=== PATIENT | female | born 1960 | race Caucasian/White ===

== ENCOUNTER 2017-08-08 06:25 | Inpatient (IN) | payer BC ==
[2017-08-08] MEDS ORDERED: ACETAMINOPHEN IV (For NPO) 1,000 MG in EMPTY BAG 1 BAG IVPB STA (06:41)
[2017-08-08] MEDS ORDERED: VANCOMYCIN IV PER PHARMACY 1 EACH MISC MISCELLANE PRN (06:41)
[2017-08-08] MEDS ORDERED: PIPERACILLIN-TAZOBACTAM 3.375 GM in DEXTROSE/WATER 1 50ML.BAG IVPB STA (06:41)
[2017-08-08] MEDS ORDERED: ONDANSETRON 4 MG/2 ML VIAL IVP STA (06:44)
--- NOTE | 2017-08-08 06:48 | ED ---
Abdominal Pain HPI - General Source: patient Mode of arrival: ambulatory Limitations: no limitations <Yordy Booth - Last Filed: 08/08/17 07:04> <Wilbert Matos - Last Filed: 08/08/17 08:18> - General Chief Complaint: Abdominal Pain Stated Complaint: Abominal Pain/GI Bleed Time Seen by Provider: 08/08/17 06:33 - History of Present Illness Initial Comments: This is a 57-year-old female who presents emergency department for abdominal pain, diarrhea, and hematochezia. She states that she's been having diarrhea intermittently for the last month. She traveled to [place] about 2 weeks ago and picked up a stomach bug. She states that she had increased amount of diarrhea however seemed to improve until 2 days ago when she noticed that she was having blood in her stools and mucous in her diarrhea. She also has been having some nausea and vomiting and been unable to keep down any food or medications. She states that yesterday night she suddenly developed worse abdominal pain and cramping. It gradually got worse throughout the night to the point where she is now having a severe amount of abdominal pain. She states that it feels like when she gave to her child feet first. She admits to chills however no fevers at home. Denies any dysuria or hematuria. No other acute complaints. (Yordy Booth) - Related Data Allergies Allergy/AdvReac Type Severity Reaction Status Date / Time No Known Allergies Allergy Verified 08/08/17 08:14 Review of Systems ROS Other: All systems not noted in ROS Statement are negative. <Yordy Booth - Last Filed: 08/08/17 07:04> ROS Other: All systems not noted in ROS Statement are negative. <Wilbert Matos - Last Filed: 08/08/17 08:18> ROS Statement: Those systems with pertinent positive or pertinent negative responses have been documented in the HPI. Past Medical History Past Medical History: Hypertension History of Any Multi-Drug Resistant Organisms: None Reported Past Surgical History: Section Past Psychological History: No Psychological Hx Reported Smoking Status: Former smoker Past Alcohol Use History: Rare Past Drug Use History: None Reported <Yordy Booth - Last Filed: 08/08/17 07:04> General Exam Limitations: no limitations <Yordy Booth - Last Filed: 08/08/17 07:04> <Wilbert Matos - Last Filed: 08/08/17 08:18> - General Exam Comments Initial Comments: Constitutional: Awake alert appears in moderate distress and uncomfortable Head: Normocephalic atraumatic Eyes: no conjunctival injection, the conjunctiva are pale No scleral icterus EOMI Neck: No JVD Supple Heart: Tachycardic with a regular rhythm normal S1-S2 no murmurs Lungs: Clear to auscultation bilaterally No wheezing No rales Abdomen: Soft I'll be distended with diffuse abdominal tenderness and guarding and rebound Extremities: Non edematous DP pulses intact Radial pulses intact Neuro: A&Ox3 No focal neurologic deficits Psych: Appropriate mood and affect (Yordy Booth) Course <Yordy Booth - Last Filed: 08/08/17 07:04> <Wilbert Matos - Last Filed: 08/08/17 08:18> Vital Signs 08/08/17 06:28 Temperature 102.5 F H Pulse Rate 126 H Respiratory 18 Rate Blood Pressure 145/82 O2 Sat by Pulse 95 Oximetry - Reevaluation(s) Reevaluation #1: 08/08/17 06:56 EKG showing sinus tachycardia with a rate of 122. No abnormal ST segment changes or T-wave inversions. QTC is 41. Other intervals are normal. No ectopy. (Yordy Booth) Reevaluation #2: 08/08/17 07:05 Patient's care transitioned to Dr. Matos (Yordy Booth) Reevaluation #3: 08/08/17 08:15 Call received from radiologist regarding computed tomography scan. Patient reevaluated and is resting comfortably in bed. Patient and family are updated on results. Patient states she does see Dr. Hayes. Dr. Holguin has been paged. Patient does meet sepsis criteria diagnosed at 10 29. Blood culture and lactic acid and IV antibiotics have already been ordered. (Wilbert Matos) Medical Decision Making - Lab Data Result diagrams: 08/08/17 06:49 08/08/17 06:49 - Radiology Data Radiology results: report reviewed (Computed tomography scan of the abdomen and pelvis as discussed with radiologist has concern for colitis versus tumor in the rectosigmoid junction. In addition there is pneumoperitoneum. In addition there is some concern for liver metastasis.), image reviewed (Abdominal x-ray shows possible pneumoperitoneum. Associated ileus.) <Wilbert Matos - Last Filed: 08/08/17 08:18> - Lab Data Lab Results 08/08/17 08/08/17 08/08/17 Range/Units 06:49 06:49 06:49 WBC 9.6 (3.8-10.6) k/uL RBC 4.52 (3.80-5.40) m/uL Hgb 12.6 (11.4-16.0) gm/dL Hct 38.0 (34.0-46.0) % MCV 84.1 (80.0-100.0) fL MCH 27.9 (25.0-35.0) pg MCHC 33.2 (31.0-37.0) g/dL RDW 12.6 (11.5-15.5) % Plt Count 417 (150-450) k/uL Neutrophils % 89 % Lymphocytes % 6 % Monocytes % 3 % Eosinophils % 1 % Basophils % 0 % Neutrophils # 8.5 H (1.3-7.7) k/uL Lymphocytes # 0.6 L (1.0-4.8) k/uL Monocytes # 0.3 (0-1.0) k/uL Eosinophils # 0.1 (0-0.7) k/uL Basophils # 0.0 (0-0.2) k/uL PT (9.0-12.0) sec INR (<1.2) APTT (22.0-30.0) sec Sodium (137-145) mmol/L Potassium (3.5-5.1) mmol/L Chloride (98-107) mmol/L Carbon Dioxide (22-30) mmol/L Anion Gap mmol/L BUN (7-17) mg/dL Creatinine (0.52-1.04) mg/dL Est GFR (CKD-EPI)AfAm (>60 ml/min/1.73 sqM) Est GFR (CKD-EPI)NonAf (>60 ml/min/1.73 sqM) Glucose (74-99) mg/dL Plasma Lactic Acid Inder (0.7-2.0) mmol/L Calcium (8.4-10.2) mg/dL Total Bilirubin (0.2-1.3) mg/dL AST (14-36) U/L ALT (9-52) U/L Alkaline Phosphatase (38-126) U/L Total Creatine Kinase 131 (30-135) U/L CK-MB (CK-2) 1.1 (0.0-2.4) ng/mL CK-MB (CK-2) Rel Index 0.8 Troponin I <0.012 (0.000-0.034) ng/mL Total Protein (6.3-8.2) g/dL Albumin (3.5-5.0) g/dL Urine Color Urine Appearance (Clear) Urine pH (5.0-8.0) Ur Specific [place] (1.001-1.035) Urine Protein (Negative) Urine Glucose (UA) (Negative) Urine Ketones (Negative) Urine Blood (Negative) Urine Nitrite (Negative) Urine Bilirubin (Negative) Urine Urobilinogen (<2.0) mg/dL Ur Leukocyte Esterase (Negative) Urine RBC (0-5) /hpf Urine WBC (0-5) /hpf Ur Squamous Epith Cells (0-4) /hpf Urine Mucus (None) /hpf Blood Type A Positive Blood Type Recheck CABO Indicated Antibody Screen NEGATIVE Spec Expiration Date 08/11/2017 - 234808/08/17 08/08/17 08/08/17 Range/Units 06:49 06:49 06:49 WBC (3.8-10.6) k/uL RBC (3.80-5.40) m/uL Hgb (11.4-16.0) gm/dL Hct (34.0-46.0) % MCV (80.0-100.0) fL MCH (25.0-35.0) pg MCHC (31.0-37.0) g/dL RDW (11.5-15.5) % Plt Count (150-450) k/uL Neutrophils % % Lymphocytes % % Monocytes % % Eosinophils % % Basophils % % Neutrophils # (1.3-7.7) k/uL Lymphocytes # (1.0-4.8) k/uL Monocytes # (0-1.0) k/uL Eosinophils # (0-0.7) k/uL Basophils # (0-0.2) k/uL PT 10.4 (9.0-12.0) sec INR 1.1 (<1.2) APTT 21.5 L (22.0-30.0) sec Sodium 137 (137-145) mmol/L Potassium 3.6 (3.5-5.1) mmol/L Chloride 100 (98-107) mmol/L Carbon Dioxide 22 (22-30) mmol/L Anion Gap 15 mmol/L BUN 13 (7-17) mg/dL Creatinine 0.46 L (0.52-1.04) mg/dL Est GFR (CKD-EPI)AfAm >90 (>60 ml/min/1.73 sqM) Est GFR (CKD-EPI)NonAf >90 (>60 ml/min/1.73 sqM) Glucose 233 H (74-99) mg/dL Plasma Lactic Acid Inder 0.9 (0.7-2.0) mmol/L Calcium 9.0 (8.4-10.2) mg/dL Total Bilirubin 0.9 (0.2-1.3) mg/dL AST 27 (14-36) U/L ALT 28 (9-52) U/L Alkaline Phosphatase 118 (38-126) U/L Total Creatine Kinase (30-135) U/L CK-MB (CK-2) (0.0-2.4) ng/mL CK-MB (CK-2) Rel Index Troponin I (0.000-0.034) ng/mL Total Protein 6.3 (6.3-8.2) g/dL Albumin 3.8 (3.5-5.0) g/dL Urine Color Urine Appearance (Clear) Urine pH (5.0-8.0) Ur Specific [place] (1.001-1.035) Urine Protein (Negative) Urine Glucose (UA) (Negative) Urine Ketones (Negative) Urine Blood (Negative) Urine Nitrite (Negative) Urine Bilirubin (Negative) Urine Urobilinogen (<2.0) mg/dL Ur Leukocyte Esterase (Negative) Urine RBC (0-5) /hpf Urine WBC (0-5) /hpf Ur Squamous Epith Cells (0-4) /hpf Urine Mucus (None) /hpf Blood Type Blood Type Recheck Antibody Screen Spec Expiration Date 08/08/17 Range/Units 07:55 WBC (3.8-10.6) k/uL RBC (3.80-5.40) m/uL Hgb (11.4-16.0) gm/dL Hct (34.0-46.0) % MCV (80.0-100.0) fL MCH (25.0-35.0) pg MCHC (31.0-37.0) g/dL RDW (11.5-15.5) % Plt Count (150-450) k/uL Neutrophils % % Lymphocytes % % Monocytes % % Eosinophils % % Basophils % % Neutrophils # (1.3-7.7) k/uL Lymphocytes # (1.0-4.8) k/uL Monocytes # (0-1.0) k/uL Eosinophils # (0-0.7) k/uL Basophils # (0-0.2) k/uL PT (9.0-12.0) sec INR (<1.2) APTT (22.0-30.0) sec Sodium (137-145) mmol/L Potassium (3.5-5.1) mmol/L Chloride (98-107) mmol/L Carbon Dioxide (22-30) mmol/L Anion Gap mmol/L BUN (7-17) mg/dL Creatinine (0.52-1.04) mg/dL Est GFR (CKD-EPI)AfAm (>60 ml/min/1.73 sqM) Est GFR (CKD-EPI)NonAf (>60 ml/min/1.73 sqM) Glucose (74-99) mg/dL Plasma Lactic Acid Inder (0.7-2.0) mmol/L Calcium (8.4-10.2) mg/dL Total Bilirubin (0.2-1.3) mg/dL AST (14-36) U/L ALT (9-52) U/L Alkaline Phosphatase (38-126) U/L Total Creatine Kinase (30-135) U/L CK-MB (CK-2) (0.0-2.4) ng/mL CK-MB (CK-2) Rel Index Troponin I (0.000-0.034) ng/mL Total Protein (6.3-8.2) g/dL Albumin (3.5-5.0) g/dL Urine Color Yellow Urine Appearance Clear (Clear) Urine pH 6.0 (5.0-8.0) Ur Specific [place] 1.018 (1.001-1.035) Urine Protein Trace H (Negative) Urine Glucose (UA) 2+ H (Negative) Urine Ketones 1+ H (Negative) Urine Blood Trace H (Negative) Urine Nitrite Negative (Negative) Urine Bilirubin Negative (Negative) Urine Urobilinogen <2.0 (<2.0) mg/dL Ur Leukocyte Esterase Negative (Negative) Urine RBC 2 (0-5) /hpf Urine WBC 1 (0-5) /hpf Ur Squamous Epith Cells <1 (0-4) /hpf Urine Mucus Rare H (None) /hpf Blood Type Blood Type Recheck Antibody Screen Spec Expiration Date Critical Care Time Critical Care Time: Yes Total Critical Care Time: 32 <Wilbert Matos - Last Filed: 08/08/17 08:18> Disposition <Yordy Booth - Last Filed: 08/08/17 07:04> Is patient prescribed a controlled substance at d/c from ED?: No Decision Time: 08:18 <Wilbert Matos - Last Filed: 08/08/17 08:18> Clinical Impression: Pneumoperitoneum Disposition: ADMITTED IP TO THIS HOSP Condition: Serious Referrals: None,Stated [Primary Care Provider] - 1-2 days
[2017-08-08] MEDS ORDERED: RX INFO: IV CONTRAST WAS GIVEN 1 EACH MISC MISCELLANE PRN (06:56)
[2017-08-08] MEDS ORDERED: VANCOMYCIN 1,250 MG in SODIUM CHLORIDE 0.9% 250 ML IVPB ONE (07:00)
[2017-08-08] MEDS: MORPHINE SULFATE 4 MG/ML SYRINGE IVP STA ×2 (07:06→08:12)
[2017-08-08] MEDS: SODIUM CHLORIDE 0.9% 500 ML IV SCH ×3 (07:06→14:45)
[2017-08-08 07:21] LABS: Basophils % (A) 0 %; Eosinophils # (A) 0.1 k/uL (0-0.7); Eosinophils % (A) 1 %; HGB 12.6 gm/dL (11.4-16.0); Lymphocytes # (A) 0.6 k/uL (1.0-4.8); Lymphocytes % (A) 6 %; MCH 27.9 pg (25.0-35.0); MCHC 33.2 g/dL (31.0-37.0); MCV 84.1 fL (80.0-100.0); Mean Platelet Volume 7.2; Monocytes # (A) 0.3 k/uL (0-1.0); Monocytes % (A) 3 %; Neutrophils # (A) 8.5 k/uL (1.3-7.7); Neutrophils % (A) 89 %; Platelet Count 417 k/uL (150-450); RBC 4.52 m/uL (3.80-5.40); RDW 12.6 % (11.5-15.5); WBC 9.6 k/uL (3.8-10.6)
[2017-08-08 07:26] LABS: ALT 28 U/L (9-52); AST 27 U/L (14-36); Albumin 3.8 g/dL (3.5-5.0); Alkaline Phosphatase 118 U/L (38-126); Anion Gap 15 mmol/L; Blood Urea Nitrogen 13 mg/dL (7-17); Carbon Dioxide 22 mmol/L (22-30); Chloride 100 mmol/L (98-107); Glucose 233 mg/dL (74-99); Potassium 3.6 mmol/L (3.5-5.1); Sodium 137 mmol/L (137-145); Total Bilirubin 0.9 mg/dL (0.2-1.3); Total Protein 6.3 g/dL (6.3-8.2)
[2017-08-08 07:37] LABS: INR 1.1 (<1.2); Prothrombin Time 10.4 sec (9.0-12.0)
[2017-08-08 07:42] LABS: Partial Thromboplastin Time 21.5 sec (22.0-30.0)
[2017-08-08 07:43] LABS: Creatine Kinase 131 U/L (30-135)
[2017-08-08 07:56] LABS: Creatine Kinase MB 1.1 ng/mL (0.0-2.4); Troponin I <0.012 ng/mL (0.000-0.034)
[2017-08-08 08:10] LABS: Appearance,Urine Clear (Clear); Bilirubin,Urine Negative (Negative); Blood,Urine Trace (Negative); Color,Urine Yellow; Glucose,Urine (UA) 2+ (Negative); Ketones,Urine 1+ (Negative); Leukocyte Esterase,Urine Negative (Negative); Mucus,Urine Rare /hpf; Nitrite,Urine Negative (Negative); Protein,Urine Trace (Negative); RBC,Urine 2 /hpf (0-5); Specific Gravity,Urine 1.018 (1.001-1.035); Squamous Epithelial Cell,Urine <1 /hpf (0-4); Urobilinogen,Urine <2.0 mg/dL (<2.0); WBC,Urine 1 /hpf (0-5)
--- NOTE | 2017-08-08 08:11 | XR ---
EXAMINATION TYPE: XR abdomen acute w cxr DATE OF EXAM: 08/08/2017 COMPARISON: NONE HISTORY: Nausea vomiting and abdominal distention, fever TECHNIQUE: Supine, upright, and frontal chest views of the abdomen and chest are obtained. FINDINGS: Chest x-ray shows no abnormality. There is pneumoperitoneum suspected beneath the left hemidiaphragm. There are fluid levels with some gas-distended small bowel present. There are overlying cardiac leads . No mass effects are seen. No unusual calcifications. IMPRESSION: Pneumoperitoneum. There may be an associated ileus. Recommend CT scan of the abdomen and pelvis. Report relayed to Dr. Matos telephonically at the time o f interpretation.
[2017-08-08] MEDS ORDERED: MORPHINE SULFATE 4 MG/ML SYRINGE IV PRN (08:18)
[2017-08-08] MEDS ORDERED: NALOXONE 0.4 MG/ML 1 ML VIAL IV PRN ×2 (08:18→10:58)
--- NOTE | 2017-08-08 08:18 | CT ---
EXAMINATION TYPE: CT abdomen pelvis w con DATE OF EXAM: 08/08/2017 HISTORY: Abdominal pain, GI bleed CT DLP: 637.5mGycm Automated Exposure Control for Dose Reduction was Utilized. CONTRAST: CT scan of the abdomen and pelvis is performed with IV Contrast, patient injected with 100 mL of Isov ue 300. COMPARISON: None. FINDINGS: LUNG BASES: Very minimal bibasilar subsegmental atelectasis is seen. LIVER/GB: There are 3 suspicious hepatic lesions that do not meet criteria for simple cysts with the largest in segment 8 measuring 4.9 x 3.3 cm. The second largest PANCREAS: No significant abnormality is seen. SPLEEN: No significant abnormality is seen. No spinal megaly. ADRENALS: No nodularity or thickening. KIDNEYS: Kidneys enhance and excrete symmetrically. No hydronephrosis. BOWEL: There is focal bowel wall thickening of the rectosigmoid junction such as on series 3 image 59 and 55 measuring up to 1.3 cm left eccentric lead. There is also surrounding free fluid within the m esorectal fascia. Foci of free air seen adjacent to this on image 58 and 55. Additionally there is pn eumoperitoneum anterior to the liver margin in the upper ventral abdomen. Proximal to the bowel wall thickening there is colonic distention without clyde dilatation measuring up to 4.9 cm. Retained stoo l seen throughout the colon. Prominent loops of small bowel demonstrating small bowel feces sign or m easured in the left upper abdomen on coronal images up to 2.5 cm, nondilated. Additionally foci of ex traluminal air are seen within the posterior mediastinum anterior to the esophagus. The second larges t hepatic lesion measures 2.5 x 2.2 cm and the smaller left hepatic lobe lesion measures 1.3 cm. Destini hepatic ascites is identified. No intrahepatic biliary ductal dilatation. LYMPH NODES: Ascites limits evaluation for adenopathy. r 1.1 cm lymph node is seen anterior to the le ft common iliac artery on image 38. 9 mm short axis lymph node is also seen adjacent to the left comm on iliac artery on image 42. OSSEOUS STRUCTURES: Nonspecific but slightly suspicious sclerotic lesion with spiculated margins is s een at the L5 vertebral body measuring 1.5 cm in anterior posterior dimension. Other punctate scatter ed osseous sclerotic foci may relate to bone islands. There is mild retrolisthesis of L1 on L2 with s light vertebral body height loss of the superior endplate. OTHER: Small fat filled umbilical hernia has a 1.5 cm neck. Mild calcific atheromatous changes are se en of the abdominal aorta and its branches. IMPRESSION: Pneumoperitoneum that may arise from the distal sigmoid and rectosigmoid junction as ther e is focal luminal narrowing and eccentric bowel wall thickening suspicious for neoplasm with additio nal suspicion for hepatic metastasis, abdominal adenopathy suspicious osseous lesion and ascites. Les s likely this could relate to colitis of infectious or inflammatory etiology. Additionally foci of ai r are seen adjacent to the distal esophagus. This could relate to second site of rupture or diverticu lum. Findings were relayed to the ordering physician Dr. Matos at 8:03 AM on 08/08/2017.
[2017-08-08] MEDS ORDERED: LACTATED RINGERS 1,000 ML IV ONE ×2 (10:17→12:19)
--- NOTE | 2017-08-08 10:17 | P.GSHP ---
History of Present Illness H&P Date: 08/08/17 Chief Complaint: Abdominal pain This a 57-year-old female who awoke this morning with severe abdominal pain. Patient states for the last 3 weeks she's had change in bowel habit with small caliber stool and diarrhea. Patient had a CAT scan today which showed perforated viscus with free air and inflammatory changes sigmoid colon. There is a question of a colonic neoplasm. Past Medical History Past Medical History: Hypertension History of Any Multi-Drug Resistant Organisms: None Reported Past Surgical History: Section Past Psychological History: No Psychological Hx Reported Smoking Status: Former smoker Past Alcohol Use History: Rare Past Drug Use History: None Reported Medications and Allergies Home Medications Medication Instructions Recorded Confirmed Type Lisinopril [Zestril] 20 mg PO DAILY 08/08/17 08/08/17 History Allergies Allergy/AdvReac Type Severity Reaction Status Date / Time No Known Allergies Allergy Verified 08/08/17 08:21 Surgical - Exam Vital Signs Temp Pulse Resp BP Pulse Ox 102.5 F H 126 H 18 145/82 95 08/08/17 06:28 08/08/17 06:28 08/08/17 06:28 08/08/17 06:28 08/08/17 06:28 - General well developed, no distress - Eyes PERRL - ENT normal pinna - Neck no masses - Respiratory normal expansion - Cardiovascular Rhythm: regular - Abdomen Acute tenderness. There is diffuse abdominal pain. There is positive rebound or guarding. Abdomen: soft Results - Labs 08/08/17 06:49 08/08/17 06:49 Abnormal Lab Results - Last 24 Hours (Table) 08/08/17 08/08/17 08/08/17 Range/Units 06:49 06:49 06:49 Neutrophils # 8.5 H (1.3-7.7) k/uL Lymphocytes # 0.6 L (1.0-4.8) k/uL APTT 21.5 L (22.0-30.0) sec Creatinine 0.46 L (0.52-1.04) mg/dL Glucose 233 H (74-99) mg/dL Urine Protein (Negative) Urine Glucose (UA) (Negative) Urine Ketones (Negative) Urine Blood (Negative) Urine Mucus (None) /hpf 08/08/17 Range/Units 07:55 Neutrophils # (1.3-7.7) k/uL Lymphocytes # (1.0-4.8) k/uL APTT (22.0-30.0) sec Creatinine (0.52-1.04) mg/dL Glucose (74-99) mg/dL Urine Protein Trace H (Negative) Urine Glucose (UA) 2+ H (Negative) Urine Ketones 1+ H (Negative) Urine Blood Trace H (Negative) Urine Mucus Rare H (None) /hpf Diabetes panel 08/08/17 Range/Units 06:49 Sodium 137 (137-145) mmol/L Potassium 3.6 (3.5-5.1) mmol/L Chloride 100 (98-107) mmol/L Carbon Dioxide 22 (22-30) mmol/L BUN 13 (7-17) mg/dL Creatinine 0.46 L (0.52-1.04) mg/dL Glucose 233 H (74-99) mg/dL Calcium 9.0 (8.4-10.2) mg/dL AST 27 (14-36) U/L ALT 28 (9-52) U/L Alkaline Phosphatase 118 (38-126) U/L Total Protein 6.3 (6.3-8.2) g/dL Albumin 3.8 (3.5-5.0) g/dL Calcium panel 08/08/17 Range/Units 06:49 Calcium 9.0 (8.4-10.2) mg/dL Albumin 3.8 (3.5-5.0) g/dL Pituitary panel 08/08/17 Range/Units 06:49 Sodium 137 (137-145) mmol/L Potassium 3.6 (3.5-5.1) mmol/L Chloride 100 (98-107) mmol/L Carbon Dioxide 22 (22-30) mmol/L BUN 13 (7-17) mg/dL Creatinine 0.46 L (0.52-1.04) mg/dL Glucose 233 H (74-99) mg/dL Calcium 9.0 (8.4-10.2) mg/dL Adrenal panel 08/08/17 Range/Units 06:49 Sodium 137 (137-145) mmol/L Potassium 3.6 (3.5-5.1) mmol/L Chloride 100 (98-107) mmol/L Carbon Dioxide 22 (22-30) mmol/L BUN 13 (7-17) mg/dL Creatinine 0.46 L (0.52-1.04) mg/dL Glucose 233 H (74-99) mg/dL Calcium 9.0 (8.4-10.2) mg/dL Total Bilirubin 0.9 (0.2-1.3) mg/dL AST 27 (14-36) U/L ALT 28 (9-52) U/L Alkaline Phosphatase 118 (38-126) U/L Total Protein 6.3 (6.3-8.2) g/dL Albumin 3.8 (3.5-5.0) g/dL Assessment and Plan Assessment: Sigmoid colon perforation. Patient will undergo exploratory laparotomy. I discussed the patient that she will most likely need a colostomy.
[2017-08-08] MEDS ORDERED: MIDAZOLAM 2 MG/2 ML VIAL IV ONE (10:46)
[2017-08-08] MEDS ORDERED: fentaNYL (PF) 50 MCG/ML 2 ML AMP IV ONE (10:50)
[2017-08-08] MEDS ORDERED: ONDANSETRON 4 MG/2 ML VIAL IVP ONE (10:57)
[2017-08-08] MEDS ORDERED: DEXAMETHASONE SOD PHOSPHATE 10 MG/ML 1 ML VIAL IV ONE (10:57)
[2017-08-08] MEDS ORDERED: ONDANSETRON 4 MG/2 ML VIAL IVP PRN (10:58)
[2017-08-08] MEDS ORDERED: HEPARIN SODIUM,PORCINE 5,000 UNIT/ML 1 ML VIAL SQ ONE (10:58)
[2017-08-08] MEDS ORDERED: GLYCOPYRROLATE 0.2 MG/ML 2 ML VIAL ONE (11:04)
[2017-08-08] MEDS ORDERED: ROCURONIUM BROMIDE 10 MG/ML 10 ML VIAL IV ONE (11:04)
[2017-08-08] MEDS ORDERED: PHENYLEPHRINE-0.9% NACL SYG 1 MG/10 ML SYRINGE ONE (11:04)
[2017-08-08] MEDS ORDERED: SUCCINYLCHOLINE CHLORIDE 100 MG/5 ML SYR IV ONE (11:04)
[2017-08-08] MEDS ORDERED: PROPOFOL 10 MG/ML 20 ML VIAL IV ONE (11:04)
[2017-08-08] MEDS ORDERED: NEOSTIGMINE 1 MG/ML 10 ML VIAL ONE (11:04)
[2017-08-08] MEDS ORDERED: SODIUM CHLORIDE 0.9% 50 ML with ceFAZolin 2,000 MG IV ONE ×2 (11:22)
[2017-08-08] MEDS: ROPIVACAINE 250 MG, HYDROMORPHONE (PF) 5 MG in SODIUM CHLORIDE 0.9% 200 ML EPIDURAL PRN (12:36)
[2017-08-08] MEDS ORDERED: BENZOCAINE/MENTHOL LOZENG 1 EACH LOZENGE MUCOUS MEM PRN (13:17)
[2017-08-08] MEDS ORDERED: METOCLOPRAMIDE 5 MG/ML 2 ML VIAL IVP PRN (13:17)
--- NOTE | 2017-08-08 13:25 | P.OP ---
Date of Procedure: 08/08/17 Preoperative Diagnosis: Perforated viscus Postoperative Diagnosis: Sigmoid perforation with mass Incisional hernia incarcerated Procedure(s) Performed: Jodie procedure Repair of incarcerated incisional hernia Anesthesia: STACY Surgeon: Prosper Holguin Estimated Blood Loss (ml): 50 Pathology: other (Sigmoid colon) Condition: stable Disposition: PACU Description of Procedure: She was placed on the operating table in the supine position. She received general anesthesia. Her abdomen was prepped and draped usual sterile fashion. There was a incisional hernia. The abdomen was entered through a low midline incision. The incisional hernia containing incarcerated omentum. The peritoneum was opened. There was purulent fluid within the peritoneal cavity. The abdomen was aspirated. The Bookwalter tract with wound. The colon was quite dilated. There was a obvious mass at the sigmoid colon. There was no feculent perforation. At this point the descending colon was transected with the linear cutter stapler. And then using the LigaSure device the mesentery the colon was divided. And then the rectum was transected with the contour stapler. The specimen was sent to pathology. A silk tie was placed in the proximal colon. The abdomen was irrigated. A 2-0 Prolene stitch was placed on the rectal stump. There was no significant bleeding seen. At this point a suitable spot for the colostomy was chosen in the left lower quadrant. The fascia was grasped with a pair of Elia clamps and then the skin was divided for the colostomy. The colostomy was brought out through the rectus sheath. This fascia was then closed with looped #1 PDS suture. The incarcerated incisional hernia was repaired. The skin was closed yamilex. The colostomy is matured with 3-0 Vicryl suture.
[2017-08-08 14:27] LABS: Basophils % (A) 0 %; Eosinophils # (A) 0.1 k/uL (0-0.7); Eosinophils % (A) 0 %; HCT 35.3 % (34.0-46.0); HGB 11.6 gm/dL (11.4-16.0); Lymphocytes # (A) 0.6 k/uL (1.0-4.8); Lymphocytes % (A) 5 %; MCH 28.3 pg (25.0-35.0); MCHC 32.8 g/dL (31.0-37.0); MCV 86.4 fL (80.0-100.0); Mean Platelet Volume 6.5; Monocytes # (A) 0.2 k/uL (0-1.0); Monocytes % (A) 2 %; Neutrophils # (A) 11.2 k/uL (1.3-7.7); Neutrophils % (A) 93 %; Platelet Count 338 k/uL (150-450); RBC 4.08 m/uL (3.80-5.40); RDW 12.6 % (11.5-15.5); WBC 12.1 k/uL (3.8-10.6)
[2017-08-08 14:36] LABS: Anion Gap 11 mmol/L; Blood Urea Nitrogen 11 mg/dL (7-17); Carbon Dioxide 23 mmol/L (22-30); Chloride 105 mmol/L (98-107); Glucose 230 mg/dL (74-99); Potassium 3.9 mmol/L (3.5-5.1); Sodium 139 mmol/L (137-145)
[2017-08-08] MEDS: PANTOPRAZOLE 40 MG/10 ML VIAL IV SCH (14:45)
[2017-08-08] MEDS: ONDANSETRON 4 MG/2 ML VIAL IVP PRN (15:08)
--- NOTE | 2017-08-08 15:15 | CONS ---
CONSULTATION REASON FOR CONSULTATION AT THIS TIME: Hypertension, multiple medical issues requested by Dr. Holguin. HISTORY OF PRESENT ILLNESS: This is a 57-year-old woman with a past medical history of hypertension being for Dr. Negrete in the outpatient setting, underwent a Jodie's procedure and as well repair of incarcerated incisional hernia for sigmoid perforation with a mass by Dr. Holguin. There is no history of chest pain. No palpitations. No history of headache, loss of consciousness, seizures at this time. Abdominal, pelvis CAT scan was done in the ER which showed pneumoperitoneum and bowel wall suspicious for neoplasm. PAST MEDICAL HISTORY: Hypertension, history of section. MEDICATIONS PRIOR TO ADMISSION INCLUDE: Lisinopril and Zestril 20 mg daily. ALLERGIES: None. FAMILY HISTORY: No history of heart disease or strokes in the family. SOCIAL HISTORY: Previous history of smoking. No history of alcohol. REVIEW OF SYSTEMS: ENT: No diminished hearing or vision. CARDIOVASCULAR: No angina or palpitations. RESPIRATORY: As mentioned earlier, GI: No nausea. : No dysuria. NERVOUS SYSTEM: No numbness or weakness. ALLERGY/IMMUNOLOGY: No asthma or hayfever. MUSCULOSKELETAL: As mentioned earlier. HEMATOLOGY/ONCOLOGY: No history of anemia. ENDOCRINE: No history of diabetes or hypothyroidism. CONSTITUTIONAL: As mentioned earlier. DERMATOLOGY: Negative. RHEUMATOLOGY: Negative. PSYCHIATRY: As mentioned earlier. PHYSICAL EXAMINATION: Patient is alert and oriented x3. Pulse is 93, blood pressure 126/60, respirations 16, temperature 98 degrees, pulse ox 97% on 2 L. HEENT: Conjunctivae normal. Oral mucosa moist. Neck is no jugular venous distention. No lymph node enlargement. CARDIOVASCULAR: S1, S2, muffled, no S3, no S4. RESPIRATORY: Breath sounds diminished in the bases, a few rhonchi, no crackles. ABDOMEN: Soft, status post surgery. No mass palpable. LEGS: No edema, no swelling. NERVOUS SYSTEMS: Higher functions as mentioned earlier. moves all 4 limbs, no focal motor deficits. LYMPHATICS: No lymph node enlargement in the neck or axillae. SKIN: No ulcer, rash, bleeding. LABS: WBC is 12.1, hemoglobin is 11.6, glucose is 233. ASSESSMENT: 1. Acute sigmoid perforation with pneumoperitoneum, status post Jodie's procedure and repair of incarcerated incisional hernia. 2. Rule out sigmoid mass. 3. Hypertension. 4. Increased random blood sugar. Rule out diabetes mellitus type 2. 5. Increased WBC. 6. Remote history of nicotine dependence. RECOMMENDATION: In this 57-year-old woman who presented with multiple complex medical issues, will monitor patient closely, continue with the current management and symptomatic treatment. At this time, I recommend monitor closely. DVT prophylaxis, incentive spirometry, p.r.n. hydralazine. Once the patient is p.o., lisinopril may be restarted. Otherwise, follow up with the biopsies. Prognosis guarded. Will follow the patient closely. The patient will be asked to follow up with the primary physician closely after discharge. Thank you, Dr. Holguin for letting us participate in the care of this patient. See orders for further details. I will also check Accu-Cheks and order a hemoglobin A1c also to rule out the possibility of diabetes mellitus. MMODL / IJN: [id number] /
[2017-08-08] MEDS: HYDROmorphone 0.5 MG/0.5 ML SYRINGE IVP PRN (15:21)
[2017-08-08] MEDS: D5-0.45% NACL WITH KCL 20MEQ/L 1,000 ML IV SCH (15:22)
[2017-08-08] MEDS ORDERED: VANCOMYCIN 1,000 MG in SODIUM CHLORIDE 0.9% 250 ML IVPB SCH (16:00)
[2017-08-08] MEDS: PIPERACILLIN-TAZOBACTAM 3.375 GM in DEXTROSE/WATER 1 50ML.BAG IVPB SCH (17:42)
[2017-08-08] MEDS: HEPARIN SODIUM,PORCINE 5,000 UNIT/ML 1 ML VIAL SQ SCH (17:43)
[2017-08-08] MEDS: INSULIN ASPART 100 UNIT/ML 1 ML 10 ML VIAL SQ SCH ×2 (18:49→20:32)
[2017-08-08] MEDS: SODIUM CHLORIDE 0.9% 1,000 ML IV SCH ×2 (18:49→18:50)
[2017-08-08 19:19] VITALS: BMI 25.4
[2017-08-08 20:41] LABS: Glucose,Whole Blood 293 mg/dL (75-99)
--- NOTE | 2017-08-08 23:57 | CONS ---
CONSULTATION DATE OF SERVICE: 08/08/2017. REASON FOR CONSULTATION: Secondary peritonitis. HISTORY OF PRESENT ILLNESS: The patient is a 57-year-old female presenting to the ER at [facility] with a chief complaint of abdominal pain. Her pain has been going on for almost a month to 2 weeks. The pain has been mostly in the lower abdominal area assigned to be more of a dull aching pain that had subsequently gotten severe to be almost 10 out of 10 and the patient unable to because of significant pain. The patient has felt nauseated, but no significant vomiting. He did have some associated diarrhea. With these symptoms, the patient presented to the [facility] early this morning, where the patient did have a CT of abdomen and pelvis which did show pneumoperitoneum arising from the sigmoid and rectosigmoid junction with a circular luminal narrowing. The patient subsequently was evaluated by Dr. Holguin. The patient is status post laparotomy which was noticed to have perforation within an incisional hernia, incarcerated, status post Jodie procedure and repair of the incarcerated incisional hernia. The patient subsequently has been admitted to the medical floor. I was asked to see the patient regarding evaluation for antibiotic therapy. She did receive a dose of vancomycin and Zosyn in the ER. REVIEW OF SYSTEMS: CONSTITUTIONAL: Positive for weakness, some chills. No high-grade fever, though she did have fever 102.5 on arrival to the ER. EYES: No complaint. ENT: No complaint. RESPIRATORY: No complaint. CARDIOVASCULAR: No complaint. GENITOURINARY: No complaint. GASTROINTESTINAL: As per HPI. MUSCULOSKELETAL: No complaint. INTEGUMENTARY: No complaint. PSYCHOLOGICAL: No complaint. ENDOCRINE: No complaint. NEUROLOGIC: No complaint. PAST MEDICAL HISTORY: Significant for hypertension. PAST SURGICAL HISTORY: . SOCIAL HISTORY: Remote history of smoking. No drinking or drug use. FAMILY HISTORY: No pertinent findings noticed. ALLERGIES: No known drug allergies. MEDICATION: Include the patient is currently on: 1. Benadryl. 2. Heparin. 3. Hydralazine. 4. Dilaudid and. 5. NovoLog. 6. Reglan. 7. Morphine sulfate. 8. Narcan. 9. Zofran. 10.Protonix. 11.Vancomycin. EXAMINATION: Blood pressure is 152/76, pulse of 83, temperature of 97.8, T-max of 102.5. She is 92% on 2L nasal cannula. General description is a middle-aged female lying in bed in no distress. No tachypnea or accessory muscle respiration use. HEENT shows no pallor or scleral icterus. Oral mucosa is dry. No pharyngeal erythema or thrush. NECK: Trachea central. No thyromegaly. LUNGS: Unlabored breathing. Clear to auscultation anteriorly. No wheeze or crackle. HEART: S1, S2. Regular rate and rhythm. ABDOMEN: Soft. She is mildly distended and tender. No guarding or rigidity. EXTREMITIES: No edema of the feet. SKIN: No rash or mass palpable. NEUROLOGICAL: Patient is awake, alert, oriented x3. Mood and affect normal. LABS: Hemoglobin is 11.6, white count 12.1. BUN of 11, creatinine 0.5. Electrolytes have been normal. Liver enzymes are normal. Urine has been negative. No OR culture. Blood culture obtained which is currently pending. DIAGNOSTIC IMPRESSION AND PLAN: Patient admitted to the hospital with sepsis in a patient who did have a fever and elevated white count. Source is a perforated sigmoid colon with secondary peritonitis from the likely organism E coli with the enteric gram-negative, both aerobes and anaerobes. The patient, who has not been in hospital response could be a sensitive pathogen. PLAN: 1. We will start the patient on Zosyn 3.375 g q.8 hours. 2. Discontinue the vancomycin. 3. Gentle IV fluid. 4. Depending upon her clinical response and culture, will adjust her medications further if needed. Thank you for this consultation. Will follow this patient along with you. MMODL / IJN: [id number] /
[2017-08-09] MEDS: D5-0.45% NACL WITH KCL 20MEQ/L 1,000 ML IV SCH ×4 (01:02→23:46)
[2017-08-09] MEDS: SODIUM CHLORIDE 0.9% 1,000 ML IV SCH ×3 (01:04→22:52)
[2017-08-09 04:31] LABS: Hemoglobin A1C 6.8 % (4.0-6.0)
[2017-08-09] MEDS ORDERED: VANCOMYCIN TROUGH DUE 1 EACH MISC MISCELLANE ONE (07:00)
[2017-08-09 07:20] LABS: Glucose,Whole Blood 297 mg/dL (75-99)
[2017-08-09 07:51] LABS: Calcium 8.1 mg/dL (8.4-10.2); Potassium 4.6 mmol/L (3.5-5.1)
[2017-08-09 07:54] LABS: Basophils % (A) 0 %; Eosinophils % (A) 0 %; HGB 10.5 gm/dL (11.4-16.0); Hypochromasia Slight; Lymphocytes % (A) 8 %; MCH 28.5 pg (25.0-35.0); MCHC 31.9 g/dL (31.0-37.0); MCV 89.5 fL (80.0-100.0); Monocytes # (A) 0.4 k/uL (0-1.0); Monocytes % (A) 3 %; Neutrophils # (A) 11.1 k/uL (1.3-7.7); Neutrophils % (A) 88 %; Platelet Count 351 k/uL (150-450); RBC 3.68 m/uL (3.80-5.40); RDW 12.9 % (11.5-15.5); WBC 12.6 k/uL (3.8-10.6)
[2017-08-09] MEDS: HEPARIN SODIUM,PORCINE 5,000 UNIT/ML 1 ML VIAL SQ SCH ×4 (08:07→23:46)
[2017-08-09] MEDS: INSULIN ASPART 100 UNIT/ML 1 ML 10 ML VIAL SQ SCH ×4 (08:07→20:48)
[2017-08-09] MEDS: PIPERACILLIN-TAZOBACTAM 3.375 GM in DEXTROSE/WATER 1 50ML.BAG IVPB SCH ×4 (08:08→23:46)
[2017-08-09] MEDS: PANTOPRAZOLE 40 MG/10 ML VIAL IV SCH (08:09)
--- NOTE | 2017-08-09 08:48 | P.PN ---
Progress Note - Text Anesthesia POD 1. Status Post Way procedure under general endotracheal anesthesia with an epidrual catheter placed at T12 for post surgical pain releif. VAS (0, 3) with ropivicaine 0.1 % and Dilaudid 20 mcg / cc running at 8 cc / hr. Lower extremity strength (4/4). No sedation. Site looks OK.
--- NOTE | 2017-08-09 09:31 | P.PN ---
Subjective Progress Note Date: 08/09/17 Principal diagnosis: Perforated sigmoid colon The patient is postoperative day 1 from heart procedure for sigmoid colon perforation. She is in good spirits. She has minimal complaints of pain. She denies any nausea. She's had no output through her colostomy. Objective - Vital Signs Vital signs: Vital Signs Temp 96.5 F L 08/09/17 05:10 Pulse 91 08/09/17 05:10 Resp 16 08/09/17 05:10 BP 119/59 08/09/17 05:10 Pulse Ox 90 L 08/09/17 05:10 Intake & Output 08/08/17 08/09/17 08/09/17 18:59 06:59 18:59 Intake Total 1700 1300 81.2 Output Total 30 1000 Balance 1670 300 81.2 Weight 58.967 kg Intake: IV 1700 Intake, IV Titration 1300 81.2 Amount D5-0.45% NaCl with KCl 1000 20Meq/l 1,000 ml @ 125 mls/hr IV .Q8H [facility] Rx#: [id number] Piperacillin-Tazobactam 3 50 .375 gm In Dextrose/Water 1 50ml.bag @ 12.5 mls/hr IVPB ONCE STA Rx#: [id number] Ropivacaine 250 mg 81.2 Hydromorphone (Pf) 5 mg In Sodium Chloride 0.9% 200 ml @ Per Protocol EPIDURAL .Q0M PRN Rx#: [id number] Vancomycin 1,000 mg In 250 Sodium Chloride 0.9% 250 ml @ 125 mls/hr IVPB Q8H [facility] Rx#:[id number] Oral 0 Output: Urine 5 1000 Uretheral (Patel) 1000 Estimated Blood Loss 25 Other: Voiding Method Indwelling Catheter Indwelling Catheter - Constitutional General appearance: Present: cooperative - Gastrointestinal Gastrointestinal Comment(s): Abdomen soft. Incision site is clean dry and intact. Colostomy is pink. - Labs CBC & Chem 7: 08/09/17 06:55 08/09/17 06:55 Labs: Abnormal Lab Results - Last 24 Hours (Table) 08/08/17 08/08/17 08/08/17 Range/Units 14:11 14:11 20:26 WBC 12.1 H (3.8-10.6) k/uL RBC (3.80-5.40) m/uL Hgb (11.4-16.0) gm/dL Hct (34.0-46.0) % Neutrophils # 11.2 H (1.3-7.7) k/uL Lymphocytes # 0.6 L (1.0-4.8) k/uL Sodium (137-145) mmol/L Glucose 230 H (74-99) mg/dL POC Glucose (mg/dL) 293 H (75-99) mg/dL Calcium 8.0 L (8.4-10.2) mg/dL 08/09/17 08/09/17 08/09/17 Range/Units 06:55 06:55 07:07 WBC 12.6 H (3.8-10.6) k/uL RBC 3.68 L (3.80-5.40) m/uL Hgb 10.5 L (11.4-16.0) gm/dL Hct 33.0 L (34.0-46.0) % Neutrophils # 11.1 H (1.3-7.7) k/uL Lymphocytes # (1.0-4.8) k/uL Sodium 136 L (137-145) mmol/L Glucose 294 H (74-99) mg/dL POC Glucose (mg/dL) 297 H (75-99) mg/dL Calcium 8.1 L (8.4-10.2) mg/dL Microbiology - Last 24 Hours (Table) 08/08/17 06:49 Blood Culture - Preliminary Blood No Growth after 24 hours 08/08/17 07:55 Urine Culture - Preliminary Urine,Voided Assessment and Plan Plan: Status post Jodie procedure for perforated sigmoid colon. We're still awaiting pathology on the colon. It is unclear if this is due to diverticulitis or a colonic tumor. The patient will remain nothing by mouth.
[2017-08-09] MEDS: diphenhydrAMINE 50 MG/ML 1 ML VIAL IVP PRN ×3 (09:36→21:47)
[2017-08-09 11:02] LABS: Glucose,Whole Blood 225 mg/dL (75-99)
--- NOTE | 2017-08-09 15:58 | PN ---
PROGRESS NOTE DATE OF SERVICE: 08/09/2017. REASON FOR FOLLOWUP: Secondary peritonitis from perforated sigmoid colon. INTERVAL HISTORY: The patient is afebrile. Abdominal pain is currently controlled with pain medication. She did have the NG in. Denies having any chest pain, shortness of breath, cough. EXAMINATION: Blood pressure 119/59 with a pulse of 91, temperature 96.5. She is 90% on room air. General description is a middle aged female, lying in bed in no distress. Respiratory system: Unlabored breathing. Clear to auscultation anteriorly. Heart S1, S2 regular rate and rhythm. Abdomen soft. . LABS: Hemoglobin is 10.5, white count 12.6, BUN of 17, creatinine 0.90. Blood and urine culture so far negative. DIAGNOSTIC IMPRESSION AND PLAN: Patient with secondary peritonitis from a perforated sigmoid tumor. The patient is currently afebrile. White count mildly elevated. We will keep the patient on the Zosyn at this point adjusting it further based on clinical response. Continue supportive care. MMODL / IJN: [id number] /
[2017-08-09 16:05] LABS: Glucose,Whole Blood 177 mg/dL (75-99)
[2017-08-09 17:26] LABS: Glucose,Whole Blood 128 mg/dL (75-99)
[2017-08-09] MEDS ORDERED: SODIUM CHLORIDE 0.9% 500 ML IV ONE (18:00)
[2017-08-09] MEDS: ROPIVACAINE 250 MG, HYDROMORPHONE (PF) 5 MG in SODIUM CHLORIDE 0.9% 200 ML EPIDURAL PRN (18:02)
--- NOTE | 2017-08-09 18:21 | XR ---
EXAMINATION TYPE: XR chest 1V portable DATE OF EXAM: 08/09/2017 COMPARISON: NONE HISTORY: Shortness of breath TECHNIQUE: Single frontal view of the chest is obtained. FINDINGS: Right infrahilar opacity may relate to pulmonary vascular congestion or right basilar airs pace disease. No pleural effusion or pneumothorax. The cardiac silhouette size is within normal limit s. The osseous structures are intact. There is an enteric tube that is slightly cephalad in positio n with its fenestrated portion at or just beyond the gastroesophageal junction. Recommendation is for advancement approximately 2 to 3 cm. IMPRESSION: 1. Advancement of 2 to 3 cm is recommended of the enteric tube for optimal placement. 2. Right infrahilar opacity may represent pulmonary vascular congestion centrally or atelectasis. No pneumonia seen at the lung bases on the CT abdomen pelvis dated 08/08/2017.
[2017-08-09 18:40] LABS: Calcium 8.2 mg/dL (8.4-10.2); Potassium 4.1 mmol/L (3.5-5.1)
[2017-08-09 20:34] LABS: Glucose,Whole Blood 106 mg/dL (75-99)
--- NOTE | 2017-08-09 21:46 | PN ---
PROGRESS NOTE DATE OF SERVICE: 08/09/2017 This 57 -year-old woman with past medical history of multiple medical problems was admitted with sigmoid perforation surgery. Patient being closely monitored. Urine output is diminished at this time. The patient also complaining of pain also. Blood sugars have been closely monitored. PAST MEDICAL HISTORY: Reviewed. REVIEW OF SYSTEMS: CARDIOVASCULAR: No angina or palpitations. RESPIRATORY: As mentioned earlier. GI: No nausea or vomiting. mentioned earlier. Central nervous system: No numbness or weakness. CURRENT MEDICATIONS ARE: Reviewed and include: 1. Cepacol p.r.n. 2. Benadryl 25 mg q.6h. 3. Heparin 5000 subcu q8. 4. Apresoline 10 mg q.4h. 5. Dilaudid 1 mg q.3h p.r.n. 6. Reglan 10 mg q.6h. 8. Narcan. 9. Zofran. 10.Protonix 40 mg IV daily. 11.Zosyn 3.65 IV q.8h. 12.P.r.n. medications. PHYSICAL EXAM: GENERAL: Patient is alert, oriented times three. VITAL SIGNS: Pulse 98, blood pressure 130/72, respiration 18, temp 98 degrees, pulse ox 97% on room air. HEENT: Conjunctivae normal. Oral mucosa moist. NECK: Is no jugular venous distention. No carotid bruit. No lymph node enlargement. CARDIOVASCULAR: S1-S2. No S3, no S4. RESPIRATORY: Breath sounds diminished in the bases. Scattered rhonchi and crackles. Expiratory wheezing also present. ABDOMEN: Soft. Status post surgery. LEGS: No edema. No swelling. CENTRAL NERVOUS SYSTEM: No focal deficits. LABS: WBC 12.2, hemoglobin is 10.5, glucose 297, 225, 177, 128, vancomycin 8.3. ASSESSMENT: 1. Acute sigmoid perforation with pneumoperitoneum, status post Jodie's procedure with repair of incarcerated incisional hernia. 2. Diminished urine output. 3. Rule out sigmoid mass. 4. Hypertension. 5. Increased random blood sugar, rule out diabetes type 2. 6. Increased WBC. 7. Remote history of nicotine dependence. 8. Increased random blood sugar. 9. Impaired fasting glucose. RECOMMENDATIONS AND DISCUSSION: Recommend to continue current medication, continue symptomatic treatment. Hemoglobin A1c is only 6.8. Otherwise we will continue to monitor. I would recommend to increase IV fluids to 150 mL an hour bolus and otherwise continue to monitor and I would also recommend a portable chest x-ray also to ensure normalcy and lack of any fluid overload. Avoid nephrotoxic agents and further recommendations to follow. Patient is already on IV vancomycin and IV Zosyn. MMODL / IJN: [id number] / MTDD
[2017-08-10] MEDS: diphenhydrAMINE 50 MG/ML 1 ML VIAL IVP PRN ×2 (05:50→12:15)
[2017-08-10 07:04] LABS: Glucose,Whole Blood 132 mg/dL (75-99)
[2017-08-10] MEDS: D5-0.45% NACL WITH KCL 20MEQ/L 1,000 ML IV SCH ×3 (07:27→23:01)
[2017-08-10] MEDS: INSULIN ASPART 100 UNIT/ML 1 ML 10 ML VIAL SQ SCH ×4 (07:28→21:55)
[2017-08-10] MEDS: PIPERACILLIN-TAZOBACTAM 3.375 GM in DEXTROSE/WATER 1 50ML.BAG IVPB SCH ×3 (07:29→23:43)
[2017-08-10] MEDS: HEPARIN SODIUM,PORCINE 5,000 UNIT/ML 1 ML VIAL SQ SCH ×3 (07:29→23:11)
[2017-08-10] MEDS: SODIUM CHLORIDE 0.9% 1,000 ML IV SCH ×2 (07:30→20:37)
[2017-08-10] MEDS: PANTOPRAZOLE 40 MG/10 ML VIAL IV SCH (07:30)
--- NOTE | 2017-08-10 08:58 | P.PN ---
Progress Note - Text Progress Note Date: 08/10/17 The patient is resting comfortably. She has had no significant bowel function. Her abdominal pain is minimal. On exam her vital signs are stable. Her abdomen soft. Status post Jodie procedure for sigmoid perforation. Patient continue nothing by mouth.
[2017-08-10 11:19] LABS: Glucose,Whole Blood 138 mg/dL (75-99)
[2017-08-10] MEDS: ALBUTEROL NEBULIZED 2.5 MG/3 ML INHALATION SCH ×2 (11:42→19:52)
--- NOTE | 2017-08-10 16:50 | PN ---
PROGRESS NOTE DATE OF SERVICE: 08/10/2017. REASON FOR FOLLOWUP: Secondary peritonitis from a perforated sigmoid colon. INTERVAL HISTORY: The patient is afebrile. She is currently breathing comfortably, did have some occasional cough, still has the NG. Abdominal pain is about the same. No worsening, though. Did not have any output in her colostomy. She says she was able to get up and walk around. EXAMINATION: Blood pressure 128/64, pulse of 90, temperature of 98.8. She is 98% on room air. General description is a middle-aged female up in the chair in no distress. RESPIRATORY SYSTEM: Unlabored breathing. Some coarse breath sounds bilaterally. No wheeze. HEART: S1, S2. Regular rate and rhythm. ABDOMEN: Soft. No guarding, rigidity. LABS: BUN of 19, creatinine 0.98. Blood culture so far negative. DIAGNOSTIC IMPRESSION AND PLAN: Patient with secondary peritonitis from a perforated sigmoid colon, status post laparotomy and diverting colostomy. Blood cultures have been negative. Patient is to continue on the Zosyn, hopefully switching her to oral once her oral intake is improved. Family present at the bedside. Questions were her care. MMODL / IJN: [id number] /
[2017-08-10 17:00] LABS: Glucose,Whole Blood 155 mg/dL (75-99)
--- NOTE | 2017-08-10 17:28 | P.PN ---
Progress Note - Text Progress Note Date: 08/10/17 Patient is postoperative day# 3 status post exploratory laparotomy, epidural catheter placed for postoperative analgesia, patient currently on epidural infusion ropivacaine 0.1% with Dilaudid 20 mcg/mL, at 8 ml/hours, pain is well controlled, patient had no side effect of the medication, epidural site okay, patient had no motor deficit, Assessment and plan= acute postoperative pain, pain is under control,and will continue the same management, discontinue epidural catheter tomorrow
--- NOTE | 2017-08-10 18:14 | PN ---
PROGRESS NOTE DATE OF SERVICE: 08/10/2017 INTERVAL HISTORY: This is a 57-year-old woman who was admitted with acute sigmoid perforation also postop atelectasis on the on the right side. No chest pain. No palpitations. No fever. PHYSICAL EXAM: Alert and oriented times one. Pulse 102, blood pressure 120/67, respiration rate 18, temperature 97.9, pulse ox 98% on 2 L. HEENT: Conjunctivae normal. NECK: No jugular venous distention. CARDIOVASCULAR: S1, S2. RESPIRATORY: Diminished breath sounds ins the bases. A few scattered rhonchi and crackles. ABDOMEN: Soft and status post surgery. LEGS: No edema. No swelling. CENTRAL NERVOUS SYSTEM: No focal deficits. LABS: WBC 2.2, hemoglobin 10.5, glucose 106. ASSESSMENT: 1. Acute sigmoid perforation with pneumoperitoneum, status post Jodie's procedure with repair of incarcerated incisional hernia. 2. Dementia, with behavioural changes improving. 3. Lower sigmoid mass. 4. Atelectasis of the right lung. 5. Hypertension. 6. Increased random blood sugar, possibly impaired fasting glucose with no evidence of diabetes type 2. 7. Increased WBC. 8. Remote history of nicotine dependence. RECOMMENDATIONS: Continue current management and continue symptomatic treatment. I will add bronchodilators, incentive spirometry, DVT prophylaxis. Continue the rest of the medications. Closely follow with surgery. Further recommendations to follow. MMODL / IJN: [id number] / MTDD
[2017-08-10 20:11] LABS: Glucose,Whole Blood 133 mg/dL (75-99)
[2017-08-10] MEDS: NALBUPHINE 10 MG/ML AMPUL IV PRN (21:19)
[2017-08-10] MEDS: ROPIVACAINE 250 MG, HYDROMORPHONE (PF) 5 MG in SODIUM CHLORIDE 0.9% 200 ML EPIDURAL PRN (22:32)
[2017-08-11] MEDS: D5-0.45% NACL WITH KCL 20MEQ/L 1,000 ML IV SCH ×3 (06:25→21:59)
[2017-08-11] MEDS: SODIUM CHLORIDE 0.9% 1,000 ML IV SCH (06:25)
[2017-08-11 07:09] LABS: Glucose,Whole Blood 158 mg/dL (75-99)
[2017-08-11] MEDS: NALBUPHINE 10 MG/ML AMPUL IV PRN (07:09)
[2017-08-11] MEDS: ALBUTEROL NEBULIZED 2.5 MG/3 ML INHALATION SCH ×3 (07:23→20:16)
[2017-08-11] MEDS: INSULIN ASPART 100 UNIT/ML 1 ML 10 ML VIAL SQ SCH ×4 (07:25→21:58)
[2017-08-11] MEDS: HEPARIN SODIUM,PORCINE 5,000 UNIT/ML 1 ML VIAL SQ SCH ×3 (07:26→23:36)
[2017-08-11] MEDS: PIPERACILLIN-TAZOBACTAM 3.375 GM in DEXTROSE/WATER 1 50ML.BAG IVPB SCH ×3 (07:40→23:35)
[2017-08-11] MEDS: PANTOPRAZOLE 40 MG/10 ML VIAL IV SCH (09:16)
[2017-08-11 11:36] LABS: Glucose,Whole Blood 192 mg/dL (75-99)
--- NOTE | 2017-08-11 14:04 | P.PN ---
Progress Note - Text Progress Note Date: 08/11/17 The patient feels slightly better. She has no significant output through her ostomy tube. She denies any nausea or vomiting.. On exam her vital signs are stable. Her abdomen soft. Her stoma was pink. The patient's nasogastric tube will be removed. She'll remain nothing by mouth. Hopefully we'll start a diet tomorrow.
[2017-08-11 17:06] LABS: Glucose,Whole Blood 171 mg/dL (75-99)
--- NOTE | 2017-08-11 17:36 | PN ---
PROGRESS NOTE DATE OF SERVICE: 08/11/2017 REASON FOR FOLLOWUP: Secondary peritonitis from perforated sigmoid colon. INTERVAL HISTORY: The patient is afebrile. NG has been discontinued. Denies any nausea, no vomiting. Denies any chest pain or shortness of breath or cough. Abdominal pain is currently controlled. No output in the colostomy bag. EXAMINATION: Blood pressure 159/87 with a pulse of 90, 97.3, she is 97% on 2 L nasal cannula. GENERAL DESCRIPTION: A middle aged female up in the bed in no distress. RESPIRATORY SYSTEM: Unlabored breathing. Clear to auscultation anteriorly. HEART: S1, S2. Regular rate. ABDOMEN: Soft. No guarding, no rigidity. LABS: No new labs been obtained today. Blood culture has been negative. DIAGNOSTIC IMPRESSION AND PLAN: Patient with secondary peritonitis from a perforated sigmoid colon status post laparotomy with diverting colostomy. The patient at this time is covered with Zosyn. Will continue switching to oral antibiotics. Continue supportive care. MMODL / IJN: [id number] /
[2017-08-11] MEDS: HYDROmorphone 0.5 MG/0.5 ML SYRINGE IVP PRN ×2 (18:41→22:01)
[2017-08-11 20:05] LABS: Glucose,Whole Blood 156 mg/dL (75-99)
[2017-08-11] MEDS: LISINOPRIL 20 MG TAB PO SCH (21:58)
--- NOTE | 2017-08-11 22:21 | PN ---
PROGRESS NOTE DATE OF SERVICE: 08/11/2017 This 57-year-old woman was admitted after sigmoid perforation surgery and is being closely monitored. The patient had atelectasis. The patient also complains of cough also. No chest pain. No palpitations. NG tube is removed today. EXAM: Alert and oriented x3. Pulse 87, blood pressure 159/87, respirations 16, temperature 97.3, pulse ox 97% on 2 L. HEENT: Conjunctivae normal. Oral mucosa moist. Neck is no jugular venous distention. No lymph node enlargement. CARDIOVASCULAR: S1, S2. RESPIRATORY: Diminished at the bases. A few scattered rhonchi and no crackles. ABDOMEN: Soft, status post surgery. LEGS: No edema. No swelling. CENTRAL NERVOUS SYSTEM: No focal deficits. LABS: Glucose 171. Other labs are noted. ASSESSMENT: 1. Acute sigmoid perforation with pneumoperitoneum, status post Jodie's procedure with a repair of incarcerated incisional hernia. 2. Dementia. 3. Rule out sigmoid mass. 4. Hypertension. 5. Increased random blood sugar, possibly impaired fasting glucose. 6. Increased white blood count. 7. Remote history of nicotine dependence. RECOMMENDATIONS: Recommend to continue current management. Continue with monitoring and symptomatic treatment. At this time I recommend incentive spirometry and bronchodilators. Closely follow with surgery. Guarded prognosis. Further recommendations to follow. MMODL / IJN: [id number] /
[2017-08-12] MEDS: HYDROmorphone 0.5 MG/0.5 ML SYRINGE IVP PRN ×6 (02:42→21:52)
[2017-08-12 07:13] LABS: Glucose,Whole Blood 168 mg/dL (75-99)
[2017-08-12] MEDS: ONDANSETRON 4 MG/2 ML VIAL IVP PRN (07:25)
[2017-08-12] MEDS: D5-0.45% NACL WITH KCL 20MEQ/L 1,000 ML IV SCH ×2 (07:25→15:19)
[2017-08-12] MEDS: PIPERACILLIN-TAZOBACTAM 3.375 GM in DEXTROSE/WATER 1 50ML.BAG IVPB SCH ×3 (07:26→23:22)
[2017-08-12 07:27] LABS: Basophils % (A) 0 %; Eosinophils # (A) 0.2 k/uL (0-0.7); Eosinophils % (A) 3 %; HCT 34.3 % (34.0-46.0); HGB 11.1 gm/dL (11.4-16.0); Lymphocytes # (A) 1.1 k/uL (1.0-4.8); Lymphocytes % (A) 16 %; MCH 28.4 pg (25.0-35.0); MCHC 32.3 g/dL (31.0-37.0); MCV 87.8 fL (80.0-100.0); Mean Platelet Volume 6.6; Monocytes # (A) 0.4 k/uL (0-1.0); Monocytes % (A) 6 %; Neutrophils # (A) 5.3 k/uL (1.3-7.7); Neutrophils % (A) 74 %; Platelet Count 348 k/uL (150-450); RDW 12.5 % (11.5-15.5); WBC 7.2 k/uL (3.8-10.6)
[2017-08-12] MEDS: INSULIN ASPART 100 UNIT/ML 1 ML 10 ML VIAL SQ SCH ×4 (07:36→21:51)
[2017-08-12] MEDS: PANTOPRAZOLE 40 MG/10 ML VIAL IV SCH (07:37)
[2017-08-12 07:46] LABS: Anion Gap 10 mmol/L; Blood Urea Nitrogen 7 mg/dL (7-17); Calcium 8.5 mg/dL (8.4-10.2); Carbon Dioxide 28 mmol/L (22-30); Chloride 98 mmol/L (98-107); Glucose 180 mg/dL (74-99); Potassium 4.9 mmol/L (3.5-5.1); Sodium 136 mmol/L (137-145)
[2017-08-12] MEDS: ALBUTEROL NEBULIZED 2.5 MG/3 ML INHALATION SCH ×3 (07:57→20:05)
[2017-08-12] MEDS: LISINOPRIL 20 MG TAB PO SCH (08:18)
[2017-08-12] MEDS: HEPARIN SODIUM,PORCINE 5,000 UNIT/ML 1 ML VIAL SQ SCH ×3 (08:19→23:20)
[2017-08-12 11:55] LABS: Glucose,Whole Blood 229 mg/dL (75-99)
--- NOTE | 2017-08-12 12:25 | P.PN ---
Subjective Progress Note Date: 08/12/17 57-year-old female resting in bed. Patient states she did ambulate in the hallway. No output through the ostomy at this time. Reports no nausea vomiting. Surgical dressing site dry. Afebrile states urinating no difficulty Postop August 08 repair of incarcerated incisional hernia, heart commands procedure , done for sigmoid perforation with mass Objective - Vital Signs Vital signs: Vital Signs Temp 98.2 F 08/12/17 05:35 Pulse 100 08/12/17 08:11 Resp 16 08/12/17 07:40 BP 171/85 08/12/17 05:35 Pulse Ox 95 08/12/17 07:59 Intake & Output 08/11/17 08/12/17 08/12/17 18:59 06:59 18:59 Intake Total 925 1050 Output Total 750 2600 1750 Balance 175 -1550 -1750 Weight 58.967 kg 58.967 kg Intake: Intake, IV Titration 925 1050 Amount D5-0.45% NaCl with KCl 875 1000 20Meq/l 1,000 ml @ 125 mls/hr IV .Q8H [facility] Rx#: [id number] Piperacillin-Tazobactam 3 50 50 .375 gm In Dextrose/Water 1 50ml.bag @ 12.5 mls/hr IVPB Q8HR [facility] Rx#: [id number] Output: Urine 750 2600 1750 Uretheral (Patel) 250 Other: Voiding Method Indwelling Catheter Indwelling Catheter Indwelling Catheter - Exam Physical exam 57-year-old female resting in bed states she just ambulating in the hallway pain medication effective for pain control Lungs adequate air movement bilaterally no wheezing rales or rhonchi Heart S1-S2 audible regular denying chest pain Abdomen ostomy in the left lower quadrant scant amount of liquid noted no stool surgical dressing site dry no bowel tones noted surgical tenderness appropriate reports no nausea vomiting Extremities Venodyne's on to the bilateral lower extremities - Labs CBC & Chem 7: 08/12/17 06:41 08/12/17 06:41 Labs: Abnormal Lab Results - Last 24 Hours (Table) 08/11/17 08/11/17 08/12/17 Range/Units 17:04 20:04 06:41 Hgb 11.1 L (11.4-16.0) gm/dL Sodium (137-145) mmol/L Glucose (74-99) mg/dL POC Glucose (mg/dL) 171 H 156 H (75-99) mg/dL 08/12/17 08/12/17 08/12/17 Range/Units 06:41 07:10 11:54 Hgb (11.4-16.0) gm/dL Sodium 136 L (137-145) mmol/L Glucose 180 H (74-99) mg/dL POC Glucose (mg/dL) 168 H 229 H (75-99) mg/dL Microbiology - Last 24 Hours (Table) 08/08/17 06:49 Blood Culture - Preliminary Blood No Growth after 96 hours Assessment and Plan Assessment: Impression Present on admission intractable abdominal pain with change in bowel habits with a CAT scan showing perforated fistula with free air with inflammatory changes sigmoid colon with a questionable colon neoplasm Postop August 08 repair of incarcerated incisional hernia, Way's procedure for incisional hernia incarcerated with sigmoid perforation with mass Plan Continue postop surgical care Increase activity Await bowel function to recent will initiate diet Keep strict nothing by mouth until bowel function resumes Pain control Await path report pending Monitor labs DVT and GI prophylaxis IV antibiotics Zosyn as ordered The above impression and plan of care have been discussed and directed by signing physician. Stephanie Catalan nurse practitioner acting as scribe for signing physician.
[2017-08-12] MEDS: SODIUM CHLORIDE 0.9% 1,000 ML IV SCH (15:21)
[2017-08-12 17:01] LABS: Glucose,Whole Blood 159 mg/dL (75-99)
--- NOTE | 2017-08-12 18:01 | PN ---
PROGRESS NOTE DATE OF SERVICE: 08/12/2017 INTERVAL HISTORY: This 57-year-old woman was admitted with acute sigmoid perforation and had surgery. The patient improved significantly. Patient has some atelectasis also. No chest pain. No palpitations. No fever. PHYSICAL EXAM: Alert and oriented x3. Pulse 100, blood pressure 171/85, respirations 16, temperature 98.2, pulse ox 98% on 2 L. HEENT: Conjunctivae normal. Oral mucosa moist. Neck is no jugular venous distention. No carotid bruit. No lymph node enlargement. CARDIOVASCULAR SYSTEM: No S3 or S4. RESPIRATORY: Breath sounds diminished at the bases. A few scattered rhonchi. No crackles. ABDOMEN: Soft, nontender. No mass palpable. LEGS: No edema, no swelling. NERVOUS SYSTEM: Higher functions as mentioned earlier, moves all 4 limbs. No focal motor deficits. LYMPHATICS: No lymph node enlargement in the neck or axillae. SKIN: No ulcer, rash, bleeding. LAB STUDIES: WBC 7.2, hemoglobin 7.1. Sodium is 136. ASSESSMENT: 1. Acute sigmoid perforation with pneumoperitoneum, status post Jodie's procedure with repair of incarcerated incisional hernia. 2. Dementia. 3. Rule out sigmoid mass. 4. Hypertension. 5. Increased random blood sugar, possibly impaired fasting glucose. 6. Increased white blood count. 7. Remote history of nicotine dependence. RECOMMENDATION: Recommend to continue current medication, continue with monitoring and symptomatic treatment. At this time I would recommend to continue with current medications. Continue with symptomatic treatment. Continue with incentive spirometry. Further recommendations to follow. MMODL / IJN: [id number] /
--- NOTE | 2017-08-12 18:37 | PN ---
PROGRESS NOTE DATE OF SERVICE: 08/12/2017. REASON FOR FOLLOWUP: Secondary peritonitis from perforated bowel. INTERVAL HISTORY: The patient is currently afebrile. She is feeling better. Pain is currently controlled. Denies having nausea vomiting after removal of the NG. No chest pain, shortness of breath or cough. EXAMINATION: Her blood pressure is 131/85, pulse of 95, temperature 98.2. She is 98% on 2L nasal cannula. General description is a middle-aged female lying in bed in no distress. RESPIRATORY SYSTEM: Unlabored breathing. Clear to auscultation anteriorly. HEART: S1, S2. Regular rate and rhythm. ABDOMEN: Soft. No tenderness. LABS: Hemoglobin 11.1, white count 7.2. BUN of 7, creatinine 0.75. Blood culture has been negative. DIAGNOSTIC IMPRESSION AND PLAN: Patient with secondary peritonitis from a perforated bowel, status post diverting colostomy. The patient at this time will continue on Zosyn. Once her oral intake is improved, switch her to p.o. antibiotic for a short course. This was discussed with the nurse practitioner for the surgical team. Continue supportive care. MMODL / IJN: [id number] /
[2017-08-12 20:12] LABS: Glucose,Whole Blood 167 mg/dL (75-99)
[2017-08-13] MEDS: SODIUM CHLORIDE 0.9% 1,000 ML IV SCH ×2 (03:45→13:21)
[2017-08-13] MEDS: HYDROmorphone 0.5 MG/0.5 ML SYRINGE IVP PRN ×4 (04:23→16:52)
[2017-08-13 06:44] LABS: Glucose,Whole Blood 137 mg/dL (75-99)
[2017-08-13] MEDS: ALBUTEROL NEBULIZED 2.5 MG/3 ML INHALATION SCH ×3 (07:20→19:40)
[2017-08-13 08:16] LABS: Basophils % (A) 0 %; Eosinophils # (A) 0.2 k/uL (0-0.7); Eosinophils % (A) 3 %; HCT 37.4 % (34.0-46.0); HGB 12.2 gm/dL (11.4-16.0); Lymphocytes # (A) 1.4 k/uL (1.0-4.8); Lymphocytes % (A) 20 %; MCH 28.1 pg (25.0-35.0); MCHC 32.6 g/dL (31.0-37.0); MCV 86.2 fL (80.0-100.0); Monocytes # (A) 0.5 k/uL (0-1.0); Monocytes % (A) 7 %; Neutrophils # (A) 4.9 k/uL (1.3-7.7); Neutrophils % (A) 69 %; Platelet Count 441 k/uL (150-450); RBC 4.34 m/uL (3.80-5.40); RDW 12.6 % (11.5-15.5); WBC 7.1 k/uL (3.8-10.6)
[2017-08-13 08:34] LABS: ALT 29 U/L (9-52); AST 23 U/L (14-36); Albumin 3.2 g/dL (3.5-5.0); Alkaline Phosphatase 97 U/L (38-126); Anion Gap 13 mmol/L; Blood Urea Nitrogen 7 mg/dL (7-17); Carbon Dioxide 29 mmol/L (22-30); Chloride 95 mmol/L (98-107); Glucose 119 mg/dL (74-99); Potassium 4.5 mmol/L (3.5-5.1); Sodium 137 mmol/L (137-145); Total Bilirubin 0.5 mg/dL (0.2-1.3)
[2017-08-13] MEDS: PIPERACILLIN-TAZOBACTAM 3.375 GM in DEXTROSE/WATER 1 50ML.BAG IVPB SCH ×2 (08:37→16:51)
[2017-08-13] MEDS: INSULIN ASPART 100 UNIT/ML 1 ML 10 ML VIAL SQ SCH ×4 (08:38→20:59)
[2017-08-13] MEDS: HEPARIN SODIUM,PORCINE 5,000 UNIT/ML 1 ML VIAL SQ SCH ×2 (08:46→16:51)
[2017-08-13] MEDS: LISINOPRIL 20 MG TAB PO SCH (08:46)
[2017-08-13] MEDS: PANTOPRAZOLE 40 MG/10 ML VIAL IV SCH (08:46)
[2017-08-13 11:12] LABS: Glucose,Whole Blood 142 mg/dL (75-99)
--- NOTE | 2017-08-13 13:47 | P.PN ---
Subjective Progress Note Date: 08/13/17 57-year-old female seen sitting up in a chair. Patient states she has been up ambulating in the hallway. Did pass gas through the ostomy no stool no reports of nausea vomiting surgical dressing dry. Ostomy left lower quadrant scant amount of drainage in the ostomy bag of clear brownish liquid l path report pending Postop August 08 repair of incarcerated incisional hernia, waqar procedure, done for sigmoid perforation with mass Objective - Vital Signs Vital signs: Vital Signs Temp 98.0 F 08/13/17 05:30 Pulse 84 08/13/17 13:30 Resp 16 08/13/17 05:30 BP 167/84 08/13/17 05:30 Pulse Ox 95 08/13/17 07:20 Intake & Output 08/12/17 08/13/17 08/13/17 18:59 06:59 18:59 Intake Total 550 Output Total 2170 10 Balance -1620 -10 Weight 58.967 kg Intake: Intake, IV Titration 550 Amount D5-0.45% NaCl with KCl 500 20Meq/l 1,000 ml @ 125 mls/hr IV .Q8H [facility] Rx#: [id number] Piperacillin-Tazobactam 3 50 .375 gm In Dextrose/Water 1 50ml.bag @ 12.5 mls/hr IVPB Q8HR [facility] Rx#: [id number] Output: Urine 2150 Uretheral (Patel) 250 Stool 20 10 Other: Voiding Method Toilet Toilet Toilet # Voids 3 - Exam Physical exam 57-year-old female sitting up in a chair tolerating clear liquid diet states ambulated once in the hallway this morning states past gastroileostomy no stool Lungs adequate air movement bilaterally on room air Heart S1-S2 audible and regular denying chest pain Abdomen ostomy left lower quadrant stoma pink no stool scant amount of liquid ileostomy bag states passing gas through the stoma urinating no difficulty tolerating a clear liquid diet no nausea no vomiting a few hypoactive bowel tones noted Extremities no edema noted - Labs CBC & Chem 7: 08/13/17 07:05 08/13/17 07:05 Labs: Abnormal Lab Results - Last 24 Hours (Table) 08/12/17 08/12/17 08/13/17 Range/Units 16:59 20:09 06:42 Chloride (98-107) mmol/L Glucose (74-99) mg/dL POC Glucose (mg/dL) 159 H 167 H 137 H (75-99) mg/dL Total Protein (6.3-8.2) g/dL Albumin (3.5-5.0) g/dL 08/13/17 08/13/17 Range/Units 07:05 11:08 Chloride 95 L (98-107) mmol/L Glucose 119 H (74-99) mg/dL POC Glucose (mg/dL) 142 H (75-99) mg/dL Total Protein 6.0 L (6.3-8.2) g/dL Albumin 3.2 L (3.5-5.0) g/dL Microbiology - Last 24 Hours (Table) 08/08/17 06:49 Blood Culture - Preliminary Blood No Growth after 120 hours Assessment and Plan Assessment: Impression Present on admission intractable abdominal pain with change in bowel habits with a CAT scan showing perforated fistula with free air with inflammatory changes sigmoid colon with a questionable colon neoplasm Postop August 08 repair of incarcerated incisional hernia, Way's procedure for incisional hernia incarcerated with sigmoid perforation with mass Plan Continue postop surgical care Increase activity Clear liquid diet until bowel function resumes Pain control Await path report pending DVT and GI prophylaxis IV antibiotics Zosyn as ordered The above impression and plan of care have been discussed and directed by signing physician. Stephanie Catalan nurse practitioner acting as scribe for signing physician.
--- NOTE | 2017-08-13 15:19 | PN ---
PROGRESS NOTE DATE OF SERVICE: 08/13/2017. REASON FOR FOLLOW UP: Peritonitis from perforated bowel. INTERVAL HISTORY: The patient is currently afebrile. Patient was started on clear liquids. She has been tolerating. Denies any chest pain or shortness of breath. No cough. No abdominal pain. No output in the colostomy bag. EXAMINATION: Blood pressure 137/84, pulse of 85, temperature 98. She is 95% on room air. GENERAL DESCRIPTION: Is a middle-aged female lying in bed in no distress. RESPIRATORY SYSTEM: Unlabored breathing. Clear to auscultation anteriorly. HEART: S1, S2. Regular rate and rhythm. ABDOMEN: Soft, no tenderness. LABS: Hemoglobin is 12.2, white count 7.1. BUN of 7, creatinine 0.78. DIAGNOSTIC IMPRESSION AND PLAN: Patient with secondary peritonitis from perforated bowel. Patient is currently clinically improving. Currently on Zosyn. Continue switching to oral Augmentin improve on discharge. Continue supportive care. MMODL / IJN: [id number] /
[2017-08-13] MEDS ORDERED: VANCOMYCIN IV PER PHARMACY 1 EACH MISC MISCELLANE PRN (16:33)
[2017-08-13] MEDS ORDERED: KETOROLAC 30 MG/ML 1 ML VIAL IVP PRN (16:34)
[2017-08-13 17:00] LABS: Glucose,Whole Blood 229 mg/dL (75-99)
[2017-08-13] MEDS ORDERED: VANCOMYCIN 1,250 MG in SODIUM CHLORIDE 0.9% 250 ML IVPB ONE (17:00)
--- NOTE | 2017-08-13 20:00 | P.PN ---
Subjective Progress Note Date: 08/13/17 Progress note being dictated for Dr. Gusman Interval history: This is a 57-year-old female admitted with perforated bowel, peritonitis, status post Way's and multiple other medical issues. Clear liquids initiated yesterday, tolerated well with no nausea or vomiting. Ambulating, tolerating exertion well. Pathology pending. Passing flatus, no bowel movement. Denies chest pain, palpitations or increased shortness of breath. Maintained on Zosyn as per infectious disease. Afebrile, normal WBC. Objective - Vital Signs Vital signs: Vital Signs Temp 97.5 F L 08/13/17 14:15 Pulse 84 08/13/17 19:46 Resp 18 08/13/17 14:15 BP 176/87 08/13/17 14:15 Pulse Ox 91 L 08/13/17 14:15 Intake & Output 08/13/17 08/13/17 08/14/17 06:59 18:59 06:59 Intake Total 650 Output Total 10 Balance 640 Weight 58.967 kg Intake: Intake, IV Titration 650 Amount Piperacillin-Tazobactam 3 50 .375 gm In Dextrose/Water 1 50ml.bag @ 12.5 mls/hr IVPB Q8HR [facility] Rx#: [id number] Sodium Chloride 0.9% 1, 600 000 ml @ 75 mls/hr IV . [id number] [facility] Rx#:[id number] Output: Stool 10 Other: Voiding Method Toilet Toilet # Voids 3 - Exam PHYSICAL EXAM: VITAL SIGNS: As above GENERAL: Sitting up in bed, no acute distress HEENT: Conjunctivae normal. eyes normal. Oral conjunctivae normal NECK: No JVD. No thyroid enlargement. No LNs CARDIOVASCULAR: S1, S2 muffled. No murmur RESPIRATION: Unlabored, Breath sounds diminished in the bases. No rhonchi or crackles. ABDOMEN: Soft, nontender . Status post surgery .colostomy present. Redness alongside of ostomy. No drainage. Ostomy bag without output. Bowel sounds heard. LEGS: No edema. no swelling PSYCHIATRY: Alert and oriented -3, mood and affect normal. NERVOUS SYSTEM: Cranial N 2-12 grossly normal. Moves all 4 limbs. Diffuse weakness No focal deficits. Joints: No active swelling. No inflammation. Lymphatic system. No LN neck axilla or groin. Microbiology 08/08/17 06:49 Blood Blood Culture - Preliminary No Growth after 120 hours 08/08/17 07:55 Urine,Voided Urine Culture - Final - Labs CBC & Chem 7: 08/13/17 07:05 08/13/17 07:05 Labs: Abnormal Lab Results - Last 24 Hours (Table) 08/12/17 08/13/17 08/13/17 Range/Units 20:09 06:42 07:05 Chloride 95 L (98-107) mmol/L Glucose 119 H (74-99) mg/dL POC Glucose (mg/dL) 167 H 137 H (75-99) mg/dL Total Protein 6.0 L (6.3-8.2) g/dL Albumin 3.2 L (3.5-5.0) g/dL 08/13/17 08/13/17 Range/Units 11:08 16:58 Chloride (98-107) mmol/L Glucose (74-99) mg/dL POC Glucose (mg/dL) 142 H 229 H (75-99) mg/dL Total Protein (6.3-8.2) g/dL Albumin (3.5-5.0) g/dL Microbiology - Last 24 Hours (Table) 08/08/17 06:49 Blood Culture - Preliminary Blood No Growth after 120 hours Assessment and Plan Assessment: 1. Acute sigmoid perforation with pneumoperitoneum, status post Way's procedure with repair of incarcerated incisional hernia 2. Dementia 3. Rule out sigmoid mass 4. Hypertension Plan: Continue on current medication regime ,monitoring and symptomatic treatment. Aggressive pulmonary toileting, incentive spirometer reinforced. Increase ambulation.Vancomycin added to med regime with further recommendations from infectious disease in a.m. given redness alongside of colostomy. Await pathology report. Further recommendations to follow. The impression and plan of care has been dictated as directed. : I performed a history and examination of this patient, discussed the same with the dictator. I agree with the dictator's note ,documented as a scribe. Any additional findings or plans will be noted.
[2017-08-13 20:11] LABS: Glucose,Whole Blood 207 mg/dL (75-99)
[2017-08-13] MEDS: HYDROcodone/APAP 5-325MG 1 EACH TAB PO PRN (20:15)
[2017-08-14] MEDS: PIPERACILLIN-TAZOBACTAM 3.375 GM in DEXTROSE/WATER 1 50ML.BAG IVPB SCH ×4 (00:09→23:30)
[2017-08-14] MEDS: HYDROcodone/APAP 5-325MG 1 EACH TAB PO PRN ×4 (00:10→15:45)
[2017-08-14] MEDS: HEPARIN SODIUM,PORCINE 5,000 UNIT/ML 1 ML VIAL SQ SCH ×4 (00:11→23:30)
[2017-08-14] MEDS: SODIUM CHLORIDE 0.9% 1,000 ML IV SCH ×2 (06:06→20:02)
[2017-08-14 06:55] LABS: Glucose,Whole Blood 125 mg/dL (75-99)
[2017-08-14] MEDS: INSULIN ASPART 100 UNIT/ML 1 ML 10 ML VIAL SQ SCH ×4 (07:19→21:04)
[2017-08-14] MEDS: LISINOPRIL 20 MG TAB PO SCH (07:22)
[2017-08-14] MEDS: PANTOPRAZOLE 40 MG TABLET PO SCH (07:22)
[2017-08-14] MEDS: ALBUTEROL NEBULIZED 2.5 MG/3 ML INHALATION SCH ×3 (07:25→21:02)
[2017-08-14] MEDS ORDERED: HYDROmorphone 4 MG TABLET PO PRN (10:09)
[2017-08-14 11:09] LABS: Glucose,Whole Blood 230 mg/dL (75-99)
[2017-08-14] MEDS ORDERED: VANCOMYCIN 1,000 MG in SODIUM CHLORIDE 0.9% 250 ML IVPB SCH ×4 (12:00)
[2017-08-14] MEDS ORDERED: NYSTAT-TRIAMCIN 100,000-0.1 UNIT/GM-% CREAM 30 GM TUBE TOPICAL SCH (13:30)
[2017-08-14] MEDS: NYSTATIN 100,000UNIT/GM CREAM 30 GM TUBE TOPICAL SCH ×2 (14:28→20:04)
[2017-08-14] MEDS: TRIAMCINOLONE 0.1% CREAM 80 GM TUBE TOPICAL SCH ×2 (14:28→20:04)
--- NOTE | 2017-08-14 14:44 | PN ---
PROGRESS NOTE DATE OF SERVICE: 08/14/2017 REASON FOR FOLLOWUP: 1. Secondary peritonitis from a perforated sigmoid colon. 2. Rash around the colostomy. INTERVAL HISTORY: The patient is afebrile. She was noticed to have erythematous rash on the incision and colostomy for which the patient was started out on vancomycin by the medical team. Patient says she was complaining of some itching to the area but denies having any pain. The rash has not spread from where it was placed yesterday. Denies having any chest pain, no shortness of breath or cough. PHYSICAL EXAMINATION: Blood pressure is 177/90 with a pulse of 96, temperature 98.4, she is 92% on room air. General description is a middle-aged female, lying in bed in no distress RESPIRATORY SYSTEM: Unlabored breathing, clear to auscultation anteriorly. HEART: S1, S2. Regular rate and rhythm. ABDOMEN: Soft, did have a rash around the incision, not significant or any drainage. LABS: No new labs have been obtained today. DIAGNOSTIC IMPRESSION AND PLAN: 1. Patient with secondary peritonitis from perforated sigmoid, status post diverting colostomy. Currently on Zosyn. Transition to oral Augmentin on discharge. 2. Patient with some erythematous lesion on the incision, possible fungal dermatitis. Will add Mycolog cream and discontinue the vancomycin. Continue supportive care. MMODL / IJN: [id number] /
[2017-08-14] MEDS: hydrALAZINE HCL 20 MG/ML 1 ML VIAL IVP PRN (14:48)
--- NOTE | 2017-08-14 15:13 | P.PN ---
Subjective Progress Note Date: 08/14/17 57-year-old female seen at bedside. Patient had been up ambulating once this morning in the hallway. Tolerating clear liquid no nausea no vomiting. Patient states passing gas small soft stool from the ostomy Postop August 08 repair of incarcerated incisional hernia, waqar procedure, done for sigmoid perforation with mesh Objective - Vital Signs Vital signs: Vital Signs Temp 98.0 F 08/14/17 14:13 Pulse 84 08/14/17 14:13 Resp 18 08/14/17 14:13 BP 197/95 08/14/17 14:13 Pulse Ox 95 08/14/17 14:13 Intake & Output 08/13/17 08/14/17 08/14/17 18:59 06:59 18:59 Intake Total 650 1250 Output Total 10 Balance 640 1250 Weight 58.967 kg Intake: Intake, IV Titration 650 1000 Amount Piperacillin-Tazobactam 3 50 100 .375 gm In Dextrose/Water 1 50ml.bag @ 12.5 mls/hr IVPB Q8HR [facility] Rx#: [id number] Sodium Chloride 0.9% 1, 600 650 000 ml @ 75 mls/hr IV . [id number] [facility] Rx#:[id number] Vancomycin 1,000 mg In 250 Sodium Chloride 0.9% 250 ml @ 125 mls/hr IVPB Q16H [facility] Rx#:[id number] Oral 250 Output: Stool 10 Other: Voiding Method Toilet Toilet Toilet # Voids 4 # Bowel Movements 1 - Exam Physical exam 57-year-old female is an alert oriented 3 sitting in a chair Lungs adequate air movement bilaterally on room air Heart S1-S2 audible and regular denying chest pain Abdomen ostomy left lower quadrant stoma pink small amount of brown stool liquid stool from ileostomy bag states passing gas through the stoma urinating no difficulty tolerating a clear liquid diet no nausea no vomiting a few hypoactive bowel tones noted Extremities no edema noted - Labs CBC & Chem 7: 08/13/17 07:05 08/13/17 07:05 Labs: Abnormal Lab Results - Last 24 Hours (Table) 08/13/17 08/13/17 08/14/17 Range/Units 16:58 20:09 06:53 POC Glucose (mg/dL) 229 H 207 H 125 H (75-99) mg/dL 08/14/17 Range/Units 11:07 POC Glucose (mg/dL) 230 H (75-99) mg/dL Microbiology - Last 24 Hours (Table) 08/08/17 06:49 Blood Culture - Final Blood No Growth after 144 hours Assessment and Plan Assessment: Impression Present on admission intractable abdominal pain with change in bowel habits with a CAT scan showing perforated fistula with free air with inflammatory changes sigmoid colon with a questionable colon neoplasm Postop August 08 repair of incarcerated incisional hernia, Way's procedure for incisional hernia incarcerated with sigmoid perforation with mass Plan Continue postop surgical care Increase activity Full liquid diet Pain control Await path report pending DVT and GI prophylaxis IV antibiotics Zosyn as ordered Reinforce ostomy teaching The above impression and plan of care have been discussed and directed by signing physician. Stephanie Catalan nurse practitioner acting as scribe for signing physician.
[2017-08-14 17:27] LABS: Glucose,Whole Blood 110 mg/dL (75-99)
--- NOTE | 2017-08-14 18:28 | P.PN ---
Subjective Progress Note Date: 08/14/17 Progress note being dictated for Dr. Gusman Interval history: This is a 57-year-old female admitted with perforated bowel, peritonitis, status post Way's and multiple other medical issues. Clear liquids initiated yesterday, tolerated well with no nausea or vomiting. Ambulating, tolerating exertion well. Pathology pending. Passing flatus, no bowel movement. Denies chest pain, palpitations or increased shortness of breath. Maintained on Zosyn as per infectious disease. Afebrile, normal WBC. 08/14/17 no overnight events. Passing flatus, no output in ostomy bag. Denies nausea or vomiting. Redness near the incision by colostomy, significantly improved, lessened; appears as fungal dermatitis as per ID. Pathology results expected to be back later this morning. Objective - Vital Signs Vital signs: Vital Signs Temp 98.0 F 08/14/17 14:13 Pulse 96 08/14/17 15:59 Resp 18 08/14/17 15:59 BP 197/95 08/14/17 14:13 Pulse Ox 95 08/14/17 14:13 Intake & Output 08/13/17 08/14/17 08/14/17 18:59 06:59 18:59 Intake Total 650 1250 Output Total 10 Balance 640 1250 Weight 58.967 kg 58.967 kg Intake: Intake, IV Titration 650 1000 Amount Piperacillin-Tazobactam 3 50 100 .375 gm In Dextrose/Water 1 50ml.bag @ 12.5 mls/hr IVPB Q8HR [facility] Rx#: [id number] Sodium Chloride 0.9% 1, 600 650 000 ml @ 75 mls/hr IV . [id number] [facility] Rx#:[id number] Vancomycin 1,000 mg In 250 Sodium Chloride 0.9% 250 ml @ 125 mls/hr IVPB Q16H [facility] Rx#:[id number] Oral 250 Output: Stool 10 Other: Voiding Method Toilet Toilet Toilet # Voids 4 # Bowel Movements 1 - Exam PHYSICAL EXAM: VITAL SIGNS: As above GENERAL: Sitting up in chair, no acute distress HEENT: Conjunctivae normal. eyes normal. Oral conjunctivae normal NECK: No JVD. No thyroid enlargement. No LNs CARDIOVASCULAR: S1, S2 muffled. No murmur RESPIRATION: Unlabored, Breath sounds diminished in the bases. No rhonchi or crackles. ABDOMEN: Soft, nontender . Status post surgery .colostomy present. ImprovedRedness alongside of ostomy, lessened. No drainage. Ostomy bag without output. Hypoactive Bowel sounds heard. LEGS: No edema. no swelling PSYCHIATRY: Alert and oriented -3, mood and affect anxious. NERVOUS SYSTEM: Cranial N 2-12 grossly normal. Moves all 4 limbs. Diffuse weakness No focal deficits. Joints: No active swelling. No inflammation. - Labs CBC & Chem 7: 08/13/17 07:05 08/13/17 07:05 Labs: Abnormal Lab Results - Last 24 Hours (Table) 08/13/17 08/14/17 08/14/17 Range/Units 20:09 06:53 11:07 POC Glucose (mg/dL) 207 H 125 H 230 H (75-99) mg/dL 08/14/17 Range/Units 17:02 POC Glucose (mg/dL) 110 H (75-99) mg/dL Microbiology - Last 24 Hours (Table) 08/08/17 06:49 Blood Culture - Final Blood No Growth after 144 hours Assessment and Plan Assessment: 1. Acute sigmoid perforation with pneumoperitoneum, status post Way's procedure with repair of incarcerated incisional hernia 2. Dementia 3. Rule out sigmoid mass 4. Hypertension Plan: Continue on current medication regime , IV antibiotics ,monitoring and symptomatic treatment. Diet advancement as per GI. Path report. pending, results expected later this morning as per lab. Aggressive pulmonary toileting, incentive spirometer reinforced. Further recommendations to follow. The impression and plan of care has been dictated as directed. : I performed a history and examination of this patient, discussed the same with the dictator. I agree with the dictator's note ,documented as a scribe. Any additional findings or plans will be noted.
[2017-08-14 20:20] LABS: Glucose,Whole Blood 190 mg/dL (75-99)
[2017-08-14 20:55] VITALS: RESP 16
[2017-08-15] MEDS: HYDROcodone/APAP 5-325MG 1 EACH TAB PO PRN ×3 (00:06→10:36)
[2017-08-15] MEDS: hydrALAZINE HCL 20 MG/ML 1 ML VIAL IVP PRN (00:40)
[2017-08-15 05:49] VITALS: BP 172/79; TEMP 98
[2017-08-15 06:57] LABS: Glucose,Whole Blood 145 mg/dL (75-99)
[2017-08-15] MEDS: INSULIN ASPART 100 UNIT/ML 1 ML 10 ML VIAL SQ SCH ×2 (07:47→12:21)
[2017-08-15] MEDS: HEPARIN SODIUM,PORCINE 5,000 UNIT/ML 1 ML VIAL SQ SCH (07:47)
[2017-08-15] MEDS: TRIAMCINOLONE 0.1% CREAM 80 GM TUBE TOPICAL SCH (07:48)
[2017-08-15] MEDS: LISINOPRIL 20 MG TAB PO SCH (07:48)
[2017-08-15] MEDS: PANTOPRAZOLE 40 MG TABLET PO SCH (07:49)
[2017-08-15] MEDS: NYSTATIN 100,000UNIT/GM CREAM 30 GM TUBE TOPICAL SCH (07:49)
[2017-08-15] MEDS: ALBUTEROL NEBULIZED 2.5 MG/3 ML INHALATION SCH ×2 (08:18→13:09)
[2017-08-15] MEDS: PIPERACILLIN-TAZOBACTAM 3.375 GM in DEXTROSE/WATER 1 50ML.BAG IVPB SCH (08:36)
[2017-08-15 08:56] LABS: Anion Gap 12 mmol/L; Blood Urea Nitrogen 7 mg/dL (7-17); Calcium 8.9 mg/dL (8.4-10.2); Carbon Dioxide 26 mmol/L (22-30); Chloride 99 mmol/L (98-107); Glucose 192 mg/dL (74-99); Sodium 137 mmol/L (137-145)
--- NOTE | 2017-08-15 10:11 | P.DS ---
Providers Date of admission: 08/08/17 08:18 Expected date of discharge: 08/15/17 Attending physician: Prosper Holguin Consults: 08/08/17 13:19 Consult Physician Routine Consulting Provider: Raúl Gonzalez Consult Reason/Comments: Peritonitis Do you want consulting provider notified?: Yes 08/08/17 13:20 Consult Physician Routine Consulting Provider: Audie Willett Consult Reason/Comments: Medical management Do you want consulting provider notified?: Yes Primary care physician: Stated None Hospital Course: 57-year-old female presented to the emergency room to be evaluated for persistent abdominal pain frequent loose stools intermittent over the last month. Patient stated that she just returned from being in [place] for 2 weeks and thought that she picked up "the flu" stated that she had increased amounts of diarrhea. Noted having blood in stool as well. Patient reported that she's not able to keep any fluids down. Became concerned presented to be evaluated for the above-mentioned symptoms she was admitted to the attending service. Underwent on the [address] procedure repair of incarcerated incisional hernia for perforated viscus with a sigmoid perforation with a mass postop ostomy teaching was initiated. 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 On the day of discharge patient was ambulatory on the unit pain medication effective for pain control moderate amount of stool from the ostomy the skin on the ostomy side distal appeared to be fungal dermatitis per infectious disease and Dr. gonzalez infectious disease indicated patient could be to oral Augmentin at the time of discharge. Impression Present on admission intractable abdominal pain with change in bowel habits with a CAT scan showing perforated fistula with free air with inflammatory changes sigmoid colon with a questionable colon neoplasm Postop August 08 repair of incarcerated incisional hernia, Way's procedure for incisional hernia incarcerated with sigmoid perforation with mass Postop path report final diagnosis moderately differentiated adenocarcinoma Postop fungal dermatitis rash lower suprapubic area The above impression and plan of care have been discussed and directed by signing physician. Stephanie Catalan nurse practitioner acting as scribe for signing physician. Patient Condition at Discharge: Serious Plan - Discharge Summary Discharge Rx Participant: No New Discharge Prescriptions: New HYDROcodone/APAP 5-325MG [Ackley 5-325] 1 each PO Q4HR PRN #20 tab PRN Reason: MODERATE Pain Nystatin 100,000Unit/gm Cream [Mycostatin Cream] 1 applic TOPICAL BID applic Triamcinolone 0.1% Cream [Kenalog] 1 applic TOPICAL BID applic Amoxic-Pot Clav 875-125Mg [Augmentin 875-125] 1 tab PO Q12HR #28 tablet Continue Lisinopril [Zestril] 20 mg PO DAILY Discharge Medication List Lisinopril [Zestril] 20 mg PO DAILY 08/08/17 [History] Amoxic-Pot Clav 875-125Mg [Augmentin 875-125] 1 tab PO Q12HR #28 tablet [Rx] HYDROcodone/APAP 5-325MG [Ackley 5-325] 1 each PO Q4HR PRN #20 tab 08/15/17 [Rx] Nystatin 100,000Unit/gm Cream [Mycostatin Cream] 1 applic TOPICAL BID applic [Rx] Triamcinolone 0.1% Cream [Kenalog] 1 applic TOPICAL BID applic 08/15/17 [Rx] Follow up Appointment(s)/Referral(s): [facility], [NON-STAFF] - As Needed None,Stated [Primary Care Provider] - 1-2 days Prosper Holguin MD [STAFF PHYSICIAN] - 1 Week Patient Instructions/Handouts: Colostomy Care (GEN) Activity/Diet/Wound Care/Special Instructions: Colostomy Care Recommendations: LAst date of ostomy pouching system change: 08.14.2017 Home Colostomy Care supply list: Convatec flange (wafer) #[id number] (moldable) Mrs Rondon will have three of these from the hospital for home use Please note recommendation to use the oval Convatec flanges #[id number] (moldable) These will work better with shape of Mrs Rodriguez' stoma Convatec Pouches #[id number] with filter (3 for home) No Sting prep pads (12) from the hospital Ostomy powder (1) only use if skin around the bowel (stoma ) is irritated Empty the pouch when it is 1/2 to 1/3 full. Change the entire pouching system every 3-5 days. No tub bath for six weeks. Shower daily. No lifting over 10 pounds for the next 6 weeks. Soft diet advance as tolerated May use ice packs to surgical site. No driving while taking narcotic for pain. Opiate talking consent was obtained and discussed with patient Home Health please arrange with Mrs Rondon for disposable pouching system in 4 weeks from surgical date if possible via her request with Durable MEdical Equipment Discharge Disposition: HOME WITH HOME HEALTH SERVICES
[2017-08-15 12:03] LABS: Glucose,Whole Blood 138 mg/dL (75-99)
--- NOTE | 2017-08-15 13:12 | PN ---
PROGRESS NOTE DATE OF SERVICE: 08/15/2017 REASON FOR FOLLOWUP: 1. Secondary peritonitis. 2. Incisional dermatitis. INTERVAL HISTORY: The patient is currently afebrile. She is breathing comfortably. Denies having any chest pain. No shortness of breath or cough. No abdominal pain. Overall, itching to the right has decreased. PHYSICAL EXAMINATION: On examination, blood pressure 172/79, pulse of 95, temperature of 98. She is 97% on room air. General description is a middle-aged female, lying in bed in no distress. RESPIRATORY SYSTEM: Unlabored breathing, clear to auscultation anteriorly. HEART: S1, S2. Regular rate and rhythm. ABDOMEN: Soft. The incision area erythema has decreased. No drainage was noticed. LABS: BUN of 7, creatinine 0.82. DIAGNOSTIC IMPRESSION AND PLAN: Patient with secondary peritonitis from perforated bowel, status post diverting colostomy. So far the patient has been afebrile. White count normal. Minimal incisional erythema for which the patient is currently on Mycolog cream that will continue. Antibiotic will be adjusted to oral Augmentin. Continue with supportive care. MMODL / IJN: [id number] /
[2017-08-15 13:21] VITALS: PULSE 80
--- NOTE | 2017-08-15 16:25 | P.PN ---
Subjective Progress Note Date: 08/15/17 Progress note being dictated for Dr. Gusman Interval history: This is a 57-year-old female admitted with perforated bowel, peritonitis, status post Way's and multiple other medical issues. Clear liquids initiated yesterday, tolerated well with no nausea or vomiting. Ambulating, tolerating exertion well. Pathology pending. Passing flatus, no bowel movement. Denies chest pain, palpitations or increased shortness of breath. Maintained on Zosyn as per infectious disease. Afebrile, normal WBC. 08/14/17 no overnight events. Passing flatus, no output in ostomy bag. Denies nausea or vomiting. Redness near the incision by colostomy, significantly improved, lessened; appears as fungal dermatitis as per ID. Pathology results expected to be back later this morning. 08/15/2017 pathology reporting moderately differential adenocarcinoma. Patient preparing for discharge home today.. Functioning ostomy with stool. Ostomy teaching in progress. Tolerating diet with no nausea or vomiting. Denies chest pain, palpitations or shortness of breath. No focal deficits. Denies lightheadedness or dizziness with exertion. Objective - Vital Signs Vital signs: Vital Signs Temp 98.0 F 08/15/17 05:48 Pulse 80 08/15/17 13:20 Resp 16 08/15/17 13:20 BP 172/79 08/15/17 05:48 Pulse Ox 98 08/15/17 08:19 Intake & Output 08/14/17 08/15/17 08/15/17 18:59 06:59 18:59 Weight 58.967 kg 58.967 kg Other: Voiding Method Toilet Toilet Toilet # Voids 1 # Bowel Movements 1 - Exam PHYSICAL EXAM: VITAL SIGNS: As above GENERAL: Sitting up in bed, no acute distress HEENT: Conjunctivae normal. eyes normal. Oral conjunctivae normal NECK: No JVD. No thyroid enlargement. No LNs CARDIOVASCULAR: S1, S2 muffled. No murmur RESPIRATION: Unlabored, Breath sounds diminished in the bases. No rhonchi or crackles. ABDOMEN: Soft, nontender . Status post surgery .colostomy present with stool and appliance. Improving Redness alongside of ostomy, lessened. No drainage. Positive Bowel sounds heard. LEGS: No edema. no swelling PSYCHIATRY: Alert and oriented -3, mood and affect anxious. NERVOUS SYSTEM: Cranial N 2-12 grossly normal. Moves all 4 limbs. Diffuse weakness No focal deficits. Joints: No active swelling. No inflammation. - Labs CBC & Chem 7: 08/13/17 07:05 08/15/17 08:10 Labs: Abnormal Lab Results - Last 24 Hours (Table) 08/14/17 08/14/17 08/15/17 Range/Units 17:02 20:17 06:55 Glucose (74-99) mg/dL POC Glucose (mg/dL) 110 H 190 H 145 H (75-99) mg/dL 08/15/17 08/15/17 Range/Units 08:10 12:02 Glucose 192 H (74-99) mg/dL POC Glucose (mg/dL) 138 H (75-99) mg/dL Assessment and Plan Assessment: 1. Acute sigmoid perforation with pneumoperitoneum, status post Way's procedure with repair of incarcerated incisional hernia. Pathology reporting moderately differentiated adenocarcinoma. 2. Dementia 3. Rule out sigmoid mass 4. Hypertension Plan: Continue on current medication regime , IV antibiotics ,monitoring and symptomatic treatment. Discharge planning in progress for today as per surgery. Patient to follow-up with oncology, PCP. Aggressive pulmonary toileting, maintain IS at home as instructed. The impression and plan of care has been dictated as directed. : I performed a history and examination of this patient, discussed the same with the dictator. I agree with the dictator's note ,documented as a scribe. Any additional findings or plans will be noted.
--- NOTE | 2017-08-18 17:31 | CDI ---
Last Revision, February 2017 Documentation Clarification Form Date: 08/18/17 From: Eva Lawson Phone: If you have a question regarding this query, please contact Radha Calle at [phone] between 8am and 5pm Admit Date: 08/08/2017 8:18:00 AM Patient Name: Roxanne Rondon Visit Number: [id number] Discharge Date: 08/15/17 ATTENTION: The Clinical Documentation Specialists (CDI) and [facility] Coding Staff appreciate your assistance in clarifying documentation. Please respond to the clarification below the line at the bottom and electronically sign. The CDI & [facility] Coding staff will review the response and follow-up if needed. Please note: Queries are made part of the Legal Health Record. If you have any questions, please contact the author of this message via ITS. Dr. Prosper Holguin Patient admitted to the hospital with sepsis in a patient who did have a fever was documented in Dr. Bryant's consult note. Patienet does meet sepsis criteria is documented in the ED note. However, it is not documented in the discharge summary. History/Risk Factors: Patient was admitted with sigmoid colon perforation. Clinical Indicators: fever, leukocytosis, chills WBC/Left Shift: 12.1/8.5 Lactic acid: 0.9 Blood cultures: No growth after 144 hours Vitals signs on admission: T. 102.5, P. 126, R 18, BP 145/82 Treatment: Antibiotics: IV Zosyn, IV Vancomycin IV Bolus: 500 mls @999 mls/hr In your professional opinion, can you please clarify if these findings signify one of the following conditions, whether the condition is POA, and cause, if known? SIRS, without underlying infectious process Sepsis Ruled Out Sepsis Severe Sepsis Septic Shock Unable to determine Other, please specify Identify the (suspected) organism Patient has sepsis related to perforated colon. It is unclear which organism is causing sepsis. GARLANDD
== END 2017-08-15 14:20 | disposition home health service (06) | DRG 853 ==
LOC: EC 06:25 → 5MS5E 08:18
PROVIDERS: ADMIT Surgery; ATTEND Surgery
PROC: 0D1M0Z4 Bypass Descending Colon to Cutaneous, Open Approach (ICD-10-PCS; 2017-08-08)
PROC: 0WUF0JZ Supplement Abdominal Wall with Synthetic Substitute, Open Approach (ICD-10-PCS; 2017-08-08)
PROC: 0DTN0ZZ Resection of Sigmoid Colon, Open Approach (ICD-10-PCS; principal; 2017-08-08 09:20)
DX: A41.9 Sepsis, unspecified organism (principal); K63.1 Perforation of intestine (nontraumatic); K65.9 Peritonitis, unspecified; C18.7 Malignant neoplasm of sigmoid colon; K43.0 Incisional hernia with obstruction, without gangrene; F03.91 Unspecified dementia, unspecified severity, with behavioral disturbance; J98.11 Atelectasis; G89.18 Other acute postprocedural pain; I10 Essential (primary) hypertension; K66.8 Other specified disorders of peritoneum; R73.01 Impaired fasting glucose; B36.9 Superficial mycosis, unspecified; Z79.899 Other long term (current) drug therapy; Z87.891 Personal history of nicotine dependence
CPT/HCPCS: 36415; 71045; 74022; 74177; 80048; 80053; 80202; 81001; 82150; 82550; 82553; 83036; 83605; 83690; 84484; 85025; 85610; 85730; 86850; 86900; 86901; 87040; 87086; 88309; 93005; 94640; 94760; 96365; 96366; 96375; 96376; 99291

== ENCOUNTER → 2017-09-13 | Outpatient (CLI) | payer BC ==
--- NOTE | 2017-09-14 11:00 | PE ---
Nuclear medicine PET/CT HISTORY: Colon carcinoma, initial Patient received 9.1 mCi F-18 FDG intravenously in delayed scanning was performed from the skull base to the mid thighs. Localization and attenuation correction CT scan was performed. Correlation to CT abdomen pelvis 08/08/2017 Findings: Neck and CHEST: There is no evident cervical adenopathy, no hypermetabolic uptake noted within the ne ck or chest. No mediastinal, axillary, or hilar adenopathy. No evident lung mass. Abdomen pelvis: Approximately 6 varying sized masses are again noted within the liver with associated hypermetabolic uptake, SUV range approximately 7-9. There is left iliac chain node measuring subcent imeter in size but with an SUV value of 5.3. Left-sided hydronephrosis is present without clear visua lization of the distal left ureter, this may be due to some local scar tissue, an ostomy is present i n the left lower quadrant. Postop changes are noted. Osseous structures: There is some uptake along the endplate, disc space at L5-S1 towards the right of midline. Some arthropathy suspected within the right shoulder, anterior left costochondral junction of the first rib. Sclerotic focus in the left L5 vertebral body does not show associated hypermetabol ic uptake. IMPRESSION: Metastatic disease to the liver. Retroperitoneal hypermetabolic uptake on the left with l eft-sided hydronephrosis, postop changes.
== END | disposition home or self-care (01) ==
LOC: RADPETMAIN 15:08
PROVIDERS: ATTEND Internal Medicine Hematology & Oncology
DX: C18.7 Malignant neoplasm of sigmoid colon (principal); C78.7 Secondary malignant neoplasm of liver and intrahepatic bile duct; Z98.890 Other specified postprocedural states
CPT/HCPCS: 78815; A9552

== ENCOUNTER → 2017-10-02 | Day surgery (SDC) | payer BC ==
[~2017-10-02] MED LIST: ALPRAZolam 0.5 MG TAB PO STA
[2017-10-02 09:33] LABS: Mean Platelet Volume 6.1; Platelet Count 521 k/uL (150-450)
[2017-10-02 09:35] VITALS: TEMP 97.9
[2017-10-02 09:39] LABS: Prothrombin Time 10.1 sec (9.0-12.0)
[2017-10-02] MEDS: HYDROmorphone 1 MG/ML 1 ML SYRINGE IVP PRN ×2 (10:09→10:34)
[2017-10-02 11:49] VITALS: RESP 16
[2017-10-02 14:38] VITALS: BP 116/67; PULSE 89
--- NOTE | 2017-10-03 14:06 | US ---
EXAMINATION TYPE: US biopsy liver DATE OF EXAM: 10/02/2017 HISTORY: Liver masses. FINDINGS: Maximal barrier technique was utilized. The skin overlying a suitable path to the patient' s mass was localized with ultrasound and the overlying skin prepped and draped. Ultrasound was utili zed with sterile technique. Lidocaine was used for local anesthesia. A skin mattie was made with a sc alpel. An 18-gauge needle was advanced under direct ultrasound guidance and core specimen obtained o f the left lobe liver mass. Specimen submitted in formalin to Pathology. Following the procedure, h emostasis achieved and the patient is discharged in stable condition without complication. IMPRESSION:STATUS POST ULTRASOUND GUIDED CORE BIOPSY OF left lobe liver MASS, PATHOLOGY IS PENDING. THIS PROCEDURE IS PERFORMED BY THE UNDERSIGNED.
== END ==
LOC: RADPROMAIN 08:48
PROVIDERS: ATTEND Internal Medicine Hematology & Oncology
DX: C78.7 Secondary malignant neoplasm of liver and intrahepatic bile duct (principal)
CPT/HCPCS: 85049; 85610; 88342; 88307; 88341; 96374; 47000; 76942; J1170

== ENCOUNTER 2017-10-13 07:41 | Day surgery (SDC) | payer BC ==
[2017-10-06 14:41] VITALS: BMI 24.7
[~2017-10-13 07:41] MED LIST changes: -ALPRAZolam 0.5 MG TAB PO STA; +DEXAMETHASONE SOD PHOSPHATE 10 MG/ML 1 ML VIAL IV ONE; +HEPARIN SODIUM,PORCINE 5,000 UNIT/ML 1 ML VIAL SQ ONE; +HYDROmorphone 1 MG/ML 1 ML SYRINGE IVP PRN; +LACTATED RINGERS 1,000 ML IV SCH; +LIDOCAINE 1% 20 ML VIAL (10MG/ML) FOR IV START INTRADERMA PRN; +MIDAZOLAM 2 MG/2 ML VIAL IV PRN; +ONDANSETRON 4 MG/2 ML VIAL IVP ONE; +Pre Op ABX Message 1 EACH MISC MISCELLANE ONE; +SCOPOLAMINE 1.5MG/72HR PATCH TRANSDERM ONE
[2017-10-13 08:28] VITALS: TEMP 98.4
--- NOTE | 2017-10-13 08:46 | P.GSHP ---
History of Present Illness H&P Date: 10/13/17 Chief Complaint: History: Cancer This a 57-year-old female who is receiving diagnosed with colon cancer. Patient presents today for Port-A-Cath insertion. Past Medical History Past Medical History: Cancer, Hypertension, Liver Disease Additional Past Medical History / Comment(s): colon cancer, COLOSTOMY History of Any Multi-Drug Resistant Organisms: None Reported Past Surgical History: Bowel Resection, Section Additional Past Surgical History / Comment(s): partial colectomy with colostomy 08/08, LIVER BX 10/02/17 Past Anesthesia/Blood Transfusion Reactions: No Reported Reaction Smoking Status: Former smoker - Past Family History Brother(s) Family Medical History: Cancer Additional Family Medical History / Comment(s): brain Medications and Allergies Home Medications Medication Instructions Recorded Confirmed Type amLODIPine BESYLATE/BENAZEPRIL 1 cap PO DAILY 09/29/17 10/13/17 History [amLODIPine BESYLATE/BENAZEPRIL 5-20 mg] Allergies Allergy/AdvReac Type Severity Reaction Status Date / Time adhesive tape Allergy Rash/Hives Verified 10/13/17 08:22 OSTOMY BAG Allergy Rash/Hives Uncoded 10/13/17 08:22 Surgical - Exam Vital Signs Temp Pulse Resp Pulse Ox 98.4 F 75 14 98 10/13/17 08:27 10/13/17 08:27 10/13/17 08:27 10/13/17 08:27 - General well developed, no distress - Eyes PERRL - ENT normal pinna - Neck no masses - Respiratory normal expansion - Cardiovascular Rhythm: regular - Abdomen Abdomen: soft, non tender Assessment and Plan Assessment: History of colon cancer. We'll perform Port-A-Cath insertion
[2017-10-13] MEDS ORDERED: PROPOFOL 10 MG/ML 20 ML VIAL IV ONE (09:12)
[2017-10-13] MEDS ORDERED: LIDOCAINE 1% INJ 10MG/ML (20 ML MDV) ONE (09:12)
[2017-10-13] MEDS ORDERED: MIDAZOLAM 2 MG/2 ML VIAL ONE (09:12)
[2017-10-13] MEDS ORDERED: fentaNYL (PF) 50 MCG/ML 2 ML AMP ONE (09:12)
[2017-10-13] MEDS ORDERED: KETAMINE 10 MG/ML 20 ML VIAL ONE (09:12)
[2017-10-13] MEDS ORDERED: BUPIVACAIN-EPI 0.5%-1:200,000 30 ML VIAL SQ ONE ×2 (09:33)
[2017-10-13] MEDS ORDERED: HEPARIN SODIUM,PORCINE 100 UNIT/ML 5 ML VIAL IV ONE (09:36)
[2017-10-13 09:54] VITALS: RESP 16
--- NOTE | 2017-10-13 10:26 | P.OP ---
Date of Procedure: 10/13/17 Preoperative Diagnosis: Colon cancer Postoperative Diagnosis: Colon cancer Procedure(s) Performed: Port-A-Cath insertion left subclavian Anesthesia: MAC Surgeon: Prosper Holguin Pathology: none sent Condition: stable Disposition: PACU Description of Procedure: PROCEDURE: The patient was placed on the operating table in the supine position. She received MAC anesthetic. The left chest was prepped and draped in the usual sterile fashion. The skin underneath the right clavicle was anesthetized with 1% Xylocaine and using Seldinger technique, the right subclavian vein was cannulized. The wire was placed through the needle and positioned under fluoroscopy. Next, the needle was removed and the port site was anesthetized with 1% Xylocaine. Skin was incised with #15 blade and port pocket was made using blunt and sharp dissection. Following this the catheter was attached to the sport and the port was flushed. The port was positioned into the pocket site and was secured with 3-0 Vicryl suture. The catheter was then brought out through the wire site and then the dilator sheath was placed over the wire and the dilator and the wire were removed. The catheter was placed through the sheath and the sheath was removed. The port was flushed with hep-lock solution. Skin was closed with interrupted 3-0 Vicryl sutures. Steri-Strips were applied. The patient tolerated the procedure well. The patient was sent to recovery room for chest x-ray after the procedure.
--- NOTE | 2017-10-13 10:30 | FL ---
EXAMINATION TYPE: FL guided central line placemt HISTORY: Fluoroscopy time Impression: 1. Fluoroscopy support provided to the referring physician. 4 seconds of fluoroscopy provided..
--- NOTE | 2017-10-13 10:31 | XR ---
EXAMINATION TYPE: XR chest 1V portable DATE OF EXAM: 10/13/2017 COMPARISON: 08/09/2017 HISTORY: Line placement. TECHNIQUE: Single frontal view of the chest is obtained. FINDINGS: Right-sided Mediport has been placed terminating in the cavoatrial junction, appropriately placed. En teric tube has been removed in the interim. There is no focal air space opacity, pleural effusion, or pneumothorax seen. The cardiac silhouette size is within normal limits. The osseous structures ar e intact. IMPRESSION: Newly placed right-sided Mediport terminating appropriately in the cavoatrial junction w ithout postprocedural pneumothorax. No acute cardiopulmonary process.
[2017-10-13 11:01] VITALS: BP 150/80; PULSE 83
== END 2017-10-13 11:16 | disposition home or self-care (01) ==
LOC: OR 07:41
PROVIDERS: ATTEND Surgery
DX: C18.9 Malignant neoplasm of colon, unspecified (principal); Z45.2 Encounter for adjustment and management of vascular access device; I10 Essential (primary) hypertension; K76.9 Liver disease, unspecified; Z90.49 Acquired absence of other specified parts of digestive tract; Z87.891 Personal history of nicotine dependence; Z79.899 Other long term (current) drug therapy; Z91.09 Other allergy status, other than to drugs and biological substances
CPT/HCPCS: 77001; 71045; 36561; C1788; J2250; J1644; J1642; J1100; J2405; J2001; J3010; J2704

== ENCOUNTER → 2017-12-11 | Outpatient (CLI) | payer BC ==
--- NOTE | 2017-12-11 13:01 | CT ---
CT CHEST FOR PULMONARY EMBOLISM. EXAMINATION TYPE: CT angio chest DATE OF EXAM: 12/11/2017 INDICATION: Shortness of breath. History of carcinoma sigmoid colon CT DLP: 157.4 mGycm, Automated exposure control for dose reduction was used. CONTRAST: Patient injected with 100 mL of Isovue 370. COMPARISON: PET/CT 09/13/2014 TECHNIQUE: CT of the chest is performed on a spiral scan at 2 mm thick sections. Study is performed with intravenous contrast timed for evaluation for pulmonary embolism. This will limit additional po rtions of the evaluation. 3-D MIP images reconstructed by the technologist are reviewed on the compu ter in the coronal and sagittal planes. FINDINGS: No persistent filling defects are evident to suggest an acute pulmonary embolism. No mediastinal or hilar adenopathy enlarged by CT criteria is evident. The ascending aorta diameter at the level of the main pulmonary artery is 3.1 cm. The main pulmonary artery diameter at the bifur cation is 2.3 cm. Lung windows are clear. Limited CT sections are obtained through the upper abdomen. Study is without contrast in the early ar terial phase limiting the evaluation. However, there are several hypodensities noted within the liver . The largest in the periphery of the right upper lobe measuring approximately 4 cm. These areas jatinder espond to a metastatic lesions identified on the PET scan. IMPRESSIONS: 1. No acute pulmonary embolism. 2. Poorly visualized metastatic disease previously identified within the liver.
== END | disposition home or self-care (01) ==
LOC: RADCTMAIN 11:47
PROVIDERS: ATTEND Internal Medicine Hematology & Oncology
DX: C18.7 Malignant neoplasm of sigmoid colon (principal); R06.02 Shortness of breath
CPT/HCPCS: 82565; 84520; 71275; 36415; Q9967

== ENCOUNTER → 2017-12-20 | Outpatient (CLI) | payer BC ==
--- NOTE | 2017-12-22 10:00 | PE ---
Nuclear medicine PET/CT HISTORY: Colorectal carcinoma, subsequent Patient received 14 mCi F-18 FDG intravenously in delayed scanning was performed from the skull base to the mid thighs. Localization and attenuation correction CT scan was performed. Correlation to prior nuclear medicine PET/CT 09/13/2017 Neck and chest: There is no evident cervical or supraclavicular adenopathy. Port-A-Cath is present in the right pectoral region via a right internal jugular vein approach the distal tip courses to the l evel of the cavoatrial junction. No mediastinal, axillary, or hilar adenopathy. No endobronchial lesi on, pleural or pericardial effusion. No evident lung mass. Abdomen pelvis: There is a right lobe of liver mass towards the dome measuring approximately 4.2 cm i n greatest transverse dimension. Lesion is photopenic, no elevated SUV. Left lobe hypodensities are i ll-defined, larger of the 2 measuring approximately 2.8 cm, no associated hypermetabolic uptake. Ther e is left-sided hydronephrosis present. Hydroureter is also noted. No retroperitoneal adenopathy. There is some uptake noted associated with the bowel within the pelvis. Uptake at the level of the le aishwarya between the posterior urinary bladder and anterior aspect of the lower uterine segment or possibl y cervix shows SUV approximately 10-11, left hemipelvis uptake is indeterminate, possible uptake invo lving the colon at this level, although elevated SUV values suggest findings may be related to bladde r. Patient shows anterior abdominal wall hernia in the infraumbilical location and contains bowel loo ps. Ostomy is present in the left lower quadrant. Osseous structures: Somewhat diffuse uptake is present within the skeleton may be due to treatment ch anges. Asymmetric uptake noted in the proximal right humerus as compared to the left is indeterminate but could be related to arthropathy change. Some muscular uptake is likely physiologic in the lower extremities. IMPRESSION: The previously identified hypermetabolic uptake within the liver has resolved. Previously identified retroperitoneal lymph node activity is no longer seen. Left hydronephrosis persists. Upta ke within the pelvis is indeterminate as described. Dedicated pelvic CT scan with oral and intravenou s contrast may be of benefit
== END ==
LOC: RADPETMAIN 07:33
PROVIDERS: ATTEND Internal Medicine Hematology & Oncology
DX: C18.7 Malignant neoplasm of sigmoid colon (principal); N13.30 Unspecified hydronephrosis
CPT/HCPCS: 78815; A9552

== ENCOUNTER 2018-02-03 10:58 | Day surgery (SDC) | payer BC, OTHER ==
[2018-02-03 11:14] VITALS: BP 112/79; PULSE 97; RESP 16; TEMP 97.6
== END 2018-02-03 11:50 | disposition home or self-care (01) ==
LOC: RADPROMAIN 10:58
PROVIDERS: ATTEND Radiology Diagnostic Radiology
DX: Z48.01 Encounter for change or removal of surgical wound dressing (principal)
CPT/HCPCS: 99213

== ENCOUNTER 2018-02-12 09:17 | Day surgery (SDC) | payer BC, OTHER ==
--- NOTE | 2018-02-11 13:05 | P.GSHP ---
History of Present Illness H&P Date: 02/11/18 58 yo female with left hydronephrosis secondary to metastatic colon cancer or treatment of. Has a left nephrostomy tube She comes for hopeful conversion to a left double j catheter by interventional radiology. - Constitutional Constitutional: Reports anorexia, Reports chronic pain - Genitourinary (Female) Genitourinary: Reports as per HPI Past Medical History Past Medical History: Cancer, Hypertension, Liver Disease Additional Past Medical History / Comment(s): CURRENTLY ON CHEMO. colon cancer, COLOSTOMY, "blockage in kidney area" History of Any Multi-Drug Resistant Organisms: None Reported Past Surgical History: Bowel Resection, Section Additional Past Surgical History / Comment(s): partial colectomy with colostomy 08/08, LIVER BX + ca, left ureter stent placement, unable to place sent over to [facility] for Left Nephro tube palcement. port placement Past Anesthesia/Blood Transfusion Reactions: No Reported Reaction Past Psychological History: No Psychological Hx Reported Smoking Status: Former smoker Past Alcohol Use History: Rare Additional Past Alcohol Use History / Comment(s): QUIT SMOKING 03/2016, 1PPD FROM AGE 18 Past Drug Use History: None Reported - Past Family History Brother(s) Family Medical History: Cancer Additional Family Medical History / Comment(s): brain Medications and Allergies Home Medications Medication Instructions Recorded Confirmed Type amLODIPine BESYLATE/BENAZEPRIL 1 cap PO DAILY 09/29/17 02/09/18 History [amLODIPine BESYLATE/BENAZEPRIL 5-20 mg] Loratadine 10 mg PO DIRECTED 02/09/18 02/09/18 History Pegfilgrastim [Neulasta] 1 dose SQ WE 02/09/18 02/09/18 History Allergies Allergy/AdvReac Type Severity Reaction Status Date / Time adhesive tape Allergy Rash/Hives Verified 02/09/18 15:38 OSTOMY BAG Allergy Rash/Hives Uncoded 02/09/18 15:38 Surgical - Exam - General well developed, well nourished - Eyes PERRL - ENT no hearing loss - Neck trachea midline - Respiratory normal expansion, normal respiratory effort - Cardiovascular Rhythm: regular - Abdomen colostomy - Genitourinary left nephrostomy tube - Integumentary no rash, no growths - Neurologic normal coordination, normal sensation - Musculoskeletal normal gait, normal posture - Psychiatric oriented to time, oriented to person, oriented to place, speech is normal, memory intact Assessment and Plan Assessment: Impression. Metastatic colon cancer with left hydronpehrosis treated with nephrostomy tube[failed double j catheter] Plan: conversion to antergrade stent left
[2018-02-12] MEDS ORDERED: SODIUM CHLORIDE 0.9% 500 ML 500 ML IV SCH (09:43)
[2018-02-12] MEDS ORDERED: GENTAMICIN 90 MG in SODIUM CHLORIDE 0.9% 100 ML IVPB ONE (10:30)
[2018-02-12 11:12] VITALS: RESP 16; TEMP 98.2
[2018-02-12 11:31] LABS: Anion Gap 12 mmol/L; Blood Urea Nitrogen 19 mg/dL (7-17); Calcium 9.2 mg/dL (8.4-10.2); Carbon Dioxide 21 mmol/L (22-30); Chloride 103 mmol/L (98-107); Glucose 111 mg/dL (74-99); Sodium 136 mmol/L (137-145)
[2018-02-12 11:32] LABS: Anisocytosis Slight; Basophils % (A) 0 %; Eosinophils # (A) 0.1 k/uL (0-0.7); Eosinophils % (A) 1 %; HGB 11.2 gm/dL (11.4-16.0); Lymphocytes # (A) 1.9 k/uL (1.0-4.8); Lymphocytes % (A) 32 %; MCH 32.6 pg (25.0-35.0); MCHC 33.1 g/dL (31.0-37.0); MCV 98.5 fL (80.0-100.0); Macrocytosis Slight; Monocytes # (A) 0.2 k/uL (0-1.0); Monocytes % (A) 3 %; Neutrophils # (A) 3.9 k/uL (1.3-7.7); Neutrophils % (A) 63 %; RBC 3.45 m/uL (3.80-5.40); RDW 16.7 % (11.5-15.5); WBC 6.1 k/uL (3.8-10.6)
[2018-02-12 11:34] LABS: Platelet Count 160 k/uL (150-450)
[2018-02-12 11:35] LABS: Potassium 4.9 mmol/L (3.5-5.1)
[2018-02-12] MEDS ORDERED: IV FLUID CONTINUATION 950 ML IV ONE ×2 (11:40)
[2018-02-12] MEDS ORDERED: fentaNYL (PF) 50 MCG/ML 2 ML AMP IV ONE (11:45)
[2018-02-12] MEDS ORDERED: LIDOCAINE 1% INJ 10MG/ML (20 ML MDV) SQ ONE (11:45)
[2018-02-12] MEDS ORDERED: IOPAMIDOL-250 50ML BTL IV ONE (11:46)
[2018-02-12 14:28] VITALS: BP 142/71; PULSE 92
--- NOTE | 2018-02-13 08:42 | IR ---
EXAMINATION TYPE: IR nephrostomy DATE OF EXAM: 02/12/2018 COMPARISON: NONE HISTORY: Left nephrostomy tube secondary to ureteral obstruction Procedure had been discussed with the patient by Dr. Naik, risks, benefits, alternatives, were dis cussed and any questions were answered. Informed consent was obtained. The patient was in a semipro ne position prepped and draped on the OR table in the usual sterile fashion. Contrast was injected an d there was complete obstruction of the distal ureter at the level of the SI joint. Neither a guidewi re or contrast was seen to traverse the obstruction. Contrast [facility] the [facility] prior to the exam. 1.3 minutes of fluoroscopy and one image cronin bmitted. IMPRESSION: 1. Complete obstruction of the distal ureter at the level of the SI joint..
== END 2018-02-12 13:30 | disposition home or self-care (01) ==
LOC: CATHCVL 09:17
PROVIDERS: ATTEND Radiology Diagnostic Radiology
DX: N13.1 Hydronephrosis with ureteral stricture, not elsewhere classified (principal); Z43.6 Encounter for attention to other artificial openings of urinary tract; C22.8 Malignant neoplasm of liver, primary, unspecified as to type; C78.5 Secondary malignant neoplasm of large intestine and rectum; I10 Essential (primary) hypertension; Z93.3 Colostomy status; Z90.49 Acquired absence of other specified parts of digestive tract; G89.29 Other chronic pain; Z79.899 Other long term (current) drug therapy; Z91.048 Other nonmedicinal substance allergy status; Z87.891 Personal history of nicotine dependence
CPT/HCPCS: 50431; 80048; 85025; C1769 ×2; J2001; J3010; J1580; Q9966

== ENCOUNTER 2018-02-25 12:04 | Day surgery (SDC) | payer BC, OTHER ==
[2018-02-25 13:07] VITALS: PULSE 106; RESP 14; TEMP 97.6
[2018-02-25 13:13] VITALS: BP 144/76
== END 2018-02-25 12:45 | disposition home or self-care (01) ==
LOC: RADPROMAIN 12:04
PROVIDERS: ATTEND Radiology Diagnostic Radiology
DX: Z76.89 Persons encountering health services in other specified circumstances (principal)

== ENCOUNTER 2018-03-11 14:37 | Day surgery (SDC) | payer BC, OTHER ==
[2018-03-11 15:59] VITALS: BP 122/70; PULSE 68; RESP 18; TEMP 97.8
== END 2018-03-11 16:00 | disposition home or self-care (01) ==
LOC: RADPROMAIN 14:37
PROVIDERS: ATTEND Radiology Diagnostic Radiology
DX: Z76.89 Persons encountering health services in other specified circumstances (principal)
CPT/HCPCS: 99213

== ENCOUNTER 2018-03-19 14:49 | Day surgery (SDC) | payer OTHER ==
[2018-03-19 16:07] VITALS: BP 119/68; PULSE 95; RESP 16; TEMP 97.2
== END 2018-03-19 15:30 | disposition home or self-care (01) ==
LOC: RADPROMAIN 14:49
PROVIDERS: ATTEND Radiology Diagnostic Radiology
DX: Z46.6 Encounter for fitting and adjustment of urinary device (principal)
CPT/HCPCS: 99213

== ENCOUNTER 2018-03-21 18:12 | Observation (INO) | payer OTHER ==
[2018-03-21] MEDS ORDERED: IPRATROPIUM-ALBUTEROL 3 ML NEB INHALATION STA (18:31)
[2018-03-21] MEDS ORDERED: SODIUM CHLORIDE 0.9% 500 ML 500 ML IV STA (18:31)
[2018-03-21] MEDS ORDERED: SODIUM CHLORIDE 0.9% 1,000 ML IV STA ×2 (18:31→20:32)
--- NOTE | 2018-03-21 18:35 | ED ---
SOB HPI - General Chief Complaint: Shortness of Breath Stated Complaint: cancer pt/SOB Time Seen by Provider: 03/21/18 18:23 Source: patient, family, RN notes reviewed Mode of arrival: wheelchair Limitations: no limitations - History of Present Illness Initial Comments: This a 50-year-old female who presents with complaints of shortness of breath/ exertional dyspnea that in the left last day or so. She states this happens she gets her chemotherapy. She is being treated for liver cancer. She did decrease appetite and oral intake she has any overt chest pain she scheduled all time she states no fevers or sweats. She is a former smoker. She denies being diagnosed with COPD or asthma. She denies any palpitations or other symptoms at this time MD Complaint: shortness of breath - Related Data Home Medications Medication Instructions Recorded Confirmed amLODIPine BESYLATE/BENAZEPRIL 1 cap PO DAILY 09/29/17 03/21/18 [amLODIPine BESYLATE/BENAZEPRIL 5-20 mg] Loratadine 10 mg PO DAILY 02/09/18 03/21/18 Pegfilgrastim [Neulasta] 1 dose SQ Q14D 02/09/18 03/21/18 Prochlorperazine [Compazine] 10 mg PO Q6H PRN 03/21/18 03/21/18 Allergies Allergy/AdvReac Type Severity Reaction Status Date / Time adhesive tape Allergy Rash/Hives Verified 03/21/18 18:38 OSTOMY BAG Allergy Rash/Hives Uncoded 03/21/18 18:16 Review of Systems ROS Statement: Those systems with pertinent positive or pertinent negative responses have been documented in the HPI. ROS Other: All systems not noted in ROS Statement are negative. Past Medical History Past Medical History: Cancer, Hypertension, Liver Disease Additional Past Medical History / Comment(s): colon cancer, COLOSTOMY, " blockage in kidney area" History of Any Multi-Drug Resistant Organisms: None Reported Past Surgical History: Bowel Resection, Section Additional Past Surgical History / Comment(s): partial colectomy with colostomy 08/08, LIVER BX + ca, left ureter stent placement, unable to place sent over to [facility] for Left Nephro tube palcement. port placement Past Anesthesia/Blood Transfusion Reactions: No Reported Reaction Past Psychological History: No Psychological Hx Reported Smoking Status: Former smoker Past Alcohol Use History: Rare Past Drug Use History: None Reported - Past Family History Brother(s) Family Medical History: Cancer Additional Family Medical History / Comment(s): brain General Exam - General Exam Comments Initial Comments: This is a well-developed well-nourished awake alert oriented 3 female Limitations: no limitations General appearance: alert, anxious Head exam: Present: atraumatic, normocephalic, normal inspection Eye exam: Present: normal appearance, PERRL, EOMI. Absent: scleral icterus, conjunctival injection, periorbital swelling ENT exam: Present: normal exam, mucous membranes moist Neck exam: Present: normal inspection. Absent: tenderness, meningismus, lymphadenopathy Respiratory exam: Present: accessory muscle use, decreased breath sounds. Absent: respiratory distress, wheezes, rales, rhonchi, stridor Cardiovascular Exam: Present: normal rhythm, tachycardia, normal heart sounds. Absent: systolic murmur, diastolic murmur, rubs, gallop, clicks GI/Abdominal exam: Present: soft, normal bowel sounds. Absent: distended, tenderness, guarding, rebound, rigid Extremities exam: Present: normal inspection, full ROM, normal capillary refill. Absent: tenderness, pedal edema, joint swelling, calf tenderness Back exam: Present: normal inspection Neurological exam: Present: alert, oriented X3, CN II-XII intact Psychiatric exam: Present: normal affect, normal mood Skin exam: Present: warm, dry, intact, normal color. Absent: rash Course Vital Signs 03/21/18 03/21/18 03/21/18 18:13 18:37 18:44 Temperature 98.3 F Pulse Rate 138 H 133 H 131 H Respiratory 18 16 16 Rate Blood Pressure 101/63 O2 Sat by Pulse 96 Oximetry 03/21/18 19:30 Temperature Pulse Rate 120 H Respiratory 20 Rate Blood Pressure 114/80 O2 Sat by Pulse 96 Oximetry - Reevaluation(s) Reevaluation #1: 03/21/18 21:28 Reevaluation patient reveals some improvement in her breathing her heart rate has responded to the IV fluids. No chest pain Reevaluation #2: 03/21/18 21:28 Initial imaging was nonspecific due to the elevated d-dimer a CAT scan of the chest was ordered and results pending at this time Reevaluation #3: 03/21/18 21:28 I did discuss the findings with Dr. jones he patient will be admitted Medical Decision Making - Medical Decision Making I did discuss findings with patient patient family with Dr. jones patient be admitted - Lab Data Result diagrams: 03/21/18 18:49 03/21/18 18:49 Lab Results 03/21/18 03/21/18 03/21/18 Range/Units 18:49 18:49 18:49 WBC 6.8 (3.8-10.6) k/uL RBC 3.11 L (3.80-5.40) m/uL Hgb 9.8 L (11.4-16.0) gm/dL Hct 30.1 L (34.0-46.0) % MCV 96.7 (80.0-100.0) fL MCH 31.5 (25.0-35.0) pg MCHC 32.6 (31.0-37.0) g/dL RDW 16.5 H (11.5-15.5) % Plt Count 63 L D (150-450) k/uL Neutrophils % 68 % Lymphocytes % 19 % Monocytes % 8 % Eosinophils % 0 % Basophils % 0 % Neutrophils # 4.6 (1.3-7.7) k/uL Lymphocytes # 1.3 (1.0-4.8) k/uL Monocytes # 0.6 (0-1.0) k/uL Eosinophils # 0.0 (0-0.7) k/uL Basophils # 0.0 (0-0.2) k/uL Anisocytosis Slight PT (9.0-12.0) sec INR (<1.2) APTT (22.0-30.0) sec D-Dimer (<0.60) mg/L FEU Sodium 130 L (137-145) mmol/L Potassium 3.9 (3.5-5.1) mmol/L Chloride 96 L (98-107) mmol/L Carbon Dioxide 20 L (22-30) mmol/L Anion Gap 14 mmol/L BUN 24 H (7-17) mg/dL Creatinine 1.26 H (0.52-1.04) mg/dL Est GFR (CKD-EPI)AfAm 54 (>60 ml/min/1.73 sqM) Est GFR (CKD-EPI)NonAf 47 (>60 ml/min/1.73 sqM) Glucose 213 H (74-99) mg/dL Calcium 8.8 (8.4-10.2) mg/dL Magnesium 1.8 (1.6-2.3) mg/dL Total Bilirubin 0.6 (0.2-1.3) mg/dL AST 27 (14-36) U/L ALT 23 (9-52) U/L Alkaline Phosphatase 180 H (38-126) U/L Total Creatine Kinase 471 H (30-135) U/L CK-MB (CK-2) 0.3 (0.0-2.4) ng/mL CK-MB (CK-2) Rel Index 0.1 Troponin I <0.012 (0.000-0.034) ng/mL NT-Pro-B Natriuret Pep pg/mL Total Protein 7.4 (6.3-8.2) g/dL Albumin 3.8 (3.5-5.0) g/dL 03/21/18 03/21/18 03/21/18 Range/Units 18:49 18:49 18:49 WBC (3.8-10.6) k/uL RBC (3.80-5.40) m/uL Hgb (11.4-16.0) gm/dL Hct (34.0-46.0) % MCV (80.0-100.0) fL MCH (25.0-35.0) pg MCHC (31.0-37.0) g/dL RDW (11.5-15.5) % Plt Count (150-450) k/uL Neutrophils % % Lymphocytes % % Monocytes % % Eosinophils % % Basophils % % Neutrophils # (1.3-7.7) k/uL Lymphocytes # (1.0-4.8) k/uL Monocytes # (0-1.0) k/uL Eosinophils # (0-0.7) k/uL Basophils # (0-0.2) k/uL Anisocytosis PT 11.7 (9.0-12.0) sec INR 1.1 (<1.2) APTT 22.9 (22.0-30.0) sec D-Dimer 4.98 H (<0.60) mg/L FEU Sodium (137-145) mmol/L Potassium (3.5-5.1) mmol/L Chloride (98-107) mmol/L Carbon Dioxide (22-30) mmol/L Anion Gap mmol/L BUN (7-17) mg/dL Creatinine (0.52-1.04) mg/dL Est GFR (CKD-EPI)AfAm (>60 ml/min/1.73 sqM) Est GFR (CKD-EPI)NonAf (>60 ml/min/1.73 sqM) Glucose (74-99) mg/dL Calcium (8.4-10.2) mg/dL Magnesium (1.6-2.3) mg/dL Total Bilirubin (0.2-1.3) mg/dL AST (14-36) U/L ALT (9-52) U/L Alkaline Phosphatase (38-126) U/L Total Creatine Kinase (30-135) U/L CK-MB (CK-2) (0.0-2.4) ng/mL CK-MB (CK-2) Rel Index Troponin I (0.000-0.034) ng/mL NT-Pro-B Natriuret Pep 159 pg/mL Total Protein (6.3-8.2) g/dL Albumin (3.5-5.0) g/dL - EKG Data -: EKG Interpreted by Co EKG shows normal: sinus rhythm (Sinus tachycardia rate 1:30. Interval 1:30 QRS duration 76 QT since QTC 298/438 ST-T wave changes.) - Radiology Data Radiology results: report reviewed (I did review the imaging and report no acute findings as far as pulmonary embolisms masses or infiltrates. There is a liver mass is known that was seen.), image reviewed Disposition Clinical Impression: Acute exacerbation of chronic obstructive airways disease, Adult respiratory distress syndrome, Acute renal failure (ARF), Dehydration, Elevated d-dimer, Tachycardia Disposition: ADMITTED IP TO THIS HOSP Condition: Stable
[2018-03-21 19:23] LABS: Albumin 3.8 g/dL (3.5-5.0); Calcium 8.8 mg/dL (8.4-10.2); Magnesium 1.8 mg/dL (1.6-2.3); Potassium 3.9 mmol/L (3.5-5.1); Total Bilirubin 0.6 mg/dL (0.2-1.3); Total Protein 7.4 g/dL (6.3-8.2)
[2018-03-21 19:27] LABS: INR 1.1 (<1.2); Partial Thromboplastin Time 22.9 sec (22.0-30.0); Prothrombin Time 11.7 sec (9.0-12.0)
[2018-03-21 19:29] LABS: Creatine Kinase 471 U/L (30-135)
[2018-03-21 19:35] LABS: Anisocytosis Slight; Basophils % (A) 0 %; Eosinophils % (A) 0 %; HCT 30.1 % (34.0-46.0); HGB 9.8 gm/dL (11.4-16.0); Lymphocytes # (A) 1.3 k/uL (1.0-4.8); Lymphocytes % (A) 19 %; MCH 31.5 pg (25.0-35.0); MCHC 32.6 g/dL (31.0-37.0); MCV 96.7 fL (80.0-100.0); Mean Platelet Volume 8.6; Monocytes # (A) 0.6 k/uL (0-1.0); Monocytes % (A) 8 %; Neutrophils # (A) 4.6 k/uL (1.3-7.7); Neutrophils % (A) 68 %; RBC 3.11 m/uL (3.80-5.40); RDW 16.5 % (11.5-15.5); WBC 6.8 k/uL (3.8-10.6)
[2018-03-21 19:40] LABS: Creatine Kinase MB 0.3 ng/mL (0.0-2.4); Troponin I <0.012 ng/mL (0.000-0.034)
--- NOTE | 2018-03-21 19:52 | XR ---
EXAMINATION TYPE: XR chest 2V DATE OF EXAM: 03/21/2018 COMPARISON: 10/13/2017 HISTORY: Short of breath TECHNIQUE: Frontal and lateral views of the chest are obtained. FINDINGS: There is right-sided central venous catheter with the tip of the top of the right atrium. There is no pneumothorax. Lungs are clear. Heart and mediastinum are normal. IMPRESSION: Normal chest. No change.
[2018-03-21 20:41] LABS: Platelet Count 63 k/uL (150-450)
[2018-03-21] MEDS ORDERED: PROCHLORPERAZINE 10 MG TAB PO PRN (21:49)
--- NOTE | 2018-03-21 21:59 | CT ---
EXAMINATION TYPE: CT angio chest DATE OF EXAM: 03/21/2018 9:03 PM COMPARISON: 12/04/2016 HISTORY: SOB, chest pain CT DLP: 202.9 mGycm Automated exposure control for dose reduction was used. CONTRAST: CTA scan of the thorax is performed with IV Contrast, patient injected with 80 mL of Isovue 370, pulm onary embolism protocol. There are 3-D post processed images.. FINDINGS: The lungs are clear of consolidation. There is no evidence of a pulmonary mass. There is mild subsegm ental atelectasis at the lung bases. Heart size is normal. There is no pericardial effusion. There is no pleural effusion. There are no hilar masses. There is no mediastinal adenopathy. Thoracic aorta i s intact there is no evidence of aneurysm or dissection. There are no filling defects in the pulmonar y arteries. The bony thorax is intact. There are hypodense multiple variable sized foci in the liver that measure up to 3.5 cm. There is decreased cortical enhancement of the partly visualized left kidney . IMPRESSION: NO EVIDENCE OF PULMONARY EMBOLISM. MINIMAL SUBSEGMENTAL ATELECTASIS AT THE LUNG BASES. NORMAL HEART. OVERALL NO ADVERSE CHANGE COMPARED TO OLD EXAM. HYPODENSE MASSES RELATED TO METASTATIC DISEASE SEEN IN THE VISUALIZED LIVER MEASURE UP TO 3.5 CM NOT SIGNIFICANTLY DIFFERENT THAN OLD EXAM. Abnormal left kidney. This is not well evaluated. Infiltrative process or ischemia or obstruction or possible.
[2018-03-21] MEDS ORDERED: PEGFILGRASTIM 6 MG/0.6 ML SYRINGE SQ SCH (22:00)
[2018-03-21] MEDS: HEPARIN SODIUM,PORCINE 5,000 UNIT/ML 1 ML VIAL SQ SCH (22:55)
[2018-03-21] MEDS: SODIUM CHLORIDE 0.9% 1,000 ML IV SCH (23:10)
[2018-03-21] MEDS: methylPREDNISolone SOD SUCCI 125 MG/2 ML VIAL IV SCH (23:10)
[2018-03-21 23:24] VITALS: BMI 34.2
[2018-03-21] MEDS: IPRATROPIUM-ALBUTEROL 3 ML NEB INHALATION SCH (23:46)
[2018-03-22] MEDS: IPRATROPIUM-ALBUTEROL 3 ML NEB INHALATION SCH ×4 (03:42→16:03)
[2018-03-22 04:36] VITALS: RESP 16
[2018-03-22] MEDS: methylPREDNISolone SOD SUCCI 125 MG/2 ML VIAL IV SCH ×2 (05:37→11:55)
[2018-03-22 07:27] LABS: Glucose,Whole Blood 310 mg/dL (75-99)
[2018-03-22] MEDS ORDERED: NON-FORMULARY DRUG (Amlodipine Besylate/Benazepril [Amlodipine Besylate/Benazepril 5-20 Mg PO SCH (09:00)
[2018-03-22] MEDS ORDERED: LISINOPRIL 20 MG TAB PO SCH (09:00)
[2018-03-22] MEDS ORDERED: amLODIPine 5 MG TAB PO SCH (09:00)
[2018-03-22] MEDS ORDERED: LORATADINE 10 MG TAB PO SCH (09:00)
[2018-03-22] MEDS ORDERED: INSULIN ASPART (NovoLOG) 100 UNIT/ML VIAL SQ ONE (09:35)
[2018-03-22] MEDS: HEPARIN SODIUM,PORCINE 5,000 UNIT/ML 1 ML VIAL SQ SCH (09:41)
[2018-03-22] MEDS: INSULIN ASPART (NovoLOG) 100 UNIT/ML VIAL SQ SCH ×2 (09:42→12:08)
[2018-03-22] MEDS: SODIUM CHLORIDE 0.9% 1,000 ML IV SCH (09:46)
--- NOTE | 2018-03-22 09:46 | US ---
EXAMINATION TYPE: US venous doppler duplex LE DATE OF EXAM: 03/22/2018 6:53 AM COMPARISON: NONE CLINICAL HISTORY: Elevated d-dimer. chemo patient, no leg pain or swelling, elevated d-dimer SIDE PERFORMED: bilateral TECHNIQUE: The lower extremity deep venous system is examined utilizing real time linear array sonog fernanda with graded compression, doppler sonography and color-flow sonography. VESSELS IMAGED: External Iliac Vein (EIV) Common Femoral Vein Deep Femoral Vein Greater Saphenous Vein * Femoral Vein Popliteal Vein Small Saphenous Vein * Proximal Calf Veins (* superficial vessels) Right Leg: Appears negative for DVT Left Leg: Appears negative for DVT No popliteal fossa lesion is seen. IMPRESSION: THIS EXAMINATION IS NEGATIVE FOR DVT IN BOTH LEGS.
[2018-03-22 11:55] LABS: Glucose,Whole Blood 321 mg/dL (75-99)
[2018-03-22 12:55] LABS: Glucose,Whole Blood 277 mg/dL (75-99)
[2018-03-22 13:04] VITALS: BP 130/82; TEMP 97.4
--- NOTE | 2018-03-22 15:03 | P.CNPUL ---
History of Present Illness Consult date: 03/22/18 Requesting physician: Otf E Sheet Reason for consult: dyspnea, COPD Chief complaint: Shortness of breath History of present illness: This is a 50-year-old female with history of multiple medical problems including hypertension, COPD, metastatic colon cancer, diagnosed in July, patient had previous bowel resection, and colostomy, patient was also found to have metastatic colon cancer to the liver. This was diagnosed by ultrasound guided biopsy of a liver lesion. Patient is now on chemotherapy, given to her by Dr. Lloyd. Patient received chemotherapy few days ago, and she developed generalized weakness. She was also complaining of shortness of breath. She also developed symptoms of vague aches and pains. Seen in the ER, workup was nondiagnostic including a CT of the chest ruled out pulmonary embolism, chest x- ray was also nondiagnostic. Patient was admitted, placed on bronchodilators, she was admitted with the impression of acute exacerbation of COPD. Has been feeling significantly better with her updrafts, and patient is actually requesting to be discharged home today. Presently during my evaluation the patient is relatively asymptomatic, no cough no wheezing no shortness of breath. Wondered if she could have an updraft machine at home, and I felt that is quite reasonable since the patient has been diagnosed with COPD in the past. I did recommend that the patient comes in to see me in the office and at least a stage her COPD. Review of Systems 14 point review of systems were obtained, please refer to pertinent positives in HPI, otherwise remaining systems are negative Past Medical History Past Medical History: Cancer, Hypertension, Liver Disease Additional Past Medical History / Comment(s): colon cancer, COLOSTOMY, " blockage in kidney area" History of Any Multi-Drug Resistant Organisms: None Reported Past Surgical History: Bowel Resection, Section Additional Past Surgical History / Comment(s): partial colectomy with colostomy 08/08, LIVER BX + ca, left ureter stent placement, unable to place sent over to [facility] for Left Nephro tube palcement. port placement Past Anesthesia/Blood Transfusion Reactions: No Reported Reaction Past Psychological History: No Psychological Hx Reported Smoking Status: Former smoker Past Alcohol Use History: Rare Additional Past Alcohol Use History / Comment(s): QUIT SMOKING 03/2016, 1PPD FROM AGE 18 Past Drug Use History: None Reported - Past Family History Brother(s) Family Medical History: Cancer Additional Family Medical History / Comment(s): brain Medications and Allergies Home Medications Medication Instructions Recorded Confirmed Type amLODIPine BESYLATE/BENAZEPRIL 1 cap PO DAILY 09/29/17 03/21/18 History [amLODIPine BESYLATE/BENAZEPRIL 5-20 mg] Loratadine 10 mg PO DAILY 02/09/18 03/21/18 History Pegfilgrastim [Neulasta] 1 dose SQ Q14D 02/09/18 03/21/18 History Prochlorperazine [Compazine] 10 mg PO Q6H PRN 03/21/18 03/21/18 History Ipratropium-Albuterol Nebulize 3 ml INHALATION RT-Q6H #120 03/22/18 Rx [Duoneb 0.5 mg-3 mg/3 ml Soln] ampul.neb Levofloxacin [Levaquin] 500 mg PO DAILY #5 tab 03/22/18 Rx predniSONE 10 mg PO DIRECTED #30 tab 03/22/18 Rx Allergies Allergy/AdvReac Type Severity Reaction Status Date / Time adhesive tape Allergy Rash/Hives Verified 03/21/18 18:38 OSTOMY BAG Allergy Rash/Hives Uncoded 03/21/18 18:16 Physical Exam Vitals: Vital Signs Temp Pulse Pulse Resp BP BP Pulse Ox 03/22/18 12:37 97.4 F L 103 H 16 130/82 98 03/22/18 09:39 113 H 124/73 97 03/22/18 08:42 103 H 03/22/18 08:28 100 03/22/18 05:00 97.5 F L 95 16 108/73 95 03/22/18 04:00 16 03/21/18 23:54 99 18 03/21/18 23:22 98.1 F 99 18 119/59 97 03/21/18 22:00 105 H 16 100/51 96 03/21/18 20:00 116 H 16 114/80 97 03/21/18 19:30 120 H 20 114/80 96 03/21/18 18:44 131 H 16 03/21/18 18:37 133 H 16 03/21/18 18:13 98.3 F 138 H 18 101/63 96 Intake and Output 03/21/18 03/22/18 03/22/18 22:59 06:59 14:59 Intake Total 420 1120 1400 Balance 420 1120 1400 Intake: Intake, IV Titration 700 800 Amount Sodium Chloride 0.9% 1, 700 800 000 ml @ 100 mls/hr IV . Q10H [facility] Rx#:[id number] Oral 420 420 600 Other: Voiding Method Ileal Conduit (Left) Ileal Conduit (Left) # Voids 2 Weight 79.37 kg 79 kg Physical Exam: Revealed a 58-year-old female in no distress. Head: Atraumatic, normocephalic. HEENT:[Neck is supple.] [No neck masses.] [No thyromegaly.] [No JVD.] PERRLA, EOMI, no icterus Chest: [Diminished breath sound bilaterally, no crackles or rhonchi or wheezes.. ] Cardiac Exam: [Normal S1 and S2, no S3 gallop, no murmur.] Abdomen: [Soft, nontender, no megaly, no rebound, no guarding, normal bowel sounds.] Left lower quadrant colostomy is noted. Extremities: [No clubbing, no edema, no cyanosis.] Neurological Exam: [No focal neurologic deficit.] Skin: No rashes. Psychiatric: Normal mood, affect and mental status examination. Results - Laboratory Findings CBC and BMP: 03/21/18 18:49 03/21/18 18:49 PT/INR, D-dimer PT 11.7 sec (9.0-12.0) 03/21/18 18:49 INR 1.1 (<1.2) 03/21/18 18:49 D-Dimer 4.98 mg/L FEU (<0.60) H 03/21/18 18:49 Abnormal lab findings: Abnormal Labs 03/21/18 03/21/18 03/21/18 18:49 18:49 18:49 RBC 3.11 L Hgb 9.8 L Hct 30.1 L RDW 16.5 H Plt Count 63 L D D-Dimer Sodium 130 L Chloride 96 L Carbon Dioxide 20 L BUN 24 H Creatinine 1.26 H Glucose 213 H POC Glucose (mg/dL) Alkaline Phosphatase 180 H Total Creatine Kinase 471 H 03/21/18 03/22/18 03/22/18 18:49 07:26 11:54 RBC Hgb Hct RDW Plt Count D-Dimer 4.98 H Sodium Chloride Carbon Dioxide BUN Creatinine Glucose POC Glucose (mg/dL) 310 H 321 H Alkaline Phosphatase Total Creatine Kinase 03/22/18 12:54 RBC Hgb Hct RDW Plt Count D-Dimer Sodium Chloride Carbon Dioxide BUN Creatinine Glucose POC Glucose (mg/dL) 277 H Alkaline Phosphatase Total Creatine Kinase - Diagnostic Findings Chest x-ray: image reviewed CT scan - chest: image reviewed (As noted in HPI.) Assessment and Plan Assessment: Impression: 1 shortness of breath secondary to acute exacerbation of COPD, and chronic anemia. 2 history of metastatic colon cancer to the liver presently on chemotherapy. 3 acute dehydration, improved significantly post hydration. 4 elevated d-dimer but negative CT angiogram of the chest. 5 thrombocytopenia secondary to recent chemotherapy and myelosuppression. Recommendation: Considering the patient has made a significant improvement overnight, and she is feeling much better today, I agree with discharge planning home today, patient is to receive a nebulizer, DuoNeb jose albertorafts 4 times a day and when necessary, and advised to come back and see me in the office regarding her COPD, will follow as needed. Time with Patient: Greater than 30
[2018-03-22 16:10] VITALS: PULSE 98
--- NOTE | 2018-03-23 09:56 | HP ---
HISTORY AND PHYSICAL HISTORY AND PHYSICAL/DISCHARGE SUMMARY: DATE OF SERVICE: 03/22/2018 CHIEF COMPLAINTS: Shortness of breath. HISTORY OF PRESENT ILLNESS: This 58-year-old gentleman with a past medical history of multiple medical problems including colon cancer with mets, history of hypertension, history of liver disease, history of colostomy, bowel obstructions, , being followed by [facility] in the outpatient, admitted with shortness of breath. The patient was diagnosed COPD acute exacerbation tracheobronchitis. Dr. Green saw the patient. The patient also underwent a CTA to rule out the pulmonary embolism which showed no evidence of any pulmonary embolism, hypodense metastatic lesion noted in the liver and Dr. Green recommend the patient be discharged. There is no history of fever or rigors. No headache, loss of consciousness, seizures. PAST MEDICAL HISTORY: History of colon cancer, hypertension, liver disease. MEDICATIONS: Prior to admission home medications are reviewed include Norvasc, benazepril 5/20 b.i.d., Compazine, Neulasta, loratadine. ALLERGIES: None. FAMILY HISTORY: History of cancer in the family. SOCIAL HISTORY: Previous smoker, no history of current smoking or alcohol intake. REVIEW OF SYSTEMS: ENT: No diminished hearing or vision. CARDIOVASCULAR: No angina. RESPIRATORY: As mentioned earlier. GI: No nausea. : No dysuria. NERVOUS SYSTEM: No numbness or weakness. ALLERGY/IMMUNOLOGY: No asthma or hayfever. MUSCULOSKELETAL: As mentioned earlier. HEMATOLOGY: As mentioned earlier. ENDOCRINE: No history of diabetes or hypothyroidism. CONSTITUTIONAL: As mentioned earlier. PHYSICAL EXAMINATION: Pulse 103, blood pressure 130/80, respiration 16, temperature 97.4, pulse ox 98% on room air. EYES: Conjunctivae normal. NECK: No jugular venous distention. CARDIAC: S1, S2 muffled. RESPIRATORY: Breath sounds diminished especially at the bases. Bilateral scattered rhonchi and crackles. No bronchial breath sounds. ABDOMEN: Soft, nontender. No mass palpable. LEGS: No edema. No swelling. NERVOUS SYSTEM: Higher functions as mentioned earlier. Moves all 4 limbs. No focal deficit. LYMPHATICS: No lymph node in neck or axilla. SKIN: No rash. LAB: D-dimer is 4.98 and hemoglobin 9.8. Creatinine 1.26. ASSESSMENT: 1. Shortness of breath, COPD acute exacerbation. 2. Elevated D-dimer with no evidence of any pulmonary embolism. 3. Metastatic colon cancer with liver metastasis. 4. Hypertension. 5. History of colostomy. 6. History of bowel resection. 7. History of . 8. Remote history of nicotine dependence. RECOMMENDATIONS AND DISCUSSION: In this 58-year-old gentleman who presented with multiple medical issues, at this time I recommend to continue the current management and symptomatic treatment. Patient evaluated by Dr. Green. The patient discharged in stable condition. Guarded prognosis. The patient oxygenating satisfactorily. Recommend close outpatient follow up. The following medications are recommended at the time of discharge: 1. Amlodipine benazepril 5/20 p.o. daily. 2. Loratadine 10 mg daily. 3. Neulasta 1 q40. 4. Compazine 10 mg q.6h p.r.n. 5. DuoNeb q.i.d. and p.r.n. 6. Levaquin 500 mg daily for 5 days. 7. Prednisone 40 mg daily for 3 days, 30 for 3 days, 20 for days and 10 for 3 days. Follow up with Dr. Green. Follow up with Dr. Negrete in 3-4 days. Once again, the patient discharged in stable condition with guarded prognosis. MMODL / IJN: [id number] /
== END 2018-03-22 16:40 | disposition home or self-care (01) ==
LOC: EC 18:12 → 3SCARD 21:30 → INTOOBSV 21:30 → 3NMEDONC 22:09 → UNDODISIN 03-22 16:40
PROVIDERS: ADMIT Internal Medicine; ATTEND Internal Medicine
DX: J44.0 Chronic obstructive pulmonary disease with (acute) lower respiratory infection (principal); J80 Acute respiratory distress syndrome; C78.7 Secondary malignant neoplasm of liver and intrahepatic bile duct; N17.9 Acute kidney failure, unspecified; J20.9 Acute bronchitis, unspecified; J44.1 Chronic obstructive pulmonary disease with (acute) exacerbation; E86.0 Dehydration; D69.59 Other secondary thrombocytopenia; D64.9 Anemia, unspecified; R79.89 Other specified abnormal findings of blood chemistry; T45.1X5A Adverse effect of antineoplastic and immunosuppressive drugs, initial encounter; I10 Essential (primary) hypertension; Z79.899 Other long term (current) drug therapy; Z85.038 Personal history of other malignant neoplasm of large intestine; Z92.21 Personal history of antineoplastic chemotherapy; Z93.3 Colostomy status; Z98.891 History of uterine scar from previous surgery; Z90.49 Acquired absence of other specified parts of digestive tract; Z87.891 Personal history of nicotine dependence; Z91.048 Other nonmedicinal substance allergy status; Z80.8 Family history of malignant neoplasm of other organs or systems
CPT/HCPCS: 96376; 96372 ×2; 96374; 99285; 36415; 94640 ×3; 85379; 83880; 80053; 82550; 82553; 83735; 84484; 85025; 85610; 85730; 83036; 71046; 93970; 71275; G0378 ×2; S0183; J1644 ×2; J2930 ×2; Q9967; 96360; 96361

== ENCOUNTER 2018-03-26 15:03 | Day surgery (SDC) | payer OTHER ==
[2018-03-26 15:58] VITALS: BP 122/74; PULSE 97; RESP 16; TEMP 97.7
== END 2018-03-26 15:55 | disposition home or self-care (01) ==
LOC: RADPROMAIN 15:03
PROVIDERS: ATTEND Radiology Diagnostic Radiology
DX: Z46.6 Encounter for fitting and adjustment of urinary device (principal)
CPT/HCPCS: 99213

== ENCOUNTER → 2018-03-28 | Outpatient (CLI) | payer OTHER ==
--- NOTE | 2018-03-30 16:43 | PE ---
EXAMINATION TYPE: PET CT fusion skull to thigh DATE OF EXAM: 03/28/2018 COMPARISON: PET/CT dated 12/20/2017 and 09/13/2017 HISTORY: Sigmoid colon carcinoma. Recent chemotherapy 2 weeks ago. No prior radiation therapy. TECHNIQUE: Following the intravenous administration of 11.156 mCi of F-18 FDG, whole body images are performed from the skull base to the midthigh. Images are reviewed on the computer in the coronal, axial, and sagittal planes. Reconstructed rotating images are created on independent workstation and reviewed on the computer. A localization and attenuation correction CT is performed in conjunction with the PET scan. SCAN: Subsequent FINDINGS: Mediastinal background: 1.92 Abdominal background: 3.22 SKULL BASE AND NECK: No suspicious hypermetabolic uptake. CHEST, MEDIASTINUM, AND HILAR REGION: There is focal hypermetabolic uptake at the gastroesophageal ju nction with a maximum SUV of 3.62. No additional areas of suspicious hypermetabolic uptake. ABDOMEN AND PELVIS: There is a hypoattenuated approximately 3.4 x 2.6 cm right hepatic lobe lesion (p reviously measuring 4.2 cm) that is again photopenic and smaller left hepatic lobe lesions measuring 1 cm and 8 mm as well as a second right hepatic lobe lesion measuring 1.7 cm. The smaller lesions aga in demonstrate no hypermetabolic uptake. Previously seen uptake with a SUV of 10-11 within the pouch of Will appears to represent a urinary bladder outpouching as does the left hemipelvis uptake is indeterminate on the prior exam (given vol ume averaging and slight misregistration). There is a small retroperitoneal lymph node seen on series 3 image 136 measuring 6 mm in short axis t hat demonstrates a maximum SUV of 3.0, approaching that of abdominal background. There are few promin ent left renal retroperitoneal lymph nodes that could be reactive from the adjacent left renal inflam matory change. OSSEOUS STRUCTURES: Again there is diffuse patchy uptake suspicious for multifocal osseous metastasis . However, the patient recently underwent chemotherapy, which could account for this finding. On CT p articularly there is a sclerotic focus of the left L5 vertebrae and multiple punctate foci within the right hemipelvis. Although these foci are not specifically hypermetabolic on today's examination the re is uptake within the lower thoracic spine with a maximum SUV of 3.35, within the lumbar spine demo nstrating a maximum SUV of 3.4, and within the pelvis demonstrating a maximum SUV of 3.72. OTHER CT: Minimal amount of subsegmental atelectasis is seen along the interlobar fissure within the left upper lobe on series 3 image 60. There is moderate background centrilobular emphysematous change s and subsegmental dependent atelectasis is seen. Right-sided Mediport is again noted terminating in the right atrium. Trace pericardial fluid is present. No mediastinal adenopathy or suspicious pulmona ry nodules are identified. There is diffuse mottled appearance of the bone marrow throughout the ribs . There is a new percutaneous enteric left nephrostomy tube with only minimal residual blunting of the left minor calyces. Left perinephric fat stranding is seen. Right kidney is unremarkable. Moderate at herosclerosis of the abdominal aorta and its branches are noted. Spleen, pancreas, and adrenal gland on the right are grossly unremarkable. Left adrenal gland is partially obscured. There is a small fat filled umbilical hernia noted. Left lower quadrant ostomy and low ventral abdominal hernia containin g loops of nondilated small bowel are present. There is anastomotic site of the rectosigmoid colon. IMPRESSION: 1. Response to treatment in regards to the hepatic lesions as the largest hepatic lesion now measures 3.4 cm and previously measured 4.2 cm. The hepatic lesions remain hypometabolic. 2. Diffuse patchy uptake throughout the axial skeleton that may relate to reactive post chemotherapy change however findings do remain suspicious for osseous metastasis as there are multiple sclerotic f oci within the right hemipelvis and at the L5 vertebral body. These findings should be assessed on cronin bsequent PET scans. 3. Focal hypermetabolic uptake at the gastroesophageal junction. This could relate to esophagitis or neoplasm and could be further assessed with direct visualization. 4. Interval decompression of the left-sided hydronephrosis with minimal blunting of the left minor ca lyces status post percutaneous nephrostomy tube placement. 5. Nonenlarged retroperitoneal adenopathy remains hypometabolic. No new foci of metastasis within the chest, abdomen or pelvis in comparison to the prior exam.
== END ==
LOC: RADXRMAIN 11:53
PROVIDERS: ATTEND Internal Medicine Hematology & Oncology
DX: C18.7 Malignant neoplasm of sigmoid colon (principal); K76.89 Other specified diseases of liver; N13.30 Unspecified hydronephrosis; R93.3 Abnormal findings on diagnostic imaging of other parts of digestive tract; R93.89 Abnormal findings on diagnostic imaging of other specified body structures; Z92.21 Personal history of antineoplastic chemotherapy; Z93.6 Other artificial openings of urinary tract status
CPT/HCPCS: 78815; A9552

== ENCOUNTER 2018-03-31 09:26 | Day surgery (SDC) | payer OTHER ==
[2018-03-31 10:15] VITALS: BP 138/74; PULSE 87; RESP 12; TEMP 98
== END 2018-03-31 10:10 | disposition home or self-care (01) ==
LOC: RADPROMAIN 09:26
PROVIDERS: ATTEND Radiology Diagnostic Radiology
DX: Z48.03 Encounter for change or removal of drains (principal)

== ENCOUNTER → 2018-04-20 | Day surgery (SDC) | payer OTHER ==
[2018-04-20 13:39] VITALS: BP 157/91; PULSE 88; RESP 16; TEMP 98
== END ==
LOC: RADPROMAIN 12:49
PROVIDERS: ATTEND Radiology Diagnostic Radiology
DX: Z48.01 Encounter for change or removal of surgical wound dressing (principal)
CPT/HCPCS: 99213

== ENCOUNTER → 2018-04-21 | Outpatient (CLI) | payer OTHER ==
--- NOTE | 2018-04-22 10:10 | ECHOF ---
Referral Reason:R94.31 Abnormal EKG, R06.02 Shortness of Breath MEASUREMENTS -------- HEIGHT: 152.4 cm WEIGHT: 57.6 kg BP: 159/89 RVIDd: 2.6 cm (< 3.3) IVSd: 1.0 cm (0.6 - 1.1) LVIDd: 3.9 cm (3.9 - 5.3) LVPWd: 1.0 cm (0.6 - 1.1) IVSs: 1.5 cm LVIDs: 2.6 cm LVPWs: 1.5 cm LA Diam: 2.7 cm (2.7 - 3.8) LAESV Index (A-L): 11.38 ml/m Ao Diam: 3.1 cm (2.0 - 3.7) AV Cusp: 1.9 cm (1.5 - 2.6) MV EXCURSION: 17.918 mm (> 18.000) MV EF SLOPE: 145 mm/s (70 - 150) EPSS: 1.1 cm MV E Juan: 0.71 m/s MV DecT: 166 ms MV A Juan: 0.89 m/s MV E/A Ratio: 0.80 RAP: 5.00 mmHg RVSP: 32.00 mmHg FINDINGS -------- Sinus rhythm. This was a technically adequate study. The left ventricular size is normal. Left ventricular wall thickness is normal. Overall left vent ricular systolic function is normal with, an EF between 60 - 65 %. The right ventricle is normal in size. Normal LA size by volume 22+/-6 ml/m2. The right atrium is normal in size. The aortic valve was not well visualized. Mild mitral annular calcification present. Mild tricuspid regurgitation present. Right ventricular systolic pressure is normal at < 35 mmHg. There is no pulmonic regurgitation present. The aortic root size is normal. Normal inferior vena cava with normal inspiratory collapse consistent with estimated right atrial pre ssure of 5 mmHg. There is no pericardial effusion. CONCLUSIONS -------- 1. Sinus rhythm. 2. This was a technically adequate study. 3. The left ventricular size is normal. 4. Left ventricular wall thickness is normal. 5. Overall left ventricular systolic function is normal with, an EF between 60 - 65 %. 6. The right ventricle is normal in size. 7. Normal LA size by volume 22+/-6 ml/m2. 8. The right atrium is normal in size. 9. The aortic valve was not well visualized. 10. Mild mitral annular calcification present. 11. Mild tricuspid regurgitation present. 12. Right ventricular systolic pressure is normal at < 35 mmHg. 13. There is no pulmonic regurgitation present. 14. The aortic root size is normal. 15. Normal inferior vena cava with normal inspiratory collapse consistent with estimated right atrial pressure of 5 mmHg. 16. There is no pericardial effusion. [employer]: Cleopatra Whitfield RDCS
== END | disposition home or self-care (01) ==
LOC: RADECHMAIN 14:52
PROVIDERS: ATTEND Internal Medicine
DX: I07.1 Rheumatic tricuspid insufficiency (principal)
CPT/HCPCS: 93306

== ENCOUNTER 2018-04-27 14:56 | Day surgery (SDC) | payer OTHER ==
[2018-04-27 16:13] VITALS: BP 166/96; PULSE 95; RESP 16; TEMP 97.8
== END 2018-04-27 16:00 | disposition home or self-care (01) ==
LOC: RADPROMAIN 14:56
PROVIDERS: ATTEND Radiology Diagnostic Radiology
DX: Z48.01 Encounter for change or removal of surgical wound dressing (principal)
CPT/HCPCS: 99213

== ENCOUNTER 2018-05-04 15:16 | Day surgery (SDC) | payer OTHER ==
[2018-05-04 16:10] VITALS: BP 160/89; PULSE 93; RESP 14; TEMP 98
== END 2018-05-04 16:05 | disposition home or self-care (01) ==
LOC: RADPROMAIN 15:16
PROVIDERS: ATTEND Radiology Diagnostic Radiology
DX: Z48.03 Encounter for change or removal of drains (principal); Z48.01 Encounter for change or removal of surgical wound dressing

== ENCOUNTER → 2018-05-14 | Day surgery (SDC) | payer OTHER ==
[2018-05-11 10:57] VITALS: BMI 24.7
--- NOTE | 2018-05-13 14:45 | P.GSHP ---
History of Present Illness H&P Date: 05/13/18 58 yo femal with metastatic ca of colon causing left hydronephrois. Has a left nephrostomy tube and comes for exchange - Constitutional Constitutional: Reports chronic pain, Reports malaise - Gastrointestinal Gastrointestinal: Reports as per HPI - Genitourinary (Female) Genitourinary: Reports as per HPI Past Medical History Past Medical History: Cancer, COPD, GERD/Reflux, Hypertension, Liver Disease Additional Past Medical History / Comment(s): colon/liver cancer-finished chemo Mar 2018, COLOSTOMY, scar tissue on kidney from colon surgery, varicose veins, on antibiotics for coliits History of Any Multi-Drug Resistant Organisms: None Reported Past Surgical History: Bowel Resection, Section Additional Past Surgical History / Comment(s): partial colectomy with colostomy , LIVER Biopsy, left ureter stent placement, Left Nephro tube palcement. port placement Past Anesthesia/Blood Transfusion Reactions: No Reported Reaction Smoking Status: Former smoker - Past Family History Brother(s) Family Medical History: Cancer Additional Family Medical History / Comment(s): brain Medications and Allergies Home Medications Medication Instructions Recorded Confirmed Type Loratadine 10 mg PO DAILY 02/09/18 05/11/18 History Albuterol Sulfate [Proair Hfa] 2 puff INHALATION Q6HR PRN 05/11/18 05/11/18 History Cannabidiol (Cbd) Extract 0 mg IH DIRECTED PRN 05/11/18 05/11/18 History [Epidiolex] Ciprofloxacin HCl 500 mg PO BID 05/11/18 05/11/18 History Ipratropium-Albuterol Nebulize 3 ml INHALATION TID PRN 05/11/18 05/11/18 History [Duoneb 0.5 mg-3 mg/3 ml Soln] Metoprolol Succinate (ER) [Toprol 50 mg PO DAILY 05/11/18 05/11/18 History Xl] Ranitidine HCl 150 mg PO DAILY PRN 05/11/18 05/11/18 History metroNIDAZOLE [Flagyl] 500 mg PO TID 05/11/18 05/11/18 History Allergies Allergy/AdvReac Type Severity Reaction Status Date / Time adhesive tape Allergy Rash/Hives Verified 05/11/18 10:41 OSTOMY BAG Allergy Rash/Hives Uncoded 02/25/19 10:41 Surgical - Exam - General well developed, chronically ill - ENT no hearing loss - Neck trachea midline - Respiratory normal expansion, normal respiratory effort - Cardiovascular Rhythm: regular - Abdomen left nephrostomy tube Abdomen: soft, non tender - Musculoskeletal normal gait, normal posture - Psychiatric oriented to time, oriented to person, oriented to place, speech is normal, memory intact Assessment and Plan Assessment: Impression: Left hdyronephrosis secondary to metastatic colon ca with nephrostomy tube Plan: Replace nephrostomy tube
[~2018-05-14] MED LIST changes: -DEXAMETHASONE SOD PHOSPHATE 10 MG/ML 1 ML VIAL IV ONE; +GENTAMICIN 80 MG in SODIUM CHLORIDE 0.9% 100 ML IVPB ONE; -HEPARIN SODIUM,PORCINE 5,000 UNIT/ML 1 ML VIAL SQ ONE; -HYDROmorphone 1 MG/ML 1 ML SYRINGE IVP PRN; +IOPAMIDOL-300 50ML BTL INJ ONE; +IV FLUID CONTINUATION 1,000 ML IV ONE; -LACTATED RINGERS 1,000 ML IV SCH; -LIDOCAINE 1% 20 ML VIAL (10MG/ML) FOR IV START INTRADERMA PRN; +LIDOCAINE 1% INJ 10MG/ML (20 ML MDV) ONE; +LIDOCAINE 1% INJ 10MG/ML (20 ML MDV) SQ ONE; -MIDAZOLAM 2 MG/2 ML VIAL IV PRN; -ONDANSETRON 4 MG/2 ML VIAL IVP ONE; -Pre Op ABX Message 1 EACH MISC MISCELLANE ONE; -SCOPOLAMINE 1.5MG/72HR PATCH TRANSDERM ONE; +SODIUM CHLORIDE 0.9% 250 ML IV ONE; +fentaNYL (PF) 50 MCG/ML 2 ML AMP IV ONE; +fentaNYL (PF) 50 MCG/ML 2 ML AMP ONE
[2018-05-14 11:34] VITALS: RESP 18; TEMP 97.6
[2018-05-14 11:57] LABS: Anion Gap 6 mmol/L; Blood Urea Nitrogen 10 mg/dL (7-17); Calcium 9.4 mg/dL (8.4-10.2); Carbon Dioxide 26 mmol/L (22-30); Chloride 106 mmol/L (98-107); Glucose 121 mg/dL (74-99); Sodium 138 mmol/L (137-145)
[2018-05-14 12:12] LABS: Potassium 4.7 mmol/L (3.5-5.1)
[2018-05-14 12:43] LABS: HCT 37.4 % (34.0-46.0); HGB 12.1 gm/dL (11.4-16.0); MCH 31.2 pg (25.0-35.0); MCHC 32.3 g/dL (31.0-37.0); MCV 96.5 fL (80.0-100.0); Mean Platelet Volume 7.4; RBC 3.87 m/uL (3.80-5.40); RDW 15.4 % (11.5-15.5); WBC 7.2 k/uL (3.8-10.6)
[2018-05-14 12:46] LABS: Platelet Count 306 k/uL (150-450)
[2018-05-14 14:32] VITALS: BP 198/105; PULSE 84
--- NOTE | 2018-05-14 15:20 | IR ---
EXAMINATION TYPE: IR nephrostomy tube change DATE OF EXAM: 05/14/2018 COMPARISON: 02/12/2018 HISTORY: Left nephrostomy tube exchange over guidewire Procedure had been discussed with the patient the risks, benefits, alternatives, were discussed and a ny questions were answered. Informed consent was obtained. The patient was in a semiprone position prepped and draped on the OR table in the usual sterile fashion. Small amount contrast was injected a nd the pre-existing tube to document placement within the renal pelvis. Tube was cut and there was pl acement of a 0.035 guidewire is passed through the needle and there was placement of a new 10 Icelandic drainage catheter. Repeat injection demonstrated ideal placement catheter. 1 images submitted approximately 60 seconds of fluoroscopy time. IMPRESSION: 1. Successful nephrostomy tube exchange over guidewire.
== END ==
LOC: CATHCVL 10:58
PROVIDERS: ATTEND Radiology Diagnostic Radiology
DX: C18.9 Malignant neoplasm of colon, unspecified (principal); C78.7 Secondary malignant neoplasm of liver and intrahepatic bile duct; N13.30 Unspecified hydronephrosis; J44.9 Chronic obstructive pulmonary disease, unspecified; K21.9 Gastro-esophageal reflux disease without esophagitis; I10 Essential (primary) hypertension; Z90.49 Acquired absence of other specified parts of digestive tract; Z93.6 Other artificial openings of urinary tract status; Z87.891 Personal history of nicotine dependence; Z79.2 Long term (current) use of antibiotics; Z79.899 Other long term (current) drug therapy; Z91.048 Other nonmedicinal substance allergy status
CPT/HCPCS: 50435; 80048; 85027; C1729; C1769 ×3; J2001; J3010; J1580; Q9967

== ENCOUNTER 2018-05-22 14:47 | Day surgery (SDC) | payer OTHER ==
[2018-05-22 15:41] VITALS: BP 156/90; PULSE 106; RESP 14; TEMP 97.7
== END 2018-05-22 15:30 | disposition home or self-care (01) ==
LOC: RADPROMAIN 14:47
PROVIDERS: ATTEND Radiology Diagnostic Radiology
DX: Z48.01 Encounter for change or removal of surgical wound dressing (principal)

== ENCOUNTER → 2018-06-16 | Day surgery (SDC) | payer OTHER ==
[2018-06-16 15:58] VITALS: BP 156/74; PULSE 67; RESP 18; TEMP 97.8
== END ==
LOC: RADPROMAIN 14:59
PROVIDERS: ATTEND Radiology Diagnostic Radiology
DX: Z48.03 Encounter for change or removal of drains (principal)
CPT/HCPCS: 99213

== ENCOUNTER 2018-06-24 15:22 | Day surgery (SDC) | payer OTHER ==
[2018-06-24 16:03] VITALS: BP 144/78; PULSE 95; RESP 14; TEMP 97.9
== END 2018-06-24 16:00 | disposition home or self-care (01) ==
LOC: RADPROMAIN 15:22
PROVIDERS: ATTEND Radiology Diagnostic Radiology
DX: Z48.03 Encounter for change or removal of drains (principal)

== ENCOUNTER 2018-06-30 13:24 | Day surgery (SDC) | payer OTHER ==
[2018-06-29 14:06] VITALS: BMI 23.4
[~2018-06-30 13:24] MED LIST changes: -GENTAMICIN 80 MG in SODIUM CHLORIDE 0.9% 100 ML IVPB ONE; -IOPAMIDOL-300 50ML BTL INJ ONE; -IV FLUID CONTINUATION 1,000 ML IV ONE; -LIDOCAINE 1% INJ 10MG/ML (20 ML MDV) ONE; -LIDOCAINE 1% INJ 10MG/ML (20 ML MDV) SQ ONE; -SODIUM CHLORIDE 0.9% 250 ML IV ONE; +ceFAZolin (PMX-bag) 1,000 MG in DEXTROSE/WATER 1 50ML.BAG IVPB ONE; -fentaNYL (PF) 50 MCG/ML 2 ML AMP IV ONE; -fentaNYL (PF) 50 MCG/ML 2 ML AMP ONE
[2018-06-30 14:17] VITALS: PULSE 90; TEMP 97.9
[2018-06-30] MEDS ORDERED: fentaNYL (PF) 50 MCG/ML 2 ML AMP IVP ONE (14:40)
[2018-06-30] MEDS ORDERED: IOPAMIDOL-250 50ML BTL IV ONE (14:52)
[2018-06-30] MEDS ORDERED: IV FLUID CONTINUATION 400 ML IV ONE (14:52)
[2018-06-30 15:28] VITALS: BP 142/77; RESP 18
--- NOTE | 2018-06-30 15:48 | IR ---
EXAMINATION TYPE: IR nephrostomy tube change DATE OF EXAM: 06/30/2018 COMPARISON: NONE HISTORY: Percutaneous left nephrostomy exchange over a guidewire and with fluoroscopy Procedure had been discussed with the patient the risks, benefits, alternatives , were discussed and any questions were answered. Informed consent was obtained. The patient was in a semiprone position p repped and draped on the OR table in the usual sterile fashion. Small amount contrast was injected an d the pre-existing tube to document placement within the renal pelvis. Pre-existing nephrostomy tube was cut and there was placement of a 0.035 guidewire is passed through the catheter and removed over guidewire. Subsequently, there was placement of a new 10 Zambian drainage catheter over the guidewire. Repeat injection demonstrated ideal placement catheter. IMPRESSION: 1. Successful percutaneous nephrostomy tube exchange over a guidewire under fluoroscopy.
== END 2018-06-30 15:30 | disposition home or self-care (01) ==
LOC: OR 13:24
PROVIDERS: ATTEND Radiology Diagnostic Radiology
DX: N13.1 Hydronephrosis with ureteral stricture, not elsewhere classified (principal); C79.9 Secondary malignant neoplasm of unspecified site; Z85.038 Personal history of other malignant neoplasm of large intestine; Z90.49 Acquired absence of other specified parts of digestive tract; Z93.3 Colostomy status; I10 Essential (primary) hypertension; K76.9 Liver disease, unspecified; J44.9 Chronic obstructive pulmonary disease, unspecified; K21.9 Gastro-esophageal reflux disease without esophagitis; Z92.3 Personal history of irradiation; Z87.891 Personal history of nicotine dependence; Z79.899 Other long term (current) drug therapy; Z91.09 Other allergy status, other than to drugs and biological substances
CPT/HCPCS: 50435; C1729; C1769 ×2; J3010; J0690; Q9966; 75984

== ENCOUNTER 2018-07-10 15:32 | Day surgery (SDC) | payer OTHER ==
--- NOTE | 2018-06-30 07:22 | P.GSHP ---
History of Present Illness H&P Date: 06/30/18 58 yo female with metastatic colon cancer Left ureteral obstruction due to scar tissue from surgery and radiation Has a left nephrostomy tube for hydronephrosis. Unable to do retrograde or antegrade stent Will get ureteral surgery once her cancer has been controlled She comes for n tube replacement - Constitutional Constitutional: Reports lethargy, Reports malaise Past Medical History Past Medical History: Cancer, COPD, GERD/Reflux, Hypertension, Liver Disease Additional Past Medical History / Comment(s): colon/liver cancer-finished chemo Mar 2018, COLOSTOMY, scar tissue on kidney from colon surgery, varicose veins, on antibiotics for coliits History of Any Multi-Drug Resistant Organisms: None Reported Past Surgical History: Bowel Resection, Section, Cholecystectomy Additional Past Surgical History / Comment(s): partial colectomy with colostomy, LIVER Biopsy, left ureter stent placement, Left Nephro tube placement. port placement rt chest, 05/26/18 at [facility] had gallbladder removed, chemo pump placed rt abdomen and liver tumors removed Past Anesthesia/Blood Transfusion Reactions: No Reported Reaction Smoking Status: Former smoker - Past Family History Brother(s) Family Medical History: Cancer Additional Family Medical History / Comment(s): brain Medications and Allergies Home Medications Medication Instructions Recorded Confirmed Type Loratadine 10 mg PO DAILY 02/09/18 06/29/18 History Albuterol Sulfate [Proair Hfa] 2 puff INHALATION BID 05/11/18 06/29/18 History Cannabidiol (Cbd) Extract 0 mg IH DIRECTED PRN 05/11/18 06/29/18 History [Epidiolex] Ciprofloxacin HCl 500 mg PO BID 05/11/18 06/29/18 History Ipratropium-Albuterol Nebulize 3 ml INHALATION TID PRN 05/11/18 06/29/18 History [Duoneb 0.5 mg-3 mg/3 ml Soln] Metoprolol Succinate (ER) [Toprol 50 mg PO DAILY 05/11/18 06/29/18 History Xl] metroNIDAZOLE [Flagyl] 500 mg PO TID 05/11/18 06/29/18 History Ipratropium-Albuterol Nebulize 3 ml INHALATION DAILY 06/29/18 06/29/18 History [Duoneb 0.5 mg-3 mg/3 ml Soln] NIFEdipine [NIFEdipine ER] 30 mg PO HS 06/29/18 06/29/18 History Pantoprazole Sodium [Protonix] 40 mg PO HS 06/29/18 06/29/18 History Allergies Allergy/AdvReac Type Severity Reaction Status Date / Time adhesive tape Allergy Rash/Hives Verified 06/29/18 13:52 OSTOMY BAG Allergy Rash/Hives Uncoded 06/29/18 13:52 Surgical - Exam - General well developed, no distress - Eyes PERRL - ENT no hearing loss - Respiratory normal expansion, normal respiratory effort - Cardiovascular Rhythm: regular - Abdomen left n tube - Musculoskeletal normal gait - Psychiatric oriented to time, oriented to person, oriented to place Assessment and Plan Assessment: Impression: metastatic colon ca with left hydronephrosis Plan: left n tube change
[2018-07-10 16:44] VITALS: BP 143/89; PULSE 98; RESP 14; TEMP 98.2
== END 2018-07-10 16:25 | disposition home or self-care (01) ==
LOC: RADPROMAIN 15:32
PROVIDERS: ATTEND Radiology Diagnostic Radiology
DX: N13.1 Hydronephrosis with ureteral stricture, not elsewhere classified (principal); C18.9 Malignant neoplasm of colon, unspecified; C22.9 Malignant neoplasm of liver, not specified as primary or secondary; J44.9 Chronic obstructive pulmonary disease, unspecified; K21.9 Gastro-esophageal reflux disease without esophagitis; I10 Essential (primary) hypertension; K76.9 Liver disease, unspecified; Z90.49 Acquired absence of other specified parts of digestive tract; Z92.21 Personal history of antineoplastic chemotherapy; Z80.8 Family history of malignant neoplasm of other organs or systems; Z79.899 Other long term (current) drug therapy; Z91.048 Other nonmedicinal substance allergy status

== ENCOUNTER → 2018-07-20 | Day surgery (SDC) | payer OTHER ==
[2018-07-20 16:17] VITALS: BP 117/78; PULSE 66; RESP 18; TEMP 97.6
== END | disposition home or self-care (01) ==
LOC: RADPROMAIN 15:18
PROVIDERS: ATTEND Radiology Diagnostic Radiology
DX: Z48.03 Encounter for change or removal of drains (principal); Z48.00 Encounter for change or removal of nonsurgical wound dressing

== ENCOUNTER 2018-07-29 10:56 | Day surgery (SDC) | payer OTHER ==
[2018-07-29 11:03] VITALS: BP 126/82; PULSE 84; RESP 14; TEMP 98.2
== END 2018-07-29 11:42 | disposition home or self-care (01) ==
LOC: RADPROMAIN 10:56
PROVIDERS: ATTEND Radiology Diagnostic Radiology
DX: Z48.03 Encounter for change or removal of drains (principal)

== ENCOUNTER 2018-08-07 16:25 | Day surgery (SDC) | payer OTHER ==
[2018-08-07 16:15] VITALS: BP 148/84; PULSE 78; RESP 16; TEMP 98.1
== END 2018-08-07 16:31 | disposition home or self-care (01) ==
LOC: RADPROMAIN 16:25
PROVIDERS: ATTEND Radiology Diagnostic Radiology
DX: Z48.01 Encounter for change or removal of surgical wound dressing (principal)
CPT/HCPCS: 99213

== ENCOUNTER → 2018-08-07 | Outpatient (CLI) | payer OTHER | END | disposition home or self-care (01) | LOC: RADPROMAIN 15:31 | PROVIDERS: ATTEND Radiology Diagnostic Radiology | DX: Z53.9 Procedure and treatment not carried out, unspecified reason (principal) ==

== ENCOUNTER 2018-08-19 15:25 | Day surgery (SDC) | payer OTHER ==
[2018-08-19 15:30] VITALS: BP 139/83; PULSE 71; RESP 20; TEMP 98
== END 2018-08-19 15:50 | disposition home or self-care (01) ==
LOC: RADPROMAIN 15:25
PROVIDERS: ATTEND Radiology Diagnostic Radiology
DX: Z43.6 Encounter for attention to other artificial openings of urinary tract (principal)
CPT/HCPCS: 99213

== ENCOUNTER 2018-08-31 15:21 | Day surgery (SDC) | payer OTHER ==
[2018-08-31 15:55] VITALS: BP 125/73; PULSE 80; RESP 16; TEMP 97.8
== END 2018-08-31 16:15 | disposition home or self-care (01) ==
LOC: RADPROMAIN 15:21
PROVIDERS: ATTEND Radiology Diagnostic Radiology
DX: Z48.01 Encounter for change or removal of surgical wound dressing (principal)

== ENCOUNTER 2018-09-10 10:46 | Day surgery (SDC) | payer OTHER ==
[2018-09-08 11:47] VITALS: BMI 24.2
--- NOTE | 2018-09-08 20:57 | P.GSHP ---
History of Present Illness H&P Date: 09/08/18 58 yo female with metastatic colon cancer to the liver with left hydronephrosis due to a mid ureteral stricture from surgery and radiation she comes for a nephrostomy tube change left, She has not had a formal repair due to on going treatment for metastatic disease. Her last exchange was 06/2018 - Constitutional Constitutional: Reports chronic pain, Reports lethargy, Reports malaise Past Medical History Past Medical History: Cancer, COPD, GERD/Reflux, Hypertension, Liver Disease, Renal Disease Additional Past Medical History / Comment(s): colon/liver cancer-finished chemo Mar 2018; 07/2018 BEGAN INTERNAL CHEMO 2 WEEKS ON/2 WEEKS OFF - LAST BEGAN 09/03/18 @ [facility]. COLOSTOMY, scar tissue on kidney from colon surgery, has lt nephrostomy tub. varicose veins, coliits. History of Any Multi-Drug Resistant Organisms: None Reported Past Surgical History: Bowel Resection, Section, Cholecystectomy Additional Past Surgical History / Comment(s): Partial colectomy w/ colostomy, LIVER Biopsy, left ureter stent placement, Left Nephro tube placement. port placement rt chest, 05/26/18 at [facility] had gallbladder removed, chemo pump placed rt abdomen and liver tumors removed. Past Anesthesia/Blood Transfusion Reactions: No Reported Reaction Smoking Status: Former smoker - Past Family History Brother(s) Family Medical History: Cancer Additional Family Medical History / Comment(s): brain Medications and Allergies Home Medications Medication Instructions Recorded Confirmed Type Loratadine 10 mg PO DAILY 02/09/18 09/08/18 History Albuterol Sulfate [Proair Hfa] 2 puff INHALATION BID PRN 05/11/18 09/08/18 History Cannabidiol (Cbd) Extract 0 mg PO DIRECTED PRN 05/11/18 09/08/18 History [Epidiolex] Ipratropium-Albuterol Nebulize 3 ml INHALATION TID PRN 05/11/18 09/08/18 History [Duoneb 0.5 mg-3 mg/3 ml Soln] Metoprolol Succinate (ER) [Toprol 50 mg PO DAILY 05/11/18 09/08/18 History Xl] NIFEdipine [NIFEdipine ER] 30 mg PO HS 06/29/18 09/08/18 History Pantoprazole Sodium [Protonix] 40 mg PO BID 06/29/18 09/08/18 History Acetaminophen/Diphenhydramine 2 tab PO HS PRN 09/08/18 09/08/18 History [Tylenol PM 500-25mg] Allergies Allergy/AdvReac Type Severity Reaction Status Date / Time adhesive tape Allergy Rash/Hives Verified 09/08/18 11:21 PLASTIC OSTOMY BAG Allergy Rash/Hives Uncoded 09/08/18 11:21 Surgical - Exam - General well developed, chronically ill - Eyes PERRL - ENT no hearing loss - Neck no masses - Respiratory normal expansion, normal respiratory effort - Cardiovascular Rhythm: regular - Abdomen left nephrostomy tube Abdomen: soft, non tender Assessment and Plan Assessment: Impression: Left hydronephrosis secondary to colon ca Plan: exchange nephrostomy tube left in radiology
[~2018-09-10 10:46] MED LIST changes: +GENTAMICIN 70 MG in SODIUM CHLORIDE 0.9% 100 ML IVPB ONE; +SODIUM CHLORIDE 0.9% 1,000 ML IV SCH; -ceFAZolin (PMX-bag) 1,000 MG in DEXTROSE/WATER 1 50ML.BAG IVPB ONE
[2018-09-10 11:24] VITALS: TEMP 97.8
[2018-09-10 11:30] LABS: HGB 11.9 gm/dL (11.4-16.0); MCH 28.7 pg (25.0-35.0); MCHC 32.3 g/dL (31.0-37.0); MCV 88.9 fL (80.0-100.0); Mean Platelet Volume 6.7; Platelet Count 355 k/uL (150-450); RBC 4.16 m/uL (3.80-5.40); RDW 15.7 % (11.5-15.5); WBC 8.4 k/uL (3.8-10.6)
[2018-09-10 11:48] LABS: African American GFR (CKD) >90 (>60 ml/min/1.73 sqM); Anion Gap 9 mmol/L; Blood Urea Nitrogen 15 mg/dL (7-17); Calcium 9.2 mg/dL (8.4-10.2); Carbon Dioxide 26 mmol/L (22-30); Chloride 103 mmol/L (98-107); Glucose 179 mg/dL (74-99); Potassium 4.1 mmol/L (3.5-5.1); Sodium 138 mmol/L (137-145)
[2018-09-10] MEDS ORDERED: fentaNYL (PF) 50 MCG/ML 2 ML AMP IV ONE (12:09)
[2018-09-10] MEDS ORDERED: LIDOCAINE 1% INJ 10MG/ML (20 ML MDV) SQ ONE (12:12)
[2018-09-10] MEDS ORDERED: MIDAZOLAM (PF) 2 MG/2 ML VIAL IV ONE (12:12)
[2018-09-10] MEDS ORDERED: IOPAMIDOL-250 50ML BTL IV ONE (12:15)
[2018-09-10 12:52] VITALS: RESP 18
[2018-09-10 13:18] VITALS: BP 141/82; PULSE 76
--- NOTE | 2018-09-10 17:10 | IR ---
Nephrostomy tube exchange HISTORY: Hydronephrosis PROCEDURE: Patient's indwelling tube was prepped and draped in sterile fashion. Lidocaine used for local anesthe quinton. General hand injection of contrast material performed under fluoroscopy. Based on the findings t he hub of the tube was cut. The nephrostomy tube was cannulated with a 0.035 inch angled Glidewire. W kayleigh was used for exchange in 8 similar 10 Samoan catheter was advanced over the wire into the ureter and fixed in place. Catheter sutured to the skin. Gentle hand injection of contrast performed to veri fy tube placement. Catheter was attached to gravity drainage. There is no immediate complication. Pat ient remained in stable condition. Patient discharged without incident following observation. FINDINGS: Nephrostomy tube is in appropriate position. 51 intraoperative images. 2 minutes fluoroscopy time. 8 minutes of conscious sedation time, an indepe ndent observer provided conscious sedation. IMPRESSION: Status post 10 Samoan nephrostomy tube exchange. This procedure performed by the zuleyka campbell.
== END 2018-09-10 13:15 | disposition home or self-care (01) ==
LOC: OR 10:46
PROVIDERS: ATTEND Radiology Diagnostic Radiology
DX: Z46.6 Encounter for fitting and adjustment of urinary device (principal); N13.1 Hydronephrosis with ureteral stricture, not elsewhere classified; C18.9 Malignant neoplasm of colon, unspecified; C78.7 Secondary malignant neoplasm of liver and intrahepatic bile duct; J44.9 Chronic obstructive pulmonary disease, unspecified; G89.29 Other chronic pain; K21.9 Gastro-esophageal reflux disease without esophagitis; I10 Essential (primary) hypertension; I83.90 Asymptomatic varicose veins of unspecified lower extremity; Z93.3 Colostomy status; Z90.49 Acquired absence of other specified parts of digestive tract; Z79.899 Other long term (current) drug therapy; Z91.048 Other nonmedicinal substance allergy status; Z92.21 Personal history of antineoplastic chemotherapy; Z87.19 Personal history of other diseases of the digestive system; Z87.891 Personal history of nicotine dependence; Z80.8 Family history of malignant neoplasm of other organs or systems
CPT/HCPCS: 50435; 80048; 85027; C1729; C1769 ×2; J2001; J3010; J1580; Q9966; J2250; 75984

== ENCOUNTER 2018-09-21 15:30 | Day surgery (SDC) | payer OTHER ==
[2018-09-21 16:07] VITALS: BP 143/84; PULSE 78; RESP 14; TEMP 97.4
== END 2018-09-21 15:55 | disposition home or self-care (01) ==
LOC: RADPROMAIN 15:30
PROVIDERS: ATTEND Radiology Diagnostic Radiology
DX: Z48.01 Encounter for change or removal of surgical wound dressing (principal)

== ENCOUNTER 2018-09-25 15:21 | Day surgery (SDC) | payer OTHER ==
[2018-09-25 16:18] VITALS: BP 159/81; PULSE 79; RESP 16; TEMP 98
== END 2018-09-25 16:15 | disposition home or self-care (01) ==
LOC: RADPROMAIN 15:21
PROVIDERS: ATTEND Radiology Diagnostic Radiology
DX: Z48.03 Encounter for change or removal of drains (principal)

== ENCOUNTER 2018-10-02 15:34 | Day surgery (SDC) | payer OTHER ==
[2018-10-02 16:13] VITALS: BP 143/77; PULSE 74; RESP 16; TEMP 98.3
== END 2018-10-02 16:19 | disposition home or self-care (01) ==
LOC: RADPROMAIN 15:34
PROVIDERS: ATTEND Radiology Diagnostic Radiology
DX: Z48.01 Encounter for change or removal of surgical wound dressing (principal)
CPT/HCPCS: 99213

== ENCOUNTER 2018-10-14 15:19 | Day surgery (SDC) | payer OTHER ==
[2018-10-14 15:36] VITALS: BP 166/76; PULSE 72; RESP 20; TEMP 97.7
== END 2018-10-14 16:00 | disposition home or self-care (01) ==
LOC: RADPROMAIN 15:19
PROVIDERS: ATTEND Radiology Diagnostic Radiology
DX: Z48.03 Encounter for change or removal of drains (principal)
CPT/HCPCS: 99213

== ENCOUNTER 2018-10-23 15:28 | Day surgery (SDC) | payer OTHER ==
[2018-10-23 16:35] VITALS: BP 122/74; PULSE 85; RESP 18; TEMP 97.9
== END 2018-10-23 16:35 | disposition home or self-care (01) ==
LOC: RADPROMAIN 15:28
PROVIDERS: ATTEND Radiology Diagnostic Radiology
DX: Z48.01 Encounter for change or removal of surgical wound dressing (principal)
CPT/HCPCS: 99213

== ENCOUNTER → 2018-11-03 | Day surgery (SDC) | payer OTHER ==
[2018-11-03 16:43] VITALS: BP 113/54; PULSE 79; RESP 16; TEMP 98
== END | disposition home or self-care (01) ==
LOC: RADPROMAIN 15:18
PROVIDERS: ATTEND Radiology Diagnostic Radiology
DX: Z43.6 Encounter for attention to other artificial openings of urinary tract (principal)
CPT/HCPCS: 36415; 99213

== ENCOUNTER 2018-11-11 15:19 | Day surgery (SDC) | payer OTHER ==
[2018-11-11 15:25] VITALS: BP 128/64; PULSE 76; RESP 16; TEMP 98.2
== END 2018-11-11 15:48 | disposition home or self-care (01) ==
LOC: RADPROMAIN 15:19
PROVIDERS: ATTEND Radiology Diagnostic Radiology
DX: Z48.01 Encounter for change or removal of surgical wound dressing (principal)

== ENCOUNTER 2018-11-18 12:52 | Day surgery (SDC) | payer OTHER ==
[2018-11-18 14:15] VITALS: BP 128/68; PULSE 79; RESP 16; TEMP 98
== END 2018-11-18 14:15 | disposition home or self-care (01) ==
LOC: RADPROMAIN 12:52
PROVIDERS: ATTEND Radiology Diagnostic Radiology
DX: Z48.01 Encounter for change or removal of surgical wound dressing (principal)
CPT/HCPCS: 87070; 87075; 87077; 87186; 87205; 99213

== ENCOUNTER → 2018-11-24 | Day surgery (SDC) | payer OTHER ==
[2018-11-24 13:38] VITALS: BP 112/74; PULSE 78; RESP 18; TEMP 97.9
== END ==
LOC: RADPROMAIN 12:45
PROVIDERS: ATTEND Radiology Diagnostic Radiology
DX: Z48.01 Encounter for change or removal of surgical wound dressing (principal)

== ENCOUNTER 2018-12-03 09:12 | Day surgery (SDC) | payer OTHER ==
[2018-12-01 09:27] VITALS: BMI 25.2
--- NOTE | 2018-12-03 06:00 | P.GSHP ---
History of Present Illness H&P Date: 12/03/18 58 yo female with metastatic colon cancer to the liver on chemo Has a left ureteral stricture causing left hydronephrosis She comes for a nephrostomy tube change Past Medical History Past Medical History: Cancer, COPD, GERD/Reflux, Hypertension, Liver Disease Additional Past Medical History / Comment(s): Colon/Liver cancer - hx chemo Mar 2018; Liver pump chemo now. COLOSTOMY. Scar tissue on kidney from colon surgery, has Lt nephrostomy tube. Varicose veins. History of Any Multi-Drug Resistant Organisms: None Reported Past Surgical History: Bowel Resection, Section, Cholecystectomy Additional Past Surgical History / Comment(s): partial colectomy with colostomy, LIVER Biopsy, left ureter stent placement, Left Nephro tube placement. port placement rt chest, 05/26/18 at [facility] had gallbladder removed, chemo pump placed rt abdomen and liver tumors removed. Lt Nephrostomy Tube exchange 09/10/18. Past Anesthesia/Blood Transfusion Reactions: No Reported Reaction, Motion Sickness Smoking Status: Former smoker - Past Family History Brother(s) Family Medical History: Cancer Additional Family Medical History / Comment(s): brain Medications and Allergies Home Medications Medication Instructions Recorded Confirmed Type Loratadine 10 mg PO DAILY 02/09/18 12/01/18 History Albuterol Sulfate [Proair Hfa] 2 puff INHALATION BID PRN 05/11/18 12/01/18 History Cannabidiol (Cbd) Extract 1 dose PO DIRECTED PRN 05/11/18 12/01/18 History [Epidiolex] Ipratropium-Albuterol Nebulize 3 ml INHALATION TID PRN 05/11/18 12/01/18 History [Duoneb 0.5 mg-3 mg/3 ml Soln] Metoprolol Succinate (ER) [Toprol 50 mg PO DAILY 05/11/18 12/01/18 History Xl] NIFEdipine [NIFEdipine ER] 30 mg PO HS 06/29/18 12/01/18 History Pantoprazole Sodium [Protonix] 40 mg PO BID PRN 06/29/18 12/01/18 History Acetaminophen/Diphenhydramine 2 tab PO HS PRN 09/08/18 12/01/18 History [Tylenol PM 500-25mg] Allergies Allergy/AdvReac Type Severity Reaction Status Date / Time adhesive tape Allergy Rash/Hives Verified 12/01/18 09:08 PLASTIC OSTOMY BAG Allergy Rash/Hives Uncoded 12/01/18 09:08 Surgical - Exam - General well developed, well nourished, no distress - Eyes PERRL - ENT no hearing loss - Neck trachea midline - Respiratory normal expansion, normal respiratory effort - Cardiovascular Rhythm: regular - Abdomen left nephrostomy tube - Neurologic normal coordination, normal sensation - Musculoskeletal normal gait - Psychiatric oriented to time, oriented to person, oriented to place, speech is normal Assessment and Plan Assessment: Impression: Left ureteral stricture due to surgery, radiation and cancer Plan; Exchange left nephrostomy tube
[~2018-12-03 09:12] MED LIST changes: +AMPICILLIN 1,000 MG in SODIUM CHLORIDE 0.9% 50 ML IVPB ONE; -GENTAMICIN 70 MG in SODIUM CHLORIDE 0.9% 100 ML IVPB ONE; +GENTAMICIN IN NACL ISO-OSM PMX 80 MG in SALINE 1 100ML.BAG IVPB ONE; +GENTAMICIN IVPB ONE; -SODIUM CHLORIDE 0.9% 1,000 ML IV SCH; +SODIUM CHLORIDE 0.9% 500 ML 500 ML IV SCH; +SODIUM CHLORIDE 0.9% IVPB ONE
[2018-12-03 09:42] VITALS: RESP 16; TEMP 98.3
[2018-12-03] MEDS ORDERED: LIDOCAINE 1% INJ 10MG/ML (20 ML MDV) SQ ONE (11:42)
[2018-12-03] MEDS ORDERED: fentaNYL (PF) 50 MCG/ML 2 ML AMP IVP ONE (12:00)
[2018-12-03] MEDS ORDERED: MIDAZOLAM (PF) 2 MG/2 ML VIAL IVP ONE (12:00)
[2018-12-03 12:42] VITALS: BP 132/74; PULSE 60
--- NOTE | 2018-12-04 08:26 | IR ---
Nephrostomy tube exchange HISTORY: Hydronephrosis Patient's indwelling tube was prepped and draped. Lidocaine was used for local anesthesia. General barclay nd injection of contrast material performed. The tube was cut and exchanged over wire for an 8 Lithuanian tube and fixed within the region of the renal pelvis and proximal ureter. Catheter was fixed in plac e with a 2-0 silk suture. Sterile dressing placed. Gentle hand injection of contrast verified placeme nt. Catheter was attached to gravity drainage. There is no significant bleeding. No immediate complic ation. IMPRESSION: Nephrostomy tube exchange. 4.6 minutes fluoroscopy time, 204 intraoperative images. 5 minutes conscious sedation time, independe nt monitoring performed by an additional health care transitions manager.
== END 2018-12-03 12:54 | disposition home or self-care (01) ==
LOC: OR 09:12
PROVIDERS: ATTEND Radiology Diagnostic Radiology
DX: N13.1 Hydronephrosis with ureteral stricture, not elsewhere classified (principal); C18.9 Malignant neoplasm of colon, unspecified; C78.7 Secondary malignant neoplasm of liver and intrahepatic bile duct; J44.9 Chronic obstructive pulmonary disease, unspecified; K21.9 Gastro-esophageal reflux disease without esophagitis; I10 Essential (primary) hypertension; Z92.21 Personal history of antineoplastic chemotherapy; Z93.3 Colostomy status; Z46.6 Encounter for fitting and adjustment of urinary device; I83.90 Asymptomatic varicose veins of unspecified lower extremity; Z90.49 Acquired absence of other specified parts of digestive tract; Z95.828 Presence of other vascular implants and grafts; Z87.891 Personal history of nicotine dependence; Z80.8 Family history of malignant neoplasm of other organs or systems; Z79.899 Other long term (current) drug therapy; Z91.09 Other allergy status, other than to drugs and biological substances
CPT/HCPCS: 75984; 50435; C1729; C1769 ×2; J1580; J2001; J3010; J2250

== ENCOUNTER 2018-12-15 15:22 | Day surgery (SDC) | payer OTHER ==
[2018-12-15 16:46] VITALS: BP 163/89; PULSE 64; RESP 16; TEMP 97.7
== END 2018-12-15 16:00 | disposition home or self-care (01) ==
LOC: RADPROMAIN 15:22
PROVIDERS: ATTEND Radiology Diagnostic Radiology
DX: Z48.01 Encounter for change or removal of surgical wound dressing (principal)
CPT/HCPCS: 99213

== ENCOUNTER → 2018-12-29 | Day surgery (SDC) | payer OTHER ==
[2018-12-29 16:55] VITALS: BP 161/89; PULSE 76; RESP 16; TEMP 97.8
== END ==
LOC: RADPROMAIN 15:16
PROVIDERS: ATTEND Radiology Diagnostic Radiology
DX: Z43.6 Encounter for attention to other artificial openings of urinary tract (principal); Z48.01 Encounter for change or removal of surgical wound dressing
CPT/HCPCS: 99213

== ENCOUNTER 2019-01-12 15:20 | Day surgery (SDC) | payer OTHER ==
[2019-01-12 16:02] VITALS: BP 191/91; PULSE 78; RESP 16; TEMP 97.5
== END 2019-01-12 16:12 | disposition home or self-care (01) ==
LOC: RADPROMAIN 15:20
PROVIDERS: ATTEND Radiology Diagnostic Radiology
DX: Z48.01 Encounter for change or removal of surgical wound dressing (principal); Z43.6 Encounter for attention to other artificial openings of urinary tract
CPT/HCPCS: 99213

== ENCOUNTER 2019-01-25 15:08 | Day surgery (SDC) | payer OTHER ==
[2019-01-25 15:46] VITALS: BP 132/75; PULSE 83; RESP 14; TEMP 97.8
== END 2019-01-25 15:55 | disposition home or self-care (01) ==
LOC: RADPROMAIN 15:08
PROVIDERS: ATTEND Radiology Diagnostic Radiology
DX: Z43.6 Encounter for attention to other artificial openings of urinary tract (principal); Z48.01 Encounter for change or removal of surgical wound dressing

== ENCOUNTER 2019-02-03 15:19 | Day surgery (SDC) | payer OTHER ==
[2019-02-03 16:08] VITALS: BP 177/88; PULSE 78; RESP 16; TEMP 97.8
== END 2019-02-03 16:17 | disposition home or self-care (01) ==
LOC: RADPROMAIN 15:19
PROVIDERS: ATTEND Radiology Diagnostic Radiology
DX: Z43.8 Encounter for attention to other artificial openings (principal); Z48.01 Encounter for change or removal of surgical wound dressing
CPT/HCPCS: 99213

== ENCOUNTER → 2019-02-15 | Day surgery (SDC) | payer OTHER ==
[2019-02-15 16:27] VITALS: BP 128/68; PULSE 68; TEMP 97.6
== END ==
LOC: RADPROMAIN 15:19
PROVIDERS: ATTEND Radiology Diagnostic Radiology
DX: Z48.01 Encounter for change or removal of surgical wound dressing (principal); Z43.6 Encounter for attention to other artificial openings of urinary tract
CPT/HCPCS: 99213

== ENCOUNTER → 2019-02-26 | Day surgery (SDC) | payer OTHER ==
[2019-02-26 16:33] VITALS: BP 148/99; PULSE 78; RESP 18; TEMP 98.3
== END ==
LOC: RADPROMAIN 15:15
PROVIDERS: ATTEND Radiology Diagnostic Radiology
DX: Z48.03 Encounter for change or removal of drains (principal)
CPT/HCPCS: 99213

== ENCOUNTER → 2019-03-09 | Day surgery (SDC) | payer OTHER ==
[2019-03-05 15:36] VITALS: BMI 25.4
[~2019-03-09] MED LIST changes: +GENTAMICIN 80 MG in SODIUM CHLORIDE 0.9% 100 ML IVPB ONE; -GENTAMICIN IVPB ONE; +IOPAMIDOL-250 100ML BTL IV ONE; +LIDOCAINE 1% INJ 10MG/ML (20 ML MDV) ONE; +LIDOCAINE 2% (PF) 20 MG/ML 10 ML AMP SQ ONE; +MIDAZOLAM 2 MG/2 ML VIAL IVP ONE; +SODIUM CHLORIDE 0.9% 1,000 ML IV ONE; -SODIUM CHLORIDE 0.9% IVPB ONE; +fentaNYL (PF) 50 MCG/ML 2 ML AMP IVP ONE; +fentaNYL (PF) 50 MCG/ML 2 ML AMP ONE
[2019-03-09 08:05] VITALS: RESP 18; TEMP 98.3
[2019-03-09 10:17] VITALS: BP 129/81; PULSE 84
--- NOTE | 2019-03-09 12:48 | IR ---
Nephrostomy tube exchange, left HISTORY: Hydronephrosis on the left Maximal barrier technique was utilized. The indwelling catheter was prepped and draped in sterile fas hion. Lidocaine used for local anesthesia. Patient underwent conscious sedation, 15 minutes of time for conscious sedation, separate medical car e professional performed the sedation. 3.3 minutes fluoroscopy time. 300 intraoperative images docume nt the procedure. General hand injection of contrast material performed under fluoroscopic observation into the existin g tube. The tube was subsequently cut and exchanged over 0.035 inch angled glide wire for an 8.5 Fren ch nephrostomy tube and fixed in place. Hand-injection of contrast performed and images obtained docu menting procedure. Hemostasis achieved. No immediate consultation. Patient remained in stable conditi on. FINDINGS: There is persistent obstruction of the mid ureter. Catheter is coiled within the proximal u reter initially. IMPRESSION: Successful 8.5 Ivorian nephrostomy tube exchange, this procedure performed by the zuleyka campbell.
== END ==
LOC: OR 07:30
PROVIDERS: ATTEND Radiology Diagnostic Radiology
DX: Z48.03 Encounter for change or removal of drains (principal); N13.30 Unspecified hydronephrosis; I10 Essential (primary) hypertension; J44.9 Chronic obstructive pulmonary disease, unspecified; K21.9 Gastro-esophageal reflux disease without esophagitis; Z85.038 Personal history of other malignant neoplasm of large intestine; Z85.05 Personal history of malignant neoplasm of liver; Z92.21 Personal history of antineoplastic chemotherapy; Z93.3 Colostomy status; Z90.49 Acquired absence of other specified parts of digestive tract; Z98.891 History of uterine scar from previous surgery; Z87.891 Personal history of nicotine dependence; Z79.899 Other long term (current) drug therapy; Z91.048 Other nonmedicinal substance allergy status
CPT/HCPCS: 75984; 50435; C1729; C1769 ×2; J1580; J2250; J2001; J3010; J0290; Q9966

== ENCOUNTER 2019-03-22 13:24 | Day surgery (SDC) | payer OTHER ==
[2019-03-22 13:59] VITALS: BP 130/62; PULSE 74; RESP 14; TEMP 97.8
== END 2019-03-22 14:00 | disposition home or self-care (01) ==
LOC: RADPROMAIN 13:24
PROVIDERS: ATTEND Radiology Diagnostic Radiology
DX: Z48.03 Encounter for change or removal of drains (principal)
CPT/HCPCS: 99213

== ENCOUNTER 2019-04-02 15:17 | Day surgery (SDC) | payer OTHER ==
[2019-04-02 16:25] VITALS: BP 158/83; PULSE 63; RESP 14; TEMP 98.1
== END 2019-04-02 16:00 | disposition home or self-care (01) ==
LOC: RADPROMAIN 15:17
PROVIDERS: ATTEND Radiology Diagnostic Radiology
DX: Z48.03 Encounter for change or removal of drains (principal); Z91.048 Other nonmedicinal substance allergy status
CPT/HCPCS: 99213

== ENCOUNTER → 2019-04-13 | Day surgery (SDC) | payer OTHER ==
[2019-04-13 16:08] VITALS: BP 133/45; PULSE 88; RESP 16; TEMP 98
== END ==
LOC: RADPROMAIN 15:12
PROVIDERS: ATTEND Radiology Diagnostic Radiology
DX: Z48.03 Encounter for change or removal of drains (principal)
CPT/HCPCS: 99213

== ENCOUNTER → 2019-04-23 | Day surgery (SDC) | payer OTHER ==
[2019-04-23 17:14] VITALS: BP 113/76; PULSE 88; TEMP 98.3
== END ==
LOC: RADPROMAIN 15:25
PROVIDERS: ATTEND Radiology Diagnostic Radiology
DX: Z48.03 Encounter for change or removal of drains (principal); Z91.048 Other nonmedicinal substance allergy status

== ENCOUNTER 2019-05-07 15:47 | Day surgery (SDC) | payer OTHER ==
[2019-05-07 16:24] VITALS: BP 147/77; PULSE 75; RESP 16; TEMP 98.1
== END 2019-05-07 16:27 | disposition home or self-care (01) ==
LOC: RADPROMAIN 15:47
PROVIDERS: ATTEND Radiology Diagnostic Radiology
DX: Z48.03 Encounter for change or removal of drains (principal); Z93.6 Other artificial openings of urinary tract status
CPT/HCPCS: 99213

== ENCOUNTER 2019-05-21 15:20 | Day surgery (SDC) | payer OTHER ==
[2019-05-21 17:10] VITALS: BP 113/68; PULSE 70; RESP 18; TEMP 98.3
== END 2019-05-21 16:15 | disposition home or self-care (01) ==
LOC: RADPROMAIN 15:20
PROVIDERS: ATTEND Radiology Diagnostic Radiology
DX: Z48.03 Encounter for change or removal of drains (principal)
CPT/HCPCS: 99213

== ENCOUNTER → 2019-08-06 | Outpatient (CLI) | payer OTHER | END | disposition home or self-care (01) | LOC: LABWHC1 10:33 | PROVIDERS: ATTEND Radiology Diagnostic Radiology | DX: Z11.59 Encounter for screening for other viral diseases (principal) | CPT/HCPCS: 87635 ==

== ENCOUNTER → 2019-08-10 | Day surgery (SDC) | payer OTHER ==
[2019-08-06 08:36] VITALS: BMI 26.2
[~2019-08-10] MED LIST changes: -GENTAMICIN 80 MG in SODIUM CHLORIDE 0.9% 100 ML IVPB ONE; +GENTAMICIN 90 MG in SODIUM CHLORIDE 0.9% 100 ML IVPB ONE; -GENTAMICIN IN NACL ISO-OSM PMX 80 MG in SALINE 1 100ML.BAG IVPB ONE; +HYDROmorphone 1 MG/ML 1 ML SYRINGE IVP ONE; -IOPAMIDOL-250 100ML BTL IV ONE; -LIDOCAINE 1% INJ 10MG/ML (20 ML MDV) ONE; -LIDOCAINE 2% (PF) 20 MG/ML 10 ML AMP SQ ONE; -SODIUM CHLORIDE 0.9% 1,000 ML IV ONE; +SODIUM CHLORIDE 0.9% 500 ML 500 ML IV ONE; -SODIUM CHLORIDE 0.9% 500 ML 500 ML IV SCH; -fentaNYL (PF) 50 MCG/ML 2 ML AMP IVP ONE; -fentaNYL (PF) 50 MCG/ML 2 ML AMP ONE
--- NOTE | 2019-08-10 10:27 | P.GSHP ---
History of Present Illness H&P Date: 08/10/19 59 yo female with left hydronephrosis secondary to metastatic ca colon with a nephrsotomy tube who comes for exchange - Constitutional Constitutional: Denies chills, Denies fever - EENT Eyes: denies blurred vision, denies pain Ears, nose, mouth and throat: Denies headache, Denies sore throat - Cardiovascular Cardiovascular: Denies chest pain, Denies shortness of breath - Respiratory Respiratory: Denies cough, Denies 7 - Gastrointestinal Gastrointestinal: Denies abdominal pain, Denies diarrhea, Denies nausea, Denies vomiting - Genitourinary (Female) Genitourinary: Denies dysuria, Denies hematuria - Genitourinary (Male) Genitourinary: Denies dysuria, Denies hematuria - Musculoskeletal Musculoskeletal: Denies myalgias - Integumentary Integumentary: Denies pruritus, Denies rash - Neurological Neurological: Denies numbness, Denies weakness - Psychiatric Psychiatric: Denies anxiety, Denies depression - Endocrine Endocrine: Denies fatigue, Denies weight change Past Medical History Past Medical History: Cancer, COPD, Diabetes Mellitus, GERD/Reflux, Hypertension, Liver Disease Additional Past Medical History / Comment(s): Colon/Liver cancer - CHEMO-LAST TX 08/05/19, COLOSTOMY. Scar tissue on kidney from colon surgery, has Lt nephrostomy tube. Varicose veins. History of Any Multi-Drug Resistant Organisms: None Reported Past Surgical History: Bowel Resection, Section, Cholecystectomy Additional Past Surgical History / Comment(s): partial colectomy with colostomy, LIVER Biopsy, left ureter stent placement, Left Nephro tube placement. port placement rt chest, 05/26/[address] [facility] had gallbladder removed, chemo pump placed rt abdomen and liver tumors removed. Lt Nephrostomy Tube exchange 12/11/18. Past Anesthesia/Blood Transfusion Reactions: No Reported Reaction, Motion Sickness Smoking Status: Former smoker - Past Family History Brother(s) Family Medical History: Cancer Additional Family Medical History / Comment(s): brain Medications and Allergies Home Medications Medication Instructions Recorded Confirmed Type Loratadine 10 mg PO DAILY 02/09/18 08/06/19 History Albuterol Sulfate [Proair Hfa] 2 puff INHALATION BID PRN 05/11/18 08/06/19 History Cannabidiol (Cbd) Extract 1 dose PO DIRECTED PRN 05/11/18 08/06/19 History [Epidiolex] Ipratropium-Albuterol Nebulize 3 ml INHALATION TID PRN 05/11/18 08/06/19 History [Duoneb 0.5 mg-3 mg/3 ml Soln] Metoprolol Succinate (ER) [Toprol 50 mg PO QAM 05/11/18 08/06/19 History Xl] NIFEdipine [NIFEdipine ER] 30 mg PO HS 06/29/18 08/06/19 History Acetaminophen/Diphenhydramine 2 tab PO HS PRN 09/08/18 08/06/19 History [Tylenol PM 500-25mg] glipiZIDE [Glucotrol] 5 mg PO AC-BRKFST 08/06/19 08/06/19 History Allergies Allergy/AdvReac Type Severity Reaction Status Date / Time adhesive tape Allergy Rash/Hives Verified 08/06/19 08:29 PLASTIC OSTOMY BAG Allergy Rash/Hives Uncoded 08/06/19 08:29 Surgical - Exam - General no distress - Eyes PERRL - Neck no masses - Respiratory normal expansion, normal respiratory effort - Cardiovascular Rhythm: regular - Abdomen left nephrostomy tube Abdomen: soft - Integumentary no rash - Neurologic normal coordination, normal sensation - Musculoskeletal normal gait - Psychiatric oriented to time, oriented to person, oriented to place, speech is normal, memory intact Assessment and Plan Assessment: Impression: left hydronephrosis secondary to metastatic colon ca Plan N tube exchange
[2019-08-10 11:38] VITALS: RESP 16; TEMP 97.9
[2019-08-10 11:50] LABS: African American GFR (CKD) >90 (>60 ml/min/1.73 sqM); Anion Gap 8 mmol/L; Blood Urea Nitrogen 13 mg/dL (7-17); Calcium 9.4 mg/dL (8.4-10.2); Carbon Dioxide 27 mmol/L (22-30); Chloride 100 mmol/L (98-107); Glucose 125 mg/dL (74-99); Non-African American GFR(CKD) >90 (>60 ml/min/1.73 sqM); Potassium 4.1 mmol/L (3.5-5.1); Sodium 135 mmol/L (137-145)
[2019-08-10 11:58] LABS: Basophils % (A) 0 %; Eosinophils # (A) 0.2 k/uL (0-0.7); Eosinophils % (A) 3 %; HCT 41.1 % (34.0-46.0); HGB 13.6 gm/dL (11.4-16.0); Lymphocytes # (A) 2.2 k/uL (1.0-4.8); Lymphocytes % (A) 44 %; MCH 33.4 pg (25.0-35.0); MCHC 33.2 g/dL (31.0-37.0); MCV 100.7 fL (80.0-100.0); Mean Platelet Volume 7.2; Monocytes # (A) 0.1 k/uL (0-1.0); Monocytes % (A) 3 %; Neutrophils # (A) 2.4 k/uL (1.3-7.7); Neutrophils % (A) 49 %; Platelet Count 327 k/uL (150-450); RBC 4.08 m/uL (3.80-5.40); RDW 13.1 % (11.5-15.5)
--- NOTE | 2019-08-10 12:42 | IR ---
EXAMINATION TYPE: IR nephrostomy tube change DATE OF EXAM: 08/10/2019 COMPARISON: 03/09/2019, 12/03/2018 HISTORY: Left nephrostomy tube exchange Patient's indwelling tube was prepped and draped. Lidocaine was used for local anesthesia. General barclay nd injection of contrast material performed. The tube was cut and exchanged over wire for an 8 Micronesian tube and fixed within the region of the renal pelvis and proximal ureter. Catheter was fixed in plac e with a 2-0 silk suture. Sterile dressing placed. Gentle hand injection of contrast verified placeme nt. Catheter was attached to gravity drainage. There is no significant bleeding. No immediate complic ation. 0.8 minutes of fluoroscopy utilized. 2 images submitted. IMPRESSION: 1. Successful left nephrostomy tube exchange over guidewire under fluoroscopy.
[2019-08-10 13:19] VITALS: BP 132/76; PULSE 44
== END ==
LOC: CATHCVL 10:55
PROVIDERS: ATTEND Radiology Diagnostic Radiology
DX: N13.39 Other hydronephrosis (principal); C18.9 Malignant neoplasm of colon, unspecified; J44.9 Chronic obstructive pulmonary disease, unspecified; Z46.6 Encounter for fitting and adjustment of urinary device; E11.9 Type 2 diabetes mellitus without complications; K21.9 Gastro-esophageal reflux disease without esophagitis; I10 Essential (primary) hypertension; C22.9 Malignant neoplasm of liver, not specified as primary or secondary; Z96.89 Presence of other specified functional implants; Z93.3 Colostomy status; Z92.21 Personal history of antineoplastic chemotherapy; Z90.49 Acquired absence of other specified parts of digestive tract; Z96.0 Presence of urogenital implants; Z87.891 Personal history of nicotine dependence; Z80.8 Family history of malignant neoplasm of other organs or systems; Z79.899 Other long term (current) drug therapy; Z79.84 Long term (current) use of oral hypoglycemic drugs; Z91.09 Other allergy status, other than to drugs and biological substances
CPT/HCPCS: 80048; 85025; 50435; J2250; J1580; J0290; J1170

== ENCOUNTER 2019-09-09 08:27 | Day surgery (SDC) | payer OTHER ==
[2019-09-09 08:41] VITALS: BP 165/95; PULSE 69; RESP 16; TEMP 97.8
== END 2019-09-09 09:00 | disposition home or self-care (01) ==
LOC: RADPROMAIN 08:27
PROVIDERS: ATTEND Radiology Diagnostic Radiology
DX: Z48.03 Encounter for change or removal of drains (principal); Z91.09 Other allergy status, other than to drugs and biological substances
CPT/HCPCS: 99213

== ENCOUNTER 2019-09-20 14:54 | Day surgery (SDC) | payer OTHER ==
[2019-09-20 15:30] VITALS: BP 141/82; PULSE 77; RESP 14; TEMP 98.1
== END 2019-09-20 15:35 | disposition home or self-care (01) ==
LOC: RADPROMAIN 14:54
PROVIDERS: ATTEND Radiology Diagnostic Radiology
DX: Z48.03 Encounter for change or removal of drains (principal); Z48.01 Encounter for change or removal of surgical wound dressing; Z43.6 Encounter for attention to other artificial openings of urinary tract; Z91.09 Other allergy status, other than to drugs and biological substances
CPT/HCPCS: 99213

== ENCOUNTER 2019-10-04 15:04 | Day surgery (SDC) | payer OTHER ==
[2019-10-04 15:45] VITALS: BP 137/76; PULSE 67; RESP 14; TEMP 98.1
== END 2019-10-04 15:52 | disposition home or self-care (01) ==
LOC: RADPROMAIN 15:04
PROVIDERS: ATTEND Radiology Diagnostic Radiology
DX: Z48.03 Encounter for change or removal of drains (principal)
CPT/HCPCS: 99213

== ENCOUNTER 2019-10-11 15:03 | Day surgery (SDC) | payer OTHER ==
[2019-10-11 16:22] VITALS: BP 168/89; PULSE 76; RESP 16; TEMP 98.1
== END 2019-10-11 15:50 | disposition home or self-care (01) ==
LOC: RADPROMAIN 15:03
PROVIDERS: ATTEND Radiology Diagnostic Radiology
DX: Z48.03 Encounter for change or removal of drains (principal); Z91.048 Other nonmedicinal substance allergy status
CPT/HCPCS: 99213

== ENCOUNTER 2019-10-22 | Day surgery (SDC) | payer OTHER | END 2019-10-22 16:59 | disposition home or self-care (01) | CPT/HCPCS: 99213 ==

== ENCOUNTER 2019-11-05 15:37 | Day surgery (SDC) | payer OTHER ==
[2019-11-05 16:16] VITALS: BP 157/90; PULSE 75; RESP 14; TEMP 98.1
== END 2019-11-05 16:10 | disposition home or self-care (01) ==
LOC: RADPROMAIN 15:37
PROVIDERS: ATTEND Radiology Diagnostic Radiology
DX: Z48.03 Encounter for change or removal of drains (principal); Z43.6 Encounter for attention to other artificial openings of urinary tract; Z48.01 Encounter for change or removal of surgical wound dressing
CPT/HCPCS: 99213

== ENCOUNTER → 2019-11-15 | Day surgery (SDC) | payer OTHER ==
[2019-11-15 16:19] VITALS: BP 124/68; PULSE 76; RESP 18; TEMP 98.1
== END ==
LOC: RADPROMAIN 15:26
PROVIDERS: ATTEND Radiology Diagnostic Radiology
DX: Z48.03 Encounter for change or removal of drains (principal)

== ENCOUNTER → 2019-11-29 | Day surgery (SDC) | payer OTHER ==
[2019-11-25 12:13] VITALS: BMI 26.7
[~2019-11-29] MED LIST changes: -AMPICILLIN 1,000 MG in SODIUM CHLORIDE 0.9% 50 ML IVPB ONE; +AMPICILLIN 1,000 MG in SODIUM CHLORIDE 0.9% 50 ML IVPB STA; +AMPICILLIN 500 MG VIAL IVPB ONE; +GENTAMICIN 40 MG/ML 2 ML VIAL IVPB ONE; -GENTAMICIN 90 MG in SODIUM CHLORIDE 0.9% 100 ML IVPB ONE; +GENTAMICIN IVPB ONE; -HYDROmorphone 1 MG/ML 1 ML SYRINGE IVP ONE; +LIDOCAINE 1% INJ 10MG/ML (20 ML MDV) SQ ONE; -MIDAZOLAM 2 MG/2 ML VIAL IVP ONE; +SODIUM CHLORIDE 0.9% 500 ML 500 ML IV SCH; +SODIUM CHLORIDE 0.9% IVPB ONE
[2019-11-29 10:42] LABS: Glucose,Whole Blood 128 mg/dL (75-99)
[2019-11-29 10:52] VITALS: RESP 16; TEMP 98.1
[2019-11-29 11:19] LABS: Basophils % (A) 0 %; Eosinophils # (A) 0.2 k/uL (0-0.7); Eosinophils % (A) 4 %; HCT 39.6 % (34.0-46.0); HGB 13.2 gm/dL (11.4-16.0); Lymphocytes # (A) 2.1 k/uL (1.0-4.8); Lymphocytes % (A) 40 %; MCH 32.7 pg (25.0-35.0); MCHC 33.3 g/dL (31.0-37.0); MCV 98.3 fL (80.0-100.0); Mean Platelet Volume 7.5; Monocytes # (A) 0.1 k/uL (0-1.0); Monocytes % (A) 3 %; Neutrophils # (A) 2.7 k/uL (1.3-7.7); Neutrophils % (A) 52 %; Platelet Count 268 k/uL (150-450); RBC 4.02 m/uL (3.80-5.40); RDW 12.5 % (11.5-15.5); WBC 5.2 k/uL (3.8-10.6)
[2019-11-29 11:22] LABS: African American GFR (CKD) >90 (>60 ml/min/1.73 sqM); Anion Gap 6 mmol/L; Blood Urea Nitrogen 15 mg/dL (7-17); Calcium 8.7 mg/dL (8.4-10.2); Carbon Dioxide 24 mmol/L (22-30); Chloride 103 mmol/L (98-107); Glucose 140 mg/dL (74-99); Non-African American GFR(CKD) >90 (>60 ml/min/1.73 sqM); Potassium 4.2 mmol/L (3.5-5.1); Sodium 133 mmol/L (137-145)
[2019-11-29 12:54] VITALS: BP 153/76; PULSE 76
--- NOTE | 2019-11-29 15:25 | IR ---
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 Suzy Saldivar PROCEDURE: The procedure was discussed with the patient. The risks, complications, benefits, and alternatives we re discussed and any questions were answered. Informed consent was obtained. The patient was placed prone and the skin surrounding the left percutaneous nephrostomy tube was prep ped and draped. Maximal barrier technique utilized. 1% lidocaine used for local anesthesia. 5 mL of O mnipaque 350 injected into the percutaneous nephrostomy tube with opacification of the left ureter, c onfirming patency. The end of the existing percutaneous nephrostomy tube was cut to unlock the distal loop coil. A 0.035 angled guidewire was advanced through the percutaneous nephrostomy tube and coile d within the renal pelvis. The existing percutaneous nephrostomy tube was removed. Subsequently an 8 Israeli coiled percutaneous nephrectomy tube was advanced over the guidewire into the left proximal ur eter. The guidewire was removed. Using continuous fluoroscopic guidance, the new percutaneous opacity tube was withdrawn while the loop was formed, and positioned within the renal pelvis. Urine freely f lowed from the new percutaneous nephrostomy tube. Catheter was fixed to the skin with 1 silk suture, and adhesive dressing. Patient was discharged from the radiology department in stable condition witho ut immediate complication. Fluoro time: 0.6 minutes Fluoroscopic images obtained: 125 IMPRESSION: Status post fluoroscopic-guided left 8FR percutaneous nephrostomy tube exchange, ready for use.
== END ==
LOC: OR 10:11
PROVIDERS: ATTEND Radiology Diagnostic Radiology
DX: Z43.6 Encounter for attention to other artificial openings of urinary tract (principal); N13.30 Unspecified hydronephrosis; C18.9 Malignant neoplasm of colon, unspecified; I10 Essential (primary) hypertension; K21.9 Gastro-esophageal reflux disease without esophagitis; Z90.49 Acquired absence of other specified parts of digestive tract; Z98.890 Other specified postprocedural states
CPT/HCPCS: 50435; 75984; 80048; 85025; C1729; C1769 ×2; J1580; J2001; J0290

== ENCOUNTER 2019-12-17 15:32 | Day surgery (SDC) | payer OTHER ==
[2019-12-17 16:15] VITALS: RESP 16; TEMP 98.1
[2019-12-17 16:17] VITALS: BP 189/88; PULSE 78
== END 2019-12-17 16:20 | disposition home or self-care (01) ==
LOC: RADPROMAIN 15:32
PROVIDERS: ATTEND Radiology Diagnostic Radiology
DX: Z48.01 Encounter for change or removal of surgical wound dressing (principal); Z48.03 Encounter for change or removal of drains; Z93.6 Other artificial openings of urinary tract status
CPT/HCPCS: 99213

== ENCOUNTER 2019-12-31 15:26 | Day surgery (SDC) | payer OTHER ==
[2019-12-31 16:17] VITALS: BP 169/109; PULSE 76; RESP 16; TEMP 98.2
== END 2019-12-31 16:20 | disposition home or self-care (01) ==
LOC: RADPROMAIN 15:26
PROVIDERS: ATTEND Radiology Diagnostic Radiology
DX: Z43.6 Encounter for attention to other artificial openings of urinary tract (principal)
CPT/HCPCS: 99213

== ENCOUNTER 2020-01-10 12:27 | Day surgery (SDC) | payer OTHER ==
[2020-01-10 13:28] VITALS: PULSE 20; RESP 18; TEMP 98.1
[2020-01-10 13:31] VITALS: BP 162/84
== END 2020-01-10 13:30 | disposition home or self-care (01) ==
LOC: RADPROMAIN 12:27
PROVIDERS: ATTEND Radiology Diagnostic Radiology
DX: Z43.6 Encounter for attention to other artificial openings of urinary tract (principal)
CPT/HCPCS: 99213

== ENCOUNTER 2020-01-24 15:28 | Day surgery (SDC) | payer OTHER ==
[2020-01-24 15:41] VITALS: BP 173/88; PULSE 78; RESP 20; TEMP 98.1
== END 2020-01-24 16:00 | disposition home or self-care (01) ==
LOC: RADPROMAIN 15:28
PROVIDERS: ATTEND Radiology Diagnostic Radiology
DX: Z43.6 Encounter for attention to other artificial openings of urinary tract (principal)
CPT/HCPCS: 99213

== ENCOUNTER 2020-02-02 15:15 | Day surgery (SDC) | payer OTHER ==
[2020-02-02 16:29] VITALS: BP 179/88; PULSE 76; RESP 16; TEMP 97.9
== END 2020-02-02 16:29 | disposition home or self-care (01) ==
LOC: RADPROMAIN 15:15
PROVIDERS: ATTEND Radiology Diagnostic Radiology
DX: Z43.6 Encounter for attention to other artificial openings of urinary tract (principal)
CPT/HCPCS: 99213

== ENCOUNTER 2020-02-16 15:26 | Day surgery (SDC) | payer MEDICARE, OTHER ==
[2020-02-16 16:07] VITALS: BP 175/80; PULSE 88; RESP 16; TEMP 98.7
== END 2020-02-16 16:25 | disposition home or self-care (01) ==
LOC: RADPROMAIN 15:26
PROVIDERS: ATTEND Radiology Diagnostic Radiology
DX: Z43.6 Encounter for attention to other artificial openings of urinary tract (principal)
CPT/HCPCS: 99213

== ENCOUNTER 2020-03-01 15:44 | Day surgery (SDC) | payer MEDICARE, OTHER ==
[2020-03-01 16:25] VITALS: BP 154/83; PULSE 84; RESP 16; TEMP 97.6
== END 2020-03-01 16:25 | disposition home or self-care (01) ==
LOC: RADPROMAIN 15:44
PROVIDERS: ATTEND Radiology Diagnostic Radiology
DX: Z48.03 Encounter for change or removal of drains (principal); Z43.6 Encounter for attention to other artificial openings of urinary tract
CPT/HCPCS: 99213

== ENCOUNTER 2020-03-08 09:56 | Day surgery (SDC) | payer MEDICARE, OTHER ==
[2020-03-08 10:31] VITALS: BP 169/90; PULSE 88; RESP 16; TEMP 99.4
== END 2020-03-08 10:45 | disposition home or self-care (01) ==
LOC: RADPROMAIN 09:56
PROVIDERS: ATTEND Radiology Diagnostic Radiology
DX: Z43.6 Encounter for attention to other artificial openings of urinary tract (principal); Z91.09 Other allergy status, other than to drugs and biological substances
CPT/HCPCS: 99213

== ENCOUNTER 2020-03-20 15:24 | Day surgery (SDC) | payer MEDICARE, OTHER ==
[2020-03-20 16:32] VITALS: BP 154/74; PULSE 64; RESP 18; TEMP 97.9
== END 2020-03-20 16:33 | disposition home or self-care (01) ==
LOC: RADPROMAIN 15:24
PROVIDERS: ATTEND Internal Medicine Geriatric Medicine
DX: Z43.6 Encounter for attention to other artificial openings of urinary tract (principal)
CPT/HCPCS: 99213

== ENCOUNTER 2020-03-29 | Day surgery (SDC) | payer MEDICARE, OTHER | END 2020-03-29 11:35 | disposition home or self-care (01) | CPT/HCPCS: 99213 ==

== ENCOUNTER 2020-04-13 12:30 | Day surgery (SDC) | payer MEDICARE, OTHER ==
[2020-04-13 13:27] VITALS: BP 168/84; PULSE 84; RESP 16; TEMP 98
== END 2020-04-13 13:30 | disposition home or self-care (01) ==
LOC: RADPROMAIN 12:30
PROVIDERS: ATTEND Radiology Diagnostic Radiology
DX: Z43.6 Encounter for attention to other artificial openings of urinary tract (principal)
CPT/HCPCS: 99213

== ENCOUNTER 2020-04-27 15:24 | Day surgery (SDC) | payer MEDICARE, OTHER ==
[2020-04-27 15:59] VITALS: BP 186/86; PULSE 95; RESP 16; TEMP 98
== END 2020-04-27 16:04 | disposition home or self-care (01) ==
LOC: RADPROMAIN 15:24
PROVIDERS: ATTEND Radiology Diagnostic Radiology
DX: Z43.6 Encounter for attention to other artificial openings of urinary tract (principal)
CPT/HCPCS: 99213

== ENCOUNTER 2020-05-09 15:30 | Day surgery (SDC) | payer MEDICARE, OTHER ==
[2020-05-09 16:04] VITALS: BP 168/79; PULSE 79; RESP 16; TEMP 98.1
== END 2020-05-09 16:05 | disposition home or self-care (01) ==
LOC: RADPROMAIN 15:30
PROVIDERS: ATTEND Radiology Diagnostic Radiology
DX: Z48.01 Encounter for change or removal of surgical wound dressing (principal); Z48.03 Encounter for change or removal of drains; Z93.6 Other artificial openings of urinary tract status
CPT/HCPCS: 99213

== ENCOUNTER 2020-05-25 | Day surgery (SDC) | payer MEDICARE, OTHER | END 2020-05-25 16:03 | disposition home or self-care (01) | CPT/HCPCS: 99213 ==

== ENCOUNTER → 2020-06-01 | Day surgery (SDC) | payer MEDICARE, OTHER ==
[2020-05-30 17:45] VITALS: BMI 25.5
--- NOTE | 2020-05-31 16:13 | P.GSHP ---
History of Present Illness H&P Date: 05/31/20 60 female with hydronephriosis secondary to metastatic colon ca to the liver and retroperitoneum. SHe has a chronic n tube She comes for n tube chNGE - Constitutional Constitutional: Denies chills, Denies fever - EENT Eyes: denies blurred vision, denies pain Ears, nose, mouth and throat: Denies headache, Denies sore throat - Cardiovascular Cardiovascular: Denies chest pain, Denies shortness of breath - Respiratory Respiratory: Denies cough, Denies 7 - Gastrointestinal Gastrointestinal: Denies abdominal pain, Denies diarrhea, Denies nausea, Denies vomiting - Genitourinary (Female) Genitourinary: Denies dysuria, Denies hematuria - Genitourinary (Male) Genitourinary: Denies dysuria, Denies hematuria - Musculoskeletal Musculoskeletal: Denies myalgias - Integumentary Integumentary: Denies pruritus, Denies rash - Neurological Neurological: Denies numbness, Denies weakness - Psychiatric Psychiatric: Denies anxiety, Denies depression - Endocrine Endocrine: Denies fatigue, Denies weight change Past Medical History Past Medical History: Cancer, COPD, Diabetes Mellitus, Eye Disorder, GERD/Reflux, Hypertension, Pulmonary Embolus (PE) Additional Past Medical History / Comment(s): 2018 Colon cancer w/ mets to liver; Liver pump for past chemo; Colostomy. Scar tissue on kidney from colon surgery, has Lt nephrostomy tube. Glaucoma. Varicose veins. PE 02/2020. Currently has tumor in tailbone, having chemo trial monthly, last 05/16/20. History of Any Multi-Drug Resistant Organisms: None Reported Past Surgical History: Bowel Resection, Section, Cholecystectomy Additional Past Surgical History / Comment(s): partial colectomy with colostomy, LIVER Biopsy, left ureter stent placement, Left Nephrostomy tube placement. port placement rt chest, 05/26/18 at [facility]; gallbladder removed; chemo pump placed rt abdomen and liver tumors removed. Lt Nephrostomy Tube exchanges, mult. Past Anesthesia/Blood Transfusion Reactions: No Reported Reaction, Motion Sickness Smoking Status: Former smoker - Past Family History Brother(s) Family Medical History: Cancer Additional Family Medical History / Comment(s): brain Medications and Allergies Home Medications Medication Instructions Recorded Confirmed Type Metoprolol Succinate (ER) [Toprol 50 mg PO QAM 02/25/19 03/16/21 History Xl] glipiZIDE [Glucotrol] 5 mg PO AC-BRKFST 08/06/19 05/30/20 History Albuterol Nebulized [Ventolin 2.5 mg INHALATION BID PRN 05/30/20 05/30/20 History Nebulized] Apixaban [Eliquis] 5 mg PO BID 05/30/20 05/30/20 History Beclomethasone Dip 80 Mcg/Puff 1 puff INHALATION DAILY 05/30/20 05/30/20 History [Qvar 80 mcg] Cetirizine HCl [Zyrtec] 10 mg PO DAILY 05/30/20 05/30/20 History Cholecalciferol (Vitamin D3) 125 mcg PO DAILY 05/30/20 05/30/20 History [Vitamin D3 (5000 Iu)] HYDROcodone/APAP 10-325MG [[place] 1 tab PO Q6HR PRN 05/30/20 05/30/20 History 10-325] LORazepam [Ativan] 1 mg PO BID PRN 05/30/20 05/30/20 History Latanoprost Ophth [Xalatan 0.005%] 1 drops BOTH EYES HS 05/30/20 05/30/20 History Pantoprazole Sodium [Protonix] 40 mg PO BID 05/30/20 05/30/20 History Allergies Allergy/AdvReac Type Severity Reaction Status Date / Time adhesive tape Allergy Rash/Hives Verified 05/30/20 17:14 PLASTIC OSTOMY BAG Allergy Rash/Hives Uncoded 05/30/20 17:14 Surgical - Exam - General well developed, chronically ill - Eyes PERRL - ENT no hearing loss - Neck trachea midline - Respiratory normal expansion, normal respiratory effort - Cardiovascular Rhythm: regular - Abdomen left n tube - Integumentary no rash - Psychiatric oriented to time, oriented to person, oriented to place, speech is normal, memory intact Assessment and Plan Assessment: Impression> Left hydronephrosis secondary to metastatic colon ca to retroperitoneum PlaN; L ntube exchange
[~2020-06-01] MED LIST changes: +AMPICILLIN 1,000 MG in SODIUM CHLORIDE 0.9% 50 ML IVPB ONE; -AMPICILLIN 1,000 MG in SODIUM CHLORIDE 0.9% 50 ML IVPB STA; -AMPICILLIN 500 MG VIAL IVPB ONE; -GENTAMICIN 40 MG/ML 2 ML VIAL IVPB ONE; +GENTAMICIN 90 MG in SODIUM CHLORIDE 0.9% 100 ML IVPB ONE; -GENTAMICIN IVPB ONE; +IOPAMIDOL-250 50ML BTL IV ONE; +LIDOCAINE 1% INJ 10MG/ML (20 ML MDV) ONE; -SODIUM CHLORIDE 0.9% 500 ML 500 ML IV SCH; -SODIUM CHLORIDE 0.9% IVPB ONE; +fentaNYL (PF) 50 MCG/ML 2 ML AMP IV ONE; +fentaNYL (PF) 50 MCG/ML 2 ML AMP ONE
[2020-06-01 10:19] VITALS: RESP 16; TEMP 98.3
[2020-06-01 10:20] LABS: Glucose,Whole Blood 110 mg/dL (75-99)
[2020-06-01 11:20] VITALS: BP 157/83; PULSE 93
--- NOTE | 2020-06-01 13:26 | IR ---
EXAMINATION TYPE: IR nephrostomy tube change DATE OF EXAM: 06/01/2020 COMPARISON: 08/10/2019 HISTORY: Left nephrostomy tube exchange Procedure had been discussed with the patient risks, benefits, alternatives, were discussed and any q uestions were answered. Informed consent was obtained. The patient was in a semiprone position prep ped and draped on the OR table in the usual sterile fashion. Patient's indwelling tube was prepped and draped. Lidocaine was used for local anesthesia. General barclay nd injection of contrast material performed. The tube was cut and exchanged over wire for an 8 Bhutanese tube and fixed within the region of the renal pelvis and proximal ureter. Catheter was fixed in plac e with a 2-0 silk suture. Sterile dressing placed. Gentle hand injection of contrast verified placeme nt. Catheter was attached to gravity drainage. . No immediate complication. 0.2minutes of fluoroscopy utilized. 2 images submitted. IMPRESSION: 1. Successful left nephrostomy tube exchange over guidewire under fluoroscopy.
== END ==
LOC: CATHCVL 09:58
PROVIDERS: ATTEND Radiology Diagnostic Radiology
DX: Z43.6 Encounter for attention to other artificial openings of urinary tract (principal); N13.30 Unspecified hydronephrosis; C18.9 Malignant neoplasm of colon, unspecified; C78.7 Secondary malignant neoplasm of liver and intrahepatic bile duct; C78.6 Secondary malignant neoplasm of retroperitoneum and peritoneum; J44.9 Chronic obstructive pulmonary disease, unspecified; E11.9 Type 2 diabetes mellitus without complications; H40.9 Unspecified glaucoma; K21.9 Gastro-esophageal reflux disease without esophagitis; I10 Essential (primary) hypertension; N28.89 Other specified disorders of kidney and ureter; I83.90 Asymptomatic varicose veins of unspecified lower extremity; D49.2 Neoplasm of unspecified behavior of bone, soft tissue, and skin; Z86.711 Personal history of pulmonary embolism; Z92.21 Personal history of antineoplastic chemotherapy; Z93.3 Colostomy status; Z90.49 Acquired absence of other specified parts of digestive tract; Z98.890 Other specified postprocedural states; Z96.0 Presence of urogenital implants; Z95.828 Presence of other vascular implants and grafts; Z87.898 Personal history of other specified conditions; Z87.891 Personal history of nicotine dependence; Z79.899 Other long term (current) drug therapy; Z79.84 Long term (current) use of oral hypoglycemic drugs; Z79.01 Long term (current) use of anticoagulants; Z79.51 Long term (current) use of inhaled steroids; Z79.891 Long term (current) use of opiate analgesic; Z91.09 Other allergy status, other than to drugs and biological substances; Z80.8 Family history of malignant neoplasm of other organs or systems
CPT/HCPCS: 50435; C1729; C1769 ×2; J1580; J2001; J3010; J0290; Q9966

== ENCOUNTER 2020-06-15 15:19 | Day surgery (SDC) | payer MEDICARE, OTHER ==
[2020-06-15 16:08] VITALS: BP 198/108; PULSE 78; RESP 16; TEMP 98
== END 2020-06-15 16:15 | disposition home or self-care (01) ==
LOC: RADPROMAIN 15:19
PROVIDERS: ATTEND Radiology Diagnostic Radiology
DX: Z48.01 Encounter for change or removal of surgical wound dressing (principal); Z43.6 Encounter for attention to other artificial openings of urinary tract; Z48.03 Encounter for change or removal of drains; Z91.09 Other allergy status, other than to drugs and biological substances
CPT/HCPCS: 99213

== ENCOUNTER 2020-06-27 15:25 | Day surgery (SDC) | payer MEDICARE, OTHER ==
[2020-06-27 16:00] VITALS: BP 170/82; PULSE 76; RESP 16; TEMP 98
== END 2020-06-27 16:08 | disposition home or self-care (01) ==
LOC: RADPROMAIN 15:25
PROVIDERS: ATTEND Radiology Diagnostic Radiology
DX: Z43.3 Encounter for attention to colostomy (principal)
CPT/HCPCS: 99213

== ENCOUNTER 2020-07-07 15:32 | Day surgery (SDC) | payer MEDICARE, OTHER ==
[2020-07-07 15:43] VITALS: BP 133/81; PULSE 85; RESP 18; TEMP 98.3
== END 2020-07-07 16:09 | disposition home or self-care (01) ==
LOC: RADPROMAIN 15:32
PROVIDERS: ATTEND Radiology Diagnostic Radiology
DX: Z43.6 Encounter for attention to other artificial openings of urinary tract (principal)
CPT/HCPCS: 99213

== ENCOUNTER 2020-08-24 15:26 | Day surgery (SDC) | payer MEDICARE, OTHER ==
[2020-08-24 16:32] VITALS: BP 135/71; PULSE 76; RESP 16; TEMP 98.3
== END 2020-08-24 16:39 | disposition home or self-care (01) ==
LOC: RADPROMAIN 15:26
PROVIDERS: ATTEND Radiology Diagnostic Radiology
DX: Z43.6 Encounter for attention to other artificial openings of urinary tract (principal)
CPT/HCPCS: 99213

== ENCOUNTER 2020-09-06 12:20 | Day surgery (SDC) | payer MEDICARE, OTHER ==
[2020-09-06 12:58] LABS: Mean Platelet Volume 6.7; Platelet Count 448 k/uL (150-450)
[2020-09-06 13:03] LABS: INR 1.1 (<1.2); Prothrombin Time 11.7 sec (9.0-12.0)
[2020-09-06 13:32] VITALS: TEMP 98.5
[2020-09-06 15:05] VITALS: BP 123/78; PULSE 105; RESP 14
--- NOTE | 2020-09-06 15:50 | US ---
EXAMINATION TYPE: US paracentesis abd w/image DATE OF EXAM: 09/06/2020 COMPARISON: NONE HISTORY: Ascites. PROCEDURE: Maximal barrier technique was utilized. The skin overlying a suitable pocket of fluid was localized with ultrasound and the overlying skin was prepped and draped. Ultrasound was utilized with sterile technique. Lidocaine was used for local anesthesia and a skin mattie made with a scalpel. Catheter was advanced under direct ultrasound guidance into a suitable pocket of fluid and approximately 2.2 liter s of serous sanguinous fluid were removed. Catheter was withdrawn and hemostasis achieved. There is no immediate complication; the patient is discharged in stable condition. IMPRESSION: STATUS POST ULTRASOUND GUIDED PARACENTESIS FOR PALLIATION OF ASCITES. THIS PROCEDURE WA S PERFORMED BY THE UNDERSIGNED.
== END 2020-09-06 15:15 | disposition home or self-care (01) ==
LOC: RADPROMAIN 12:20
PROVIDERS: ATTEND Internal Medicine
DX: R18.8 Other ascites (principal)
CPT/HCPCS: 82947; 85049; 85610; 36415; 49083; G0463; 99213

== ENCOUNTER 2020-09-25 15:34 | Day surgery (SDC) | payer MEDICARE, OTHER ==
[2020-09-25 16:08] VITALS: BP 156/75; PULSE 99; RESP 16; TEMP 98.4
== END 2020-09-25 16:10 | disposition home or self-care (01) ==
LOC: RADPROMAIN 15:34
PROVIDERS: ATTEND Radiology Diagnostic Radiology
DX: Z43.6 Encounter for attention to other artificial openings of urinary tract (principal)
CPT/HCPCS: 99213

== ENCOUNTER 2020-10-04 11:58 | Day surgery (SDC) | payer MEDICARE, OTHER ==
[2020-10-04 13:20] VITALS: BP 139/73; PULSE 88; RESP 18
--- NOTE | 2020-10-04 13:54 | US ---
Discontinued paracentesis HISTORY: Ascites Small amount of ascites was noted on preprocedure planning IMPRESSION: No paracentesis performed at this time.
[2020-10-04 14:32] VITALS: TEMP 98.1
== END 2020-10-04 12:20 | disposition home or self-care (01) ==
LOC: RADPROMAIN 11:58
PROVIDERS: ATTEND Internal Medicine
DX: R18.8 Other ascites (principal); Z53.8 Procedure and treatment not carried out for other reasons
CPT/HCPCS: 76705; G0463; 99213

== ENCOUNTER 2020-10-20 09:03 | Day surgery (SDC) | payer MEDICARE, OTHER ==
[2020-10-18 09:54] VITALS: BMI 21.9
[~2020-10-20 09:03] MED LIST changes: +GENTAMICIN 70 MG in SODIUM CHLORIDE 0.9% 100 ML IVPB ONE; -GENTAMICIN 90 MG in SODIUM CHLORIDE 0.9% 100 ML IVPB ONE; -IOPAMIDOL-250 50ML BTL IV ONE; -LIDOCAINE 1% INJ 10MG/ML (20 ML MDV) ONE; -LIDOCAINE 1% INJ 10MG/ML (20 ML MDV) SQ ONE; -SODIUM CHLORIDE 0.9% 500 ML 500 ML IV ONE; -fentaNYL (PF) 50 MCG/ML 2 ML AMP IV ONE; -fentaNYL (PF) 50 MCG/ML 2 ML AMP ONE
[2020-10-20] MEDS ORDERED: SODIUM CHLORIDE 0.9% 500 ML 500 ML IV ONE (09:27)
[2020-10-20 09:36] LABS: Glucose,Whole Blood 79 mg/dL (75-99)
[2020-10-20 09:51] LABS: Anisocytosis Slight; Basophils # (A) 0.1 k/uL (0-0.2); Basophils % (A) 1 %; Eosinophils # (A) 0.4 k/uL (0-0.7); Eosinophils % (A) 5 %; HCT 32.8 % (34.0-46.0); HGB 10.4 gm/dL (11.4-16.0); Hypochromasia Slight; Lymphocytes # (A) 2.9 k/uL (1.0-4.8); Lymphocytes % (A) 33 %; MCH 27.8 pg (25.0-35.0); MCHC 31.9 g/dL (31.0-37.0); MCV 87.3 fL (80.0-100.0); Mean Platelet Volume 7.1; Monocytes # (A) 0.3 k/uL (0-1.0); Monocytes % (A) 4 %; Neutrophils # (A) 5.1 k/uL (1.3-7.7); Neutrophils % (A) 57 %; Platelet Count 568 k/uL (150-450); RBC 3.76 m/uL (3.80-5.40); RDW 17.2 % (11.5-15.5); WBC 8.9 k/uL (3.8-10.6)
[2020-10-20 10:07] LABS: African American GFR (CKD) >90 (>60 ml/min/1.73 sqM); Anion Gap 5 mmol/L; Blood Urea Nitrogen 6 mg/dL (7-17); Calcium 8.9 mg/dL (8.4-10.2); Carbon Dioxide 28 mmol/L (22-30); Chloride 98 mmol/L (98-107); Glucose 79 mg/dL (74-99); Non-African American GFR(CKD) >90 (>60 ml/min/1.73 sqM); Sodium 131 mmol/L (137-145)
[2020-10-20 10:25] VITALS: RESP 16; TEMP 98
[2020-10-20] MEDS ORDERED: LIDOCAINE 1% INJ 10MG/ML (20 ML MDV) ONE (10:51)
[2020-10-20] MEDS ORDERED: fentaNYL (PF) 50 MCG/ML 2 ML AMP ONE (11:09)
[2020-10-20] MEDS ORDERED: fentaNYL (PF) 50 MCG/ML 2 ML AMP IV ONE (11:09)
[2020-10-20] MEDS ORDERED: LIDOCAINE 1% INJ 10MG/ML (20 ML MDV) SQ ONE (11:10)
[2020-10-20] MEDS ORDERED: IOPAMIDOL-250 100ML BTL INTRAARTER ONE (11:16)
--- NOTE | 2020-10-20 11:45 | IR ---
EXAMINATION TYPE: IR nephrostomy tube change DATE OF EXAM: 10/20/2020 COMPARISON: 06/01/2020 HISTORY: Left nephrostomy tube exchange over a guidewire Procedure had been discussed with the patient risks, benefits, alternatives, were discussed and any q uestions were answered. Informed consent was obtained. The patient was in a semiprone position preppe d and draped on the OR table in the usual sterile fashion. Patient's indwelling tube was prepped and draped. Lidocaine was used for local anesthesia. General barclay nd injection of contrast material performed. The tube was cut and exchanged over wire for an 8 Slovak tube and fixed within the region of the renal pelvis and proximal ureter. Catheter was fixed in plac e with a 2-0 silk suture. Sterile dressing placed. Gentle hand injection of contrast verified placeme nt. Catheter was attached to gravity drainage. . No immediate complication. 0.2minutes of fluoroscopy utilized. 2 images submitted. . IMPRESSION: 1. Successful left nephrostomy tube exchange over a guidewire under fluoroscopy.
[2020-10-20 12:45] VITALS: BP 167/81; PULSE 87
== END 2020-10-20 12:17 | disposition home or self-care (01) ==
LOC: OR 09:03
PROVIDERS: ATTEND Radiology Diagnostic Radiology
DX: Z43.6 Encounter for attention to other artificial openings of urinary tract (principal); J44.9 Chronic obstructive pulmonary disease, unspecified; F41.9 Anxiety disorder, unspecified; Z93.2 Ileostomy status; N13.30 Unspecified hydronephrosis
CPT/HCPCS: 50435; 80048; 85025; C1729; C1769 ×2; J2001; J3010; J1580; J0290; Q9966; 75984

== ENCOUNTER 2020-11-01 13:07 | Day surgery (SDC) | payer MEDICARE, OTHER ==
--- NOTE | 2020-11-01 14:02 | US ---
Ultrasound-guided paracentesis. DATE OF EXAM: 11/01/2020 CLINICAL HISTORY: Ascites Preliminary ultrasound demonstrated only small amount of ascites and the patient decided to defer the procedure. IMPRESSION: Deferred paracentesis.
[2020-11-01 14:16] VITALS: BP 170/82; PULSE 98; RESP 18; TEMP 98.4
== END 2020-11-01 14:15 | disposition home or self-care (01) ==
LOC: RADPROMAIN 13:07
PROVIDERS: ATTEND Internal Medicine
DX: R18.8 Other ascites (principal); Z53.8 Procedure and treatment not carried out for other reasons
CPT/HCPCS: 76705; G0463; 99213

== ENCOUNTER 2020-11-14 15:35 | Day surgery (SDC) | payer MEDICARE, OTHER ==
[2020-11-14 16:29] VITALS: BP 171/88; PULSE 86; RESP 16; TEMP 98.1
== END 2020-11-14 16:15 | disposition home or self-care (01) ==
LOC: RADPROMAIN 15:35
PROVIDERS: ATTEND Radiology Diagnostic Radiology
DX: Z48.03 Encounter for change or removal of drains (principal)
CPT/HCPCS: 99213

== ENCOUNTER 2020-11-22 13:32 | Day surgery (SDC) | payer MEDICARE, OTHER ==
[2020-11-22 14:17] VITALS: BP 142/84; PULSE 62; RESP 16; TEMP 97.7
== END 2020-11-22 14:15 | disposition home or self-care (01) ==
LOC: RADPROMAIN 13:32
PROVIDERS: ATTEND Radiology Diagnostic Radiology
DX: Z43.6 Encounter for attention to other artificial openings of urinary tract (principal)
CPT/HCPCS: 99213

== ENCOUNTER 2020-12-04 15:50 | Day surgery (SDC) | payer MEDICARE, OTHER ==
[2020-12-04 16:25] VITALS: BP 120/78; PULSE 78; RESP 16; TEMP 98.6
== END 2020-12-04 16:15 | disposition home or self-care (01) ==
LOC: RADPROMAIN 15:50
PROVIDERS: ATTEND Radiology Diagnostic Radiology
DX: Z48.01 Encounter for change or removal of surgical wound dressing (principal)
CPT/HCPCS: 99213

== ENCOUNTER 2020-12-14 15:28 | Day surgery (SDC) | payer MEDICARE, OTHER ==
[2020-12-14 16:13] VITALS: BP 109/66; PULSE 91; RESP 18; TEMP 97.6
== END 2020-12-14 16:15 ==
LOC: RADPROMAIN 15:28
PROVIDERS: ATTEND Radiology Diagnostic Radiology
DX: Z43.6 Encounter for attention to other artificial openings of urinary tract (principal)
CPT/HCPCS: 99213

== ENCOUNTER 2021-01-11 15:03 | Inpatient (IN) | payer MEDICARE, OTHER ==
[2021-01-11] MEDS ORDERED: SODIUM CHLORIDE 0.9% 1,000 ML IV STA ×2 (15:49→17:48)
[2021-01-11 16:24] LABS: Anisocytosis Slight; Basophils % (A) 0 %; Eosinophils # (A) 0.2 k/uL (0-0.7); Eosinophils % (A) 1 %; HCT 31.9 % (34.0-46.0); HGB 10.1 gm/dL (11.4-16.0); Lymphocytes # (A) 1.4 k/uL (1.0-4.8); Lymphocytes % (A) 8 %; MCH 29.3 pg (25.0-35.0); MCHC 31.6 g/dL (31.0-37.0); MCV 92.8 fL (80.0-100.0); Mean Platelet Volume 7.2; Monocytes # (A) 0.5 k/uL (0-1.0); Monocytes % (A) 3 %; Neutrophils # (A) 15.4 k/uL (1.3-7.7); Neutrophils % (A) 87 %; Platelet Count 455 k/uL (150-450); RBC 3.44 m/uL (3.80-5.40); RDW 17.2 % (11.5-15.5); WBC 17.7 k/uL (3.8-10.6)
--- NOTE | 2021-01-11 16:32 | ED ---
General Adult HPI - General Chief complaint: Altered Mental Status Stated complaint: AMS Time Seen by Provider: 01/11/21 15:22 Source: patient Mode of arrival: ambulatory Limitations: no limitations - History of Present Illness Initial comments: Dictation was produced using [employer] dictation software. please excuse any grammatical, word or spelling errors. Chief Complaint: 60-year-old female past medical history of colon cancer prese nts to the emergency department for lethargy symptoms of acute delirium History of Present Illness: History of present illness obtained from patient's and daughter at the bedside. Patient is a 60-year-old female she has past medical history of colon cancer. She sees a cancer specialist down at [facility]. Patient has not had any chemotherapy for this over the last 2 months. She was suppose to be initiated chemotherapy recently however her labs were 2 abnormal. Over the last 7 days patient has been having significant with worsening weakness and mental status changes. Family's concern of dehydration. Patient denies any complaints at this time. According to and daughter at the bedside she is had fairly rapid decline over the last 2 days. Prior to last today she is usually ambulatory and able to perform some activities of daily living however over the last 2 days she is been lethargic and unable to be mobile. Daughter reports the patient has been having visual hallucinations. Daughter reports that patient states that she's been seeing bugs. The ROS documented in this emergency department record has been reviewed and confirmed by me. Those systems with pertinent positive or negative responses have been documented in the HPI. All other systems are other negative and/or noncontributory. PHYSICAL EXAM: General Impression: Alert and oriented x3/4, not in acute distress, lethargic HEENT: Normocephalic atraumatic, extra-ocular movements intact, pupils equal and reactive to light bilaterally, dry mucous membranes Cardiovascular: Heart regular rate and rhythm Chest: Able to complete full sentences, no retractions, no tachypnea Abdomen: abdomen soft, non-tender, send it abdomen, hardware in the left superficial abdomen Musculoskeletal: Pulses present and equal in all extremities, no peripheral edema Motor: no focal deficits noted Neurological: CN II-XII grossly intact, no focal motor or sensory deficits noted Skin: Intact with no visualized rashes ED course: 60-year-old ill-appearing female with past medical history of colon cancer presents to the emergency department for acute onset weakness, lethargy and visual hallucinations. History of present also concerning for acute delirium. Vital signs upon arrival shows 93% on room air, blood pressure 97 or 69, heart rate 101. Laboratory evaluation obtained. Leukocytosis 17.7, hemoglobin 10.1. Coag panel is unremarkable. Metabolic panel shows potassium 6.1 mild anion gap acidosis with a bicarb of 16 and anion gap of 15. Elevated renal markers with a creatinine 3.4. Last creatinine was from 2 months ago and found to be 0.36. Glucose 223. Urinalysis positive for urinary tract infection. Clinical presentation concerning for UTI sepsis. Patient's hypokalemia treated with hyperkalemic cocktail. She given IV fluids lactic acid level is 2.0. Patient not hypotensive. Nonetheless is concern of early sepsis. Patient given 3-4 mL per KG bolus. Lactic acid level is normal. Patient started on ceftriaxone. Case discussed with Dr. Baker. She'll be admitted to [facility]. - Related Data Home Medications Medication Instructions Recorded Confirmed Metoprolol Succinate (ER) [Toprol 50 mg PO DAILY 05/11/18 01/11/21 Xl] LORazepam [Ativan] 1 mg PO TID PRN 05/30/20 01/11/21 Latanoprost Ophth [Xalatan 0.005%] 1 drops BOTH EYES HS 05/30/20 01/11/21 Pantoprazole Sodium [Protonix] 40 mg PO DAILY 05/30/20 01/11/21 Morphine Sulfate [Ms Contin] 15 mg PO Q4HR PRN 08/31/20 01/11/21 Apixaban [Eliquis] 5 mg PO BID 10/18/20 01/11/21 Albuterol Inhaler [Ventolin Hfa 2 puff INHALATION RT-QID PRN 01/11/21 01/11/21 Inhaler] Atomoxetine HCl [Strattera] 40 mg PO DAILY 01/11/21 01/11/21 HYDROcodone/APAP 10-325MG [[place] 1 tab PO Q4HR PRN 01/11/21 01/11/21 10-325] Loratadine 10 mg PO DAILY 01/11/21 01/11/21 Metoclopramide [Reglan] 5 mg PO ACHS PRN 01/11/21 01/11/21 Regorafenib [Stivarga] 120 mg PO DAILY 01/11/21 01/11/21 amLODIPine [Norvasc] 10 mg PO DAILY 01/11/21 01/11/21 dronabinoL [Dronabinol] 5 mg PO AC-BID 01/11/21 01/11/21 fentaNYL 25MCG/HR PATCH [Duragesic 1 patch TRANSDERM Q72H 01/11/21 01/11/21 25MCG/HR] lisinopriL [Zestril] 20 mg PO DAILY 01/11/21 01/11/21 ondansetron HCL [Zofran] 8 mg PO TID PRN 01/11/21 01/11/21 Allergies Allergy/AdvReac Type Severity Reaction Status Date / Time adhesive tape Allergy Rash/Hives Verified 01/11/21 16:42 PLASTIC OSTOMY BAG Allergy Rash/Hives Uncoded 01/11/21 15:12 Review of Systems ROS Statement: Those systems with pertinent positive or pertinent negative responses have been documented in the HPI. ROS Other: All systems not noted in ROS Statement are negative. Past Medical History Past Medical History: Cancer, COPD, Diabetes Mellitus, Eye Disorder, GERD/Ref lux, Hypertension, Pulmonary Embolus (PE) Additional Past Medical History / Comment(s): 2018 Colon cancer w/ mets to liver; Liver pump for past chemo; Colostomy. Scar tissue on kidney from colon surgery, has Lt nephrostomy tube. Glaucoma. Varicose veins. PE 02/2020. Katie cardoso has tumor in tailbone, having chemo trial monthly, last 05/16/20. New chemo started since acites returned History of Any Multi-Drug Resistant Organisms: None Reported Past Surgical History: Bowel Resection, Section, Cholecystectomy Additional Past Surgical History / Comment(s): partial colectomy with colostomy, LIVER Biopsy, left ureter stent placement, Left Nephrostomy tube placement. port placement rt chest, 05/26/18 at [facility]; gallbladder removed; chemo pump placed rt abdomen and liver tumors removed. Lt Nephrostomy Tube exchanges, mult. Past Anesthesia/Blood Transfusion Reactions: No Reported Reaction, Motion Sickness Past Psychological History: No Psychological Hx Reported Smoking Status: Former smoker Past Alcohol Use History: Rare Past Drug Use History: Marijuana - Past Family History Brother(s) Family Medical History: Cancer Additional Family Medical History / Comment(s): Brain Cancer. General Exam Limitations: no limitations Course Vital Signs 01/11/21 15:08 Temperature 97.2 F L Pulse Rate 101 H Respiratory 18 Rate Blood Pressure 97/69 O2 Sat by Pulse 93 L Oximetry Medical Decision Making - Lab Data Result diagrams: 01/11/21 16:12 01/11/21 16:12 Lab Results 01/11/21 01/11/21 01/11/21 Range/Units 16:12 16:12 16:35 WBC 17.7 H (3.8-10.6) k/uL RBC 3.44 L (3.80-5.40) m/uL Hgb 10.1 L (11.4-16.0) gm/dL Hct 31.9 L (34.0-46.0) % MCV 92.8 (80.0-100.0) fL MCH 29.3 (25.0-35.0) pg MCHC 31.6 (31.0-37.0) g/dL RDW 17.2 H (11.5-15.5) % Plt Count 455 H (150-450) k/uL MPV 7.2 Neutrophils % 87 % Lymphocytes % 8 % Monocytes % 3 % Eosinophils % 1 % Basophils % 0 % Neutrophils # 15.4 H (1.3-7.7) k/uL Lymphocytes # 1.4 (1.0-4.8) k/uL Monocytes # 0.5 (0-1.0) k/uL Eosinophils # 0.2 (0-0.7) k/uL Basophils # 0.0 (0-0.2) k/uL Anisocytosis Slight PT 12.0 (9.0-12.0) sec INR 1.2 H (<1.2) APTT 29.2 (22.0-30.0) sec Sodium 127 L (137-145) mmol/L Potassium 6.1 H* (3.5-5.1) mmol/L Chloride 96 L (98-107) mmol/L Carbon Dioxide 16 L (22-30) mmol/L Anion Gap 15 mmol/L BUN 81 H (7-17) mg/dL Creatinine 3.40 H (0.52-1.04) mg/dL Est GFR (CKD-EPI)AfAm 16 (>60 ml/min/1.73 sqM) Est GFR (CKD-EPI)NonAf 14 (>60 ml/min/1.73 sqM) Glucose 223 H (74-99) mg/dL Plasma Lactic Acid Inder (0.7-2.0) mmol/L Calcium 8.1 L (8.4-10.2) mg/dL Magnesium 2.5 H (1.6-2.3) mg/dL Ammonia (<30) umol/L Urine Color Urine Appearance (Clear) Urine pH (5.0-8.0) Ur Specific [place] (1.001-1.035) Urine Protein (Negative) Urine Glucose (UA) (Negative) Urine Ketones (Negative) Urine Blood (Negative) Urine Nitrite (Negative) Urine Bilirubin (Negative) Urine Urobilinogen (<2.0) mg/dL Ur Leukocyte Esterase (Negative) Urine RBC (0-5) /hpf Urine WBC (0-5) /hpf Urine WBC Clumps (None) /hpf Urine Bacteria (None) /hpf Urine Mucus (None) /hpf Urine Yeast (Budding) (None) /hpf 01/11/21 01/11/21 Range/Units 16:35 16:35 WBC (3.8-10.6) k/uL RBC (3.80-5.40) m/uL Hgb (11.4-16.0) gm/dL Hct (34.0-46.0) % MCV (80.0-100.0) fL MCH (25.0-35.0) pg MCHC (31.0-37.0) g/dL RDW (11.5-15.5) % Plt Count (150-450) k/uL MPV Neutrophils % % Lymphocytes % % Monocytes % % Eosinophils % % Basophils % % Neutrophils # (1.3-7.7) k/uL Lymphocytes # (1.0-4.8) k/uL Monocytes # (0-1.0) k/uL Eosinophils # (0-0.7) k/uL Basophils # (0-0.2) k/uL Anisocytosis PT (9.0-12.0) sec INR (<1.2) APTT (22.0-30.0) sec Sodium (137-145) mmol/L Potassium (3.5-5.1) mmol/L Chloride (98-107) mmol/L Carbon Dioxide (22-30) mmol/L Anion Gap mmol/L BUN (7-17) mg/dL Creatinine (0.52-1.04) mg/dL Est GFR (CKD-EPI)AfAm (>60 ml/min/1.73 sqM) Est GFR (CKD-EPI)NonAf (>60 ml/min/1.73 sqM) Glucose (74-99) mg/dL Plasma Lactic Acid Inder 2.0 (0.7-2.0) mmol/L Calcium (8.4-10.2) mg/dL Magnesium (1.6-2.3) mg/dL Ammonia 21 (<30) umol/L Urine Color Yellow Urine Appearance Turbid H (Clear) Urine pH 5.5 (5.0-8.0) Ur Specific [place] 1.019 (1.001-1.035) Urine Protein 2+ H (Negative) Urine Glucose (UA) Negative (Negative) Urine Ketones Negative (Negative) Urine Blood Large H (Negative) Urine Nitrite Negative (Negative) Urine Bilirubin Negative (Negative) Urine Urobilinogen 2.0 (<2.0) mg/dL Ur Leukocyte Esterase Large H (Negative) Urine RBC 70 H (0-5) /hpf Urine WBC >182 H (0-5) /hpf Urine WBC Clumps Many H (None) /hpf Urine Bacteria Occasional H (None) /hpf Urine Mucus Rare H (None) /hpf Urine Yeast (Budding) Few H (None) /hpf Disposition Clinical Impression: UTI (urinary tract infection), PRAMOD (acute kidney injury) Disposition: ADMITTED IP TO THIS HOSP Condition: Fair Referrals: Yordy De Leon MD [Primary Care Provider] - 1-2 days
[2021-01-11 16:56] LABS: INR 1.2 (<1.2); Partial Thromboplastin Time 29.2 sec (22.0-30.0)
[2021-01-11 16:57] LABS: Appearance,Urine Turbid (Clear); Bacteria,Urine Occasional /hpf; Bilirubin,Urine Negative (Negative); Blood,Urine Large (Negative); Budding Yeast,Urine Few /hpf; Color,Urine Yellow; Glucose,Urine (UA) Negative (Negative); Ketones,Urine Negative (Negative); Leukocyte Esterase,Urine Large (Negative); Mucus,Urine Rare /hpf; Nitrite,Urine Negative (Negative); PH, Urine 5.5 (5.0-8.0); Protein,Urine 2+ (Negative); RBC,Urine 70 /hpf (0-5); Specific Gravity,Urine 1.019 (1.001-1.035); WBC,Urine >182 /hpf (0-5)
[2021-01-11 16:59] LABS: Calcium 8.1 mg/dL (8.4-10.2); Magnesium 2.5 mg/dL (1.6-2.3)
[2021-01-11 17:10] LABS: Potassium 6.1 mmol/L (3.5-5.1)
[2021-01-11] MEDS ORDERED: cefTRIAXone IN SWFI 1,000 MG/10 ML SYRINGE IVP STA (17:42)
[2021-01-11] MEDS ORDERED: DEXTROSE 50% SYRINGE 50 ML IVP ONE (17:45)
[2021-01-11] MEDS ORDERED: ALBUTEROL NEB (CONC) 2.5 MG/0.5 ML INHALATION ONE (17:45)
[2021-01-11] MEDS ORDERED: INSULIN REGULAR 100 UNIT/ML VIAL (IV) IV ONE (17:45)
[2021-01-11] MEDS ORDERED: SODIUM CHLORIDE 0.9% 500 ML 500 ML IV STA (17:48)
[2021-01-11] MEDS ORDERED: NALOXONE 0.4 MG/ML 1 ML VIAL IV PRN (17:51)
[2021-01-11] MEDS ORDERED: SODIUM BICARB 8.4% 50 ML SYR (1 MEQ/ML) IV STA (20:14)
[2021-01-11] MEDS: DEXTROSE 5% IN WATER 1,000 ML with SODIUM BICARB (1 MEQ/ML) 150 ML IV SCH (20:48)
--- NOTE | 2021-01-11 23:26 | US ---
EXAMINATION TYPE: US kidneys/renal and bladder DATE OF EXAM: 01/11/2021 COMPARISON: CT CLINICAL HISTORY: pramod. PRAMOD. Hx left nephrostomy tube. EXAM MEASUREMENTS: Right Kidney: 11.0 x 5.5 x 5.6 cm Left Kidney: 6.5 x 3.5 x 3.6 cm Right Kidney: Hydronephrosis seen. Hyperechoic focus seen: 0.7 x 0.4 x 0.5 cm. Left Kidney: Appears small in size. Limited visibility. Nephrostomy tube in place. Bladder: Not visualized. *Liver appears enlarged and very heterogeneous with lesions throughout. *Ascites seen in the RUQ and small amount in LUQ adjacent to the spleen. *Tiny hyperechoic focus seen within the spleen. IMPRESSION: Small left kidney consistent with atrophy. There is right-sided hydronephrosis. No significant right side atrophy. There is abdominal ascites noted. Urinary bladder was not visualized by ultrasound. No evidence of a solid renal mass. There is probably a right renal calculus. Acute obstruction of the ri ght kidney is possible.
--- NOTE | 2021-01-12 02:58 | P.PN ---
Progress Note - Text Progress Note Date: 01/12/21 Advanced Care Planning: Diagnoses: Stage IV colon cancer Discussion: Person(s) present and participating in discussion: Patient, daughter, Summary: Asked with the patient her goals of care in great detail. Patient reported that she understands that her malignancy is worsening and that she will continue to get more ill with each passing day. She states that in the event of a cardiac arrest, she would not like to undergo CPR or be placed on life support. Although the patient was only oriented to person and place, she was able to answer most questions regarding CODE STATUS with family at the bedside in agreement with her wishes. The patient stated that her ultimate priority is her quality of life and that she be kept comfortable. The family requested a hospice consult. Will make the patient a No Code as per her wishes. A total of 25 minutes of face to face time was spent discussing advanced care planning.
[2021-01-12] MEDS ORDERED: LORazepam 1 MG TAB PO PRN (03:00)
[2021-01-12] MEDS ORDERED: CALCIUM GLUCONATE 1 GM in SODIUM CHLORIDE 0.9% 100 ML IVPB ONE (03:00)
--- NOTE | 2021-01-12 03:02 | P.HPIM ---
History of Present Illness H&P Date: 01/12/21 The patient was 60-year-old female with a PMH of stage IV colon cancer (w/ mets to liver and ovary) initially diagnosed 4 years ago and having undergone multiple chemotherapy regimens following a [facility], status post colectomy and colostomy insertion 4 years ago, hx of PE (on Eliquis) is brought into the emergency room by her due to lethargy, poor appetite, and weight loss. states that over the past 1 week, the patient's appetite has decreased significantly, and that she has barely eaten or drank anything read he states that as a result, she is very fatigued and sleeps most of the day. The daughter at the bedside who is an RN reports that her mother has been also hallucinating, seeing bugs on the wall, and talking nonsensically. They state that the patient has not undergone any chemotherapy for the past 2-3 months and was scheduled to start an experimental treatment in 1-2 weeks, but admit that she may be now too weak to begin any new treatments. The patient was lethargic during the interview but stated that she feels tired. In the emergency room, laboratory evaluation was remarkable for leukocytosis of 17.7, hemoglobin 10.1, platelets 455, sodium 127, potassium 6.1, chloride 96, CO2 16, BUN 81, creatinine 3.4, lactic acid 2.0, and a grossly abnormal UA. Review of systems: Pertinent positives and negatives as discussed in HPI, a complete review of systems was performed and all other systems are negative. Physical examination: General: Chronically ill-appearing frail female, no distress, appears older than stated age Derm: no unusual rashes/lesions no unusual ecchymoses, warm, dry Head: atraumatic, normocephalic, symmetric Eyes: EOMI, no lid lag, anicteric sclera, pupils equal round reactive to light ENT: Nose and ears atraumatic, no thrush, no pharyngeal erythema Neck: No thyromegaly, no cervical lymphadenopathy, trachea midline, supple Mouth: no lip lesion, mucus membranes very dry Cardiovascular: S1S2 reg, no murmur, positive posterior tibial pulse bilateral, right lower extremity slightly enlarged, capillary refill less than 2 seconds Lungs: Poor air entry bilaterally, no accessory muscle use Abdominal: Distended, nontender to palpation, no guarding, colostomy in place with yellow liquid stool, hypoactive bowel sounds Ext: Thin extremities, muscle strength 3 out of 5 in all 4 extremities grossly, no contractures, Neuro: CN II-XI grossly intact, light touch intact all 4 extremities, finger to nose within normal limits, Psych: Lethargic, oriented to person and place, not oriented to time Assessment/plan Failure to thrive, likely secondary to increasing disease burden of stage IV colon cancer -Discussed with the family in detail regarding goals of care -The family understands that the patient's days are numbered and that their goal at the current time is to treat the UTI and dehydration and to discharge her home -Family is open to a hospice consult which will be placed -IV fluids -Fall precautions -Dietitian consult UTI sepsis -Continue with ceftriaxone -IV fluids -F/u cultures Acute kidney injury, likely secondary to dehydration -Continue with IV fluids Hyperkalemia -Likely secondary to PRAMOD -IV fluids and monitor -Administer calcium gluconate -Hold ACEI RLE swelling -Obtain LE duplex DVT prophylaxis -Eliquis The patient is admitted with an anticipated greater than 2 midnight stay for tc luation of failure to thrive CODE STATUS: No Code Discussed with: Daughter, , patient Anticipated discharge date: 2-[address]: Home w/ hospice Past Medical History Past Medical History: Cancer, COPD, Diabetes Mellitus, Eye Disorder, GERD/Reflux, Hypertension, Pulmonary Embolus (PE) Additional Past Medical History / Comment(s): 2018 Colon cancer w/ mets to liver; Liver pump for past chemo; Colostomy. Scar tissue on kidney from colon surgery, has Lt nephrostomy tube. Glaucoma. Varicose veins. PE 02/2020. Currently has tumor in tailbone, having chemo trial monthly, last 05/16/20. New chemo started since acites returned History of Any Multi-Drug Resistant Organisms: None Reported Past Surgical History: Bowel Resection, Section, Cholecystectomy Additional Past Surgical History / Comment(s): partial colectomy with colostomy, LIVER Biopsy, left ureter stent placement, Left Nephrostomy tube placement. port placement rt chest, 05/26/18 at [facility]; gallbladder removed; chemo pump placed rt abdomen and liver tumors removed. Lt Nephrostomy Tube exchanges, mult. Past Anesthesia/Blood Transfusion Reactions: No Reported Reaction, Motion Sickness Past Psychological History: No Psychological Hx Reported Smoking Status: Former smoker Past Alcohol Use History: Rare Additional Past Alcohol Use History / Comment(s): STARTED SMOKING AT AGE 18, QUIT SMOKING 03/2016, SMOKED 1PPD Past Drug Use History: Marijuana Additional Drug Use History / Comment(s): uses marijuana vape pen occ - Past Family History Brother(s) Family Medical History: Cancer Additional Family Medical History / Comment(s): Brain Cancer. Medications and Allergies Home Medications Medication Instructions Recorded Confirmed Type Metoprolol Succinate (ER) [Toprol 50 mg PO DAILY 05/11/18 01/11/21 History Xl] LORazepam [Ativan] 1 mg PO TID PRN 05/30/20 01/11/21 History Latanoprost Ophth [Xalatan 0.005%] 1 drops BOTH EYES HS 05/30/20 01/11/21 History Pantoprazole Sodium [Protonix] 40 mg PO DAILY 05/30/20 01/11/21 History Morphine Sulfate [Ms Contin] 15 mg PO Q4HR PRN 08/31/20 01/11/21 History Apixaban [Eliquis] 5 mg PO BID 10/18/20 01/11/21 History Albuterol Inhaler [Ventolin Hfa 2 puff INHALATION RT-QID PRN 01/11/21 01/11/21 History Inhaler] Atomoxetine HCl [Strattera] 40 mg PO DAILY 01/11/21 01/11/21 History HYDROcodone/APAP 10-325MG [[place] 1 tab PO Q4HR PRN 01/11/21 01/11/21 History 10-325] Loratadine 10 mg PO DAILY 01/11/21 01/11/21 History Metoclopramide [Reglan] 5 mg PO ACHS PRN 01/11/21 01/11/21 History Regorafenib [Stivarga] 120 mg PO DAILY 01/11/21 01/11/21 History amLODIPine [Norvasc] 10 mg PO DAILY 01/11/21 01/11/21 History dronabinoL [Dronabinol] 5 mg PO AC-BID 01/11/21 01/11/21 History fentaNYL 25MCG/HR PATCH [Duragesic 1 patch TRANSDERM Q72H 01/11/21 01/11/21 His tory 25MCG/HR] lisinopriL [Zestril] 20 mg PO DAILY 01/11/21 01/11/21 History ondansetron HCL [Zofran] 8 mg PO TID PRN 01/11/21 01/11/21 History Allergies Allergy/AdvReac Type Severity Reaction Status Date / Time adhesive tape Allergy Rash/Hives Verified 01/11/21 16:42 PLASTIC OSTOMY BAG Allergy Rash/Hives Uncoded 01/11/21 15:12 Physical Exam Vitals: Vital Signs Temp Pulse Resp BP Pulse Ox 01/11/21 20:52 97.6 F 105 H 18 109/79 94 L 01/11/21 19:36 101 H 01/11/21 19:22 98 01/11/21 18:54 98 16 114/80 97 01/11/21 15:08 97.2 F L 101 H 18 97/69 93 L Intake and Output 01/11/21 01/11/21 01/12/21 14:59 22:59 06:59 Other: Weight 43.091 kg Results CBC & Chem 7: 01/11/21 16:12 01/11/21 20:58 Labs: Abnormal Lab Results - Last 24 Hours (Table) 01/11/21 01/11/21 01/11/21 Range/Units 16:12 16:12 16:35 WBC 17.7 H (3.8-10.6) k/uL RBC 3.44 L (3.80-5.40) m/uL Hgb 10.1 L (11.4-16.0) gm/dL Hct 31.9 L (34.0-46.0) % RDW 17.2 H (11.5-15.5) % Plt Count 455 H (150-450) k/uL Neutrophils # 15.4 H (1.3-7.7) k/uL INR 1.2 H (<1.2) Sodium 127 L (137-145) mmol/L Potassium 6.1 H* (3.5-5.1) mmol/L Chloride 96 L (98-107) mmol/L Carbon Dioxide 16 L (22-30) mmol/L BUN 81 H (7-17) mg/dL Creatinine 3.40 H (0.52-1.04) mg/dL Glucose 223 H (74-99) mg/dL Calcium 8.1 L (8.4-10.2) mg/dL Magnesium 2.5 H (1.6-2.3) mg/dL Urine Appearance (Clear) Urine Protein (Negative) Urine Blood (Negative) Ur Leukocyte Esterase (Negative) Urine RBC (0-5) /hpf Urine WBC (0-5) /hpf Urine WBC Clumps (None) /hpf Urine Bacteria (None) /hpf Urine Mucus (None) /hpf Urine Yeast (Budding) (None) /hpf 01/11/21 01/11/21 01/11/21 Range/Units 16:35 20:58 20:58 WBC (3.8-10.6) k/uL RBC (3.80-5.40) m/uL Hgb (11.4-16.0) gm/dL Hct (34.0-46.0) % RDW (11.5-15.5) % Plt Count (150-450) k/uL Neutrophils # (1.3-7.7) k/uL INR (<1.2) Sodium (137-145) mmol/L Potassium 5.7 H (3.5-5.1) mmol/L Chloride (98-107) mmol/L Carbon Dioxide (22-30) mmol/L BUN (7-17) mg/dL Creatinine (0.52-1.04) mg/dL Glucose (74-99) mg/dL Calcium (8.4-10.2) mg/dL Magnesium 2.4 H (1.6-2.3) mg/dL Urine Appearance Turbid H (Clear) Urine Protein 2+ H (Negative) Urine Blood Large H (Negative) Ur Leukocyte Esterase Large H (Negative) Urine RBC 70 H (0-5) /hpf Urine WBC >182 H (0-5) /hpf Urine WBC Clumps Many H (None) /hpf Urine Bacteria Occasional H (None) /hpf Urine Mucus Rare H (None) /hpf Urine Yeast (Budding) Few H (None) /hpf
[2021-01-12] MEDS ORDERED: MORPHINE SULFATE ER 15 MG TABLET PO PRN (04:00)
[2021-01-12] MEDS ORDERED: METOCLOPRAMIDE 5 MG TAB PO PRN (07:30)
[2021-01-12 07:46] LABS: Albumin 2.5 g/dL (3.5-5.0); Bilirubin, Delta 0.8 mg/dL (0.0-0.2); Bilirubin,Unconjugated 0.1 mg/dL (0.0-1.1); Calcium 7.8 mg/dL (8.4-10.2); Magnesium 2.2 mg/dL (1.6-2.3); Potassium 5.7 mmol/L (3.5-5.1); Total Bilirubin 0.9 mg/dL (0.2-1.3); Total Protein 5.8 g/dL (6.3-8.2)
[2021-01-12 08:45] VITALS: BMI 20.4
--- NOTE | 2021-01-12 09:01 | US ---
EXAMINATION TYPE: US venous doppler duplex LE DATE OF EXAM: 01/12/2021 7:10 AM COMPARISON: US 03/22/2018 CLINICAL HISTORY: RLE swelling. Patient on eliquis. SIDE PERFORMED: TECHNIQUE: The lower extremity deep venous system is examined utilizing real time linear array sonog fernanda with graded compression, doppler sonography and color-flow sonography. VESSELS IMAGED: Common Femoral Vein Deep Femoral Vein Greater Saphenous Vein * Femoral Vein Popliteal Vein Small Saphenous Vein * Proximal Calf Veins (* superficial vessels) There is normal flow, compressibility, vascular waveforms. Edema channels are present within the subc utaneous soft tissues on the right. Right Leg: Negative for DVT Left Leg: Negative for DVT IMPRESSION: No evident deep venous thrombosis within the right lower extremity from the level of the knee centrally. Correlate for edema or cellulitis.
[2021-01-12] MEDS: APIXABAN 5 MG TAB PO SCH ×2 (09:57→21:08)
[2021-01-12] MEDS: METOPROLOL SUCCINATE (ER) 50 MG TAB.ER.24H PO SCH (09:57)
[2021-01-12] MEDS: LORATADINE 10 MG TAB PO SCH (09:57)
[2021-01-12] MEDS: PANTOPRAZOLE 40 MG TABLET PO SCH (09:57)
[2021-01-12] MEDS ORDERED: DEXTROSE 50% SYRINGE 50 ML IVP STA (10:46)
--- NOTE | 2021-01-12 10:50 | P.NPCON ---
History of Present Illness - Reason for Consult acute renal failure, hyperkalemia - History of Present Illness Reason for consultation: Acute kidney injury History of present illness: Patient is a 60-year-old female seen in renal consultation for acute kidney injury and hyperkalemia. His baseline creatinine is near 1 and per the daughter it was 1.2 about 2 weeks ago when checked at [facility]. Creatinine this admission was 3.4 and is down to 3.23 today. Potassium level was also high at 6.1 and is down to 5.7 this morning. Patient has history of colon cancer and has undergone chemotherapy in the past. She was scheduled to undergo chemotherapy again but due to her overall condition and labs it is currently on hold. She was taking lisinopril at home which is currently held. According to the daughter the patient has lost about 25 pounds in the last 2 weeks. Oral intake has been quite poor. She has history of left-sided hydronephrosis and has a nephrostomy tube. No hematuria. She was noted to be quite acidotic with a bicarbonate level of 16 on admission. She is maintained on bicarb drip. Bicarb level is up to 25 this morning. Patient is quite lethargic and not able to provide any history at this time. No use of NSAIDs. Vital signs are stable. General: Lethargic. HEENT: Head exam is unremarkable. LUNGS: Breath sounds decreased. HEART: Rate and Rhythm are regular. ABDOMEN: Soft, no distention. EXTREMITITES: No edema. Past Medical History Past Medical History: Cancer, COPD, Diabetes Mellitus, Eye Disorder, GERD/Reflux, Hypertension, Pulmonary Embolus (PE) Additional Past Medical History / Comment(s): 2018 Colon cancer w/ mets to liver; Liver pump for past chemo; Colostomy. Scar tissue on kidney from colon surgery, has Lt nephrostomy tube. Glaucoma. Varicose veins. PE 02/2020. Currently has tumor in tailbone, having chemo trial monthly, last 05/16/20. New chemo started since acites returned History of Any Multi-Drug Resistant Organisms: None Reported Past Surgical History: Bowel Resection, Section, Cholecystectomy Additional Past Surgical History / Comment(s): partial colectomy with colostomy, LIVER Biopsy, left ureter stent placement, Left Nephrostomy tube placement. port placement rt chest, 05/26/18 at [facility]; gallbladder removed; chemo pump placed rt abdomen and liver tumors removed. Lt Nephrostomy Tube exchanges, mult. Past Anesthesia/Blood Transfusion Reactions: No Reported Reaction, Motion Sickness Past Psychological History: No Psychological Hx Reported Smoking Status: Former smoker Past Alcohol Use History: Rare Additional Past Alcohol Use History / Comment(s): STARTED SMOKING AT AGE 18, QUIT SMOKING 03/2016, SMOKED 1PPD Past Drug Use History: Marijuana Additional Drug Use History / Comment(s): uses marijuana vape pen occ - Past Family History Brother(s) Family Medical History: Cancer Additional Family Medical History / Comment(s): Brain Cancer. Medications and Allergies Home Medications Medication Instructions Recorded Confirmed Type Metoprolol Succinate (ER) [Toprol 50 mg PO DAILY 05/11/18 01/11/21 History Xl] LORazepam [Ativan] 1 mg PO TID PRN 05/30/20 01/11/21 History Latanoprost Ophth [Xalatan 0.005%] 1 drops BOTH EYES HS 05/30/20 01/11/21 Hist ory Pantoprazole Sodium [Protonix] 40 mg PO DAILY 05/30/20 01/11/21 History Morphine Sulfate [Ms Contin] 15 mg PO Q4HR PRN 08/31/20 01/11/21 History Apixaban [Eliquis] 5 mg PO BID 10/18/20 01/11/21 History Albuterol Inhaler [Ventolin Hfa 2 puff INHALATION RT-QID PRN 01/11/21 01/11/21 History Inhaler] Atomoxetine HCl [Strattera] 40 mg PO DAILY 01/11/21 01/11/21 History HYDROcodone/APAP 10-325MG [[place] 1 tab PO Q4HR PRN 01/11/21 01/11/21 History 10-325] Loratadine 10 mg PO DAILY 01/11/21 01/11/21 History Metoclopramide [Reglan] 5 mg PO ACHS PRN 01/11/21 01/11/21 History Regorafenib [Stivarga] 120 mg PO DAILY 01/11/21 01/11/21 History amLODIPine [Norvasc] 10 mg PO DAILY 01/11/21 01/11/21 History dronabinoL [Dronabinol] 5 mg PO AC-BID 01/11/21 01/11/21 History fentaNYL 25MCG/HR PATCH [Duragesic 1 patch TRANSDERM Q72H 01/11/21 01/11/21 History 25MCG/HR] lisinopriL [Zestril] 20 mg PO DAILY 01/11/21 01/11/21 History ondansetron HCL [Zofran] 8 mg PO TID PRN 01/11/21 01/11/21 History Allergies Allergy/AdvReac Type Severity Reaction Status Date / Time adhesive tape Allergy Rash/Hives Verified 01/11/21 16:42 PLASTIC OSTOMY BAG Allergy Rash/Hives Uncoded 01/11/21 15:12 Physical Exam Vitals: Vital Signs Temp Pulse Resp BP Pulse Ox 01/12/21 01:46 18 01/11/21 20:52 97.6 F 105 H 18 109/79 94 L 01/11/21 19:36 101 H 01/11/21 19:22 98 01/11/21 18:54 98 16 114/80 97 01/11/21 15:08 97.2 F L 101 H 18 97/69 93 L Intake and Output 01/11/21 01/12/21 01/12/21 22:59 06:59 14:59 Intake Total 0 0 Balance 0 0 Intake: Oral 0 0 Other: Weight 43.091 kg 47.4 kg 47.4 kg Results - Lab Results Most recent lab results Calcium 7.8 mg/dL (8.4-10.2) L 01/12/21 07:05 Magnesium 2.2 mg/dL (1.6-2.3) 01/12/21 07:05 01/11/21 16:12 01/12/21 07:05 Assessment and Plan Plan: Assessment: 1. Acute kidney injury secondary to ATN secondary to hypovolemia and hypotension. Further worsened with the use of lisinopril. Baseline creatinine near 1. Creatinine was 3.4 on admission and is 3.2 today. According to the daughter creatinine was 1.2 about 2 weeks ago when checked at [facility]. No hydronephrosis on kidney ultrasound. Left kidney is atrophic. 2. Hyperkalemia secondary to acute kidney injury, metabolic acidosis and is in June. 3. Hypovolemic hyponatremia. 4. Metabolic acidosis secondary to acute kidney injury. Improved. Bicarb drip. 5. Colon cancer. Follows at [facility]. 6. History of left-sided hydronephrosis status post nephrostomy tube placement about 3 years ago. Left kidney is atrophic. 7. UTI on antibiotics. 8. History of PE on anticoagulation. Plan: Stop Bicarb drip. Start normal saline at 100 mL an hour. Hold all antihypertensives. Check bladder scan to rule out urinary retention. Continue to monitor renal function and urine output. 10 units IV insulin with an amp of D50 now. Repeat potassium level this afternoon. Case discussed with the patient's daughter who was present at bedside. Thank you for the consultation. I will continue to follow the patient with you during her hospital stay.
[2021-01-12] MEDS ORDERED: INSULIN REGULAR 100 UNIT/ML VIAL (IV) IV ONE (11:00)
[2021-01-12] MEDS: DEXTROSE 5% IN WATER 1,000 ML with SODIUM BICARB (1 MEQ/ML) 150 ML IV SCH (11:14)
[2021-01-12] MEDS: SODIUM CHLORIDE 0.9% 1,000 ML IV SCH ×2 (11:22→22:02)
[2021-01-12] MEDS ORDERED: ACETAMINOPHEN IV (For NPO) 1,000 MG in EMPTY BAG 1 BAG IVPB ONE (11:30)
[2021-01-12] MEDS: CEFEPIME 1 GM in SODIUM CHLORIDE 0.9% 50 ML IVPB SCH (14:05)
--- NOTE | 2021-01-12 18:46 | P.PN ---
Subjective Progress Note Date: 01/12/21 (delayed charting seen at 1030) Principal diagnosis: altered mentation Patient is a 60 yo CF with a hx of stage IV colon cancer s/p multiple chemo regiments with liver pump in place, nephrostomy tube X 3 years, Colectomy with colostomy who presetned due to lethargy, poor appetite, and weight loss. Patient underwent an extensive evaluation in emergency department. She was found to have a urinary tract infection with sepsis, hemoglobin 10.1, platelets 435, sodium 127, potassium 6.1, BUN 31, creatinine 3.4, and lactic acid 2. She was started on IV fluids and antibiotics. She underwent a renal ultrasound which showed atrophic left kidney with right-sided hydronephrosis and right sided atrophy along with abdominal ascites. Bilateral lower extremity venous Dopplers were negative. She was found have a gram-positive bacilli bacteremia. Infectious disease was consulted. Nephrology was consulted for her hyperkalemia. Patient seen and examined at bedside. She is lethargic but opens her eyes to touch. Daughter is present. She states that her mother was due to start a chemotherapeutic trial at [facility] in 2 weeks however she has gotten significantly worse. She states that her last CAT scan showed increasing size of the metastatic disease as well as primary tumors. Daughter states goal would be to take her home after being treated from her urinary tract infection and likely convert to hospice. She states she is behind for having her urostomy changed out as well as having her liver pump refilled with heparin. General: Ill-appearing, cachectic, temporal and buccal wasting, appears older than stated age Derm: warm, dry Head: atraumatic, normocephalic, symmetric Eyes: EOMI, no lid lag, anicteric sclera Mouth: no lip lesion, mucous membranes dry Cardiovascular: S1S2 reg, no murmur, positive posterior tibial pulse bilateral, Lungs: Decreased breath sounds bilateral with poor inspiratory effort, no rhonchi, no rales , no accessory muscle use Abdominal: soft, nontender to palpation, no guarding, no appreciable organomegaly, urostomy bag in place with yellow urine, malodorous, colostomy in place Ext: no gross muscle atrophy, no edema, no contractures Neuro: CN II-XI grossly intact, no focal neuro deficits Psych: Lethargic, opens eyes to touch, does not verbalize at this time UTI with sepsis complicated by nephrostomy tube Gram Positive Bacilli bacteremia -Continue with antibiotics transition to cefepime - IV fluids - await cultures - Consult ID - change nephrostomy bag, consider IR consult tube change indicated per ID PRAMOD with hyperkalemia and metabolic acidosis - Nephro consult - transitioned off bicarb gtt and to NS - await repeat K+ - given dextrose and insulin - Right and left sided hydro on US - Hold lisinopril Metastatic colon ca - hospice meeting today at 2 pm - Consult pain management to see if can turn down liver pump (suggestion from oncology team at [facility]) HX of PE - eliquis DM 2 Chronic: Hypertension GERD COPD without exacerbation Glaucoma DVT prophylaxis: eliquis Discussed with: daughter Anticipated discharge: nursing Anticipated discharge place: hospice A total of 35 minutes was spent on the care of this complex patient more than 50% of the time was spent in counseling and care coordination. Objective - Vital Signs Vital signs: Vital Signs Temp 98.9 F 01/12/21 16:00 Pulse 118 H 01/12/21 16:00 Resp 17 01/12/21 16:03 BP 101/61 01/12/21 16:00 Pulse Ox 90 L 01/12/21 16:00 Intake & Output 01/11/21 01/12/21 01/12/21 18:59 06:59 18:59 Intake Total 0 25 Balance 0 25 Weight 43.091 kg 47.4 kg 47.4 kg Intake: Oral 0 25 - Labs CBC & Chem 7: 01/11/21 16:12 01/12/21 Unknown Labs: Abnormal Lab Results - Last 24 Hours (Table) 01/11/21 01/11/21 01/12/21 Range/Units 20:58 20:58 07:05 Sodium 128 L (137-145) mmol/L Potassium 5.7 H 5.7 H (3.5-5.1) mmol/L Chloride 92 L (98-107) mmol/L BUN 82 H (7-17) mg/dL Creatinine 3.23 H (0.52-1.04) mg/dL Glucose 297 H (74-99) mg/dL Calcium 7.8 L (8.4-10.2) mg/dL Magnesium 2.4 H (1.6-2.3) mg/dL Delta Bilirubin 0.8 H (0.0-0.2) mg/dL AST 542 H (14-36) U/L ALT 43 H (4-34) U/L Alkaline Phosphatase 637 H (38-126) U/L Total Protein 5.8 L (6.3-8.2) g/dL Albumin 2.5 L (3.5-5.0) g/dL 01/12/21 Range/Units Unknown Sodium (137-145) mmol/L Potassium 5.4 H (3.5-5.1) mmol/L Chloride (98-107) mmol/L BUN (7-17) mg/dL Creatinine (0.52-1.04) mg/dL Glucose (74-99) mg/dL Calcium (8.4-10.2) mg/dL Magnesium (1.6-2.3) mg/dL Delta Bilirubin (0.0-0.2) mg/dL AST (14-36) U/L ALT (4-34) U/L Alkaline Phosphatase (38-126) U/L Total Protein (6.3-8.2) g/dL Albumin (3.5-5.0) g/dL Microbiology - Last 24 Hours (Table) 01/11/21 18:25 Blood Culture - Final Blood
[2021-01-12] MEDS: LATANOPROST 0.005% OPHTH DROPS 2.5 ML BTL BOTH EYES SCH (22:02)
--- NOTE | 2021-01-12 23:46 | P.CONS ---
History of Present Illness - Reason for Consult Consult date: 01/12/21 bacteremia Requesting physician: Aury Dyer - Chief Complaint weakness and decreased appetite x 1 week - History of Present Illness History of present illness : Patient is 60-year-old female with a past medical history significant for stage IV colon cancer with mets to the liver and ovary in this patient initially diagnosed 4 years ago and has undergone multiple chemotherapy as well and has colectomy and colostomy patient also have a left- sided nephrostomy tube for a obstructive lesion to the ureter area patient was brought into the ER yesterday afternoon for evaluation of decreased appetite weakness barely eating or drinking anything patient apparently also hallucinating seeing bugs on the wall and talking nonsensically with February the patient was brought into the hospital on arrival to the ER patient did have a low-grade fever of 99.94 night patient was tachycardic did have white count of 17.7 with a left shift did have elevated BUN and creatinine as well as elevated liver enzymes patient did have positive UA cortez PCR was negative patient did have a abdominal bladder ultrasound which did show small left kidney consistent with atrophy right-sided hydronephrosis probable right-sided calculus patient was started on cefepime blood cultures came back positive for gram-positive bacilli infectious disease was consulted for further management of antibiotic therapy urology has already been consulted as the patient did have a left-sided nephrostomy tube almost 4 months most information was provided by the family patient elevated good historian but did answer some simple question Review of system: CONSTITUTIONAL: Positive for weakness no high-grade fever. EYES: No complaint. ENT: No complaint. RESPIRATORY: No complaint. CARDIOVASCULAR: No complaint. GENITOURINARY: As per history of present illness. GASTROINTESTINAL: As per history of present illness. MUSCULOSKELETAL: No complaint. INTEGUMENTARY: No complaint. PSYCHOLOGIC: No complaint. ENDOCRINE: No complaint. NEUROLOGIC: As per history of present illness. Past medical history : Reviewed, documented below Past surgical history : Reviewed, documented below Social history: Reviewed, documented below Medications: Reviewed, as documented below EXAMINATION: Vital sigans= Reviewed and documented below GENERAL DESCRIPTION: Middle-aged female lying in bed, no distress. No tachypnea or accessory muscle of respiration use. HEENT: Shows Pallor , no scleral icterus. Oral mucous membrane is dry. NECK: Trachea central, no thyromegaly. LUNGS: Unlabored breathing. Decreased breath sound at the base. No wheeze or crackle. HEART: S1, S2, regular rate and rhythm. ABDOMEN: Soft, mild distention and tenderness, no guarding or rigidity, left- sided nephrostomy tube site dressing with chest change no significant erythema and no purulent urine was noticed EXTREMITIES: No edema of feet. SKIN: No rash, no masses palpable. NEUROLOGICAL: The patient is awake, alert, oriented x2, mood and affect normal. LABS AND RADIOLOGY: Reviewed results see below Assessment : Patient with bacteremia this patient who do have a history of metastatic colon cancer with left-sided hydronephrosis and left nephrostomy tube and the daughter mentioned she did have significant purulent urine and that back source is more likely urinary and concerning for complicated urinary tract infection in this patient who did have evidence of right-sided hydronephrosis on recent ultrasound Plan: 1-blood cultures will be repeated document clearance of bacteremia 2-cefepime discontinued residual kidney function 3-await urology evaluation for the right-sided hydronephrosis and left-sided nephrostomy tube if it needs to be changed or not We will follow on clinical condition and cultures to further adjust medication if needed Thank you for this consultation we will follow the patient along with you Past Medical History Past Medical History: Cancer, COPD, Diabetes Mellitus, Eye Disorder, GERD/Reflux, Hypertension, Pulmonary Embolus (PE) Additional Past Medical History / Comment(s): 2018 Colon cancer w/ mets to liver; Liver pump for past chemo; Colostomy. Scar tissue on kidney from colon surgery, has Lt nephrostomy tube. Glaucoma. Varicose veins. PE 02/2020. Currently has tumor in tailbone, having chemo trial monthly, last 05/16/20. New chemo started since acites returned History of Any Multi-Drug Resistant Organisms: None Reported Past Surgical History: Bowel Resection, Section, Cholecystectomy Additional Past Surgical History / Comment(s): partial colectomy with colostomy, LIVER Biopsy, left ureter stent placement, Left Nephrostomy tube placement. port placement rt chest, 05/26/18 at [facility]; gallbladder removed; chemo pump placed rt abdomen and liver tumors removed. Lt Nephrostomy Tube exchanges, mult. Past Anesthesia/Blood Transfusion Reactions: No Reported Reaction, Motion Sickness Past Psychological History: No Psychological Hx Reported Smoking Status: Former smoker Past Alcohol Use History: Rare Additional Past Alcohol Use History / Comment(s): STARTED SMOKING AT AGE 18, QUIT SMOKING 03/2016, SMOKED 1PPD Past Drug Use History: Marijuana Additional Drug Use History / Comment(s): uses marijuana vape pen occ - Past Family History Brother(s) Family Medical History: Cancer Additional Family Medical History / Comment(s): Brain Cancer. Medications and Allergies Home Medications Medication Instructions Recorded Confirmed Type Metoprolol Succinate (ER) [Toprol 50 mg PO DAILY 05/11/18 01/11/21 History Xl] LORazepam [Ativan] 1 mg PO TID PRN 05/30/20 01/11/21 History Latanoprost Ophth [Xalatan 0.005%] 1 drops BOTH EYES HS 05/30/20 01/11/21 History Pantoprazole Sodium [Protonix] 40 mg PO DAILY 05/30/20 01/11/21 History Morphine Sulfate [Ms Contin] 15 mg PO Q4HR PRN 08/31/20 01/11/21 History Apixaban [Eliquis] 5 mg PO BID 10/18/20 01/11/21 History Albuterol Inhaler [Ventolin Hfa 2 puff INHALATION RT-QID PRN 01/11/21 01/11/21 History Inhaler] Atomoxetine HCl [Strattera] 40 mg PO DAILY 01/11/21 01/11/21 History HYDROcodone/APAP 10-325MG [[place] 1 tab PO Q4HR PRN 01/11/21 01/11/21 History 10-325] Loratadine 10 mg PO DAILY 01/11/21 01/11/21 History Metoclopramide [Reglan] 5 mg PO ACHS PRN 01/11/21 01/11/21 History Regorafenib [Stivarga] 120 mg PO DAILY 01/11/21 01/11/21 History amLODIPine [Norvasc] 10 mg PO DAILY 01/11/21 01/11/21 History dronabinoL [Dronabinol] 5 mg PO AC-BID 01/11/21 01/11/21 History fentaNYL 25MCG/HR PATCH [Duragesic 1 patch TRANSDERM Q72H 01/11/21 01/11/21 History 25MCG/HR] lisinopriL [Zestril] 20 mg PO DAILY 01/11/21 01/11/21 History ondansetron HCL [Zofran] 8 mg PO TID PRN 01/11/21 01/11/21 History Allergies Allergy/AdvReac Type Severity Reaction Status Date / Time adhesive tape Allergy Rash/Hives Verified 01/11/21 16:42 PLASTIC OSTOMY BAG Allergy Rash/Hives Uncoded 01/11/21 15:12 Physical Exam Vitals: Vital Signs Temp Pulse Pulse Resp BP BP Pulse Ox 01/12/21 12:00 98.0 F 122 H 16 99/60 91 L 01/12/21 08:00 99.9 F H 124 H 18 108/72 90 L 01/12/21 01:46 18 01/11/21 20:52 97.6 F 105 H 18 109/79 94 L 01/11/21 19:36 101 H 01/11/21 19:22 98 01/11/21 18:54 98 16 114/80 97 01/11/21 15:08 97.2 F L 101 H 18 97/69 93 L Intake and Output 01/12/21 01/12/21 01/12/21 06:59 14:59 22:59 Intake Total 0 25 Balance 0 25 Intake: Oral 0 25 Other: Weight 47.4 kg 47.4 kg Results CBC & Chem 7: 01/11/21 16:12 01/12/21 Unknown Labs: Abnormal Lab Results - Last 24 Hours (Table) 01/11/21 01/11/21 01/11/21 Range/Units 16:12 16:12 16:35 WBC 17.7 H (3.8-10.6) k/uL RBC 3.44 L (3.80-5.40) m/uL Hgb 10.1 L (11.4-16.0) gm/dL Hct 31.9 L (34.0-46.0) % RDW 17.2 H (11.5-15.5) % Plt Count 455 H (150-450) k/uL Neutrophils # 15.4 H (1.3-7.7) k/uL INR 1.2 H (<1.2) Sodium 127 L (137-145) mmol/L Potassium 6.1 H* (3.5-5.1) mmol/L Chloride 96 L (98-107) mmol/L Carbon Dioxide 16 L (22-30) mmol/L BUN 81 H (7-17) mg/dL Creatinine 3.40 H (0.52-1.04) mg/dL Glucose 223 H (74-99) mg/dL Calcium 8.1 L (8.4-10.2) mg/dL Magnesium 2.5 H (1.6-2.3) mg/dL Delta Bilirubin (0.0-0.2) mg/dL AST (14-36) U/L ALT (4-34) U/L Alkaline Phosphatase (38-126) U/L Total Protein (6.3-8.2) g/dL Albumin (3.5-5.0) g/dL Urine Appearance (Clear) Urine Protein (Negative) Urine Blood (Negative) Ur Leukocyte Esterase (Negative) Urine RBC (0-5) /hpf Urine WBC (0-5) /hpf Urine WBC Clumps (None) /hpf Urine Bacteria (None) /hpf Urine Mucus (None) /hpf Urine Yeast (Budding) (None) /hpf 01/11/21 01/11/21 01/11/21 Range/Units 16:35 20:58 20:58 WBC (3.8-10.6) k/uL RBC (3.80-5.40) m/uL Hgb (11.4-16.0) gm/dL Hct (34.0-46.0) % RDW (11.5-15.5) % Plt Count (150-450) k/uL Neutrophils # (1.3-7.7) k/uL INR (<1.2) Sodium (137-145) mmol/L Potassium 5.7 H (3.5-5.1) mmol/L Chloride (98-107) mmol/L Carbon Dioxide (22-30) mmol/L BUN (7-17) mg/dL Creatinine (0.52-1.04) mg/dL Glucose (74-99) mg/dL Calcium (8.4-10.2) mg/dL Magnesium 2.4 H (1.6-2.3) mg/dL Delta Bilirubin (0.0-0.2) mg/dL AST (14-36) U/L ALT (4-34) U/L Alkaline Phosphatase (38-126) U/L Total Protein (6.3-8.2) g/dL Albumin (3.5-5.0) g/dL Urine Appearance Turbid H (Clear) Urine Protein 2+ H (Negative) Urine Blood Large H (Negative) Ur Leukocyte Esterase Large H (Negative) Urine RBC 70 H (0-5) /hpf Urine WBC >182 H (0-5) /hpf Urine WBC Clumps Many H (None) /hpf Urine Bacteria Occasional H (None) /hpf Urine Mucus Rare H (None) /hpf Urine Yeast (Budding) Few H (None) /hpf 01/12/21 Range/Units 07:05 WBC (3.8-10.6) k/uL RBC (3.80-5.40) m/uL Hgb (11.4-16.0) gm/dL Hct (34.0-46.0) % RDW (11.5-15.5) % Plt Count (150-450) k/uL Neutrophils # (1.3-7.7) k/uL INR (<1.2) Sodium 128 L (137-145) mmol/L Potassium 5.7 H (3.5-5.1) mmol/L Chloride 92 L (98-107) mmol/L Carbon Dioxide (22-30) mmol/L BUN 82 H (7-17) mg/dL Creatinine 3.23 H (0.52-1.04) mg/dL Glucose 297 H (74-99) mg/dL Calcium 7.8 L (8.4-10.2) mg/dL Magnesium (1.6-2.3) mg/dL Delta Bilirubin 0.8 H (0.0-0.2) mg/dL AST 542 H (14-36) U/L ALT 43 H (4-34) U/L Alkaline Phosphatase 637 H (38-126) U/L Total Protein 5.8 L (6.3-8.2) g/dL Albumin 2.5 L (3.5-5.0) g/dL Urine Appearance (Clear) Urine Protein (Negative) Urine Blood (Negative) Ur Leukocyte Esterase (Negative) Urine RBC (0-5) /hpf Urine WBC (0-5) /hpf Urine WBC Clumps (None) /hpf Urine Bacteria (None) /hpf Urine Mucus (None) /hpf Urine Yeast (Budding) (None) /hpf Microbiology - Last 24 Hours (Table) 01/11/21 18:25 Blood Culture - Final Blood
[2021-01-13] MEDS ORDERED: DEXTROSE 50% SYRINGE 50 ML IVP STA (02:20)
[2021-01-13] MEDS ORDERED: INSULIN REGULAR 100 UNIT/ML VIAL (IV) IV ONE (02:21)
[2021-01-13] MEDS: CEFEPIME 1 GM in SODIUM CHLORIDE 0.9% 50 ML IVPB SCH ×2 (02:53→14:43)
[2021-01-13] MEDS: SODIUM CHLORIDE 0.9% 1,000 ML IV SCH ×2 (06:40→19:00)
[2021-01-13 10:04] LABS: Magnesium 1.8 mg/dL (1.6-2.3); Potassium 4.4 mmol/L (3.5-5.1)
[2021-01-13 10:15] LABS: Calcium 6.2 mg/dL (8.4-10.2)
[2021-01-13] MEDS: LORATADINE 10 MG TAB PO SCH (10:30)
[2021-01-13] MEDS: APIXABAN 5 MG TAB PO SCH ×2 (10:30→20:30)
[2021-01-13] MEDS: PANTOPRAZOLE 40 MG TABLET PO SCH (10:31)
[2021-01-13] MEDS: METOPROLOL SUCCINATE (ER) 50 MG TAB.ER.24H PO SCH (10:31)
[2021-01-13 10:33] LABS: Anisocytosis Slight; HCT 26.2 % (34.0-46.0); Hypochromasia Slight; MCH 30.7 pg (25.0-35.0); MCHC 32.3 g/dL (31.0-37.0); MCV 94.9 fL (80.0-100.0); Mean Platelet Volume 9.3; Platelet Count 235 k/uL (150-450); RBC 2.76 m/uL (3.80-5.40); RDW 16.9 % (11.5-15.5); WBC 19.7 k/uL (3.8-10.6)
[2021-01-13 10:35] LABS: HGB 8.5 gm/dL (11.4-16.0)
--- NOTE | 2021-01-13 11:01 | P.PN ---
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 She is seen for with acute kidney injury and has a left nephrostomy. She is emaciated She is on IV fluids urine output is 350 mL for the last 24 hours. Not sure whether this includes both the nephrostomy and a Patel catheter urine output The computed tomography scan recently at [facility] shows left hydronephrosis which has been decompressed, the right is also hydronephrotic with the midureter compression. An ultrasound done in the hospital here shows small to left kidney. Hydronephrosis reported on the left kidney Objective - Vital Signs Vital signs: Vital Signs Temp 97.8 F 01/13/21 08:00 Pulse 110 H 01/13/21 08:00 Resp 20 01/13/21 08:00 BP 100/62 01/13/21 08:00 Pulse Ox 94 L 01/13/21 08:00 Intake & Output 01/12/21 01/13/21 01/13/21 18:59 06:59 18:59 Intake Total 25 50 0 Output Total 350 Balance 25 -300 0 Weight 47.4 kg 52 kg Intake: Intake, IV Titration 50 Amount Cefepime 1 gm In Sodium 50 Chloride 0.9% 50 ml @ 12. 5 mls/hr IVPB Q12H [facility] Rx #:[id number] Oral 25 0 Output: Urine 350 On examination she is emaciated, somewhat ill-looking HEENT exam no JVP neck is supple no facial asymmetry Lungs clear to auscultation good air entry bilaterally Heart sounds unremarkable Abdomen soft non-tender but distended Ascites is noted on the ultrasound Extremity exam reveals trace edema Neurologically awake alert oriented - Labs CBC & Chem 7: 01/13/21 09:00 01/13/21 09:00 Labs: Abnormal Lab Results - Last 24 Hours (Table) 01/12/21 01/12/21 01/13/21 Range/Units 23:44 Unknown 09:00 WBC (3.8-10.6) k/uL RBC (3.80-5.40) m/uL Hgb (11.4-16.0) gm/dL Hct (34.0-46.0) % RDW (11.5-15.5) % Sodium 135 L (137-145) mmol/L Potassium 5.6 H 5.4 H (3.5-5.1) mmol/L Chloride 108 H (98-107) mmol/L Carbon Dioxide 19 L (22-30) mmol/L BUN 67 H (7-17) mg/dL Creatinine 2.68 H (0.52-1.04) mg/dL Glucose 126 H (74-99) mg/dL Calcium 6.2 L* (8.4-10.2) mg/dL 01/13/21 Range/Units 09:00 WBC 19.7 H (3.8-10.6) k/uL RBC 2.76 L (3.80-5.40) m/uL Hgb 8.5 L D (11.4-16.0) gm/dL Hct 26.2 L (34.0-46.0) % RDW 16.9 H (11.5-15.5) % Sodium (137-145) mmol/L Potassium (3.5-5.1) mmol/L Chloride (98-107) mmol/L Carbon Dioxide (22-30) mmol/L BUN (7-17) mg/dL Creatinine (0.52-1.04) mg/dL Glucose (74-99) mg/dL Calcium (8.4-10.2) mg/dL Microbiology - Last 24 Hours (Table) 01/11/21 18:25 Blood Culture Gram Stain - Preliminary Blood Blood Culture - Preliminary 01/11/21 18:25 Blood Culture - Final Blood Assessment and Plan Assessment: Impression 1. Acute kidney injury secondary to combination of atrophy left kidney status post nephrostomy with minimal urine output and a right hydronephrosis secondary to ureteral compression, further compartment syndrome should be considered if she does not respond after decompression of the normal sized right kidney with a percutaneous nephrostomy 2. Carcinoma of the colon with metastatic disease into the liver, possible peritoneum with ascites and a skeletal metastases since was chemotherapy stopped in November 2019 to . 3. Atrophic left kidney 6.57 4. Anemia hemoglobin is 8.5 6. Acidosis bicarb is 19 with Carafate secondary to acute kidney injury Recommendation 1. Proceed with placement of a stent on the right-sided use the normal sinus kidney as the left kidney which has the percutaneous nephrostomy is not making enough urine and small. 2. Continue IV fluids normal saline 3. Start sodium bicarb 650 4 times a day Discussed with daughter
--- NOTE | 2021-01-13 12:27 | XR ---
Abdomen HISTORY: Pain and bloating Frontal view of the abdomen on 2 images, correlation CT scan 08/08/2017 There is a left-sided nephrostomy tube in place. Air-filled loops of small and large bowel are presen t. No evident bowel obstruction. Lung bases show some patchy increased density. Drainage catheter pre sent over the right hemiabdomen. No evident pneumoperitoneum. Bone mineralization is within normal li mits. IMPRESSION: Indwelling tubes. There may be pneumonia, consider dedicated chest x-ray. Nonobstructive bowel gas pattern.
--- NOTE | 2021-01-13 13:53 | P.GSCN ---
History of Present Illness Consult date: 01/13/21 Reason for Consult: UTI, hydronephrosis Requesting physician: Richard Dalton History of present illness: 60 female with hydronephriosis secondary to metastatic colon ca to the liver and retroperitoneum. She has a chronic left nephrostomy tube, which was last changed on 10/20/2020. She is now admitted with lethargy, poor appetite, and weight loss. She is being treated with IV hydration and cefepime. Ultrasound shows right hydronephrosis, possible right renal calculus, and ascites. CT scan performed earlier this month showed moderate right hydronephrosis, unchanged from a computed tomography scan one month earlier. The CT scan also showed the right ureter be dilated down to the pelvis, where a right pelvic mass was present. Review of Systems - Constitutional Reports lethargy, Reports poor appetite, Reports weakness, Reports weight loss - Genitourinary Genitourinary: Denies dysuria Past Medical History Past Medical History: Cancer, COPD, Diabetes Mellitus, Eye Disorder, GERD/Reflux, Hypertension, Pulmonary Embolus (PE) Additional Past Medical History / Comment(s): 2018 Colon cancer w/ mets to liver; Liver pump for past chemo; Colostomy. Scar tissue on kidney from colon surgery, has Lt nephrostomy tube. Glaucoma. Varicose veins. PE 02/2020. Currently has tumor in tailbone, having chemo trial monthly, last 05/16/20. New chemo started since acites returned History of Any Multi-Drug Resistant Organisms: None Reported Past Surgical History: Bowel Resection, Section, Cholecystectomy Additional Past Surgical History / Comment(s): partial colectomy with colostomy, LIVER Biopsy, left ureter stent placement, Left Nephrostomy tube placement. port placement rt chest, 05/26/18 at [facility]; gallbladder removed; chemo pump placed rt abdomen and liver tumors removed. Lt Nephrostomy Tube exchanges, mult. Past Anesthesia/Blood Transfusion Reactions: No Reported Reaction, Motion Sickness Past Psychological History: No Psychological Hx Reported Smoking Status: Former smoker Past Alcohol Use History: Rare Additional Past Alcohol Use History / Comment(s): STARTED SMOKING AT AGE 18, QUIT SMOKING 03/2016, SMOKED 1PPD Past Drug Use History: Marijuana Additional Drug Use History / Comment(s): uses marijuana vape pen occ - Past Family History Brother(s) Family Medical History: Cancer Additional Family Medical History / Comment(s): Brain Cancer. Medications and Allergies Home Medications Medication Instructions Recorded Confirmed Type Metoprolol Succinate (ER) [Toprol 50 mg PO DAILY 05/11/18 01/11/21 History Xl] LORazepam [Ativan] 1 mg PO TID PRN 05/30/20 01/11/21 History Latanoprost Ophth [Xalatan 0.005%] 1 drops BOTH EYES HS 05/30/20 01/11/21 History Pantoprazole Sodium [Protonix] 40 mg PO DAILY 05/30/20 01/11/21 History Morphine Sulfate [Ms Contin] 15 mg PO Q4HR PRN 08/31/20 01/11/21 History Apixaban [Eliquis] 5 mg PO BID 10/18/20 01/11/21 History Albuterol Inhaler [Ventolin Hfa 2 puff INHALATION RT-QID PRN 01/11/21 01/11/21 History Inhaler] Atomoxetine HCl [Strattera] 40 mg PO DAILY 01/11/21 01/11/21 History HYDROcodone/APAP 10-325MG [[place] 1 tab PO Q4HR PRN 01/11/21 01/11/21 History 10-325] Loratadine 10 mg PO DAILY 01/11/21 01/11/21 History Metoclopramide [Reglan] 5 mg PO ACHS PRN 01/11/21 01/11/21 History Regorafenib [Stivarga] 120 mg PO DAILY 01/11/21 01/11/21 History amLODIPine [Norvasc] 10 mg PO DAILY 01/11/21 01/11/21 History dronabinoL [Dronabinol] 5 mg PO AC-BID 01/11/21 01/11/21 History fentaNYL 25MCG/HR PATCH [Duragesic 1 patch TRANSDERM Q72H 01/11/21 01/11/21 History 25MCG/HR] lisinopriL [Zestril] 20 mg PO DAILY 01/11/21 01/11/21 History ondansetron HCL [Zofran] 8 mg PO TID PRN 01/11/21 01/11/21 History Allergies Allergy/AdvReac Type Severity Reaction Status Date / Time adhesive tape Allergy Rash/Hives Verified 01/11/21 16:42 PLASTIC OSTOMY BAG Allergy Rash/Hives Uncoded 01/11/21 15:12 Surgical - Exam Vital Signs Temp Pulse Resp BP Pulse Ox 97.2 F L 101 H 18 97/69 93 L 01/11/21 15:08 01/11/21 15:08 01/11/21 15:08 01/11/21 15:08 01/11/21 15:08 - General The patient is a well-developed white female who appears very weak. - Respiratory normal respiratory effort - Psychiatric oriented to time, oriented to person, oriented to place, speech is normal, memory intact Results - Labs 01/13/21 09:00 01/13/21 09:00 Abnormal Lab Results - Last 24 Hours (Table) 01/12/21 01/12/21 Range/Units 23:44 Unknown Potassium 5.6 H 5.4 H (3.5-5.1) mmol/L Microbiology - Last 24 Hours (Table) 01/11/21 18:25 Blood Culture Gram Stain - Preliminary Blood Blood Culture - Preliminary 01/11/21 18:25 Blood Culture - Final Blood Diabetes panel 01/12/21 01/12/21 Range/Units 23:44 Unknown Potassium 5.6 H 5.4 H (3.5-5.1) mmol/L Pituitary panel 01/12/21 01/12/21 Range/Units 23:44 Unknown Potassium 5.6 H 5.4 H (3.5-5.1) mmol/L Adrenal panel 01/12/21 01/12/21 Range/Units 23:44 Unknown Potassium 5.6 H 5.4 H (3.5-5.1) mmol/L - Imaging CT scan - abdomen: report reviewed US - kidney/bladder: report reviewed Assessment and Plan (1) UTI (urinary tract infection) Current Visit: Yes Status: Acute Code(s): N39.0 - URINARY TRACT INFECTION, SITE NOT SPECIFIED SNOMED Code(s): 47451076 Plan: Urinalysis shows evidence of pyuria. Unfortunately, the patient's symptoms are vague, and a urine culture was not performed. It was thus impossible to determine whether UTI is contributing to the patient's symptomatology. She is due for nephrostomy tube change, and the family is hopeful that the nephrostomy tube to be changed prior to discharge. I had a lengthy discussion with the patient and her daughter regarding the right hydronephrosis. They will likely proceed with hospice care and do not desire right nephrostomy tube placement at this time. I would suggest she continue to be treated with broad-spectrum antibiotics.
[2021-01-13] MEDS ORDERED: CALCIUM GLUCONATE 1 GM in SODIUM CHLORIDE 0.9% 100 ML IVPB ONE (14:24)
--- NOTE | 2021-01-13 14:30 | P.PN ---
Subjective Patient was seen and evaluated by me this morning. Her daughter is at bedside. Her daughter is concerned that patient has been having worsening abdominal distention in the last several days. Patient denies any nausea or vomiting. Objective - Vital Signs Vital signs: Vital Signs Temp 97.8 F 01/13/21 08:00 Pulse 110 H 01/13/21 08:00 Resp 20 01/13/21 08:00 BP 100/62 01/13/21 08:00 Pulse Ox 94 L 01/13/21 08:00 Intake & Output 01/12/21 01/13/21 01/13/21 18:59 06:59 18:59 Intake Total 25 50 0 Output Total 350 Balance 25 -300 0 Weight 47.4 kg 52 kg Intake: Intake, IV Titration 50 Amount Cefepime 1 gm In Sodium 50 Chloride 0.9% 50 ml @ 12. 5 mls/hr IVPB Q12H [facility] Rx #:[id number] Oral 25 0 Output: Urine 350 - Exam General: The patient is awake and alert, in no distress Eye: there is normal conjunctiva bilaterally. Neck: The neck is supple, there is no JVD. Cardiovascular: Normal S1-S2, no S3-S4, no murmurs. Respiratory: Lungs clear to auscultation bilaterally Gastrointestinal: Abdomen is distended with evidence of large ascites Musculoskeletal: There is no pedal edema. Neurological:. Speech is normal. Skin: Skin is warm and dry - Labs CBC & Chem 7: 01/13/21 09:00 01/13/21 09:00 Labs: Abnormal Lab Results - Last 24 Hours (Table) 01/12/21 01/12/21 01/13/21 Range/Units 23:44 Unknown 09:00 WBC (3.8-10.6) k/uL RBC (3.80-5.40) m/uL Hgb (11.4-16.0) gm/dL Hct (34.0-46.0) % RDW (11.5-15.5) % Sodium 135 L (137-145) mmol/L Potassium 5.6 H 5.4 H (3.5-5.1) mmol/L Chloride 108 H (98-107) mmol/L Carbon Dioxide 19 L (22-30) mmol/L BUN 67 H (7-17) mg/dL Creatinine 2.68 H (0.52-1.04) mg/dL Glucose 126 H (74-99) mg/dL Calcium 6.2 L* (8.4-10.2) mg/dL 01/13/21 Range/Units 09:00 WBC 19.7 H (3.8-10.6) k/uL RBC 2.76 L (3.80-5.40) m/uL Hgb 8.5 L D (11.4-16.0) gm/dL Hct 26.2 L (34.0-46.0) % RDW 16.9 H (11.5-15.5) % Sodium (137-145) mmol/L Potassium (3.5-5.1) mmol/L Chloride (98-107) mmol/L Carbon Dioxide (22-30) mmol/L BUN (7-17) mg/dL Creatinine (0.52-1.04) mg/dL Glucose (74-99) mg/dL Calcium (8.4-10.2) mg/dL Microbiology - Last 24 Hours (Table) 01/11/21 18:25 Blood Culture Gram Stain - Preliminary Blood Blood Culture - Preliminary 01/11/21 18:25 Blood Culture - Final Blood Assessment and Plan Assessment: Patient is a 60 yo CF with a hx of stage IV colon cancer s/p multiple chemo regiments with liver pump in place, nephrostomy tube X 3 years, Colectomy with colostomy who presetned due to lethargy, poor appetite, and weight loss. Patient underwent an extensive evaluation in emergency department. She was found to have a urinary tract infection with sepsis, hemoglobin 10.1, platelets 435, sodium 127, potassium 6.1, BUN 31, creatinine 3.4, and lactic acid 2. She was started on IV fluids and antibiotics. She underwent a renal ultrasound which showed atrophic left kidney with right-sided hydronephrosis and right sided atrophy along with abdominal ascites. Bilateral lower extremity venous Dopplers were negative. She was found have a gram-positive bacilli bacteremia. Infectious disease was consulted. Nephrology was consulted for her hyperkalemi a. Nose it is of her medical problems at this hospitalization UTI with sepsis complicated by nephrostomy tube Gram Positive and negative Bacilli bacteremia -Continue with antibiotics as directed by infectious disease -Nephrostomy to be excised by IR on Friday Large ascites -Plan for paracentesis Friday PRAMOD with hyperkalemia and metabolic acidosis Hypocalcemia - Nephro consult - transitioned off bicarb gtt and to NS - Right and left sided hydro on US - Hold lisinopril -1 g of IV calcium gluconate today Metastatic colon ca - hospice meeting done with plan to transition to hospice sometime next week - Consult pain management to see if can turn down liver pump (suggestion from oncology team at [facility]) -Patient and her family would like to treat underlying infection and do paracentesis prior to transitioning to hospice HX of PE - eliquis DM 2 Chronic: Hypertension GERD COPD without exacerbation Glaucoma
--- NOTE | 2021-01-13 17:08 | PN ---
PROGRESS NOTE DATE OF SERVICE: 01/13/2021 REASON FOR FOLLOWUP: Complicated urinary tract infection. INTERVAL HISTORY: Patient is afebrile. The patient apparently did have neutropenia today compared to yesterday. No vomiting, diarrhea. No change reported by the family at the bedside. PHYSICAL EXAMINATION: Blood pressure is 100/62, pulse of 110, temperature 97.8, she is 94% on 2 L nasal cannula. General description is a middle-aged female lying in bed in no distress. Respiratory system unlabored breathing, decreased intensity of breath sounds. No wheeze. Heart S1, S2. Regular rate and rhythm. Abdomen soft, no tenderness. LABS: Hemoglobin is 8.5, white count 19.7, creatinine is 2.68. Blood cultures with gram- negative. ASSESSMENT: Patient with Gram-negative bacteremia secondary to complicated UTI infection and this patient did have evidence of right-sided hydronephrosis and left nephrostomy tube. The patient is covered with cefepime with the plan for possible . We will hold on any further workup. Continue supportive care. MMODL / IJN: [id number] /
[2021-01-13] MEDS: SODIUM BICARBONATE TAB 650 MG TAB PO SCH ×3 (18:59→22:00)
[2021-01-13] MEDS: HYDROcodone/APAP 10-325MG 1 EACH TAB PO PRN (20:42)
[2021-01-13] MEDS: LATANOPROST 0.005% OPHTH DROPS 2.5 ML BTL BOTH EYES SCH (20:43)
[2021-01-14] MEDS: CEFEPIME 1 GM in SODIUM CHLORIDE 0.9% 50 ML IVPB SCH ×2 (03:15→14:18)
[2021-01-14] MEDS: SODIUM CHLORIDE 0.9% 1,000 ML IV SCH ×2 (04:10→11:31)
[2021-01-14] MEDS: METOPROLOL SUCCINATE (ER) 50 MG TAB.ER.24H PO SCH (07:47)
[2021-01-14] MEDS: PANTOPRAZOLE 40 MG TABLET PO SCH (07:47)
[2021-01-14] MEDS: APIXABAN 5 MG TAB PO SCH (07:47)
[2021-01-14] MEDS: SODIUM BICARBONATE TAB 650 MG TAB PO SCH ×4 (07:47→20:50)
[2021-01-14] MEDS: LORATADINE 10 MG TAB PO SCH (07:47)
[2021-01-14 08:50] LABS: Anisocytosis Slight; Basophils % (A) 0 %; Eosinophils % (A) 0 %; HCT 27.9 % (34.0-46.0); HGB 8.4 gm/dL (11.4-16.0); Hypochromasia Moderate; Lymphocytes # (A) 1.9 k/uL (1.0-4.8); Lymphocytes % (A) 11 %; MCH 29.1 pg (25.0-35.0); MCHC 29.9 g/dL (31.0-37.0); MCV 97.2 fL (80.0-100.0); Macrocytosis Slight; Mean Platelet Volume 7.7; Monocytes # (A) 0.5 k/uL (0-1.0); Monocytes % (A) 3 %; Neutrophils # (A) 14.9 k/uL (1.3-7.7); Neutrophils % (A) 85 %; Platelet Count 266 k/uL (150-450); RBC 2.87 m/uL (3.80-5.40); RDW 16.8 % (11.5-15.5); WBC 17.6 k/uL (3.8-10.6)
[2021-01-14 08:54] LABS: Ionized Calcium 4.4 mg/dL (4.5-5.3)
[2021-01-14 09:03] LABS: Potassium 5.7 mmol/L (3.5-5.1)
--- NOTE | 2021-01-14 09:13 | P.PN ---
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 She is seen for with acute kidney injury and has a left nephrostomy. She is emaciated She is on IV fluids urine output is 350 mL for the last 24 hours. Not sure whether this includes both the nephrostomy and a Patel catheter urine output The computed tomography scan recently at [facility] shows left hydronephrosis which has been decompressed, the right is also hydronephrotic with the midureter compression. An ultrasound done in the hospital here shows small left kidney, at 6.5 cm. Right kidney measures 11 cm with Hydronephrosis reported . Her urine output is 375 mL heart obese 200 this from the Patel catheter and the rest is from the left nephrostomy tube I recommended that she have a percutaneous nephrostomy on the right side which is the larger kidney and has hydronephrosis and supposedly be done tomorrow Friday, because of the weekend Objective - Vital Signs Vital signs: Vital Signs Temp 98.0 F 01/14/21 04:00 Pulse 103 H 01/14/21 04:00 Resp 18 01/14/21 04:00 BP 101/60 01/14/21 04:00 Pulse Ox 94 L 01/14/21 04:00 Intake & Output 01/13/21 01/14/21 01/14/21 18:59 06:59 18:59 Intake Total 0 1000 0 Output Total 200 175 Balance -200 825 0 Weight 48.5 kg Intake: Intake, IV Titration 900 Amount Cefepime 1 gm In Sodium 50 Chloride 0.9% 50 ml @ 12. 5 mls/hr IVPB Q12H [facility] Rx #:[id number] Sodium Chloride 0.9% 1, 850 000 ml @ 50 mls/hr IV . Q20H [facility] Rx#:[id number] Oral 0 100 0 Output: Urine 200 175 Uretheral (Patel) 200 On examination is awake alert oriented but found leaving very cachectic No JVP noted neck is supple Lungs are clear to auscultation good air entry bilaterally Heart sounds unremarkable for any murmur rub gallop Abdomen soft nontender tender although distended moderately Extremity exam reveals trace edema Neurologically awake alert oriented comfortable profoundly weak - Labs CBC & Chem 7: 01/14/21 08:30 01/14/21 08:30 Labs: Abnormal Lab Results - Last 24 Hours (Table) 01/13/21 01/13/21 01/14/21 Range/Units 09:00 09:00 08:30 WBC 19.7 H 17.6 H (3.8-10.6) k/uL RBC 2.76 L 2.87 L (3.80-5.40) m/uL Hgb 8.5 L D 8.4 L (11.4-16.0) gm/dL Hct 26.2 L 27.9 L (34.0-46.0) % MCHC 29.9 L (31.0-37.0) g/dL RDW 16.9 H 16.8 H (11.5-15.5) % Neutrophils # 14.9 H (1.3-7.7) k/uL Sodium 135 L (137-145) mmol/L Potassium (3.5-5.1) mmol/L Chloride 108 H (98-107) mmol/L Carbon Dioxide 19 L (22-30) mmol/L BUN 67 H (7-17) mg/dL Creatinine 2.68 H (0.52-1.04) mg/dL Glucose 126 H (74-99) mg/dL Calcium 6.2 L* (8.4-10.2) mg/dL Ionized Calcium Eber (4.5-5.3) mg/dL 01/14/21 Range/Units 08:30 WBC (3.8-10.6) k/uL RBC (3.80-5.40) m/uL Hgb (11.4-16.0) gm/dL Hct (34.0-46.0) % MCHC (31.0-37.0) g/dL RDW (11.5-15.5) % Neutrophils # (1.3-7.7) k/uL Sodium 131 L (137-145) mmol/L Potassium 5.7 H (3.5-5.1) mmol/L Chloride (98-107) mmol/L Carbon Dioxide (22-30) mmol/L BUN 83 H (7-17) mg/dL Creatinine 3.69 H (0.52-1.04) mg/dL Glucose 169 H (74-99) mg/dL Calcium 8.0 L (8.4-10.2) mg/dL Ionized Calcium Eber 4.4 L (4.5-5.3) mg/dL Assessment and Plan Assessment: Impression 1. Acute kidney injury secondary to combination of atrophic left kidney status post nephrostomy with minimal urine output and a right hydronephrosis secondary to ureteral compression, further compartment syndrome should be considered if she does not respond after decompression of the normal sized right kidney with a percutaneous nephrostomy, pending procedure tomorrow Friday 2. Carcinoma of the colon with metastatic disease into the liver, possible peritoneum with ascites and a skeletal metastases, was on chemo which was was stopped in November 2020. 3. Atrophic left kidney 6.57, status post percutaneous nephrostomy and decompression of the hydronephrosis 4. Anemia hemoglobin is 8.5, 8.4 this morning 6. Acidosis bicarb is Improved from 19-22 Recommendation 1. Proceed with placement of a stent on the right-sided 2. Continue IV fluids normal saline 3. continue odium bicarb 650 4 times a day Discussed with daughter,
[2021-01-14] MEDS ORDERED: SODIUM POLYSTYRENE SULFONATE 15 GM/60 ML BOTTLE PO STA (09:15)
[2021-01-14] MEDS ORDERED: DEXTROSE 50% SYRINGE 50 ML IVP STA (09:16)
[2021-01-14] MEDS ORDERED: INSULIN REGULAR 100 UNIT/ML VIAL (IV) IV ONE (09:17)
--- NOTE | 2021-01-14 15:44 | P.PN ---
Subjective Patient is doing about the same compared to yesterday. Nursing staff informed me that her urine output is decreasing. Patient is currently getting normal saline at 50 mL per hour. She is having decent appetite Objective - Vital Signs Vital signs: Vital Signs Temp 98.2 F 01/14/21 08:30 Pulse 108 H 01/14/21 11:26 Resp 16 01/14/21 11:26 BP 83/54 01/14/21 11:26 Pulse Ox 94 L 01/14/21 11:26 Intake & Output 01/13/21 01/14/21 01/14/21 18:59 06:59 18:59 Intake Total 0 1000 400 Output Total 200 175 17 Balance -200 825 383 Weight 48.5 kg Intake: IV 400 Sodium Chloride 0.9% 1, 400 000 ml @ 50 mls/hr IV . Q20H [facility] Rx#:[id number] Intake, IV Titration 900 Amount Cefepime 1 gm In Sodium 50 Chloride 0.9% 50 ml @ 12. 5 mls/hr IVPB Q12H [facility] Rx #:[id number] Sodium Chloride 0.9% 1, 850 000 ml @ 50 mls/hr IV . Q20H [facility] Rx#:[id number] Oral 0 100 0 Output: Urine 200 175 17 Uretheral (Patel) 200 - Exam General: The patient is awake and alert, in no distress Eye: there is normal conjunctiva bilaterally. Neck: The neck is supple, there is no JVD. Cardiovascular: Normal S1-S2, no S3-S4, no murmurs. Respiratory: Lungs clear to auscultation bilaterally Gastrointestinal: Abdomen is distended with evidence of large ascites Musculoskeletal: There is no pedal edema. Neurological:. Speech is normal. Skin: Skin is warm and dry - Labs CBC & Chem 7: 01/14/21 08:30 01/14/21 08:30 Labs: Abnormal Lab Results - Last 24 Hours (Table) 01/14/21 01/14/21 Range/Units 08:30 08:30 WBC 17.6 H (3.8-10.6) k/uL RBC 2.87 L (3.80-5.40) m/uL Hgb 8.4 L (11.4-16.0) gm/dL Hct 27.9 L (34.0-46.0) % MCHC 29.9 L (31.0-37.0) g/dL RDW 16.8 H (11.5-15.5) % Neutrophils # 14.9 H (1.3-7.7) k/uL Sodium 131 L (137-145) mmol/L Potassium 5.7 H (3.5-5.1) mmol/L BUN 83 H (7-17) mg/dL Creatinine 3.69 H (0.52-1.04) mg/dL Glucose 169 H (74-99) mg/dL Calcium 8.0 L (8.4-10.2) mg/dL Ionized Calcium Eber 4.4 L (4.5-5.3) mg/dL Microbiology - Last 24 Hours (Table) 01/11/21 18:25 Blood Culture Gram Stain - Final Blood Blood Culture - Final Klebsiella pneumoniae Assessment and Plan Assessment: Patient is a 60 yo CF with a hx of stage IV colon cancer s/p multiple chemo regiments with liver pump in place, nephrostomy tube X 3 years, Colectomy with colostomy who presetned due to lethargy, poor appetite, and weight loss. Patient underwent an extensive evaluation in emergency department. She was found to have a urinary tract infection with sepsis, hemoglobin 10.1, platelets 435, sodium 127, potassium 6.1, BUN 31, creatinine 3.4, and lactic acid 2. She was started on IV fluids and antibiotics. She underwent a renal ultrasound which showed atrophic left kidney with right-sided hydronephrosis and right sided atrophy along with abdominal ascites. Bilateral lower extremity venous Dopplers were negative. She was found have a gram-positive bacilli bacteremia. Infectious disease was consulted. Nephrology was consulted for her hy perkalemia. Nose it is of her medical problems at this hospitalization UTI with sepsis complicated by nephrostomy tube Gram Positive and negative Bacilli bacteremia -Continue with antibiotics as directed by infectious disease -Nephrostomy by IR on Friday Large ascites -Plan for paracentesis Friday PRAMOD with hyperkalemia and metabolic acidosis Hypocalcemia - Nephro consult - transitioned off bicarb gtt and to NS - Right and left sided hydro on US - Hold lisinopril -1 g of IV calcium gluconate today Metastatic colon ca - hospice meeting done with plan to transition to hospice sometime next week - Consult pain management to see if can turn down liver pump (suggestion from oncology team at [facility]) -Patient and her family would like to treat underlying infection and do paracentesis prior to transitioning to hospice HX of PE - eliquis DM 2 Chronic: Hypertension GERD COPD without exacerbation Glaucoma Today, I reviewed her medication list and lab work results Increase IV fluid hydration to normal saline at 75 mL per hour Hold Eliquis tonight in anticipation to paracentesis tomorrow and possibly nephrostomy tube placement
[2021-01-14] MEDS ORDERED: ACETAMINOPHEN TAB 325 MG TAB PO PRN (20:42)
[2021-01-14] MEDS: LATANOPROST 0.005% OPHTH DROPS 2.5 ML BTL BOTH EYES SCH (20:50)
[2021-01-14] MEDS ORDERED: FAMOTIDINE 20 MG TAB PO SCH (21:00)
--- NOTE | 2021-01-14 23:57 | PN ---
PROGRESS NOTE DATE OF SERVICE: 01/14/2021 REASON FOR FOLLOWUP: Klebsiella bacteremia secondary to complicated UTI. INTERVAL HISTORY: The patient is afebrile. The patient is currently breathing comfortably more awake and alert. No chest pain, shortness of breath or cough. Abdominal pain is controlled. No vomiting or diarrhea reported. PHYSICAL EXAMINATION: Blood pressure 91/63, pulse of 116, temperature 98.2. She is 96% on 2 L nasal cannula. General description is a middle-aged female lying in bed in no distress. RESPIRATORY SYSTEM: Unlabored breathing. Decreased intensity of breath sounds. No wheeze. HEART: S1, S2. Regular rate and rhythm. ABDOMEN: Soft. No tenderness. LABS: Hemoglobin is , white count 17.6, creatinine 3.69. Her blood culture has been finalized with Klebsiella pneumoniae. DIAGNOSTIC IMPRESSION AND PLAN: Patient with Klebsiella pneumoniae bacteremia. Source is likely complicated urinary tract infection in this patient who has right-sided hydronephrosis. Pathogen is sensitive. Antibiotic will be adjusted to Rocephin 2 grams daily. Blood cultures will be repeated. In view of the poor oral intake, may benefit from continuation of IV Rocephin for 2 weeks in the outpatient setting. Daughter at the bedside. Questions and concerns were answered. MMODL / IJN: [id number] /
[2021-01-15] MEDS ORDERED: IPRATROPIUM-ALBUTEROL 3 ML NEB INHALATION SCH (08:00)
[2021-01-15] MEDS: LORATADINE 10 MG TAB PO SCH (08:42)
[2021-01-15] MEDS: METOPROLOL SUCCINATE (ER) 50 MG TAB.ER.24H PO SCH (08:42)
[2021-01-15] MEDS: PANTOPRAZOLE 40 MG TABLET PO SCH (08:42)
[2021-01-15] MEDS: SODIUM BICARBONATE TAB 650 MG TAB PO SCH ×4 (08:43→21:51)
[2021-01-15 08:45] LABS: Anisocytosis Slight; Basophils % (A) 0 %; Eosinophils # (A) 0.1 k/uL (0-0.7); Eosinophils % (A) 1 %; HCT 25.5 % (34.0-46.0); HGB 7.7 gm/dL (11.4-16.0); Hypochromasia Moderate; Lymphocytes # (A) 1.9 k/uL (1.0-4.8); Lymphocytes % (A) 13 %; MCH 29.5 pg (25.0-35.0); MCHC 30.1 g/dL (31.0-37.0); MCV 97.8 fL (80.0-100.0); Macrocytosis Slight; Mean Platelet Volume 7.6; Monocytes # (A) 0.5 k/uL (0-1.0); Monocytes % (A) 4 %; Neutrophils # (A) 12.1 k/uL (1.3-7.7); Neutrophils % (A) 82 %; Platelet Count 274 k/uL (150-450); RBC 2.61 m/uL (3.80-5.40); RDW 16.8 % (11.5-15.5); WBC 14.8 k/uL (3.8-10.6)
[2021-01-15 09:27] LABS: Albumin 2.3 g/dL (3.5-5.0); Calcium 7.7 mg/dL (8.4-10.2); Magnesium 2.1 mg/dL (1.6-2.3); Potassium 5.4 mmol/L (3.5-5.1); Total Bilirubin 1.3 mg/dL (0.2-1.3); Total Protein 5.7 g/dL (6.3-8.2)
--- NOTE | 2021-01-15 12:47 | P.PN ---
Subjective Patient is scheduled for paracentesis today and nephrostomy tube placement. No acute events overnight. Objective - Vital Signs Vital signs: Vital Signs Temp 98.6 F 01/15/21 03:29 Pulse 104 H 01/15/21 11:50 Resp 18 01/15/21 11:50 BP 93/60 01/15/21 11:50 Pulse Ox 96 01/15/21 11:50 Intake & Output 01/14/21 01/15/21 01/15/21 18:59 06:59 18:59 Intake Total 400 0 Output Total 42 210 Balance 358 -210 0 Weight 48 kg Intake: IV 400 Sodium Chloride 0.9% 1, 400 000 ml @ 75 mls/hr IV . [id number] [facility] Rx#:[id number] Oral 0 0 Output: Drainage 25 90 Left Lower Posterior Back 25 90 Urine 17 120 - Exam General: The patient is awake and alert, in no distress Eye: there is normal conjunctiva bilaterally. Neck: The neck is supple, there is no JVD. Cardiovascular: Normal S1-S2, no S3-S4, no murmurs. Respiratory: Lungs clear to auscultation bilaterally Gastrointestinal: Abdomen is distended with evidence of large ascites Musculoskeletal: There is no pedal edema. Neurological:. Speech is normal. Skin: Skin is warm and dry - Labs CBC & Chem 7: 01/15/21 08:25 01/15/21 08:25 Labs: Abnormal Lab Results - Last 24 Hours (Table) 01/15/21 01/15/21 Range/Units 08:25 08:25 WBC 14.8 H (3.8-10.6) k/uL RBC 2.61 L (3.80-5.40) m/uL Hgb 7.7 L (11.4-16.0) gm/dL Hct 25.5 L (34.0-46.0) % MCHC 30.1 L (31.0-37.0) g/dL RDW 16.8 H (11.5-15.5) % Neutrophils # 12.1 H (1.3-7.7) k/uL Sodium 131 L (137-145) mmol/L Potassium 5.4 H (3.5-5.1) mmol/L Carbon Dioxide 21 L (22-30) mmol/L BUN 84 H (7-17) mg/dL Creatinine 3.90 H (0.52-1.04) mg/dL Glucose 128 H (74-99) mg/dL Calcium 7.7 L (8.4-10.2) mg/dL AST 90 H (14-36) U/L Alkaline Phosphatase 492 H (38-126) U/L Total Protein 5.7 L (6.3-8.2) g/dL Albumin 2.3 L (3.5-5.0) g/dL Microbiology - Last 24 Hours (Table) 01/11/21 18:25 Blood Culture Gram Stain - Final Blood Blood Culture - Final Klebsiella pneumoniae Assessment and Plan Assessment: Patient is a 60 yo CF with a hx of stage IV colon cancer s/p multiple chemo regiments with liver pump in place, nephrostomy tube X 3 years, Colectomy with colostomy who presetned due to lethargy, poor appetite, and weight loss. Patient underwent an extensive evaluation in emergency department. She was found to have a urinary tract infection with sepsis, hemoglobin 10.1, platelets 435, sodium 127, potassium 6.1, BUN 31, creatinine 3.4, and lactic acid 2. She was started on IV fluids and antibiotics. She underwent a renal ultrasound which showed atrophic left kidney with right-sided hydronephrosis and right sided atrophy along with abdominal ascites. Bilateral lower extremity venous Dopplers were negative. She was found have a gram-positive bacilli bacteremia. Infectious disease was consulted. Nephrology was consulted for her hyperkalemia. Nose it is of her medical problems at this hospitalization UTI with sepsis complicated by nephrostomy tube Cleocin and pneumonia bacteremia -Continue with antibiotics as directed by infectious disease -Nephrostomy by IR today Large ascites -Plan for paracentesis Friday PRAMOD with hyperkalemia and metabolic acidosis Hypocalcemia - Nephro consult - Currently on IV fluid hydration with normal saline at 75 mL per hour - Right and left sided hydro on US - Hold lisinopril -1 g of IV calcium gluconate today Metastatic colon ca - hospice meeting done with plan to transition to hospice sometime next week - Consult pain management to see if can turn down liver pump (suggestion from oncology team at [facility]) -Patient and her family would like to treat underlying infection and do paracentesis prior to transitioning to hospice HX of PE - eliquis DM 2 Chronic: Hypertension GERD COPD without exacerbation Glaucoma Today, I reviewed her medication list and lab work results Increase IV fluid hydration to normal saline at 75 mL per hour Hold Annie bueno in anticipation to paracentesis tomorrow and possibly nephrostomy tube placement
--- NOTE | 2021-01-15 12:55 | P.PN ---
Subjective Progress Note Date: 01/15/21 No acute overnight, creat 3.9 from 3.69, plan today is to place right sided PCN and exchange left PCN Objective - Vital Signs Vital signs: Vital Signs Temp 98.6 F 01/15/21 03:29 Pulse 104 H 01/15/21 11:50 Resp 18 01/15/21 11:50 BP 93/60 01/15/21 11:50 Pulse Ox 96 01/15/21 11:50 Intake & Output 01/14/21 01/15/21 01/15/21 18:59 06:59 18:59 Intake Total 400 0 Output Total 42 210 Balance 358 -210 0 Weight 48 kg Intake: IV 400 Sodium Chloride 0.9% 1, 400 000 ml @ 75 mls/hr IV . [id number] [facility] Rx#:[id number] Oral 0 0 Output: Drainage 25 90 Left Lower Posterior Back 25 90 Urine 17 120 - Constitutional General appearance: Present: no acute distress - Gastrointestinal Gastrointestinal Comment(s): left PCN site clean, PCN with clear urine General gastrointestinal: Present: soft. Absent: distended - Labs CBC & Chem 7: 01/15/21 08:25 01/15/21 08:25 Labs: Abnormal Lab Results - Last 24 Hours (Table) 01/15/21 01/15/21 Range/Units 08:25 08:25 WBC 14.8 H (3.8-10.6) k/uL RBC 2.61 L (3.80-5.40) m/uL Hgb 7.7 L (11.4-16.0) gm/dL Hct 25.5 L (34.0-46.0) % MCHC 30.1 L (31.0-37.0) g/dL RDW 16.8 H (11.5-15.5) % Neutrophils # 12.1 H (1.3-7.7) k/uL Sodium 131 L (137-145) mmol/L Potassium 5.4 H (3.5-5.1) mmol/L Carbon Dioxide 21 L (22-30) mmol/L BUN 84 H (7-17) mg/dL Creatinine 3.90 H (0.52-1.04) mg/dL Glucose 128 H (74-99) mg/dL Calcium 7.7 L (8.4-10.2) mg/dL AST 90 H (14-36) U/L Alkaline Phosphatase 492 H (38-126) U/L Total Protein 5.7 L (6.3-8.2) g/dL Albumin 2.3 L (3.5-5.0) g/dL Microbiology - Last 24 Hours (Table) 01/11/21 18:25 Blood Culture Gram Stain - Final Blood Blood Culture - Final Klebsiella pneumoniae Assessment and Plan Assessment: 60 female with hydronephriosis secondary to metastatic colon ca to the liver and retroperitoneum. She has a chronic left nephrostomy tube, admitted with lethargy, wt loss, PRAMOD. Ultrasound shows right hydronephrosis, worsening renal function. Initially patient declined any intervention for rt hydro and wanted to proceed with hospice, but family want to proceed with right PCN placement now. -Will have IR place RT nephrostomy tube abd exchange left nephrostomy tube today
--- NOTE | 2021-01-15 13:12 | US ---
Ultrasound-guided paracentesis. DATE OF EXAM: 01/15/2021 CLINICAL HISTORY: Ascites The procedure was discussed with the patient. The risks, complications, benefits, and alternatives we re discussed and any questions were answered. Informed consent was obtained. The patient was placed s upine on the ultrasound table and prepped and draped in the usual sterile fashion. All elements of maximal barrier technique were utilized. Under ultrasound guidance, access into the left lower quadrant was obtained, via the paracentesis catheter system and direct ultrasound guidance . Approximately 1.8 liters of straw-colored fluid was removed. The patient was stable throughout the pr ocedure and remained stable upon discharge from Department of Radiology. IMPRESSION: Successful paracentesis under ultrasound guidance.
--- NOTE | 2021-01-15 13:57 | PN ---
PROGRESS NOTE Patient is seen for followup for acute kidney injury, mostly ATN. Her renal function has been slowly worsening over the last 2 to 3 days with creatinine up to 3.9 from 2.68. On admission it was 3.4 mg/dL. Prior creatinine 0.3 on 10/20/2020. Patient has metastatic adenocarcinoma of the rectum and colon with liver and skeletal metastases. She also has a history of atrophic left kidney, status post nephrostomy tube, and currently has right hydronephrosis with plans for percutaneous nephrostomy later on today versus ureteral stent placement. On examination today, patient's vital signs are reviewed. Blood pressure 92/61, heart rate 103 per minute. She is afebrile. Patient is being taken downstairs for paracentesis with plans for possible transition to hospice care. Labs are reviewed. Sodium 131, potassium 5.4, BUN 84, creatinine 3.9, hemoglobin 7.7 g/dL. ASSESSMENT: 1. Acute kidney injury, multifactorial, including acute tubular necrosis and obstructive uropathy with right hydronephrosis and previous history of left hydronephrosis and nephrostomy tube and left renal atrophy with plans for possible intervention from urological standpoint with stent placement versus right nephrostomy tube. I have discussed with the daughter that patient is not a candidate for renal replacement therapy. They are considering hospice down the road. 2. Metabolic acidosis secondary to renal failure. 3. Anemia, multifactorial, including underlying malignancy as well as acute kidney injury. 4. Metastatic colon and rectal carcinoma with liver metastases as well as skeletal metastases. 5. Mild hyperkalemia associated with obstructive uropathy and worsening renal failure. 6. Gram-negative bacteremia, maintained on antibiotics. PLAN: Continue with the sodium bicarb orally. May continue with gentle IV hydration. Give albumin post paracentesis to avoid hypotension and repeat labs in a.m. Patient is not a candidate for renal replacement therapy. Await urological input regarding ureteral stent placement versus right nephrostomy tube. MMODL / IJN: [id number] /
--- NOTE | 2021-01-15 14:59 | P.PCN ---
Date of Procedure: 01/15/21 Procedure(s) Performed: OPERATION: liver pain pump analysis, programming and reprogramming. PREOPERATIVE DIAGNOSES: 1. near empty programmable liver pump. POSTOPERATIVE DIAGNOSES: Same as preoperative diagnosis. ANESTHESIA: None. CONDITION: Stable. Description of the procedur; This is 61 years old female with a stage IV colon cancer with metastases, and currently on chemotherapy through the pump, and the patient finished chemotherapy ,and she is currently on heparin infusion through the Medtronic programmable pump, patient was admitted to [facility] with the bacteremia and urosepsis, and request was done by the family and the primary team ,to decrease the medtronic liver infusion pump to the lowest possible level, to increase the life of the medication in the pump and this really doesn't have to fill up the pump now and patient will follow up with [facility] later on to complete her chemotherapy, the liver pump analyzed showed patient currently on continuous infusion of heparin and concentration 2000 units per mL and patient is receiving daily does 41.6 units per hour , as per the primary team request ,and the family, and the patient requests,I decreased the infusion rate to the lowest minimum which is 4 units per hour, and patient will have a refill date in 04/27/2021 and patient will follow up ,with [facility] for chemotherapy once she is discharged from [facility]
[2021-01-15] MEDS: SODIUM CHLORIDE 0.9% 1,000 ML IV SCH ×2 (16:00→19:55)
[2021-01-15] MEDS: HYDROcodone/APAP 10-325MG 1 EACH TAB PO PRN (19:54)
[2021-01-15] MEDS: LATANOPROST 0.005% OPHTH DROPS 2.5 ML BTL BOTH EYES SCH ×2 (19:55→19:59)
[2021-01-15] MEDS ORDERED: INSULIN PUMP BASAL RATES 1 EACH MISC MISCELLANE PRN (20:15)
[2021-01-15] MEDS ORDERED: INSULIN ASPART (NovoLOG) 100 UNIT/ML VIAL SQ PRN (20:15)
[2021-01-15] MEDS ORDERED: ONDANSETRON 4 MG/2 ML VIAL IVP PRN (20:58)
[2021-01-15] MEDS ORDERED: INSULIN PUMP MEAL BOLUS 1 UNIT MISC MISCELLANE SCH (21:00)
[2021-01-16] MEDS ORDERED: IV FLUID CONTINUATION 400 ML IV ONE (08:30)
[2021-01-16] MEDS ORDERED: MIDAZOLAM 2 MG/2 ML VIAL IV ONE (09:11)
[2021-01-16] MEDS ORDERED: LIDOCAINE 1% INJ 10MG/ML (20 ML MDV) SQ ONE (09:12)
[2021-01-16] MEDS ORDERED: IOPAMIDOL-370 50ML BTL INJ ONE (09:26)
[2021-01-16] MEDS: LORATADINE 10 MG TAB PO SCH (10:28)
[2021-01-16] MEDS: SODIUM BICARBONATE TAB 650 MG TAB PO SCH ×4 (10:37→23:19)
[2021-01-16] MEDS: METOPROLOL SUCCINATE (ER) 50 MG TAB.ER.24H PO SCH (10:37)
[2021-01-16] MEDS: PANTOPRAZOLE 40 MG TABLET PO SCH (10:37)
--- NOTE | 2021-01-16 11:44 | IR ---
EXAMINATION TYPE: IR nephrostomy, IR nephrostomy tube change DATE OF EXAM: 01/16/2021 COMPARISON: NONE HISTORY: Hydronephrosis, ureteral obstruction PROCEDURE: Maximal barrier technique was utilized. The skin overlying the right kidney was localized using ultrasound and the overlying skin prepped and draped. Ultrasound was utilized with sterile te chnique. Lidocaine used for local anesthesia. Skin mattie was made with a scalpel. Access was gained under ultrasound with a 21-gauge needle to the right kidney. Urine returned in the hub of the needle . A 0.018 inch wire was advanced. The access site was dilated and subsequently an 8.5French cathete r was advanced over wire in the posterior collecting system and fixed in place. Urine returned in th e hub of the catheter. Catheter was fixed to the skin and a sterile dressing was placed. The patien t remained in stable condition without complication. The patient was discharged to observation. Mini mal bleeding. Patient received conscious sedation by an independent trained observer, conscious sedation time was 2 5 minutes. Patient's indwelling left nephrostomy tube was prepped and draped in a sterile fashion. Lidocaine was used for local anesthesia. Gentle hand injection of contrast was performed under fluoroscopy. The tu be was subsequently cut with scissors and exchanged over a 0.035 inch angled Glidewire and fixed in p lace. Catheter was fixed to the skin. Urine draining from the catheter. No immediate application. 98 intraoperative images, 11.2 minutes fluoroscopy time IMPRESSION: STATUS POST 8.5 BELARUSIAN right NEPHROSTOMY TUBE PLACEMENT WITH ULTRASOUND AND FLUOROSCOPIC GUIDANCE. Status post left nephrostomy tube exchange. THIS PROCEDURE WAS PERFORMED BY THE UNDERSIGNED .
[2021-01-16 11:54] LABS: Anisocytosis Slight; Basophils % (A) 0 %; Eosinophils % (A) 0 %; HCT 27.2 % (34.0-46.0); HGB 8.2 gm/dL (11.4-16.0); Hypochromasia Moderate; Lymphocytes # (A) 0.7 k/uL (1.0-4.8); Lymphocytes % (A) 4 %; MCH 29.5 pg (25.0-35.0); MCHC 30.2 g/dL (31.0-37.0); MCV 97.5 fL (80.0-100.0); Mean Platelet Volume 7.7; Monocytes # (A) 0.5 k/uL (0-1.0); Monocytes % (A) 3 %; Neutrophils # (A) 15.9 k/uL (1.3-7.7); Neutrophils % (A) 92 %; Platelet Count 304 k/uL (150-450); RBC 2.79 m/uL (3.80-5.40); RDW 16.5 % (11.5-15.5); WBC 17.2 k/uL (3.8-10.6)
[2021-01-16] MEDS: SODIUM CHLORIDE 0.9% 1,000 ML IV SCH (12:38)
[2021-01-16 13:26] LABS: Potassium 5.2 mmol/L (3.5-5.1)
--- NOTE | 2021-01-16 13:40 | PN ---
PROGRESS NOTE The patient is seen for followup for acute kidney injury. She has returned from radiology after right nephrostomy tube placement. We do not have any labs back from today. The patient had paracentesis yesterday and 2 L of fluid was obtained. Blood pressure has been around 107/93 mmHg systolic. PHYSICAL EXAMINATION: On examination today, blood pressure 107/70, heart rate 100 per minute. Patient is afebrile. Examination of the heart S1, S2. Examination of the lungs, decreased breath sounds at the bases. Abdomen: Soft. Distended. Nontender. Exam of lower extremities shows no evidence of edema. STEEL BOX TOE INSERTER exam grossly intact. LAB: Show sodium 131, potassium 5.4, chloride 100, BUN 84, creatinine 3.9. These are from 01/15/2021. ASSESSMENT: 1. Acute kidney injury, multifactorial, including obstructive uropathy and ATN status post right nephrostomy tube placement today. The patient has a left nephrostomy tube as well. She has a Patel catheter. Not much urine is noted in the Patel or the left nephrostomy tube. There is like half a bag of urine noted in the right nephrostomy bag. No plans for renal replacement therapy at this time. We will check labs today. 2. Metabolic acidosis associated with renal failure. 3. Anemia multifactorial including underlying malignancies as well as renal failure. 4. Metastatic colorectal cancer with liver metastasis and skeletal METS. 5. Mild hyperkalemia. 6. Gram-negative bacteremia maintained on ceftriaxone. PLAN: Continue with IV fluids. Continue with oral sodium bicarb. Check labs today. No plans for renal replacement therapy. Monitor urine output from both nephrostomy tubes and Patel catheter. MMODL / IJN: [id number] /
--- NOTE | 2021-01-16 14:25 | PN ---
PROGRESS NOTE DATE OF SERVICE: 01/16/2021 REASON FOR FOLLOWUP: Klebsiella bacteremia secondary to complicated UTI. INTERVAL HISTORY: Patient is afebrile. The patient is status post right-sided nephrostomy tube placement. Patient tolerated the procedure. She is more awake, alert, and would like to eat. No chest pain, shortness of breath or cough. No vomiting or diarrhea reported. PHYSICAL EXAMINATION: Blood pressure 101/67, pulse of 105. Temperature is 97.9. She is 99% on 4 L nasal cannula. General description is a middle-aged female lying in bed in no distress. Respiratory system: Unlabored breathing, decreased breath sounds in the bases. No wheeze. Heart S1, S2. Regular rate and rhythm. Abdomen soft, no tenderness. LABS: Hemoglobin is 8.1, white count 17.2. DIAGNOSTIC IMPRESSION AND PLAN: Patient with Klebsiella bacteremia secondary to complicated urinary tract infection in this patient currently covered with Rocephin 2 grams daily. The patient is status post nephrostomy tube on the right side. White count slightly elevated. However, repeat culture has been negative. Continue to monitor the patient closely. Continue supportive care. MMODL / IJN: [id number] /
--- NOTE | 2021-01-16 14:47 | P.PN ---
Subjective Patient is doing about the same compared to yesterday. Her daughter and at bedside. Objective - Vital Signs Vital signs: Vital Signs Temp 98.1 F 01/16/21 12:05 Pulse 104 H 01/16/21 13:05 Resp 16 01/16/21 13:05 BP 97/65 01/16/21 13:05 Pulse Ox 99 01/16/21 13:05 Intake & Output 01/15/21 01/16/21 01/16/21 18:59 06:59 18:59 Intake Total 0 345 Output Total 475 150 Balance 0 -475 195 Weight 58 kg Intake: IV 100 Intake, IV Titration 125 Amount Sodium Chloride 0.9% 1, 75 000 ml @ 75 mls/hr IV . [id number] [facility] Rx#:[id number] cefTRIAXone 2 gm In 50 Sodium Chloride 0.9% 50 ml @ 100 mls/hr IVPB Q24HR [facility] Rx#:[id number] Oral 0 120 Output: Drainage 280 150 Left Lower Posterior Back 280 Right Lower Posterior 150 Back Urine 195 Other: Voiding Method Indwelling Catheter Indwelling Catheter - Exam General: The patient is awake and alert, in no distress Eye: there is normal conjunctiva bilaterally. Neck: The neck is supple, there is no JVD. Cardiovascular: Normal S1-S2, no S3-S4, no murmurs. Respiratory: Lungs clear to auscultation bilaterally Gastrointestinal: Abdomen is distended with evidence of large ascites Musculoskeletal: There is no pedal edema. Neurological:. Speech is normal. Skin: Skin is warm and dry - Labs CBC & Chem 7: 01/16/21 11:30 01/16/21 11:30 Labs: Abnormal Lab Results - Last 24 Hours (Table) 01/16/21 01/16/21 Range/Units 11:30 11:30 WBC 17.2 H (3.8-10.6) k/uL RBC 2.79 L (3.80-5.40) m/uL Hgb 8.2 L (11.4-16.0) gm/dL Hct 27.2 L (34.0-46.0) % MCHC 30.2 L (31.0-37.0) g/dL RDW 16.5 H (11.5-15.5) % Neutrophils # 15.9 H (1.3-7.7) k/uL Lymphocytes # 0.7 L (1.0-4.8) k/uL Sodium 134 L (137-145) mmol/L Potassium 5.2 H (3.5-5.1) mmol/L Carbon Dioxide 17 L (22-30) mmol/L BUN 84 H (7-17) mg/dL Creatinine 3.93 H (0.52-1.04) mg/dL Glucose 114 H (74-99) mg/dL Calcium 8.0 L (8.4-10.2) mg/dL Microbiology - Last 24 Hours (Table) 01/15/21 08:25 Blood Culture - Preliminary Blood No Growth after 24 hours Assessment and Plan Assessment: Patient is a 60 yo CF with a hx of stage IV colon cancer s/p multiple chemo regiments with liver pump in place, nephrostomy tube X 3 years, Colectomy with colostomy who presetned due to lethargy, poor appetite, and weight loss. Patient underwent an extensive evaluation in emergency department. She was found to have a urinary tract infection with sepsis, hemoglobin 10.1, platelets 435, sodium 127, potassium 6.1, BUN 31, creatinine 3.4, and lactic acid 2. She was started on IV fluids and antibiotics. She underwent a renal ultrasound which showed atrophic left kidney with right-sided hydronephrosis and right sided atrophy along with abdominal ascites. Bilateral lower extremity venous Dopplers were negative. She was found have a gram-positive bacilli bacteremia. Infectious disease was consulted. Nephrology was consulted for her hyperkalemia. Nose it is of her medical problems at this hospitalization UTI with sepsis complicated by nephrostomy tube Cleocin and pneumonia bacteremia -Continue with antibiotics as directed by infectious disease -Status post right nephrostomy tube placement and left nephrostomy tube exchange today Large ascites -Status post 1.8 L of fluid removed on Friday PRAMOD with hyperkalemia and metabolic acidosis Hypocalcemia - Nephro consulted - Received aggressive IV fluid hydration - Right and left sided hydro on US - Hold lisinopril Metastatic colon ca - hospice meeting done with plan to transition to hospice sometime next week - Consult pain management to see if can turn down liver pump (suggestion from oncology team at [facility]) -Patient and her family would like to treat underlying infection and do paracentesis prior to transitioning to hospice HX of PE - eliquis DM 2 Chronic: Hypertension GERD COPD without exacerbation Glaucoma Today, I had a prolonged discussion with her daughter and her . They appear to be confused on goals of care. They told me that they would like to take patient home to make her comfortable but without hospice. They did not have a plan whether they want to bring her back to the emergency room if she deteriorates at home. He had multiple meetings with the hospice nurse and with me throughout the weekend but appears to be undecided on how to proceed.
[2021-01-16] MEDS: HYDROcodone/APAP 10-325MG 1 EACH TAB PO PRN ×2 (16:46→22:09)
--- NOTE | 2021-01-16 17:15 | P.PN ---
Subjective No acute overnight, underwent right PCN placement, left PCN exchange today. Urine is clear from bilateral PCN Objective - Vital Signs Vital signs: Vital Signs Temp 98.1 F 01/16/21 12:05 Pulse 109 H 01/16/21 16:00 Resp 18 01/16/21 14:05 BP 97/65 01/16/21 16:00 Pulse Ox 98 01/16/21 16:00 Intake & Output 01/15/21 01/16/21 01/16/21 18:59 06:59 18:59 Intake Total 0 395 Output Total 475 305 Balance 0 -475 90 Weight 58 kg Intake: IV 100 Intake, IV Titration 125 Amount Sodium Chloride 0.9% 1, 75 000 ml @ 75 mls/hr IV . [id number] [facility] Rx#:[id number] cefTRIAXone 2 gm In 50 Sodium Chloride 0.9% 50 ml @ 100 mls/hr IVPB Q24HR [facility] Rx#:[id number] Oral 0 170 Output: Drainage 280 305 Left Lower Posterior Back 280 40 Right Lower Posterior 265 Back Urine 195 Other: Voiding Method Indwelling Catheter Indwelling Catheter - Constitutional General appearance: Present: no acute distress - Genitourinary Genitourinary Comment(s): Bilateral nephrostomy tubes in place with clear yellow urine - Labs CBC & Chem 7: 01/16/21 11:30 01/16/21 11:30 Labs: Abnormal Lab Results - Last 24 Hours (Table) 01/16/21 01/16/21 Range/Units 11:30 11:30 WBC 17.2 H (3.8-10.6) k/uL RBC 2.79 L (3.80-5.40) m/uL Hgb 8.2 L (11.4-16.0) gm/dL Hct 27.2 L (34.0-46.0) % MCHC 30.2 L (31.0-37.0) g/dL RDW 16.5 H (11.5-15.5) % Neutrophils # 15.9 H (1.3-7.7) k/uL Lymphocytes # 0.7 L (1.0-4.8) k/uL Sodium 134 L (137-145) mmol/L Potassium 5.2 H (3.5-5.1) mmol/L Carbon Dioxide 17 L (22-30) mmol/L BUN 84 H (7-17) mg/dL Creatinine 3.93 H (0.52-1.04) mg/dL Glucose 114 H (74-99) mg/dL Calcium 8.0 L (8.4-10.2) mg/dL Microbiology - Last 24 Hours (Table) 01/15/21 08:25 Blood Culture - Preliminary Blood No Growth after 24 hours Assessment and Plan Assessment: 60 female with hydronephriosis secondary to metastatic colon ca to the liver and retroperitoneum. She has a chronic left nephrostomy tube, admitted with let daron, wt loss, PRAMOD. Ultrasound shows right hydronephrosis, worsening renal function. Initially patient declined any intervention for rt hydro and wanted to proceed with hospice, but family want to proceed with right PCN placement now. Underwent right PCN placement, left PCN exchange today -Continue trending creatinine -Patel can be removed from urology standpoint
[2021-01-16] MEDS: MORPHINE SULFATE IR 15 MG TABLET PO PRN (17:46)
[2021-01-16] MEDS: APIXABAN 5 MG TAB PO SCH (22:08)
[2021-01-16] MEDS: LATANOPROST 0.005% OPHTH DROPS 2.5 ML BTL BOTH EYES SCH (22:11)
[2021-01-17] MEDS: SODIUM CHLORIDE 0.9% 1,000 ML IV SCH (02:35)
[2021-01-17] MEDS: MORPHINE SULFATE IR 15 MG TABLET PO PRN ×2 (06:52→12:20)
[2021-01-17 08:36] LABS: Anisocytosis Slight; Basophils % (A) 0 %; Eosinophils % (A) 0 %; HCT 27.3 % (34.0-46.0); HGB 8.3 gm/dL (11.4-16.0); Hypochromasia Moderate; Lymphocytes # (A) 1.1 k/uL (1.0-4.8); Lymphocytes % (A) 6 %; MCH 29.4 pg (25.0-35.0); MCHC 30.2 g/dL (31.0-37.0); MCV 97.3 fL (80.0-100.0); Mean Platelet Volume 7.7; Monocytes # (A) 0.6 k/uL (0-1.0); Monocytes % (A) 3 %; Neutrophils # (A) 17.2 k/uL (1.3-7.7); Neutrophils % (A) 90 %; Platelet Count 343 k/uL (150-450); RBC 2.81 m/uL (3.80-5.40); RDW 16.5 % (11.5-15.5); WBC 19.2 k/uL (3.8-10.6)
[2021-01-17] MEDS: SODIUM BICARBONATE TAB 650 MG TAB PO SCH ×4 (09:08→21:41)
[2021-01-17] MEDS: APIXABAN 5 MG TAB PO SCH ×2 (09:09→21:41)
[2021-01-17] MEDS: METOPROLOL SUCCINATE (ER) 50 MG TAB.ER.24H PO SCH (09:09)
[2021-01-17] MEDS: LORATADINE 10 MG TAB PO SCH (09:09)
[2021-01-17] MEDS: PANTOPRAZOLE 40 MG TABLET PO SCH (09:09)
--- NOTE | 2021-01-17 09:13 | P.PN ---
Subjective No acute overnight, underwent right PCN placement, left PCN exchange yesterday. Urine is clear from bilateral PCN Objective - Vital Signs Vital signs: Vital Signs Temp 97.8 F 01/17/21 07:47 Pulse 95 01/17/21 07:47 Resp 16 01/17/21 07:47 BP 108/72 01/17/21 07:47 Pulse Ox 98 01/17/21 07:47 Intake & Output 01/16/21 01/17/21 01/17/21 18:59 06:59 18:59 Intake Total 395 250 Output Total 305 325 Balance 90 -75 Weight 60.2 kg Intake: IV 100 250 Sodium Chloride 0.9% 1, 250 000 ml @ 75 mls/hr IV . [id number] [facility] Rx#:[id number] Intake, IV Titration 125 Amount Sodium Chloride 0.9% 1, 75 000 ml @ 75 mls/hr IV . [id number] [facility] Rx#:[id number] cefTRIAXone 2 gm In 50 Sodium Chloride 0.9% 50 ml @ 100 mls/hr IVPB Q24HR [facility] Rx#:[id number] Oral 170 Output: Drainage 305 325 Left Lower Posterior Back 40 50 Right Lower Posterior 265 275 Back Other: Voiding Method Indwelling Catheter Indwelling Catheter Indwelling Catheter - Constitutional General appearance: Present: no acute distress - Gastrointestinal General gastrointestinal: Present: soft. Absent: distended - Genitourinary Genitourinary Comment(s): Bilateral PCN with clear yellow urine - Labs CBC & Chem 7: 01/17/21 08:12 01/16/21 11:30 Labs: Abnormal Lab Results - Last 24 Hours (Table) 01/16/21 01/16/21 01/17/21 Range/Units 11:30 11:30 08:12 WBC 17.2 H 19.2 H (3.8-10.6) k/uL RBC 2.79 L 2.81 L (3.80-5.40) m/uL Hgb 8.2 L 8.3 L (11.4-16.0) gm/dL Hct 27.2 L 27.3 L (34.0-46.0) % MCHC 30.2 L 30.2 L (31.0-37.0) g/dL RDW 16.5 H 16.5 H (11.5-15.5) % Neutrophils # 15.9 H 17.2 H (1.3-7.7) k/uL Lymphocytes # 0.7 L (1.0-4.8) k/uL Sodium 134 L (137-145) mmol/L Potassium 5.2 H (3.5-5.1) mmol/L Carbon Dioxide 17 L (22-30) mmol/L BUN 84 H (7-17) mg/dL Creatinine 3.93 H (0.52-1.04) mg/dL Glucose 114 H (74-99) mg/dL Calcium 8.0 L (8.4-10.2) mg/dL Microbiology - Last 24 Hours (Table) 01/15/21 08:25 Blood Culture - Preliminary Blood No Growth after 24 hours Assessment and Plan Assessment: 60 female with hydronephriosis secondary to metastatic colon ca to the liver and retroperitoneum. She has a chronic left nephrostomy tube, admitted with lethargy, wt loss, PRAMOD. Ultrasound shows right hydronephrosis, worsening renal function. Underwent right PCN placement, left PCN exchange on 01/16 -Continue trending creatinine -Patel can be removed from urology standpoint
[2021-01-17 09:42] LABS: Potassium 4.8 mmol/L (3.5-5.1)
[2021-01-17] MEDS: SODIUM CHLORIDE 0.45% 1,000 ML IV SCH (10:30)
--- NOTE | 2021-01-17 11:44 | PN ---
PROGRESS NOTE Patient is seen for followup for acute kidney injury, mostly obstructive uropathy, status post right nephrostomy tube placement yesterday. Renal function has improved slightly with creatinine down to 3.69 from 3.9. On examination today, blood pressure was 108/72, heart rate 95 per minute. Patient is afebrile. EXAMINATION OF THE HEART: S1 and S2. EXAMINATION OF LUNGS: Decreased breath sounds at the bases. Abdomen is soft, distended with ascites. Non-tender. Examination of lower extremities shows edema 2+ bilaterally. SENIOR SEARCH MARKETING ANALYST EXAM: Grossly intact. Labs show sodium 136, potassium 4.8, chloride 105. CO2 is 18, BUN 81, creatinine 3.69, hemoglobin 8.3. ASSESSMENT: 1. Acute kidney injury, obstructive uropathy as well as component of acute tubular necrosis, status post bilateral nephrostomy tubes, with some improvement in creatinine this morning. No plans for dialysis at this point. 2. Metabolic acidosis associated with renal failure. Continue with the sodium bicarb. The dose will be increased. 3. Gram-negative bacteremia. Blood culture grew Klebsiella pneumoniae. Patient is maintained on antibiotics. 4. Metastatic colon cancer with liver and skeletal metastases. PLAN: Continue with the sodium chloride tabs. Discontinue IV fluids. Continue antibiotics. Overall prognosis is guarded. No plans for renal replacement therapy. MMODL / IJN: [id number] /
[2021-01-17] MEDS: HYDROcodone/APAP 10-325MG 1 EACH TAB PO PRN ×2 (16:47→22:07)
--- NOTE | 2021-01-17 17:20 | PN ---
PROGRESS NOTE DATE OF SERVICE: 01/17/2021 REASON FOR FOLLOWUP: Klebsiella bacteremia secondary to complicated UTI. INTERVAL HISTORY: Patient is afebrile. The patient is breathing comfortably, slightly more awake and alert. Denies any chest pain or cough. No vomiting or diarrhea or any other changes reported by the nursing staff. PHYSICAL EXAMINATION: Blood pressure is 92/61, pulse 94, temperature is 97.8. She is 95% on room air. General description is a middle-aged female lying in bed in no distress. Respiratory system: Unlabored breathing, clear to auscultation anteriorly. Heart S1, S2. Regular rate and rhythm. Abdomen: Soft. No tenderness. LABS: Hemoglobin 8.8, white count 19.2, creatinine 3.69. DIAGNOSTIC IMPRESSION AND PLAN: Patient with Klebsiella bacteremia secondary to complicated urinary tract infection in this patient who did have underlying metastatic cancer underlying abdomen source not entirely excluded. We will add Flagyl and see response to the while monitoring clinical course closely. Continue supportive care. Cultures will be repeated including blood, urine. Continue supportive care. MMODL / IJN: [id number] /
--- NOTE | 2021-01-17 20:41 | P.PN ---
Subjective Progress Note Date: 01/17/21 (javier charting seen at 10am) Principal diagnosis: altered mentation Patient is a 60 yo CF with a hx of stage IV colon cancer s/p multiple chemo regiments with liver pump in place, nephrostomy tube X 3 years, Colectomy with colostomy who presetned due to lethargy, poor appetite, and weight loss. Patient underwent an extensive evaluation in emergency department. She was found to have a urinary tract infection with sepsis, hemoglobin 10.1, platelets 435, sodium 127, potassium 6.1, BUN 31, creatinine 3.4, and lactic acid 2. She was started on IV fluids and antibiotics. She underwent a renal ultrasound which showed atrophic left kidney with right-sided hydronephrosis and right sided atrophy along with abdominal ascites. Bilateral lower extremity venous Dopplers were negative. She was found have a gram-positive bacilli bacteremia. Infectious disease was consulted. Nephrology was consulted for her hyperkalemia. Urology consulted due to hydronephrosis on renal ultrasound had nephrostomy tube chaged on left and inserted on right on 01/16. Bacteremic came back with klebsiella and ID recommends 2 weeks of IV abx. She underwent paracentesis on 01/15 with removal of fluid. Renal function imrpoved slightly after insertion of nephrostomy tubes. He WBC was increasing. Patient seen and examined at bedside. She is lethargic but opens her eyes to touch. Daughter is present. She states that her mother was due to start a chemotherapeutic trial at [facility] in 2 weeks however she has gotten significantly worse. She states that her last CAT scan showed increasing size of the metastatic disease as well as primary tumors. Daughter states goal would be to take her home after being treated from her urinary tract infection and likely convert to hospice. She states she is behind for having her urostomy changed out as well as having her liver pump refilled with heparin. General: Ill-appearing, cachectic, temporal and buccal wasting, appears older than stated age Derm: warm, dry Head: atraumatic, normocephalic, symmetric Eyes: EOMI, no lid lag, anicteric sclera Mouth: no lip lesion, mucous membranes dry Cardiovascular: S1S2 reg, no murmur, positive posterior tibial pulse bilateral, Lungs: Decreased breath sounds bilateral with poor inspiratory effort, no rhonchi, no rales , no accessory muscle use Abdominal: soft, nontender to palpation, no guarding, no appreciable organomegaly, urostomy bag in place with yellow urine, malodorous, colostomy in place Ext: no gross muscle atrophy, no edema, no contractures Neuro: CN II-XI grossly intact, no focal neuro deficits Psych: Lethargic, opens eyes to touch, does not verbalize at this time UTI with sepsis complicated by nephrostomy tube Klebsiellai bacteremia - rocephin and flagyl per ID - left nephrostomy tube changed leukocytosis increasing - ? due to nephrostomy change - monitor for fever - repeat in AM, if increasing check CXR, repeat BC PRAMOD with hyperkalemia and metabolic acidosis - Nephro recs appreaicted - oral bicarb - Right and left sided hydro on US, had nephrostomy tube chaged on left and inserted on right on 01/16 - Hold lisinopril - avoid nephrotoxic agents - follow renal function Metastatic colon ca -Liver heparin pump turned down HX of PE - eliquis DM 2 - diet controlled - follow on morning labs Chronic: Hypertension GERD COPD without exacerbation Glaucoma Poor overall prognosis, likely best served by hospice at this time. DVT prophylaxis: eliquis Discussed with: daughter, nursing Anticipated discharge: undetermined Anticipated discharge place: home A total of 35 minutes was spent on the care of this complex patient more than 50% of the time was spent in counseling and care coordination. Objective - Vital Signs Vital signs: Vital Signs Temp 97.7 F 01/17/21 20:00 Pulse 94 01/17/21 20:00 Resp 14 01/17/21 20:00 BP 94/58 01/17/21 20:00 Pulse Ox 93 L 01/17/21 20:00 Intake & Output 01/17/21 01/17/21 01/18/21 06:59 18:59 06:59 Intake Total 250 140 Output Total 325 40 Balance -75 100 Weight 60.2 kg Intake: IV 250 Sodium Chloride 0.9% 1, 250 000 ml @ 75 mls/hr IV . [id number] [facility] Rx#:[id number] Oral 140 Output: Drainage 325 40 Left Lower Posterior Back 50 Right Lower Posterior 275 40 Back Other: Voiding Method Indwelling Catheter Indwelling Catheter # Bowel Movements 1 - Labs CBC & Chem 7: 01/17/21 08:12 01/17/21 08:12 Labs: Abnormal Lab Results - Last 24 Hours (Table) 01/17/21 01/17/21 Range/Units 08:12 08:12 WBC 19.2 H (3.8-10.6) k/uL RBC 2.81 L (3.80-5.40) m/uL Hgb 8.3 L (11.4-16.0) gm/dL Hct 27.3 L (34.0-46.0) % MCHC 30.2 L (31.0-37.0) g/dL RDW 16.5 H (11.5-15.5) % Neutrophils # 17.2 H (1.3-7.7) k/uL Sodium 136 L (137-145) mmol/L Carbon Dioxide 18 L (22-30) mmol/L BUN 81 H (7-17) mg/dL Creatinine 3.69 H (0.52-1.04) mg/dL Glucose 104 H (74-99) mg/dL Calcium 8.0 L (8.4-10.2) mg/dL Microbiology - Last 24 Hours (Table) 01/15/21 08:25 Blood Culture - Preliminary Blood No Growth after 48 hours
[2021-01-17] MEDS: metroNIDAZOLE 500 MG TAB PO SCH (21:41)
[2021-01-17] MEDS: LATANOPROST 0.005% OPHTH DROPS 2.5 ML BTL BOTH EYES SCH (21:42)
[2021-01-18 02:48] LABS: Appearance,Urine Turbid (Clear); Bacteria,Urine Rare /hpf; Bilirubin,Urine Negative (Negative); Blood,Urine Large (Negative); Color,Urine Light Red; Glucose,Urine (UA) Negative (Negative); Ketones,Urine Trace (Negative); Leukocyte Esterase,Urine Moderate (Negative); Nitrite,Urine Negative (Negative); PH, Urine 5.5 (5.0-8.0); Protein,Urine 2+ (Negative); RBC,Urine >182 /hpf (0-5); Specific Gravity,Urine 1.018 (1.001-1.035); Urobilinogen,Urine <2.0 mg/dL (<2.0); WBC,Urine 89 /hpf (0-5)
[2021-01-18] MEDS: SODIUM CHLORIDE 0.45% 1,000 ML IV SCH (06:33)
[2021-01-18] MEDS ORDERED: ALTEPLASE 2 MG VIAL (CATHFLO) IV STA (08:30)
[2021-01-18] MEDS: APIXABAN 5 MG TAB PO SCH (09:00)
[2021-01-18] MEDS ORDERED: FUROSEMIDE 10 MG/ML 4 ML VIAL IV STA (09:31)
[2021-01-18] MEDS: METOPROLOL SUCCINATE (ER) 50 MG TAB.ER.24H PO SCH (10:48)
[2021-01-18] MEDS: PANTOPRAZOLE 40 MG TABLET PO SCH (10:48)
[2021-01-18] MEDS: metroNIDAZOLE 500 MG TAB PO SCH ×3 (10:48→16:57)
[2021-01-18] MEDS: SODIUM BICARBONATE TAB 650 MG TAB PO SCH ×4 (10:48→17:00)
[2021-01-18] MEDS: LORATADINE 10 MG TAB PO SCH (10:48)
[2021-01-18] MEDS: HYDROcodone/APAP 10-325MG 1 EACH TAB PO PRN (10:51)
[2021-01-18 10:54] VITALS: RESP 16
[2021-01-18 11:03] VITALS: BP 97/67; TEMP 97.6
[2021-01-18 11:14] LABS: Albumin 2.3 g/dL (3.5-5.0); Calcium 7.8 mg/dL (8.4-10.2); Magnesium 2.1 mg/dL (1.6-2.3); Phosphorus 8.3 mg/dL (2.5-4.5); Potassium 4.9 mmol/L (3.5-5.1); Total Bilirubin 0.9 mg/dL (0.2-1.3); Total Protein 5.9 g/dL (6.3-8.2)
[2021-01-18 11:30] LABS: Anisocytosis Slight; HGB 8.1 gm/dL (11.4-16.0); Hypochromasia Slight; MCH 30.1 pg (25.0-35.0); MCHC 31.2 g/dL (31.0-37.0); MCV 96.5 fL (80.0-100.0); Platelet Count 356 k/uL (150-450); RBC 2.69 m/uL (3.80-5.40); RDW 16.8 % (11.5-15.5); WBC 19.8 k/uL (3.8-10.6)
[2021-01-18 11:31] LABS: C Reactive Protein 21.9 mg/dL (<1.0)
--- NOTE | 2021-01-18 12:33 | PN ---
PROGRESS NOTE Patient is seen for followup for acute kidney injury. Creatinine had improved to some degree yesterday; however, output from both nephrostomies is much lower today. Patient has significant ascites. She is maintained on IV fluids at 50 mL/hour. Patient has not been eating much. I have discussed with family previously that there are no plans for renal replacement therapy at this time. On examination today, blood pressure is 97/67, heart rate 97 per minute. Patient is afebrile. EXAMINATION OF THE HEART: S1 and S2. EXAMINATION OF LUNGS: Bilateral breath sounds are heard. Decreased breath sounds at the bases. Abdomen is soft, distended with ascites, non-tender. Examination of lower extremities shows edema 2+ bilaterally. RELATIONS SPECIALIST EXAM: Grossly intact. Labs show sodium 132, potassium 4.9, chloride 102. CO2 is 18, BUN 88, creatinine 3.5, hemoglobin 8.1 g/dL. ASSESSMENT: 1. Acute kidney injury, acute tubular necrosis and obstructive uropathy, status post bilateral nephrostomy tubes. There is some left renal atrophy. Initially patient had fairly good output from the right nephrostomy. However, this has decreased, but serum creatinine has improved from yesterday. I will maintain patient off of IV fluids for now and we will give her one dose of IV Lasix. She can continue with the albumin as well, although I have advised the family that this may not help a lot on a long-term basis. She may need another paracentesis as well. No plans for renal replacement therapy at this time. 2. Metabolic acidosis, maintained on oral sodium bicarb. I will continue with the current dose and not increase it further, given the significant edema. 3. Klebsiella bacteremia. Blood cultures negative since 01/15, maintained on antibiotics. PLAN: Continue sodium bicarb. Discontinue IV fluids. Lasix IV x1. Patient may have albumin. No plans for dialysis. MMODL / IJN: [id number] /
[2021-01-18] MEDS: ALBUMIN HUMAN 25% 50 ML in EMPTY BAG 1 BAG IVPB SCH ×2 (12:45→14:19)
--- NOTE | 2021-01-18 13:21 | CDI ---
Documentation Clarification Form Date: 01/18/2021 12:41:46 PM From: Lin Lindsay RN CCDS Admit Date: 01/11/2021 05:52:00 PM Patient Name: Roxanne Rondon Visit Number: [id number] Discharge Date: ATTENTION: The Clinical Documentation Specialists (CDI) and [facility] Coding Staff appreciate your assistance in clarifying documentation. Please respond to the clarification below the line at the bottom and electronically sign. The CDI & [facility] Coding staff will review the response and follow-up if needed. Please note: Queries are made part of the Legal Health Record. If you have any questions, please contact the author of this message via ITS. Dr. Aury Dyer UTI with sepsis complicated by nephrostomy tube 01/12 01/17, Medicine progress notes and patient has Left nephrostomy tube. Additional clarification regarding the etiology of the UTI is requested. History/Risk Factors: 60-year-old female presents to the ED due to lethargy, poor appetite and weight loss. Medical history: Stage IV colon cancer with mets to liver and ovary, Multiple chemo therapies, liver pump, left nephrostomy tube x 3 years and a colectomy with colostomy. H&P, 01/11. Clinical Indicators: Urinalysis: 01/11 Urine Blood Large, Leukocyte Esterase Large Wbc >182 Urine culture: 01/11 Klebsiella pneumoniae Lab results: 01/11 Wbc 17.7, Neutrophils 15.4 Treatment: 01/11 Ceftriaxone 1gm IVPB x 1, 01/15 to current Ceftriaxone 2gm IVPB Q24HR, 01/16 Nephrostomy tube exchange. Please clarify the etiology of the UTI, if known: [ X] UTI related to nephrostomy tube [ ] UTI not related to nephrostomy tube [ ] Other condition, please specify [ ] Unable to determine (Template Last Revised: May 2020) MTDD
--- NOTE | 2021-01-18 13:51 | CDI ---
Documentation Clarification Form Date: 01/18/2021 01:22:16 PM From: iLn Lindsay Admit Date: 01/11/2021 05:52:00 PM Patient Name: Roxanne Rondon Visit Number: [id number] Discharge Date: ATTENTION: The Clinical Documentation Specialists (CDI) and [facility] Coding Staff appreciate your assistance in clarifying documentation. Please respond to the clarification below the line at the bottom and electronically sign. The CDI & [facility] Coding staff will review the response and follow-up if needed. Please note: Queries are made part of the Legal Health Record. If you have any questions, please contact the author of this message via ITS. Dr. Aury Dyer Ill appearing, cachectic, temporal and buccal wasting, appears older than stated age. Medicine progress notes 01/12 & 01/17. Additional clarification is requested. History/Risk Factors: 60-year-old female presents to the ED due to lethargy, poor appetite, and weight loss. Medical history: Stage IV colon cancer with mets to liver and ovary, Multiple chemo therapies, liver pump, left nephrostomy tube x 3 years and a colectomy with colostomy. H&P 01/11. Clinical Indicators: H&P, 01/12 poor appetite, and weight loss. Current BMI: 25.9 kg H&P, 01/11. poor appetite and weight loss. states that over the past one week, the patients appetite has decreased significantly and that she has barely eaten or drank anything. Treatment: 01/12 to current Marinol 5m PO AC-BID Labs: 01/11 current Daily Chemistry profile. Is there an additional diagnosis that is clinically appropriate for this patient? [ ] Moderate Protein-Calorie Malnutrition [ X ] Severe Protein-Calorie Malnutrition [ ] Other condition, please specify [ ] Unable to Determine (Template Last Revised: May 2020) MTDD
--- NOTE | 2021-01-18 13:56 | US ---
EXAMINATION TYPE: US abdomen limited DATE OF EXAM: 01/18/2021 COMPARISON: 03/17/2020 CLINICAL HISTORY: ascites, assess for fluid pocket . Abdomen scanned for ascites. Single fluid pocket visualized in LLQ. IMPRESSION: Small amount of ascites
--- NOTE | 2021-01-18 14:02 | CDI ---
Documentation Clarification Form Date: 01/18/2021 01:52:32 PM From: Lin Lindsay RN CCDS Admit Date: 01/11/2021 05:52:00 PM Patient Name: Roxanne Rondon Visit Number: [id number] Discharge Date: ATTENTION: The Clinical Documentation Specialists (CDI) and [facility] Coding Staff appreciate your assistance in clarifying documentation. Please respond to the clarification below the line at the bottom and electronically sign. The CDI & [facility] Coding staff will review the response and follow-up if needed. Please note: Queries are made part of the Legal Health Record. If you have any questions, please contact the author of this message via ITS. Dr. Aury Underwood Coccyx, stage 2 pressure ulcer POA is documented by Nursing in the Pressure Injury assessment, 01/12 to current. Based on this information and the findings below, is there an additional diagnosis that is clinically appropriate for this patient? History/Risk Factors: 60-year-old female presents to the ED due to lethargy, poor appetite, and weight loss. Medical history: Stage IV colon cancer with mets to liver and ovary, Multiple chemo therapies, liver pump, left nephrostomy tube x 3 years and a colectomy with colostomy. Patients appetite has decreased over the past week barely eating or drinking. Admitted with Sepsis H&P 01/11. Clinical Indicators: Location: Coccyx Treatment: 01/12 to current: turn 2QHR, barrier cream applied at each turn and specialty bed. Consults: Is there an additional diagnosis that is clinically appropriate for this patient? [ X ] Coccyx Pressure Ulcer Stage 2 [ ] Other condition, please specify [ ] Unable to determine Clinical Definitions: Stage 1 Pressure Ulcer: intact skin, non-blanching redness of local area Stage 2 Pressure Ulcer: Partial thickness, loss of dermis, pink wound bed Stage 3 Pressure Ulcer: Full thickness tissue loss Stage 4 Pressure Ulcer: Full thickness tissue loss with exposed bone, tendon, or muscle. Unstageable pressure ulcer: Full thickness tissue loss in which the base of the ulcer is covered by slough (yellow, drake, arriaga, green or brown) and/or eschar (drake, brown or black) in the wound bed. (Template Last Revised: May 2020) [facility]
[2021-01-18 15:36] VITALS: PULSE 94
--- NOTE | 2021-01-18 16:39 | PN ---
PROGRESS NOTE DATE OF SERVICE: 01/18/2021 REASON FOR FOLLOWUP: Complicated urinary tract infection with bacteremia. INTERVAL HISTORY: The patient is afebrile. The patient is breathing comfortably. Denies having any chest pain, shortness of breath or cough. Some abdominal distention and discomfort. No vomiting or diarrhea. PHYSICAL EXAMINATION: Blood pressure 97/67 with a pulse of 97, temperature 97.6. She is 96% on room air. General description is a middle-aged female lying in bed in no distress. RESPIRATORY SYSTEM: Unlabored breathing. Clear to auscultation anteriorly. HEART: S1, S2. Regular rate and rhythm. ABDOMEN: Soft. Mildly distended. No guarding or rigidity. LABS: Hemoglobin is 8.8, white count 19.8, creatinine 3.55. Repeat urine is positive. DIAGNOSTIC IMPRESSION AND PLAN: Patient with Klebsiella bacteremia. Concern for possible complicated UTI versus abdominal source. Repeat urine is pending. Blood culture repeat has been negative. Patient on Rocephin and Flagyl. That will be continued while waiting for the culture to finalize. Family at the bedside. Questions were answered. MMODL / IJN: [id number] /
--- NOTE | 2021-01-18 21:14 | P.DS ---
Providers Date of admission: 01/11/21 17:52 Expected date of discharge: 01/18/21 Attending physician: Aury Dyer DO Consults: 01/11/21 17:52 Consult Physician Routine Consulting Provider: Richard Dalton Consult Reason/Comments: rick Do you want consulting provider notified?: Yes 01/12/21 09:05 Consult Physician Urgent Consulting Provider: Dony Naik Consult Reason/Comments: Lt nephrostomy, UTI, fever Do you want consulting provider notified?: Yes 01/12/21 13:14 Consult Physician Routine Consulting Provider: Raúl Bryant Consult Reason/Comments: Gram positive baccilli bacteremia Do you want consulting provider notified?: Yes 01/12/21 14:45 Consult Physician Routine Consulting Provider: Janie Mcmanus Consult Reason/Comments: needs rate on liver pump decreased Do you want consulting provider notified?: Yes Primary care physician: Yordy De Leon MD Hospital Course: Discharge Diagnosis: UTI associated with nephrostomy tube and Klebsiella Bacteremia RICK due to obstruction and dehydration, hyperkalemia bilateral hydronephrosis Malignant Ascities Metabolic acidosis Metastatic colon cancer Hx of Pulmonary embolism DM 2 Hypertension GERD COPD without exacerbation Glaucoma Pressure ulcer stage II coccyx, POA Severe Protin Calorie Malnutrition Hospital Course: Patient is a 60 yo CF with a hx of stage IV colon cancer s/p multiple chemo regiments with liver pump in place, nephrostomy tube X 3 years, Colectomy with colostomy who presetned due to lethargy, poor appetite, and weight loss. Patient underwent an extensive evaluation in emergency department. She was found to have a urinary tract infection with sepsis, hemoglobin 10.1, platelets 435, sodium 127, potassium 6.1, BUN 31, creatinine 3.4, and lactic acid 2. She was started on IV fluids and antibiotics. She underwent a renal ultrasound which showed atrophic left kidney with right-sided hydronephrosis and right sided atrophy along with abdominal ascites. Bilateral lower extremity venous Dopplers were negative. She was found have a gram-positive bacilli bacteremia. Infectious disease was consulted. Nephrology was consulted for her hyperkalemia. Urology consulted due to hydronephrosis on renal ultrasound had nephrostomy tube chaged on left and inserted on right on 01/16. Bacteremic came back with klebsiella and ID recommends 2 weeks of IV abx. She underwent paracentesis on 01/15 with removal of fluid. Renal function imrpoved slightly after insertion of nephrostomy tubes. Her WBC was increasing and flagyl was added by ID. She had worsening distension of her abdomen. Family met with hospice but did not want to sign on to hospice at this time. They did want palliative care and to transition the patient home to be with her family, daughters are aware that she has limited time left. Case Discussed with PCP during hospital and she is willing to follow care. Follow-up: Repeat Para RX written in needed, Roxinol RX as needed at home, [facility] infusion home care, [facility] palliative care, follow-up with tiffany hayden, rocephin via port dialy for 2 weeks and flagyl daily for 2 weeks. Lasix as needed for fluid retention at home. Poor prognosis. Hospital bed due to malignancy with shortness of breath, pain and limited mobility Patient seen and examined at bedside. Opens eyes, states that her pain but it is manageable at this point in time. Patient checked on twice A day, case discussed daughter. Vital signs reviewed and stable. General: Ill appearing, mild distress secondary to pain, appears older than stated age, temporal wasting, buccal wasting Derm: warm, dry Head: atraumatic, normocephalic, symmetric Eyes: EOMI, no lid lag, anicteric sclera Mouth: no lip lesion, mucus membranes dry Cardiovascular: S1S2 reg, no murmur, positive posterior tibial pulse bilateral, Lungs: Decreased breath sounds bilateral, no rhonchi, no rales , no accessory muscle use Abdominal: soft, + tender to palpation diffusely, no guarding, no appreciable organomegaly, distended abdomen Ext: no gross muscle atrophy, no edema, no contractures Neuro: CN II-XI grossly intact, no focal neuro deficits Psych: Awake and alert to self, appropriate affect A total of 120 minutes of time were spent preparing this complex discharge summary . Patient Condition at Discharge: Poor Plan - Discharge Summary Discharge Rx Participant: Yes New Discharge Prescriptions: New RX: cefTRIAXone [Rocephin] 2 gm IM Q24H #14 each RX: metroNIDAZOLE [Flagyl] 500 mg PO TID #42 tab MORPHINE ORAL TIFFANY CONC 20mg/mL [Roxanol Oral Soln Conc 20MG/ML] 20 mg PO Q4HR PRN #20 ml PRN Reason: Pain RX: Sodium Bicarbonate Tab 650 mg PO QID #120 tab Furosemide [Lasix] 40 mg PO BID #60 tablet Continue RX: Metoprolol Succinate (ER) [Toprol XL] 50 mg PO DAILY RX: Latanoprost Ophth [Xalatan 0.005%] 1 drops BOTH EYES HS RX: LORazepam [Ativan] 1 mg PO TID PRN PRN Reason: Nausea RX: Pantoprazole Sodium [Protonix] 40 mg PO DAILY RX: Apixaban [Eliquis] 5 mg PO BID RX: ondansetron HCL [Zofran] 8 mg PO TID PRN PRN Reason: Nausea RX: Metoclopramide [Reglan] 5 mg PO ACHS PRN PRN Reason: Nausea RX: fentaNYL 25MCG/HR PATCH [Duragesic 25MCG/HR] 1 patch TRANSDERM Q72H RX: Morphine Sulfate Ir [MSIR] 15 mg PO Q4H PRN PRN Reason: Pain RX: Loratadine 10 mg PO DAILY RX: HYDROcodone/APAP 10-325MG [[place] 10-325] 1 tab PO Q4HR PRN PRN Reason: Pain RX: dronabinoL [Dronabinol] 5 mg PO AC-BID RX: Atomoxetine HCl [Strattera] 40 mg PO DAILY RX: Albuterol Inhaler [Ventolin Hfa Inhaler] 2 puff INHALATION RT-QID PRN PRN Reason: Shortness Of Breath RX: Regorafenib [Stivarga] 120 mg PO DAILY Discontinued amLODIPine [Norvasc] 10 mg PO DAILY lisinopriL [Zestril] 20 mg PO DAILY Discharge Medication List RX: Metoprolol Succinate (ER) [Toprol XL] 50 mg PO DAILY 05/11/18 [History] RX: LORazepam [Ativan] 1 mg PO TID PRN 05/30/20 [History] RX: Latanoprost Ophth [Xalatan 0.005%] 1 drops BOTH EYES HS 05/30/20 [History] RX: Pantoprazole Sodium [Protonix] 40 mg PO DAILY 05/30/20 [History] RX: Apixaban [Eliquis] 5 mg PO BID 10/18/20 [History] RX: Albuterol Inhaler [Ventolin Hfa Inhaler] 2 puff INHALATION RT-QID PRN 01/11/21 [History] RX: Atomoxetine HCl [Strattera] 40 mg PO DAILY 01/11/21 [History] RX: HYDROcodone/APAP 10-325MG [[place] 10-325] 1 tab PO Q4HR PRN 01/11/21 [History] RX: Loratadine 10 mg PO DAILY 01/11/21 [History] RX: Metoclopramide [Reglan] 5 mg PO ACHS PRN 01/11/21 [History] RX: Regorafenib [Stivarga] 120 mg PO DAILY 01/11/21 [History] RX: dronabinoL [Dronabinol] 5 mg PO AC-BID 01/11/21 [History] RX: fentaNYL 25MCG/HR PATCH [Duragesic 25MCG/HR] 1 patch TRANSDERM Q72H 01/11/21 [History] RX: ondansetron HCL [Zofran] 8 mg PO TID PRN 01/11/21 [History] RX: Morphine Sulfate Ir [MSIR] 15 mg PO Q4H PRN 01/15/21 [History] Furosemide [Lasix] 40 mg PO BID #60 tablet 01/18/21 [Rx] MORPHINE ORAL TIFFANY CONC 20mg/mL [Roxanol Oral Soln Conc 20MG/ML] 20 mg PO Q4HR PRN #20 ml 01/18/21 [Rx] RX: Sodium Bicarbonate Tab 650 mg PO QID #120 tab 01/18/21 [Rx] RX: cefTRIAXone [Rocephin] 2 gm IM Q24H #14 each 01/18/21 [Rx] RX: metroNIDAZOLE [Flagyl] 500 mg PO TID #42 tab 01/18/21 [Rx] Follow up Appointment(s)/Referral(s): Yordy De Leon MD [Primary Care Provider] - 1-2 days [facility], [NON-STAFF] - [facility], [REFERRING] - Nigel Freed [NON-STAFF] - Activity/Diet/Wound Care/Special Instructions: [facility] will deliver antibiotics and supplies between 6pm and 8pm tonight - family notified someone needs to be home for this Abdiaziz Manning has been in contact with family re: equipment delivery. Once bed has been delivered EMS can be called for transport home - [phone] Discharge Disposition: HOME SELF-CARE
== END 2021-01-18 19:50 | disposition home health service (06) | DRG 698 ==
LOC: EC 15:03 → 3SCARD 17:52
PROVIDERS: ADMIT Internal Medicine; ATTEND Internal Medicine
PROC: 0W9G3ZZ Drainage of Peritoneal Cavity, Percutaneous Approach (ICD-10-PCS; principal; 2021-01-15)
PROC: 0T25X0Z Change Drainage Device in Kidney, External Approach (ICD-10-PCS; 2021-01-16 08:00)
DX: T83.512A Infection and inflammatory reaction due to nephrostomy catheter, initial encounter (principal); A41.59 Other Gram-negative sepsis; N17.0 Acute kidney failure with tubular necrosis; E43 Unspecified severe protein-calorie malnutrition; R18.0 Malignant ascites; R64 Cachexia; E87.2 Acidosis; C79.51 Secondary malignant neoplasm of bone; C78.7 Secondary malignant neoplasm of liver and intrahepatic bile duct; C79.60 Secondary malignant neoplasm of unspecified ovary; C78.6 Secondary malignant neoplasm of retroperitoneum and peritoneum; N13.6 Pyonephrosis; E87.1 Hypo-osmolality and hyponatremia; E83.51 Hypocalcemia; L89.152 Pressure ulcer of sacral region, stage 2; R62.7 Adult failure to thrive; Z43.3 Encounter for attention to colostomy; E11.65 Type 2 diabetes mellitus with hyperglycemia; J44.9 Chronic obstructive pulmonary disease, unspecified; Z66 Do not resuscitate; Z20.822 Contact with and (suspected) exposure to COVID-19; I95.9 Hypotension, unspecified; D70.9 Neutropenia, unspecified; D63.0 Anemia in neoplastic disease; E86.0 Dehydration; E86.1 Hypovolemia; E87.5 Hyperkalemia; K21.9 Gastro-esophageal reflux disease without esophagitis; N27.0 Small kidney, unilateral; I10 Essential (primary) hypertension; H40.9 Unspecified glaucoma; I83.90 Asymptomatic varicose veins of unspecified lower extremity; Z68.25 Body mass index [BMI] 25.0-25.9, adult; Z79.01 Long term (current) use of anticoagulants; Z79.891 Long term (current) use of opiate analgesic; Z79.899 Other long term (current) drug therapy; Z91.048 Other nonmedicinal substance allergy status; Z86.711 Personal history of pulmonary embolism; Z90.49 Acquired absence of other specified parts of digestive tract; Z98.891 History of uterine scar from previous surgery; Z85.038 Personal history of other malignant neoplasm of large intestine; Z87.19 Personal history of other diseases of the digestive system; Z87.891 Personal history of nicotine dependence; Z92.21 Personal history of antineoplastic chemotherapy; Z98.890 Other specified postprocedural states; Y84.6 Urinary catheterization as the cause of abnormal reaction of the patient, or of later complication, without mention of misadventure at the time of the procedure; Z80.8 Family history of malignant neoplasm of other organs or systems
CPT/HCPCS: 36415; 49083; 50432; 50435; 74018; 76705; 76770; 80048; 80053; 81001; 82140; 82248; 82330; 83605; 83735; 84100; 84132; 85025; 85027; 85610; 85730; 86140; 87040; 87077; 87086; 87186; 87635; 93005; 93970; 96360; 96361; 99285